=== PATIENT | female | born 1955 | race Caucasian/White ===

== ENCOUNTER 2018-06-11 10:14 | Inpatient (IN) | payer BC, MEDICARE ==
[~2018-06-11] VITALS: Ht 162.6 cm; Wt 63.1 kg
[~2018-06-11 10:14] MED LIST: ASPI-817 PO; ATOR10TA65 PO; DOXY100T21 PO; FER325 PO; HYDR-3601 PO; INSU100V3 IJ; LANT3I SC; NEPA3DRO RIGHT EYE; OFLO5DRO46 RIGHT EYE; PRED5DRO20 RIGHT EYE
[2018-06-11] MEDS ORDERED: ATOR40TA68 PO (11:27)
[2018-06-11] MEDS ORDERED: LISI40TA3 PO ×2 (11:28→21:07)
[2018-06-11] MEDS ORDERED: AMLO-147 PO ×2 (11:28→21:07)
[2018-06-11] MEDS ORDERED: INSU100I33 SC (11:29)
[2018-06-11] MEDS ORDERED: SOD CHLORIDE 0.9% 1,000 ML IV ONE (11:30)
[2018-06-11] MEDS ORDERED: CEFEPIME 1GM/50 ML (PMX) 50 ML IVPB ONE (11:30)
[2018-06-11] MEDS ORDERED: VANCOMYCIN 1 GM (PMX) 250 ML IVPB ONE (11:30)
--- NOTE | 2018-06-11 12:36 | ERD ---
ER Documentation Chief Complaint Chief Complaint right toe pain injury x yesterday HX DM HPI This is a 62-year-old female with a past medical history of hypertension, hyperlipidemia, insulin-dependent diabetes, lost to follow-up over the last 6 months but continuing to take her medications who is presenting with 1-2 days of right great toe swelling, redness and pain after an injury. The patient points to an injury sustained to the bottom part of the foot recently, after which her symptoms started to develop. The patient denies feeling sick recently. The patient denies fever or chills. The patient has had no headache or vision changes. The patient does not endorse neck or back pain. The patient denies lightheadedness or dizziness. The patient has had no chest pain or trouble breathing. The patient denies nausea or vomiting. The patient denies abdominal pain. The patient denies changes to bowel movements or urination. The patient has had no focal deficits. The patient has had no weakness or numbness or tingling to the face or extremities. ROS All systems reviewed and are negative except as per history of present illness. Medications Home Meds Reported Medications Insulin Glargine,Hum.rec.anlog (Basaglar Kwikpen U-100) 100 Unit/1 Ml Insuln.pen, 30 UNIT SC QHS, EA 06/11/18 Lisinopril* (Lisinopril*) 40 Mg Tablet, 40 MG PO DAILY, #30 TAB 06/11/18 Amlodipine Besylate* (Amlodipine Besylate*) 10 Mg Tablet, 10 MG PO DAILY, #30 TAB 06/11/18 Atorvastatin* (Atorvastatin*) 40 Mg Tablet, 40 MG PO QHS, #30 TAB 06/11/18 Discontinued Reported Medications Nepafenac* (Nevanac* 0.1%) 3 Ml Drops.susp, 1 DROP RIGHT EYE DAILY, EA 03/20/16 Ofloxacin* (Ocuflox*) 0.3%-5 Ml Ophth Drops, 1 DROP RIGHT EYE QID, BOTTLE 03/20/16 Prednisolone Acetate* (Pred Forte*) 5 Ml Susp, 1 DROP RIGHT EYE QID, EA 03/20/16 Insulin Regular, Human (Humulin R) 100 Unit/1 Ml Vial, 5 UNIT IJ DAILY, VIAL 03/20/16 Ferrous Sulfate* (Ferrous Sulfate*) 325 Mg Tabec, 325 MG PO BID, TAB 03/20/16 Discontinued Scripts Insulin Glargine* (Lantus*) 100 Unit/Ml Soln, 15 UNIT SC QHS for 30 Days Prov:FRAN GUTHRIE 03/25/16 Hydrocodone Bit-Acetaminophen (Hydrocodone Bit-APAP) 5-325MG Tablet, 1 TAB PO Q4H PRN for PAIN LEVEL 6-10, #20 TAB Prov:FRAN GUTHRIE 03/25/16 Atorvastatin (Atorvastatin) 10 Mg Tablet, 10 MG PO DAILY@21 for 30 Days, TAB Prov:FARN GUTHRIE 03/25/16 Aspirin* (Aspirin* EC) 81 Mg Tablet.dr, 81 MG PO DAILY for 30 Days Prov:FRAN GUTHRIE 03/25/16 Doxycycline Monohydrate* (Doxycycline Monohydrate*) 100 Mg Tablet, 100 MG PO BID for 7 Days, TAB Prov:FRAN GUTHRIE 03/25/16 Allergies Allergies: Coded Allergies: No Known Allergy (Unverified , 06/11/18) PMhx/Soc History of Surgery: Yes (RIGHT EYE CATARACT) Anesthesia Reaction: No Hx Neurological Disorder: No Hx Respiratory Disorders: Yes Hx Cardiac Disorders: Yes (HTN, HLD, DM) Hx Psychiatric Problems: No Hx Miscellaneous Medical Probl: No (HIGH CHOLESTEROL, ANEMIA) Hx Alcohol Use: No Hx Substance Use: No Hx Tobacco Use: No Smoking Status: Never smoker FmHx Family History: diabetes Physical Exam Vitals Vital Signs Date Temp Pulse Resp B/P (MAP) Pulse Ox O2 O2 Flow FiO2 Time Delivery Rate 06/11/18 98.4 108 20 184/75 99 Room Air 12:29 (111) 06/11/18 98.9 102 18 219/90 99 10:20 (133) Physical Exam Const: No apparent distress, well-developed, well-nourished Head: Normocephalic, Atraumatic Eyes: Normal Conjunctiva. Extraocular movements intact. Pupils equal, round and reactive to light ENT: Normal External Ears, Nose and Mouth. Neck: Full range of motion. No meningismus. Resp: Clear to auscultation bilaterally, No wheezes, rales or rhonchi Cardio: Regular rate and rhythm. No murmurs, rubs or gallops Abd: Soft, non tender, non distended. Normal bowel sounds Skin: No petechiae or rashes Back: No midline tenderness. No CVA tenderness Ext: No cyanosis. Right foot: Right great toe edema, erythema and fluctuance to the pulp with an excoriated lesion to the plantar aspect of the toe. Neur: Awake and alert, oriented 4. Cranial nerves intact. No facial droop. Normal strength, sensation and coordination. Psych: Normal Mood and Affect Result Diagram: 06/11/18 1234 06/11/18 1234 Results 24 hrs Laboratory Tests Test 06/11/18 12:34 White Blood Count 10.2 10^3/ul Red Blood Count 2.59 10^6/ul Hemoglobin 8.3 g/dl Hematocrit 25.7 % Mean Corpuscular Volume 99.2 fl Mean Corpuscular Hemoglobin 32.0 pg Mean Corpuscular Hemoglobin Concent 32.3 g/dl Red Cell Distribution Width 13.0 % Platelet Count 175 10^3/UL Mean Platelet Volume 11.0 fl Immature Granulocytes % 0.300 % Neutrophils % 82.3 % Lymphocytes % 7.7 % Monocytes % 7.1 % Eosinophils % 2.4 % Basophils % 0.2 % Nucleated Red Blood Cells % 0.0 /100WBC Immature Granulocytes # 0.030 10^3/ul Neutrophils # 8.4 10^3/ul Lymphocytes # 0.8 10^3/ul Monocytes # 0.7 10^3/ul Eosinophils # 0.2 10^3/ul Basophils # 0.0 10^3/ul Nucleated Red Blood Cells # 0.0 10^3/ul Prothrombin Time 13.2 Sec Prothrombin Time Ratio 1.0 INR International Normalized Ratio 0.99 Activated Partial Thromboplast Time 30.0 Sec Sodium Level 141 mmol/L Potassium Level 4.8 mmol/L Chloride Level 116 mmol/L Carbon Dioxide Level 15 mmol/L Anion Gap 10 Blood Urea Nitrogen 46 mg/dl Creatinine 2.63 mg/dl Est Glomerular Filtrat Rate mL/min 18 mL/min Glucose Level 133 mg/dl Calcium Level 8.7 mg/dl C-Reactive Protein 4.5 mg/dl Current Medications Medications Dose Sig/Mary Start Time Status Last (Trade) Ordered Route PRN Stop Time Admin Dose Reason Admin Sodium 1,000 ml @ Q1H ONCE 06/11/18 DC 06/11/18 Chloride 1,000 mls/hr IV 11:30 06/11/18 11:54 12:29 Vancomycin 250 ml @ ONCE ONCE 06/11/18 DC 06/11/18 HCl 125 mls/hr IVPB 11:30 06/11/18 12:29 13:29 Cefepime HCl 50 ml @ ONCE ONCE 06/11/18 DC 06/11/18 100 mls/hr IVPB 11:30 06/11/18 11:54 11:59 Ketorolac 15 mg ONCE STAT 06/11/18 DC 06/11/18 Tromethamine IV 12:52 06/11/18 13:05 (Toradol) 12:54 Ondansetron 4 mg ER BRIDGE 06/11/18 HCl (Zofran PRN IV 13:00 Inj) NAUSEA/VOMITI 06/12/18 12:59 NG 650 mg ER BRIDGE 06/11/18 Acetaminophen PRN PO 13:00 (Tylenol .MILD PAIN 06/12/18 12:59 Tab) 1-3 OR TEMP Procedures/MDM MDM The patient's presentation warrants further investigation. Previous medical records, if available, were reviewed. LABS The patient's laboratory testing was obtained and reviewed. No emergent treatment was required unless described below. CBC: No E/o of systemic infection or thrombocytopenia. Chronic normocytic anemia, not emergent. CMP: No E/o severe acidosis or alkalosis or diabetic ketoacidosis. CRISTINE on CKD with a metabolic alkalosis of unclear etiology. PT/INR: No E/o significant coagulopathy ESR/CRP: Elevated EKG EKG read by me: Rate/Rhythm: Sinus tachycardia at 105 bpm. Intervals: Normal [place]: Normal Impression: No evidence of acute ischemia or arrhythmia IMAGING Imaging and Radiology interpretation reviewed. X-ray right foot FINDINGS: Mild osteopenia. No displaced fracture. Soft tissue swelling and irregularity in the distal first digit. Faint contour irregularity of the distal first phalanx. No focal osteopenia or cortical disruption identified. Sclerosis and narrowing of the lateral aspect of the navicular bone with marginal osteophyte formation and talonavicular moderate cartilage space narrowing. Small calcaneal spur at the origin of the plantar fascia and small calcaneal enthesophyte at the insertion of Achilles tendon. IMPRESSION: 1. Soft tissue swelling and soft tissue irregularity of the distal first digit. 2. No focal cortical disruption or osteopenia in the first distal phalanx. Minimal contour irregularity of the distal first phalanx may be chronic. Recommend MRI for further evaluation if there is concern for osteomyelitis. 3. 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 Electronically viewed and signed by Loy Cespedes Physician on 06/11/2018 11:59 TREATMENT/DISPOSITION The patient presents with a left great toe infection, likely related to a diabetic wound. There is no obvious evidence of osteomyelitis on the x-ray, but I do still have suspicion for this. The patient was given IV fluids, vancomycin and cefepime in the emergency department. The patient was mildly tachycardic when she first arrived. Otherwise, she is afebrile with no leukocytosis. She does not meet criteria for a systemic inflammatory response and I have low suspicion for sepsis. I do not feel the patient requires a full sepsis bolus. The patient was already given antibiotics and blood cultures were sent off. There is no evidence of external purulent discharge. There is no site with which to obtain a wound culture. While there does appear to be a soft tissue infection, I do not intend to complete an incision and drainage in the emergency department. The patient will likely require specialty care with podiatry. The patient does also appear to have acute on chronic kidney disease with a mild metabolic acidosis. The patient has not been evaluated at this hospital since 2016, but her creatinine has increased since then. This could be chronic progression of disease. As stated above, the patient was given IV fluids in the emergency department. This will need to be addressed in the hospital as well. At this time, I feel that the patient requires admission for further evaluation and management. The patient will be admitted to panel in accordance with the patient's insurance. The patient was accepted by Dr. Sheridan at 12:30PM. Disclaimer: Inadvertent spelling and grammatical errors are likely due to EHR/di ctation software use and do not reflect on the overall quality of patient care. Note that the electronic time recorded on this note does not necessarily reflect the actual time of the patient encounter. Departure Diagnosis: Primary Impression: Diabetic foot ulcer Diabetic foot ulcer location: toe Diabetes mellitus type: other specified (including ALONSO) Laterality: right Non-pressure ulcer stage: limited to breakdown of skin Qualified Codes: E13.621 - Other specified diabetes mellitus with foot ulcer; L97.511 - Non-pressure chronic ulcer of other part of right foot limited to breakdown of skin Additional Impressions: Right foot infection Elevated erythrocyte sedimentation rate Elevated C-reactive protein (CRP) Acute kidney injury superimposed on chronic kidney disease Metabolic acidosis Normocytic anemia Condition: ALESHIA Riley MD Jun 11, 2018 12:36
[2018-06-11] MEDS ORDERED: KETOROLAC 15 MG INJ IV STA (12:52)
[2018-06-11] MEDS ORDERED: ONDANSETRON 4 MG INJ IV PRN (13:00)
[2018-06-11] MEDS ORDERED: ACETAMINOPHEN 325 MG TAB PO PRN (13:00)
--- NOTE | 2018-06-11 14:30 | NUR ---
Received from ER, awake, alert and oriented. Respirations even and non labored. Admitted with chief complaint of right great toe pain, no complaints at this time. Right great toe swollen and red, photos taken. Admit care rendered. Oriented to unit. Fall prevention initiated.
[2018-06-11 14:33] VITALS: Ht 162.6 cm; Wt 63.1 kg
[2018-06-11 14:41] VITALS: BP 149/84; PULSE 90; RESP 18
[2018-06-11] MEDS ORDERED: NACL 0.9% 3 ML SYG IV SCH (15:30)
[2018-06-11] MEDS ORDERED: GLUCOSE GEL 15 GRAM TUBE BUCCAL PRN (15:30)
[2018-06-11] MEDS ORDERED: GLUCAGON 1 MG INJ IM PRN (15:30)
[2018-06-11] MEDS ORDERED: GLUCOSE GEL 15 GRAM TUBE PO PRN ×2 (15:30)
[2018-06-11] MEDS ORDERED: VANCOMYCIN IV PER PHARMACY XX SCH (15:30)
[2018-06-11] MEDS ORDERED: DEXTROSE 50% 50 ML SYRINGE IV PRN ×2 (15:30)
--- NOTE | 2018-06-11 15:30 | HP ---
Date/Time of Note Date/Time of Note DATE: 06/11/18 TIME: 15:20 Assessment/Plan VTE Prophylaxis SCD applied (from Nsg): Yes Pharmacological prophylaxis: NA/contraindicated Pharm contraindication: low risk/ambulating Lines/Catheters IV Catheter Type (from Nrsg): Saline Lock Assessment/Plan Assessment/Plan 62 yo woman with history of IDDM, HTN presents with R toe pain and HTN #HTN - Blood pressure 219/90 on admission. Patient asymptomatic. - Will resume home meds, titrate up. #CRISTINE - May be due to uncontrolled HTN - Will check UA, urine prot/Cr ratio plus FeNa and FeUrea - If not improving, will consult renal #Toe - Empiric ceftriaxone and vanco - Will call podiatry DVT: SCDs GI: None Result Diagram: 06/11/18 1234 06/11/18 1234 HPI/ROS Admit Date/Time Admit Date/Time Jun 11, 2018 at 12:54 Hx of Present Illness Ms. Hi rudd is a pleasant 62 yo woman who presents with R great toe pain and redness. She has a chronic callus at the tip of her great toe with split about 1-2 days ago. Since then she's had redness and pain when bearing weight on the toe. She also mentions mild lateral thigh muscle soreness when she walks too long. Otherwise no fevers, chills, or other systemic signs. She reports compliance with all listed meds. In the ED she was afebrile, HTNsive to 219/90, tachy to 100. Labs notable for CRISTINE with Cr 2.62 (was 1.55 in 2016); and Hgb 8.3. ROS She denies fever, chills, night sweats, weight loss, headache, vision changes, sore throat, dysphagia, nausea, vomiting, abdominal pain, chest pain/pressure/palpitations, dyspnea, cough, diarrhea, constipation, dysuria, hematuria, melena, hematochezia. PMH/Family/Social Past Medical History HTN Dyslipidemia IDDM Medications Current Medications Ondansetron HCl (Zofran Inj) 4 mg ER BRIDGE PRN IV NAUSEA/VOMITING; Start 06/11/18 at 13:00; Stop 06/12/18 at 12:59 Acetaminophen (Tylenol Tab) 650 mg ER BRIDGE PRN PO .MILD PAIN 1-3 OR TEMP; Start 06/11/18 at 13:00; Stop 06/12/18 at 12:59 Coded Allergies: No Known Allergy (Unverified , 06/11/18) Past Surgical History Denies Family History Significant Family History: diabetes Social History Alcohol Use: none Smoking Status: Never smoker Drug Use: none Exam/Review of Systems Vital Signs Vitals Vital Signs Date Temp Pulse Resp B/P (MAP) Pulse Ox O2 O2 Flow FiO2 Time Delivery Rate 06/11/18 98.2 90 18 149/84 97 Room Air 14:41 (105) Exam Exam Gen: Well appearing woman in no acute distress. Eyes: PERRL, no icterus HEENT: Very poor dentition, moist mucous membranes Neck: No lymphadenopathy Card: Regular rate and rhythm, 2/6 systolic ejection murmur Pulm: Clear to auscultation bilaterally Abd: Soft, nontender, nondistended. Ext: No cyanosis/clubbing/edema. R great toe with inferior callus, recently split; erythema and mild swelling extending up toe. Mildly tender to manipulation. Skin: warm, dry, well perfused DIEGO MORGAN MD Jun 11, 2018 15:30
--- NOTE | 2018-06-11 16:30 | NUR ---
Seen by PMD, admit orders written.
[2018-06-11] MEDS: CEFTRIAXONE 1 GM/50 ML (PMX) 50 ML IVPB SCH (17:10)
--- NOTE | 2018-06-11 18:57 | NUR ---
VANCO PER RX: 62F 5FT 4 IN. 63 KG SCR 2.63 CRCL 21 Problem List: Diabetic foot ulcer, CRISTINE ON CKD Current ABXs: PAM DE SANTIAGO Comments/Plan: VANCO 1 GM GIVEN AT ER TODAY. CONTINUE VANCO 1 GM IVPB Q48H.
--- NOTE | 2018-06-11 19:04 | CONS ---
Assessment/Plan Assessment/Plan Assessment/Plan (Daily) R foot cellulitis R foot abscess R foot diabetic ulcer Suspicion for osteomyelitis of R foot IDDM with peripheral neuropathy HTN HLD Plan Consent was obtained and performed excisional debridement of skin/subQ/fascia/adipose of the right hallux ulceration site using a scalpel blade and machine operator picker/scissor. Hyperkeratotic tissue, purulence, and necrotic adipose tissue was removed. Less than 10cm2 of area was debrided. Copious irrigation to the ulcer site and dressed with 4x4 betadine gauze and kerlix wrap. Wound cultures were obtained. X-rays reviewed and noted signs of osteonecrosis to the talonavicular area. There is no open lesion associated with this area and patient is asymptomatic. Will monitor that site. Concern is to the right hallux ulceration site. Recommend daily dressing changes with dakins irrigation, betadine 4x4 gauze and kerlix wrap. Continue with IV abx as recommended. MRI and non-invasive studies ordered. Will plan for OR debridement on Wednesday. Consultation Date/Type/Reason Admit Date/Time Jun 11, 2018 at 12:54 Date/Time of Note DATE: 06/11/18 TIME: 19:04 Hx of Present Illness 62 y/o diabetic female patient presents with right great toe pain and redness that worsened for the past 2 days. Patient does not recall any trauma to the area. Patient reports numbness to the toes and is unaware of any direct cause to the symptoms of her toe. Patient denies f/c/n/v no chest pain or shortness of breath. Patient rates the pain worse with direct pressure and relieved when non weight bearing to the area. Pain is sharp and aching rated 6/10 at its worst. negative except for HPI Past Medical History IDDM, HLD, HTN Home Meds Reported Medications Insulin Glargine,Hum.rec.anlog (Basaglar Kwikpen U-100) 100 Unit/1 Ml Insuln.pen, 13 UNIT SC QHS, EA 06/11/18 Lisinopril* (Lisinopril*) 40 Mg Tablet, 40 MG PO DAILY, #30 TAB 06/11/18 Amlodipine Besylate* (Amlodipine Besylate*) 10 Mg Tablet, 10 MG PO DAILY, #30 TAB 06/11/18 Atorvastatin* (Atorvastatin*) 40 Mg Tablet, 40 MG PO QHS, #30 TAB 06/11/18 Discontinued Reported Medications Nepafenac* (Nevanac* 0.1%) 3 Ml Drops.susp, 1 DROP RIGHT EYE DAILY, EA 03/20/16 Ofloxacin* (Ocuflox*) 0.3%-5 Ml Ophth Drops, 1 DROP RIGHT EYE QID, BOTTLE 03/20/16 Prednisolone Acetate* (Pred Forte*) 5 Ml Susp, 1 DROP RIGHT EYE QID, EA 03/20/16 Insulin Regular, Human (Humulin R) 100 Unit/1 Ml Vial, 5 UNIT IJ DAILY, VIAL 03/20/16 Ferrous Sulfate* (Ferrous Sulfate*) 325 Mg Tabec, 325 MG PO BID, TAB 03/20/16 Discontinued Scripts Insulin Glargine* (Lantus*) 100 Unit/Ml Soln, 15 UNIT SC QHS for 30 Days Prov:FRAN GUTHRIE 03/25/16 Hydrocodone Bit-Acetaminophen (Hydrocodone Bit-APAP) 5-325MG Tablet, 1 TAB PO Q4H PRN for PAIN LEVEL 6-10, #20 TAB Prov:FRAN GUTHRIE 03/25/16 Atorvastatin (Atorvastatin) 10 Mg Tablet, 10 MG PO DAILY@21 for 30 Days, TAB Prov:FRAN GUTHRIE 03/25/16 Aspirin* (Aspirin* EC) 81 Mg Tablet.dr, 81 MG PO DAILY for 30 Days Prov:FRAN GUTHRIE 03/25/16 Doxycycline Monohydrate* (Doxycycline Monohydrate*) 100 Mg Tablet, 100 MG PO BID for 7 Days, TAB Prov:FRAN GUTHRIE 03/25/16 Medications Current Medications Ondansetron HCl (Zofran Inj) 4 mg ER BRIDGE PRN IV NAUSEA/VOMITING; Start 06/11/18 at 13:00; Stop 06/12/18 at 12:59 IV Flush (NS 3 ml) 3 ml PER PROTOCOL IV ; Start 06/11/18 at 15:30 Acetaminophen (Tylenol Tab) 650 mg Q6H PRN PO .PAIN 1-3 OR TEMP; Start 06/11/18 at 15:30 Vancomycin HCl (Vanco Iv Per Pharmacy) VANCOMYCIN PER PHARMACY PER PROTOCOL XX ; Start 06/11/18 at 15:30 Ceftriaxone Sodium 50 ml @ 100 mls/hr Q24H IVPB Last administered on 06/11/18at 17:10; Admin Dose 100 MLS/HR; Start 06/11/18 at 15:30 Amlodipine Besylate (Norvasc) 10 mg DAILY PO ; Start 06/12/18 at 09:00 Atorvastatin Calcium (Lipitor) 40 mg QHS PO ; Start 06/11/18 at 21:00 Insulin Glargine (Lantus) 13 unit QHS SC ; Start 06/11/18 at 21:00 Miscellaneous Information 1 ea NOTE XX ; Start 06/11/18 at 15:30 Glucose (Glutose) 15 gm Q15M PRN PO DECREASED GLUCOSE; Start 06/11/18 at 15:30 Glucose (Glutose) 22.5 gm Q15M PRN PO DECREASED GLUCOSE; Start 06/11/18 at 15:30 Dextrose (D50w Syringe) 25 ml Q15M PRN IV DECREASED GLUCOSE; Start 06/11/18 at 15:30 Dextrose (D50w Syringe) 50 ml Q15M PRN IV DECREASED GLUCOSE; Start 06/11/18 at 15:30 Glucagon (Glucagen) 1 mg Q15M PRN IM DECREASED GLUCOSE; Start 06/11/18 at 15:30 Glucose (Glutose) 15 gm Q15M PRN BUCCAL DECREASED GLUCOSE; Start 06/11/18 at 15:30 Vancomycin HCl 250 ml @ 125 mls/hr Q48H IVPB ; Start 06/13/18 at 12:00 Allergies: Coded Allergies: No Known Allergy (Unverified , 06/11/18) Past Surgical History cataract surgery Family History Significant Family History: cancer Social History Alcohol Use: none Smoking Status: Never smoker Drug Use: none Exam/Review of Systems Exam Vitals Vital Signs Date Temp Pulse Resp B/P (MAP) Pulse Ox O2 O2 Flow FiO2 Time Delivery Rate 06/11/18 98.2 90 18 149/84 97 Room Air 14:41 (105) Exam DP/PT pulses palpable absent protective sensations to the feet Right hallux with hyperkeratotic lesion and surrounding erythema. Post debridement revealed 1.5 x 1.5 x 0.8cm ulceration where the distal phalanx is exposed. There is purulent drainage noted approximately 4-5mL noted. Pain on palpation of the right hallux ulceration site weak extensor strength noted to the great toe Muscle strength 4/5 with hallux extension 5/5 in all compartments of the foot. Non pitting edema surrounding the R great toe Foot X-ray IMPRESSION: 1. Soft tissue swelling and soft tissue irregularity of the distal first digit. 2. No focal cortical disruption or osteopenia in the first distal phalanx. Minimal contour irregularity of the distal first phalanx may be chronic. Pritesh mmend MRI for further evaluation if there is concern for osteomyelitis. 3. 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 Results Result Diagram: 06/11/18 1234 06/11/18 1234 Results 24hrs Laboratory Tests Test 06/11/18 12:33 06/11/18 12:34 06/11/18 17:27 Iron Level 27 L Total Iron Binding Capacity 281 Percent Iron Saturation 10 L Ferritin 25.8 White Blood Count 10.2 # Red Blood Count 2.59 L Hemoglobin 8.3 L Hematocrit 25.7 L Mean Corpuscular Volume 99.2 Mean Corpuscular Hemoglobin 32.0 Mean Corpuscular Hemoglobin Concent 32.3 Red Cell Distribution Width 13.0 Platelet Count 175 Mean Platelet Volume 11.0 #H Immature Granulocytes % 0.300 Neutrophils % 82.3 H Lymphocytes % 7.7 L Monocytes % 7.1 Eosinophils % 2.4 Basophils % 0.2 Nucleated Red Blood Cells % 0.0 Immature Granulocytes # 0.030 Neutrophils # 8.4 H Lymphocytes # 0.8 Monocytes # 0.7 Eosinophils # 0.2 Basophils # 0.0 Nucleated Red Blood Cells # 0.0 Erythrocyte Sedimentation Rate 74 H Prothrombin Time 13.2 Prothrombin Time Ratio 1.0 INR International Normalized Ratio 0.99 Activated Partial Thromboplast Time 30.0 Urine Color YELLOW Urine Clarity CLEAR Urine pH 7.0 Urine Specific [place] 1.013 Urine Ketones NEGATIVE Urine Nitrite NEGATIVE Urine Bilirubin NEGATIVE Urine Urobilinogen NEGATIVE Urine Leukocyte Esterase NEGATIVE Urine Microscopic RBC 1 Urine Microscopic WBC 4 Urine Bacteria FEW A Urine Hemoglobin NEGATIVE Urine Random Creatinine 54.46 Urine Random Sodium 93 H Urine Random Urea Nitrogen 446 Urine Glucose 1+ H Urine Total Protein 2+ H Sodium Level 141 Potassium Level 4.8 Chloride Level 116 H Carbon Dioxide Level 15 L Anion Gap 10 Blood Urea Nitrogen 46 H Creatinine 2.63 H Est Glomerular Filtrat Rate mL/min 18 L Glucose Level 133 Calcium Level 8.7 C-Reactive Protein 4.5 H Bedside Glucose 103 Medications Medication Current Medications Ondansetron HCl (Zofran Inj) 4 mg ER BRIDGE PRN IV NAUSEA/VOMITING; Start 06/11/18 at 13:00; Stop 06/12/18 at 12:59 IV Flush (NS 3 ml) 3 ml PER PROTOCOL IV ; Start 06/11/18 at 15:30 Acetaminophen (Tylenol Tab) 650 mg Q6H PRN PO .PAIN 1-3 OR TEMP; Start 06/11/18 at 15:30 Vancomycin HCl (Vanco Iv Per Pharmacy) VANCOMYCIN PER PHARMACY PER PROTOCOL XX ; Start 06/11/18 at 15:30 Ceftriaxone Sodium 50 ml @ 100 mls/hr Q24H IVPB Last administered on 06/11/18at 17:10; Admin Dose 100 MLS/HR; Start 06/11/18 at 15:30 Amlodipine Besylate (Norvasc) 10 mg DAILY PO ; Start 06/12/18 at 09:00 Atorvastatin Calcium (Lipitor) 40 mg QHS PO ; Start 06/11/18 at 21:00 Insulin Glargine (Lantus) 13 unit QHS SC ; Start 06/11/18 at 21:00 Miscellaneous Information 1 ea NOTE XX ; Start 06/11/18 at 15:30 Glucose (Glutose) 15 gm Q15M PRN PO DECREASED GLUCOSE; Start 06/11/18 at 15:30 Glucose (Glutose) 22.5 gm Q15M PRN PO DECREASED GLUCOSE; Start 06/11/18 at 15:30 Dextrose (D50w Syringe) 25 ml Q15M PRN IV DECREASED GLUCOSE; Start 06/11/18 at 15:30 Dextrose (D50w Syringe) 50 ml Q15M PRN IV DECREASED GLUCOSE; Start 06/11/18 at 15:30 Glucagon (Glucagen) 1 mg Q15M PRN IM DECREASED GLUCOSE; Start 06/11/18 at 15:30 Glucose (Glutose) 15 gm Q15M PRN BUCCAL DECREASED GLUCOSE; Start 06/11/18 at 15:30 Vancomycin HCl 250 ml @ 125 mls/hr Q48H IVPB ; Start 06/13/18 at 12:00 JERSON GRAHAM DPM Jun 11, 2018 19:04
--- NOTE | 2018-06-11 19:12 | NUR ---
S/P I&D of right great toe wound by Dr. Mcpherson, patient tolerated procedure well.
[2018-06-11 20:45] VITALS: BP 190/79; PULSE 87; RESP 18
[2018-06-11] MEDS ORDERED: INSULIN GLARGINE [LANtus] 3 ML PEN SC SCH (21:00)
[2018-06-11] MEDS: INSULIN GLARGINE [LANTus] (100 UNITS/ML) SYG SC SCH (21:15)
[2018-06-11] MEDS: ATORVASTATIN 40 MG TAB PO SCH (21:15)
[2018-06-11] MEDS ORDERED: hydrALAzine 20 MG INJ IV PRN (21:30)
[2018-06-11 21:45] VITALS: BP 192/81; PULSE 88
[2018-06-11] MEDS: AMLODIPINE 10 MG TAB PO SCH (21:47)
[2018-06-11 22:42] VITALS: BP 129/60; PULSE 95
[2018-06-11] MEDS: ACETAMINOPHEN 325 MG TAB PO PRN (22:44)
[2018-06-12 02:00] VITALS: BP 105/47; PULSE 85
--- NOTE | 2018-06-12 06:40 | NUR ---
RN Notes Patient received awake in bed. Alert and oriented to person, place, time and situation. Verbally responsive. [place] Citizen speaking. Family at bedside. Patient is s/p I&D of right hallux. Dressing intact, no drainage observed. Patient initially denying pain; however did complaint of 4/10 pain and tylenol administered. Medication effective upon reassessment. Received new orders to continue patient's Norvasc and additional antihypertensive medication (hydralazine) received due to patient's elevated blood pressure. Medication was effective upon reassessment of BP. Patient had no further complaints of pain or discomfort. Patient is pending MRI to right foot; Will endorse to oncoming RN for continuity of care.
[2018-06-12 07:42] VITALS: BP 115/56; PULSE 81; RESP 18
[2018-06-12] MEDS: AMLODIPINE 10 MG TAB PO SCH ×2 (08:28)
[2018-06-12] MEDS: SODIUM HYPOCHLORITE (1/40) 1 APPLIC BTL IRR SCH (08:34)
--- NOTE | 2018-06-12 08:55 | CONS ---
Assessment/Plan Assessment/Plan Assessment/Plan (Daily) 1. acute kidney injury vs acute kindey injury on CKD 2/2 Prerenal azotemia + ATN From infection 2. H/o possible CKD due to hypertensive nephrosclerosis + DM nephropathy 3. metabolic acidosis due to Arsen on CKD 4. R toe infection 5. Accelerated HTN 6. h/o HTN Plan: on IV abx ceftriaxone and vancomycin< renally dose all abx and monitor electrolytes Urine Na, urine prot/cr ratio, urine esoinophils, CK total, Uric acid Renal US has been ordered to assess for CKD and to rule out hydronephrosis. Amlodipine 10 mg po dialy fo rHTN, stop lisinopril, IV hydralzine prn Lantus for DM, goal HBA1c less than 7.0 Thanks for consultation, I will continue to follow up Consultation Date/Type/Reason Admit Date/Time Jun 11, 2018 at 12:54 Date of Consultation: Jun 12, 2018 Type of Consult NEPHROLOGY Reason for Consultation Acute on chronic renal failure Requesting Provider: DIEGO MORGAN MD Date/Time of Note DATE: 06/12/18 TIME: 08:54 Hx of Present Illness 62 yo woman with history of IDDM, HTN presents with R toe pain and HTN.pt had a Uncontrolled HTN on admission which required multiple medications. On admission BUN/Cr 46/2.63, HCo3 15 on admission, which worsened to BUN/Cr 46/3.02, HCo3 16- Renal has been consulted for acute on chronic renal failure and metabolic acidosis Constitutional: no complaints Eyes: no complaints ENT: no complaints Respiratory: no complaints Cardiovascular: no complaints Gastrointestinal: no complaints Genitourinary: no complaints Musculoskeletal: back pain, bone/joint pain, other (R toe pain ) Neurologic: no complaints Endocrine: no complaints Lymphatic: no complaints Psychological: no complaints Immunologic: no complaints Past Medical History Medical History: high cholesterol, hypertension, renal disease Home Meds Reported Medications Lisinopril* (Lisinopril*) 40 Mg Tablet, 40 MG PO DAILY, #30 TAB 06/11/18 Amlodipine Besylate* (Amlodipine Besylate*) 10 Mg Tablet, 10 MG PO DAILY, #30 TAB 06/11/18 Insulin Glargine,Hum.rec.anlog (Basaglar Kwikpen U-100) 100 Unit/1 Ml Insuln.pen, 13 UNIT SC QHS, EA 06/11/18 Lisinopril* (Lisinopril*) 40 Mg Tablet, 40 MG PO DAILY, #30 TAB 06/11/18 Amlodipine Besylate* (Amlodipine Besylate*) 10 Mg Tablet, 10 MG PO DAILY, #30 TAB 06/11/18 Atorvastatin* (Atorvastatin*) 40 Mg Tablet, 40 MG PO QHS, #30 TAB 06/11/18 Discontinued Reported Medications Nepafenac* (Nevanac* 0.1%) 3 Ml Drops.susp, 1 DROP RIGHT EYE DAILY, EA 03/20/16 Ofloxacin* (Ocuflox*) 0.3%-5 Ml Ophth Drops, 1 DROP RIGHT EYE QID, BOTTLE 03/20/16 Prednisolone Acetate* (Pred Forte*) 5 Ml Susp, 1 DROP RIGHT EYE QID, EA 03/20/16 Insulin Regular, Human (Humulin R) 100 Unit/1 Ml Vial, 5 UNIT IJ DAILY, VIAL 03/20/16 Ferrous Sulfate* (Ferrous Sulfate*) 325 Mg Tabec, 325 MG PO BID, TAB 03/20/16 Discontinued Scripts Insulin Glargine* (Lantus*) 100 Unit/Ml Soln, 15 UNIT SC QHS for 30 Days Prov:FRAN GUTHRIE 03/25/16 Hydrocodone Bit-Acetaminophen (Hydrocodone Bit-APAP) 5-325MG Tablet, 1 TAB PO Q4H PRN for PAIN LEVEL 6-10, #20 TAB Prov:FRAN GUTHRIE 03/25/16 Atorvastatin (Atorvastatin) 10 Mg Tablet, 10 MG PO DAILY@21 for 30 Days, TAB Prov:FRAN GUTHRIE 03/25/16 Aspirin* (Aspirin* EC) 81 Mg Tablet.dr, 81 MG PO DAILY for 30 Days Prov:FRAN GUTHRIE 03/25/16 Doxycycline Monohydrate* (Doxycycline Monohydrate*) 100 Mg Tablet, 100 MG PO BID for 7 Days, TAB Prov:FRAN GUTHRIE 03/25/16 Medications Current Medications Ondansetron HCl (Zofran Inj) 4 mg ER BRIDGE PRN IV NAUSEA/VOMITING; Start 06/11/18 at 13:00; Stop 06/12/18 at 12:59 IV Flush (NS 3 ml) 3 ml PER PROTOCOL IV ; Start 06/11/18 at 15:30 Acetaminophen (Tylenol Tab) 650 mg Q6H PRN PO .PAIN 1-3 OR TEMP Last administered on 06/11/18at 22:44; Admin Dose 650 MG; Start 06/11/18 at 15:30 Vancomycin HCl (Vanco Iv Per Pharmacy) VANCOMYCIN PER PHARMACY PER PROTOCOL XX ; Start 06/11/18 at 15:30 Ceftriaxone Sodium 50 ml @ 100 mls/hr Q24H IVPB Last administered on 06/11/18at 17:10; Admin Dose 100 MLS/HR; Start 06/11/18 at 15:30 Amlodipine Besylate (Norvasc) 10 mg DAILY PO ; Start 06/12/18 at 09:00 Atorvastatin Calcium (Lipitor) 40 mg QHS PO Last administered on 06/11/18at 21:15; Admin Dose 40 MG; Start 06/11/18 at 21:00 Miscellaneous Information 1 ea NOTE XX ; Start 06/11/18 at 15:30 Glucose (Glutose) 15 gm Q15M PRN PO DECREASED GLUCOSE; Start 06/11/18 at 15:30 Glucose (Glutose) 22.5 gm Q15M PRN PO DECREASED GLUCOSE; Start 06/11/18 at 15:30 Dextrose (D50w Syringe) 25 ml Q15M PRN IV DECREASED GLUCOSE; Start 06/11/18 at 15:30 Dextrose (D50w Syringe) 50 ml Q15M PRN IV DECREASED GLUCOSE; Start 06/11/18 at 15:30 Glucagon (Glucagen) 1 mg Q15M PRN IM DECREASED GLUCOSE; Start 06/11/18 at 15:30 Glucose (Glutose) 15 gm Q15M PRN BUCCAL DECREASED GLUCOSE; Start 06/11/18 at 15:30 Vancomycin HCl 250 ml @ 125 mls/hr Q48H IVPB ; Start 06/13/18 at 12:00 Sodium Hypochlorite (Dakin'S (Dilute )) 1 applic DAILY IRR Last administered on 06/12/18at 08:34; Admin Dose 1 APPLIC; Start 06/12/18 at 09:00 Insulin Glargine (Lantus) 13 units QHS SC Last administered on 06/11/18at 21:15; Admin Dose 13 UNITS; Start 06/11/18 at 21:30 Amlodipine Besylate (Norvasc) 10 mg DAILY PO Last administered on 06/12/18at 08:28; Admin Dose 10 MG; Start 06/11/18 at 22:00 Hydralazine HCl (Apresoline) 10 mg Q6H PRN IV ELEVATED SYSTOLIC BP Last administered on 06/11/18at 21:48; Admin Dose 10 MG; Start 06/11/18 at 21:30 Miscellaneous Information (*Rx Drug Level Order Reminder*) RANDOM VANCOMYCIN LEVEL 2... ONCE ONCE XX ; Start 06/13/18 at 05:00; Stop 06/13/18 at 05:01 Allergies: Coded Allergies: No Known Allergy (Unverified , 06/11/18) Past Surgical History Past Surgical Hx: other (Not available ) Family History Significant Family History: no pertinent family hx Social History Alcohol Use: none Smoking Status: Never smoker Drug Use: none Exam/Review of Systems Exam Vitals Vital Signs Date Temp Pulse Resp B/P (MAP) Pulse Ox O2 O2 Flow FiO2 Time Delivery Rate 06/12/18 98.2 81 18 115/56 96 07:42 (75) 06/11/18 Room Air 14:41 Intake and Output 06/11/18 06/11/18 06/12/18 1515:00 23:00 07:00 IntakeIntake Total 600 ml BalanceBalance 600 ml Exam Gen: alert, awake, no acute distress . Eyes: PERRL, no icterus HEENT: Very poor dentition, moist mucous membranes Neck: No lymphadenopathy Card: Regular rate and rhythm, 2/6 systolic ejection murmur Pulm: Clear to auscultation bilaterally Abd: Soft, nontender, nondistended. Ext: No cyanosis/clubbing/edema. R great toe with inferior callus, recently split; erythema and mild swelling extending up toe. Mildly tender to manipulation. Skin: warm, dry, well perfused Results Result Diagram: 06/12/1854506/12/18545 Results 24hrs Laboratory Tests Test 06/11/18 12:33 06/11/18 12:34 06/11/18 17:27 06/11/18 20:59 Iron Level 27 L Total Iron Binding 281 Capacity Percent Iron Saturation 10 L Ferritin 25.8 White Blood Count 10.2 # Red Blood Count 2.59 L Hemoglobin 8.3 L Hematocrit 25.7 L Mean Corpuscular Volume 99.2 Mean Corpuscular 32.0 Hemoglobin Mean Corpuscular 32.3 Hemoglobin Concent Red Cell Distribution 13.0 Width Platelet Count 175 Mean Platelet Volume 11.0 #H Immature Granulocytes % 0.300 Neutrophils % 82.3 H Lymphocytes % 7.7 L Monocytes % 7.1 Eosinophils % 2.4 Basophils % 0.2 Nucleated Red Blood 0.0 Cells % Immature Granulocytes # 0.030 Neutrophils # 8.4 H Lymphocytes # 0.8 Monocytes # 0.7 Eosinophils # 0.2 Basophils # 0.0 Nucleated Red Blood 0.0 Cells # Erythrocyte 74 H Sedimentation Rate Prothrombin Time 13.2 Prothrombin Time Ratio 1.0 INR International 0.99 Normalized Ratio Activated 30.0 Partial Thromboplast Time Urine Color YELLOW Urine Clarity CLEAR Urine pH 7.0 Urine Specific [place] 1.013 Urine Ketones NEGATIVE Urine Nitrite NEGATIVE Urine Bilirubin NEGATIVE Urine Urobilinogen NEGATIVE Urine Leukocyte NEGATIVE Esterase Urine Microscopic RBC 1 Urine Microscopic WBC 4 Urine Bacteria FEW A Urine Hemoglobin NEGATIVE Urine Random Creatinine 54.46 Urine Random Sodium 93 H Urine Random Urea 446 Nitrogen Urine Glucose 1+ H Urine Total Protein 2+ H Sodium Level 141 Potassium Level 4.8 Chloride Level 116 H Carbon Dioxide Level 15 L Anion Gap 10 Blood Urea Nitrogen 46 H Creatinine 2.63 H Est Glomerular Filtrat 18 L Rate mL/min Glucose Level 133 Calcium Level 8.7 C-Reactive Protein 4.5 H Bedside Glucose 103 151 Test 06/12/18 05:46 White Blood Count 8.7 Red Blood Count 2.24 L Hemoglobin 7.3 L Hematocrit 22.8 L Mean Corpuscular Volume 101.8 H Mean Corpuscular 32.6 Hemoglobin Mean Corpuscular 32.0 Hemoglobin Concent Red Cell Distribution 13.1 Width Platelet Count 155 Mean Platelet Volume 11.3 H Immature Granulocytes % 0.500 H Neutrophils % 61.9 Lymphocytes % 19.8 Monocytes % 9.4 Eosinophils % 8.2 H Basophils % 0.2 Nucleated Red Blood 0.0 Cells % Immature Granulocytes # 0.040 H Neutrophils # 5.4 Lymphocytes # 1.7 Monocytes # 0.8 Eosinophils # 0.7 H Basophils # 0.0 Nucleated Red Blood 0.0 Cells # Sodium Level 138 Potassium Level 5.0 Chloride Level 115 H Carbon Dioxide Level 16 L Anion Gap 7 Blood Urea Nitrogen 46 H Creatinine 3.02 H Est Glomerular Filtrat 16 L Rate mL/min Glucose Level 96 Hemoglobin A1c 6.5 H Calcium Level 8.3 L Phosphorus Level 5.0 H Magnesium Level 2.4 Total Bilirubin 0.0 L Direct Bilirubin 0.00 Indirect Bilirubin 0.0 Aspartate Amino 13 L Transf (AST/SGOT) Alanine 8 L Aminotransferase (ALT/S GPT) Alkaline Phosphatase 114 Total Protein 5.4 L Albumin 2.8 L Globulin 2.60 Albumin/Globulin Ratio 1.07 Triglycerides Level 238 H Cholesterol Level 257 H LDL Cholesterol, 155 Calculated HDL Cholesterol 54 Cholesterol/HDL Ratio 4.7 Medications Medication Current Medications Ondansetron HCl (Zofran Inj) 4 mg ER BRIDGE PRN IV NAUSEA/VOMITING; Start 06/11/18 at 13:00; Stop 06/12/18 at 12:59 IV Flush (NS 3 ml) 3 ml PER PROTOCOL IV ; Start 06/11/18 at 15:30 Acetaminophen (Tylenol Tab) 650 mg Q6H PRN PO .PAIN 1-3 OR TEMP Last administered on 06/11/18at 22:44; Admin Dose 650 MG; Start 06/11/18 at 15:30 Vancomycin HCl (Vanco Iv Per Pharmacy) VANCOMYCIN PER PHARMACY PER PROTOCOL XX ; Start 06/11/18 at 15:30 Ceftriaxone Sodium 50 ml @ 100 mls/hr Q24H IVPB Last administered on 06/11/18at 17:10; Admin Dose 100 MLS/HR; Start 06/11/18 at 15:30 Amlodipine Besylate (Norvasc) 10 mg DAILY PO ; Start 06/12/18 at 09:00 Atorvastatin Calcium (Lipitor) 40 mg QHS PO Last administered on 06/11/18at 21:15; Admin Dose 40 MG; Start 06/11/18 at 21:00 Miscellaneous Information 1 ea NOTE XX ; Start 06/11/18 at 15:30 Glucose (Glutose) 15 gm Q15M PRN PO DECREASED GLUCOSE; Start 06/11/18 at 15:30 Glucose (Glutose) 22.5 gm Q15M PRN PO DECREASED GLUCOSE; Start 06/11/18 at 15:30 Dextrose (D50w Syringe) 25 ml Q15M PRN IV DECREASED GLUCOSE; Start 06/11/18 at 15:30 Dextrose (D50w Syringe) 50 ml Q15M PRN IV DECREASED GLUCOSE; Start 06/11/18 at 15:30 Glucagon (Glucagen) 1 mg Q15M PRN IM DECREASED GLUCOSE; Start 06/11/18 at 15:30 Glucose (Glutose) 15 gm Q15M PRN BUCCAL DECREASED GLUCOSE; Start 06/11/18 at 15:30 Vancomycin HCl 250 ml @ 125 mls/hr Q48H IVPB ; Start 06/13/18 at 12:00 Sodium Hypochlorite (Dakin'S (Dilute )) 1 applic DAILY IRR Last administered on 06/12/18at 08:34; Admin Dose 1 APPLIC; Start 06/12/18 at 09:00 Insulin Glargine (Lantus) 13 units QHS SC Last administered on 06/11/18at 21:15; Admin Dose 13 UNITS; Start 06/11/18 at 21:30 Amlodipine Besylate (Norvasc) 10 mg DAILY PO Last administered on 06/12/18at 08:28; Admin Dose 10 MG; Start 06/11/18 at 22:00 Hydralazine HCl (Apresoline) 10 mg Q6H PRN IV ELEVATED SYSTOLIC BP Last administered on 06/11/18at 21:48; Admin Dose 10 MG; Start 06/11/18 at 21:30 Miscellaneous Information (*Rx Drug Level Order Reminder*) RANDOM VANCOMYCIN LEVEL 2... ONCE ONCE XX ; Start 06/13/18 at 05:00; Stop 06/13/18 at 05:01 LEONARD DOBBINS MD Jun 12, 2018 08:55
[2018-06-12] MEDS ORDERED: LISINOPRIL 20 MG TAB PO SCH (09:00)
--- NOTE | 2018-06-12 14:02 | PN ---
Date/Time of Note Date/Time of Note DATE: 06/12/18 TIME: 13:56 Assessment/Plan VTE Prophylaxis Risk score (from Nsg)>0 risk: 2 SCD applied (from Ns): No SCD contraindicated: low risk/ambulating Pharmacological prophylaxis: NA/contraindicated Pharm contraindication: low risk/ambulating Lines/Catheters IV Catheter Type (from Nrsg): Saline Lock Assessment/Plan Assessment/Plan 62 yo woman with history of IDDM, HTN presents with R toe pain and HTN #HTN - Blood pressure 219/90 on admission. Patient asymptomatic. - Currently normotensive just on amlodipine. #CRISTINE - May be due to uncontrolled HTN - nephrotic-range proteinuria. FeUrea is 46.4%, not prerenal - Consulted Dr. Peters. #Toe wound - Empiric ceftriaxone and vanco - Dr. Mcpherson following. Got debridement 06/11, plan to go back to OR on 06/13. DVT: SCDs GI: None Result Diagram: 06/12/1846 06/12/1846 Subjective 24 Hr Interval Summary Free Text/Dictation Got debridement by podiatry yesterday. at bedside, went over the plan with him. Patient again confirms she was taking her BP meds at home prior to hospital. No chest pain, headache, vision changes, or other symptoms. Exam/Review of Systems Exam Vitals Vital Signs Date Temp Pulse Resp B/P (MAP) Pulse Ox O2 O2 Flow FiO2 Time Delivery Rate 06/12/18 98.2 81 18 115/56 96 07:42 (75) 06/11/18 Room Air 14:41 Intake and Output 06/11/18 06/11/18 06/12/18 1515:00 23:00 07:00 IntakeIntake Total 600 ml BalanceBalance 600 ml Exam Gen: Well appearing woman in no acute distress. Eyes: PERRL, no icterus HEENT: Very poor dentition, moist mucous membranes Neck: No lymphadenopathy Card: Regular rate and rhythm, 2/6 systolic ejection murmur Pulm: Clear to auscultation bilaterally Abd: Soft, nontender, nondistended. Ext: No cyanosis/clubbing/edema. R foot bandaged. Skin: warm, dry, well perfused Results Results 24hrs Laboratory Tests Test 06/11/18 17:27 06/11/18 20:59 06/12/18 05:46 Bedside Glucose 103 151 White Blood Count 8.7 Red Blood Count 2.24 L Hemoglobin 7.3 L Hematocrit 22.8 L Mean Corpuscular Volume 101.8 H Mean Corpuscular Hemoglobin 32.6 Mean Corpuscular Hemoglobin Concent 32.0 Red Cell Distribution Width 13.1 Platelet Count 155 Mean Platelet Volume 11.3 H Immature Granulocytes % 0.500 H Neutrophils % 61.9 Lymphocytes % 19.8 Monocytes % 9.4 Eosinophils % 8.2 H Basophils % 0.2 Nucleated Red Blood Cells % 0.0 Immature Granulocytes # 0.040 H Neutrophils # 5.4 Lymphocytes # 1.7 Monocytes # 0.8 Eosinophils # 0.7 H Basophils # 0.0 Nucleated Red Blood Cells # 0.0 Sodium Level 138 Potassium Level 5.0 Chloride Level 115 H Carbon Dioxide Level 16 L Anion Gap 7 Blood Urea Nitrogen 46 H Creatinine 3.02 H Est Glomerular Filtrat Rate mL/min 16 L Glucose Level 96 Hemoglobin A1c 6.5 H Calcium Level 8.3 L Phosphorus Level 5.0 H Magnesium Level 2.4 Total Bilirubin 0.0 L Direct Bilirubin 0.00 Indirect Bilirubin 0.0 Aspartate Amino Transf (AST/SGOT) 13 L Alanine Aminotransferase (ALT/SGPT) 8 L Alkaline Phosphatase 114 Total Protein 5.4 L Albumin 2.8 L Globulin 2.60 Albumin/Globulin Ratio 1.07 Triglycerides Level 238 H Cholesterol Level 257 H LDL Cholesterol, Calculated 155 HDL Cholesterol 54 Cholesterol/HDL Ratio 4.7 Medications Medication Current Medications IV Flush (NS 3 ml) 3 ml PER PROTOCOL IV ; Start 06/11/18 at 15:30 Acetaminophen (Tylenol Tab) 650 mg Q6H PRN PO .PAIN 1-3 OR TEMP Last administered on 06/11/18at 22:44; Admin Dose 650 MG; Start 06/11/18 at 15:30 Vancomycin HCl (Vanco Iv Per Pharmacy) VANCOMYCIN PER PHARMACY PER PROTOCOL XX ; Start 06/11/18 at 15:30 Ceftriaxone Sodium 50 ml @ 100 mls/hr Q24H IVPB Last administered on 06/11/18at 17:10; Admin Dose 100 MLS/HR; Start 06/11/18 at 15:30 Amlodipine Besylate (Norvasc) 10 mg DAILY PO ; Start 06/12/18 at 09:00 Atorvastatin Calcium (Lipitor) 40 mg QHS PO Last administered on 06/11/18at 21:15; Admin Dose 40 MG; Start 06/11/18 at 21:00 Miscellaneous Information 1 ea NOTE XX ; Start 06/11/18 at 15:30 Glucose (Glutose) 15 gm Q15M PRN PO DECREASED GLUCOSE; Start 06/11/18 at 15:30 Glucose (Glutose) 22.5 gm Q15M PRN PO DECREASED GLUCOSE; Start 06/11/18 at 15:30 Dextrose (D50w Syringe) 25 ml Q15M PRN IV DECREASED GLUCOSE; Start 06/11/18 at 15:30 Dextrose (D50w Syringe) 50 ml Q15M PRN IV DECREASED GLUCOSE; Start 06/11/18 at 15:30 Glucagon (Glucagen) 1 mg Q15M PRN IM DECREASED GLUCOSE; Start 06/11/18 at 15:30 Glucose (Glutose) 15 gm Q15M PRN BUCCAL DECREASED GLUCOSE; Start 06/11/18 at 15:30 Vancomycin HCl 250 ml @ 125 mls/hr Q48H IVPB ; Start 06/13/18 at 12:00 Sodium Hypochlorite (Dakin'S (Dilute 40)) 1 applic DAILY IRR Last administered on 06/12/18at 08:34; Admin Dose 1 APPLIC; Start 06/12/18 at 09:00 Insulin Glargine (Lantus) 13 units QHS SC Last administered on 06/11/18at 21:15; Admin Dose 13 UNITS; Start 06/11/18 at 21:30 Amlodipine Besylate (Norvasc) 10 mg DAILY PO Last administered on 06/12/18at 08:28; Admin Dose 10 MG; Start 06/11/18 at 22:00 Hydralazine HCl (Apresoline) 10 mg Q6H PRN IV ELEVATED SYSTOLIC BP Last administered on 06/11/18at 21:48; Admin Dose 10 MG; Start 06/11/18 at 21:30 Miscellaneous Information (*Rx Drug Level Order Reminder*) RANDOM VANCOMYCIN LEVEL 2... ONCE ONCE XX ; Start 06/13/18 at 05:00; Stop 06/13/18 at 05:01 DIEGO MORGAN MD Jun 12, 2018 14:02
[2018-06-12 14:37] VITALS: BP 140/60; PULSE 81; RESP 18
[2018-06-12] MEDS: CEFTRIAXONE 1 GM/50 ML (PMX) 50 ML IVPB SCH (15:11)
[2018-06-12] MEDS: INSULIN ASPART [NOVOLOG] 3 ML PEN SC SCH ×2 (17:39→20:35)
--- NOTE | 2018-06-12 17:54 | NUR ---
END OF SHIFT: PATIENT RESTING IN BED, PATIENT DENIED PAIN DURING SHIFT, NO PAIN MEDICATIONS GIVEN. DRESSING DONE X1, ORDERS TO CHANGE DRESSING BID. ORDERS GIVEN FOR ACCUCHECK AND NOVOLOG SLIDING SCALE. PT HEMOGLOBIN 7.3, MD AWARE, NO FURTHER ORDERS. PATIENT AMBULATORY IN ROOM, STEADY ON FEET. VSS DURING SHIFT, B/P CONTROLLED WITH ORAL MEDS, NO PRN HYDRALAZINE GIVEN . HOURLY ROUNDING DONE DURING SHIFT, CALL LIGHT WITHIN REACH, PT ABLE TO VERBALIZE NEEDS, FALL PRECAUTIONS OBSERVED, WILL ENDORSE TO NIGHT RN.
[2018-06-12] MEDS: ATORVASTATIN 40 MG TAB PO SCH (20:33)
[2018-06-12] MEDS: INSULIN GLARGINE [LANTus] (100 UNITS/ML) SYG SC SCH (20:35)
[2018-06-12 20:44] VITALS: BP 153/65; PULSE 84; RESP 16
[2018-06-13] VITALS (12 sets, daily range): BP systolic 113–158; BP diastolic 29–75; PULSE 78–96; RESP 17–29
[2018-06-13] MEDS: ACCU-CHEK XX SCH (01:32)
--- NOTE | 2018-06-13 05:13 | NUR ---
Patient is alert and oriented x4, mozambican speaking. Denies any pain. Wound dressing dry and intact. Insulin coverage administered for BG 194. Patient had a string cheese as a HS snack. Patient is able to ambulate with standby assistance. Fall precautions in place. Call light within reach. Hourly rounding provided. Will continue to monitor for the remaining of the shift.
[2018-06-13] MEDS: INSULIN ASPART [NOVOLOG] 3 ML PEN SC SCH ×4 (08:00→21:00)
[2018-06-13] MEDS: AMLODIPINE 10 MG TAB PO SCH (08:28)
[2018-06-13] MEDS: SODIUM HYPOCHLORITE (1/40) 1 APPLIC BTL IRR SCH (09:00)
--- NOTE | 2018-06-13 10:11 | NUR ---
VANCO PER RX: 06/13 RANDOM VANCO = 8.7 SCR 2.63 -> 3.02 -> 3.38 Comments/Plan: CONTINUE VANCOMYCIN 1 GM IVPB Q48H FOR NOW.
--- NOTE | 2018-06-13 11:22 | CONS ---
Assessment/Plan Assessment/Plan Assessment/Plan (Daily) 1. acute kidney injury vs acute kindey injury on CKD 2/2 Prerenal azotemia + ATN From infection 2. H/o possible CKD due to hypertensive nephrosclerosis + DM nephropathy 3. metabolic acidosis due to Arsen on CKD 4. R toe infection/gangrene 5. Accelerated HTN 6. h/o HTN Plan: on IV abx ceftriaxone and vancomycin< renally dose all abx and monitor electrolytes BUN/Cr 46/3.3, K 5.4- will give kayexalate 15 gram PO x 1 dose for hyperkalemia Renal US showed Moderate bilateral cortical thinning and echogenicity suggestive of medical renal disease. No hydronephrosis. Amlodipine 10 mg po dialy fo rHTN, stop lisinopril, IV hydralzine prn Lantus for DM, goal HBA1c less than 7.0 plan for OR by podiatry today will follow up Consultation Date/Type/Reason Admit Date/Time Jun 11, 2018 at 12:54 Initial Consult Date 06/12/18 Type of Consult NEPHROLOGY Requesting Provider: DIEGO MORGAN MD Date/Time of Note DATE: 06/13/18 TIME: 11:22 24 HR Interval Summary Free Text/Dictation K 5.4, BUn/Cr 46/3.3, Plan for I & D today by podiatry Exam/Review of Systems Exam Vitals Vital Signs Date Temp Pulse Resp B/P (MAP) Pulse Ox O2 O2 Flow FiO2 Time Delivery Rate 06/13/18 98.6 78 17 129/61 96 Room Air 08:21 (83) Intake and Output 06/12/18 06/12/18 06/13/18 1515:00 23:00 07:00 IntakeIntake Total 1050 ml BalanceBalance 1050 ml Exam Gen: alert, awake, no acute distress . Eyes: PERRL, no icterus HEENT: Very poor dentition, moist mucous membranes Neck: No lymphadenopathy Card: Regular rate and rhythm, 2/6 systolic ejection murmur Pulm: Clear to auscultation bilaterally Abd: Soft, nontender, nondistended. Ext: No cyanosis/clubbing/edema. R great toe with inferior callus, recently split; erythema and mild swelling extending up toe. Mildly tender to manipulation. Skin: warm, dry, well perfused Results Result Diagram: 06/13/18 0506 06/13/18 0506 Results 24hrs Laboratory Tests Test 06/12/18 17:36 06/12/18 19:00 06/12/18 20:32 06/13/18 01:38 Bedside Glucose 126 194 98 Urine Eosinophils % 0.0 Urine Random 62.94 Creatinine Urine Random Sodium 77 Urine 5.64 Protein/Creatinine Ratio Urine Total Protein 355.0 H Test 06/13/18 05:06 06/13/18 08:05 White Blood Count 6.5 # Red Blood Count 2.32 L Hemoglobin 7.6 L Hematocrit 23.2 L Mean Corpuscular 100.0 Volume Mean Corpuscular 32.8 Hemoglobin Mean Corpuscular 32.8 Hemoglobin Concent Red Cell 12.6 Distribution Width Platelet Count 170 Mean Platelet Volume 11.1 H Immature 0.200 Granulocytes % Neutrophils % 54.5 Lymphocytes % 22.6 Monocytes % 9.5 Eosinophils % 12.9 H Basophils % 0.3 Nucleated Red Blood 0.0 Cells % Immature 0.010 Granulocytes # Neutrophils # 3.5 Lymphocytes # 1.5 Monocytes # 0.6 Eosinophils # 0.8 H Basophils # 0.0 Nucleated Red Blood 0.0 Cells # Prothrombin Time 13.6 Prothrombin Time 1.1 Ratio INR International 1.03 Normalized Ratio Activated 32.9 Partial Thromboplast Time Sodium Level 141 Potassium Level 5.4 H Chloride Level 119 H Carbon Dioxide Level 17 L Anion Gap 5 Blood Urea Nitrogen 46 H Creatinine 3.38 H Est Glomerular 14 L Filtrat Rate mL/min Glucose Level 82 Uric Acid 5.6 Calcium Level 8.5 Phosphorus Level 5.4 H Magnesium Level 2.5 Total Bilirubin 0.0 L Direct Bilirubin 0.00 Indirect Bilirubin 0.0 Aspartate Amino 13 L Transf (AST/SGOT) Alanine 12 L Aminotransferase (AL T/SGPT) Alkaline Phosphatase 107 Creatine Kinase 42 Total Protein 5.8 L Albumin 2.8 L Globulin 3.00 Albumin/Globulin 0.93 Ratio Random Vancomycin 8.7 Level Bedside Glucose 78 Medications Medication Current Medications IV Flush (NS 3 ml) 3 ml PER PROTOCOL IV ; Start 06/11/18 at 15:30 Acetaminophen (Tylenol Tab) 650 mg Q6H PRN PO .PAIN 1-3 OR TEMP Last administered on 06/11/18at 22:44; Admin Dose 650 MG; Start 06/11/18 at 15:30 Vancomycin HCl (Vanco Iv Per Pharmacy) VANCOMYCIN PER PHARMACY PER PROTOCOL XX ; Start 06/11/18 at 15:30 Ceftriaxone Sodium 50 ml @ 100 mls/hr Q24H IVPB Last administered on 06/12/18at 15:11; Admin Dose 100 MLS/HR; Start 06/11/18 at 15:30 Amlodipine Besylate (Norvasc) 10 mg DAILY PO Last administered on 06/13/18at 08:28; Admin Dose 10 MG; Start 06/12/18 at 09:00 Atorvastatin Calcium (Lipitor) 40 mg QHS PO Last administered on 06/12/18at 20:33; Admin Dose 40 MG; Start 06/11/18 at 21:00 Miscellaneous Information 1 ea NOTE XX ; Start 06/11/18 at 15:30 Glucose (Glutose) 15 gm Q15M PRN PO DECREASED GLUCOSE; Start 06/11/18 at 15:30 Glucose (Glutose) 22.5 gm Q15M PRN PO DECREASED GLUCOSE; Start 06/11/18 at 15:30 Dextrose (D50w Syringe) 25 ml Q15M PRN IV DECREASED GLUCOSE; Start 06/11/18 at 15:30 Dextrose (D50w Syringe) 50 ml Q15M PRN IV DECREASED GLUCOSE; Start 06/11/18 at 15:30 Glucagon (Glucagen) 1 mg Q15M PRN IM DECREASED GLUCOSE; Start 06/11/18 at 15:30 Glucose (Glutose) 15 gm Q15M PRN BUCCAL DECREASED GLUCOSE; Start 06/11/18 at 15:30 Vancomycin HCl 250 ml @ 125 mls/hr Q48H IVPB ; Start 06/13/18 at 12:00 Sodium Hypochlorite (Dakin'S (Dilute )) 1 applic DAILY IRR Last administered on 06/12/18at 08:34; Admin Dose 1 APPLIC; Start 06/12/18 at 09:00 Insulin Glargine (Lantus) 13 units QHS SC Last administered on 06/12/18at 20:35; Admin Dose 13 UNITS; Start 06/11/18 at 21:30 Hydralazine HCl (Apresoline) 10 mg Q6H PRN IV ELEVATED SYSTOLIC BP Last administered on 06/11/18at 21:48; Admin Dose 10 MG; Start 06/11/18 at 21:30 Diagnostic Test (Pha) (Accu-Chek) 1 ea 02 XX ; Start 06/13/18 at 02:00 Insulin Aspart (Novolog Insulin Pen) NOVOLOG *MODERATE* ALGORITHM WITH MEALS BEDTIME SC Last administered on 06/12/18at 20:35; Admin Dose 1 UNIT; Start 06/12/18 at 18:05 LEONARD DOBBINS MD Jun 13, 2018 11:22
[2018-06-13] MEDS ORDERED: SODIUM POLYSTYRENE 15 GM KIT (POWDER + SORBITOL) PO ONE (11:30)
[2018-06-13] MEDS ORDERED: CITRIC ACID/NA CITRATE 30 ML CUP PO ONE (11:30)
[2018-06-13] MEDS: VANCOMYCIN 1 GM 250 ML IVPB SCH (12:36)
[2018-06-13] MEDS: CEFTRIAXONE 1 GM/50 ML (PMX) 50 ML IVPB SCH (15:31)
--- NOTE | 2018-06-13 15:33 | PN ---
Date/Time of Note Date/Time of Note DATE: 06/13/18 TIME: 15:24 Assessment/Plan VTE Prophylaxis Risk score (from Nsg)>0 risk: 3 SCD applied (from Nsg): Yes Pharmacological prophylaxis: other Lines/Catheters IV Catheter Type (from Nrsg): Saline Lock Assessment/Plan Hospital Course S: Patient awaiting surgical debridement for later today. No acute events overnight. O: Vs - see below PE: Gen: Well appearing woman in no acute distress. Eyes: PERRL, no icterus HEENT: Very poor dentition, moist mucous membranes Neck: No lymphadenopathy Card: Regular rate and rhythm, 2/6 systolic ejection murmur Pulm: Clear to auscultation bilaterally Abd: Soft, nontender, nondistended. Ext: No cyanosis/clubbing/edema. R foot bandaged. Skin: warm, dry, well perfused Assessment/Plan: 62 yo woman with history of IDDM, HTN presents with R toe pain/infx and HTN #HTN-stable now, initially blood pressure 219/90 on admission. Patient asymptomatic. - Currently normotensive just on amlodipine, continue for now #CRISTINE- May be due to uncontrolled HTN- nephrotic-range proteinuria. FeUrea is 46.4%, not prerenal - Consulted Dr. Peters renal team, continue to renally dose medications, follow the recommendations. #Toe wound-again culture positive for staph species. -For now continue empiric ceftriaxone and vanco, follow-up final culture results and sensitivities. -Podiatry Dr. Mcpherson following. Got debridement 06/11, again plan to go back to OR later today, follow-up post operative recommendations DVT: SCDs GI: None Dispo: Likely home in 24 hours once we know the final culture results from her wound infection, and if cleared by podiatry team after her surgery. Result Diagram: 06/13/18 0506 06/13/18 0506 Results 24hrs Laboratory Tests Test 06/12/18 17:36 06/12/18 19:00 06/12/18 20:32 06/13/18 01:38 Bedside Glucose 126 194 98 Urine Eosinophils % 0.0 Urine Random 62.94 Creatinine Urine Random Sodium 77 Urine 5.64 Protein/Creatinine Ratio Urine Total Protein 355.0 H Test 06/13/18 05:06 06/13/18 08:05 06/13/18 12:12 White Blood Count 6.5 # Red Blood Count 2.32 L Hemoglobin 7.6 L Hematocrit 23.2 L Mean Corpuscular 100.0 Volume Mean Corpuscular 32.8 Hemoglobin Mean Corpuscular 32.8 Hemoglobin Concent Red Cell 12.6 Distribution Width Platelet Count 170 Mean Platelet Volume 11.1 H Immature 0.200 Granulocytes % Neutrophils % 54.5 Lymphocytes % 22.6 Monocytes % 9.5 Eosinophils % 12.9 H Basophils % 0.3 Nucleated Red Blood 0.0 Cells % Immature 0.010 Granulocytes # Neutrophils # 3.5 Lymphocytes # 1.5 Monocytes # 0.6 Eosinophils # 0.8 H Basophils # 0.0 Nucleated Red Blood 0.0 Cells # Prothrombin Time 13.6 Prothrombin Time 1.1 Ratio INR International 1.03 Normalized Ratio Activated 32.9 Partial Thromboplast Time Sodium Level 141 Potassium Level 5.4 H Chloride Level 119 H Carbon Dioxide Level 17 L Anion Gap 5 Blood Urea Nitrogen 46 H Creatinine 3.38 H Est Glomerular 14 L Filtrat Rate mL/min Glucose Level 82 Uric Acid 5.6 Calcium Level 8.5 Phosphorus Level 5.4 H Magnesium Level 2.5 Total Bilirubin 0.0 L Direct Bilirubin 0.00 Indirect Bilirubin 0.0 Aspartate Amino 13 L Transf (AST/SGOT) Alanine 12 L Aminotransferase (AL T/SGPT) Alkaline Phosphatase 107 Creatine Kinase 42 Total Protein 5.8 L Albumin 2.8 L Globulin 3.00 Albumin/Globulin 0.93 Ratio Random Vancomycin 8.7 Level Bedside Glucose 78 141 Exam/Review of Systems Exam Vitals Vital Signs Date Temp Pulse Resp B/P (MAP) Pulse Ox O2 O2 Flow FiO2 Time Delivery Rate 06/13/18 97.9 89 17 141/65 96 Room Air 14:59 (90) Intake and Output 06/12/18 06/12/18 06/13/18 1515:00 23:00 07:00 IntakeIntake Total 1050 ml BalanceBalance 1050 ml Results Results 24hrs Laboratory Tests Test 06/12/18 17:36 06/12/18 19:00 06/12/18 20:32 06/13/18 01:38 Bedside Glucose 126 194 98 Urine Eosinophils % 0.0 Urine Random 62.94 Creatinine Urine Random Sodium 77 Urine 5.64 Protein/Creatinine Ratio Urine Total Protein 355.0 H Test 06/13/18 05:06 06/13/18 08:05 06/13/18 12:12 White Blood Count 6.5 # Red Blood Count 2.32 L Hemoglobin 7.6 L Hematocrit 23.2 L Mean Corpuscular 100.0 Volume Mean Corpuscular 32.8 Hemoglobin Mean Corpuscular 32.8 Hemoglobin Concent Red Cell 12.6 Distribution Width Platelet Count 170 Mean Platelet Volume 11.1 H Immature 0.200 Granulocytes % Neutrophils % 54.5 Lymphocytes % 22.6 Monocytes % 9.5 Eosinophils % 12.9 H Basophils % 0.3 Nucleated Red Blood 0.0 Cells % Immature 0.010 Granulocytes # Neutrophils # 3.5 Lymphocytes # 1.5 Monocytes # 0.6 Eosinophils # 0.8 H Basophils # 0.0 Nucleated Red Blood 0.0 Cells # Prothrombin Time 13.6 Prothrombin Time 1.1 Ratio INR International 1.03 Normalized Ratio Activated 32.9 Partial Thromboplast Time Sodium Level 141 Potassium Level 5.4 H Chloride Level 119 H Carbon Dioxide Level 17 L Anion Gap 5 Blood Urea Nitrogen 46 H Creatinine 3.38 H Est Glomerular 14 L Filtrat Rate mL/min Glucose Level 82 Uric Acid 5.6 Calcium Level 8.5 Phosphorus Level 5.4 H Magnesium Level 2.5 Total Bilirubin 0.0 L Direct Bilirubin 0.00 Indirect Bilirubin 0.0 Aspartate Amino 13 L Transf (AST/SGOT) Alanine 12 L Aminotransferase (AL T/SGPT) Alkaline Phosphatase 107 Creatine Kinase 42 Total Protein 5.8 L Albumin 2.8 L Globulin 3.00 Albumin/Globulin 0.93 Ratio Random Vancomycin 8.7 Level Bedside Glucose 78 141 Medications Medication Current Medications IV Flush (NS 3 ml) 3 ml PER PROTOCOL IV ; Start 06/11/18 at 15:30 Acetaminophen (Tylenol Tab) 650 mg Q6H PRN PO .PAIN 1-3 OR TEMP Last administered on 06/11/18at 22:44; Admin Dose 650 MG; Start 06/11/18 at 15:30 Vancomycin HCl (Vanco Iv Per Pharmacy) VANCOMYCIN PER PHARMACY PER PROTOCOL XX ; Start 06/11/18 at 15:30 Ceftriaxone Sodium 50 ml @ 100 mls/hr Q24H IVPB Last administered on 06/12/18at 15:11; Admin Dose 100 MLS/HR; Start 06/11/18 at 15:30 Amlodipine Besylate (Norvasc) 10 mg DAILY PO Last administered on 06/13/18at 08:28; Admin Dose 10 MG; Start 06/12/18 at 09:00 Atorvastatin Calcium (Lipitor) 40 mg QHS PO Last administered on 06/12/18at 20:33; Admin Dose 40 MG; Start 06/11/18 at 21:00 Miscellaneous Information 1 ea NOTE XX ; Start 06/11/18 at 15:30 Glucose (Glutose) 15 gm Q15M PRN PO DECREASED GLUCOSE; Start 06/11/18 at 15:30 Glucose (Glutose) 22.5 gm Q15M PRN PO DECREASED GLUCOSE; Start 06/11/18 at 15:30 Dextrose (D50w Syringe) 25 ml Q15M PRN IV DECREASED GLUCOSE; Start 06/11/18 at 15:30 Dextrose (D50w Syringe) 50 ml Q15M PRN IV DECREASED GLUCOSE; Start 06/11/18 at 15:30 Glucagon (Glucagen) 1 mg Q15M PRN IM DECREASED GLUCOSE; Start 06/11/18 at 15:30 Glucose (Glutose) 15 gm Q15M PRN BUCCAL DECREASED GLUCOSE; Start 06/11/18 at 15:30 Vancomycin HCl 250 ml @ 125 mls/hr Q48H IVPB Last administered on 06/13/18at 12:36; Admin Dose 125 MLS/HR; Start 06/13/18 at 12:00 Sodium Hypochlorite (Dakin'S (Dilute )) 1 applic DAILY IRR Last administered on 06/12/18 08:34; Admin Dose 1 APPLIC; Start 06/12/18 at 09:00 Insulin Glargine (Lantus) 13 units QHS SC Last administered on 06/12/18 20:35; Admin Dose 13 UNITS; Start 06/11/18 at 21:30 Hydralazine HCl (Apresoline) 10 mg Q6H PRN IV ELEVATED SYSTOLIC BP Last administered on 06/11/18 21:48; Admin Dose 10 MG; Start 06/11/18 at 21:30 Diagnostic Test (Pha) (Accu-Chek) 1 ea 02 XX ; Start 06/13/18 at 02:00 Insulin Aspart (Novolog Insulin Pen) NOVOLOG *MODERATE* ALGORITHM WITH MEALS BEDTIME SC Last administered on 06/12/18at 20:35; Admin Dose 1 UNIT; Start at 18:05 Citric Acid/ Sodium Citrate (Bicitra) 30 ml BID PO ; Start 06/13/18 at 21:00 JUSTINO CHAVARRIA Jun 13, 2018 15:33
--- NOTE | 2018-06-13 18:56 | NUR ---
EOSS: PT' S HEMODYNAMICS AND RESPIR. STATUS ARE STABLE. NO COMPLICATIONS. NO CHANGES IN CONDITION. PT IS AWAITING TO HAVE SURGERY TONIGHT. WILL CONT. MONITORING. WILL CONT. W/ THE PLAN OF CARE.
[2018-06-13] MEDS ORDERED: POLYMYXIN/BACITRACIN 1L IRRIG IRR ONE (19:26)
[2018-06-13] MEDS ORDERED: PROCHLORPERAZINE 10 MG INJ IV PRN (19:30)
[2018-06-13] MEDS ORDERED: DIPHENHYDRAMINE 50 MG INJ IV PRN (19:30)
[2018-06-13] MEDS ORDERED: ONDANSETRON 4 MG INJ IV PRN (19:30)
[2018-06-13] MEDS ORDERED: FENTAnyl 50 MCG/ML VIAL IV PRN (19:30)
[2018-06-13] MEDS ORDERED: MEPERIDINE 25 MG INJ IV PRN (19:30)
[2018-06-13] MEDS ORDERED: HYDROmorphONE 1 MG/5 ML IV SYRINGE IV PRN ×3 (19:30)
--- NOTE | 2018-06-13 19:30 | NUR ---
PT WAS TAKEN TO OR FOR SURGERY IN STABLE CONDITION. REPORT WAS GIVEN TO THE SHOCK ABSORPTION FLOOR LAYER RN.
--- NOTE | 2018-06-13 19:37 | PREAC ---
Date/Time of Note Date/Time of Note DATE: 06/13/18 TIME: 19:34 Anesthesia Eval and Record Evaluation Time Pre-Procedure Interview DATE: 06/13/18 TIME: 19:34 Age 62 Sex female NPO: 8 hrs Preoperative diagnosis right foot diabetic ulcer Planned procedure right foot wound debridement Past Medical History Past Medical History: Includes Cardio: HTN Endo: Diabetes Heme: Anemia Surgery & Anesthesia Issues No known issue Meds Anticoagulation: No Beta Symone within 24 hr: No Reason Beta Symone not given: Pt. not on B-Symone Reported Medications Lisinopril* (Lisinopril*) 40 Mg Tablet, 40 MG PO DAILY, #30 TAB 06/11/18 Amlodipine Besylate* (Amlodipine Besylate*) 10 Mg Tablet, 10 MG PO DAILY, #30 TAB 06/11/18 Insulin Glargine,Hum.rec.anlog (Basaglar Kwikpen U-100) 100 Unit/1 Ml Insuln.pen, 13 UNIT SC QHS, EA 06/11/18 Lisinopril* (Lisinopril*) 40 Mg Tablet, 40 MG PO DAILY, #30 TAB 06/11/18 Amlodipine Besylate* (Amlodipine Besylate*) 10 Mg Tablet, 10 MG PO DAILY, #30 TAB 06/11/18 Atorvastatin* (Atorvastatin*) 40 Mg Tablet, 40 MG PO QHS, #30 TAB 06/11/18 Discontinued Reported Medications Nepafenac* (Nevanac* 0.1%) 3 Ml Drops.susp, 1 DROP RIGHT EYE DAILY, EA 03/20/16 Ofloxacin* (Ocuflox*) 0.3%-5 Ml Ophth Drops, 1 DROP RIGHT EYE QID, BOTTLE 03/20/16 Prednisolone Acetate* (Pred Forte*) 5 Ml Susp, 1 DROP RIGHT EYE QID, EA 03/20/16 Insulin Regular, Human (Humulin R) 100 Unit/1 Ml Vial, 5 UNIT IJ DAILY, VIAL 03/20/16 Ferrous Sulfate* (Ferrous Sulfate*) 325 Mg Tabec, 325 MG PO BID, TAB 03/20/16 Discontinued Scripts Insulin Glargine* (Lantus*) 100 Unit/Ml Soln, 15 UNIT SC QHS for 30 Days Prov:FRAN GUTHRIE 03/25/16 Hydrocodone Bit-Acetaminophen (Hydrocodone Bit-APAP) 5-325MG Tablet, 1 TAB PO Q4H PRN for PAIN LEVEL 6-10, #20 TAB Prov:FRAN GUTHRIE 03/25/16 Atorvastatin (Atorvastatin) 10 Mg Tablet, 10 MG PO DAILY@21 for 30 Days, TAB Prov:FRAN GUTHRIE 03/25/16 Aspirin* (Aspirin* EC) 81 Mg Tablet.dr, 81 MG PO DAILY for 30 Days Prov:FRAN GUTHRIE 03/25/16 Doxycycline Monohydrate* (Doxycycline Monohydrate*) 100 Mg Tablet, 100 MG PO BID for 7 Days, TAB Prov:FRAN GUTHRIE 03/25/16 Current Medications IV Flush (NS 3 ml) 3 ml PER PROTOCOL IV ; Start 06/11/18 at 15:30 Acetaminophen (Tylenol Tab) 650 mg Q6H PRN PO .PAIN 1-3 OR TEMP Last administered on 06/11/18at 22:44; Admin Dose 650 MG; Start 06/11/18 at 15:30 Vancomycin HCl (Vanco Iv Per Pharmacy) VANCOMYCIN PER PHARMACY PER PROTOCOL XX ; Start 06/11/18 at 15:30 Ceftriaxone Sodium 50 ml @ 100 mls/hr Q24H IVPB Last administered on 06/13/18at 15:31; Admin Dose 100 MLS/HR; Start 06/11/18 at 15:30 Amlodipine Besylate (Norvasc) 10 mg DAILY PO Last administered on 06/13/18at 08:28; Admin Dose 10 MG; Start 06/12/18 at 09:00 Atorvastatin Calcium (Lipitor) 40 mg QHS PO Last administered on 06/12/18at 20:33; Admin Dose 40 MG; Start 06/11/18 at 21:00 Miscellaneous Information 1 ea NOTE XX ; Start 06/11/18 at 15:30 Glucose (Glutose) 15 gm Q15M PRN PO DECREASED GLUCOSE; Start 06/11/18 at 15:30 Glucose (Glutose) 22.5 gm Q15M PRN PO DECREASED GLUCOSE; Start 06/11/18 at 15:30 Dextrose (D50w Syringe) 25 ml Q15M PRN IV DECREASED GLUCOSE; Start 06/11/18 at 15:30 Dextrose (D50w Syringe) 50 ml Q15M PRN IV DECREASED GLUCOSE; Start 06/11/18 at 15:30 Glucagon (Glucagen) 1 mg Q15M PRN IM DECREASED GLUCOSE; Start 06/11/18 at 15:30 Glucose (Glutose) 15 gm Q15M PRN BUCCAL DECREASED GLUCOSE; Start 06/11/18 at 15:30 Vancomycin HCl 250 ml @ 125 mls/hr Q48H IVPB Last administered on 06/13/18at 12:36; Admin Dose 125 MLS/HR; Start 06/13/18 at 12:00 Sodium Hypochlorite (Dakin'S (Dilute )) 1 applic DAILY IRR Last administered on 06/12/18 08:34; Admin Dose 1 APPLIC; Start 06/12/18 at 09:00 Insulin Glargine (Lantus) 13 units QHS SC Last administered on 06/12/18 20:35; Admin Dose 13 UNITS; Start 06/11/18 at 21:30 Hydralazine HCl (Apresoline) 10 mg Q6H PRN IV ELEVATED SYSTOLIC BP Last administered on 06/11/18 21:48; Admin Dose 10 MG; Start 06/11/18 at 21:30 Diagnostic Test (Pha) (Accu-Chek) 1 ea 02 XX ; Start 06/13/18 at 02:00 Insulin Aspart (Novolog Insulin Pen) NOVOLOG *MODERATE* ALGORITHM WITH MEALS BEDTIME SC Last administered on 06/12/18 20:35; Admin Dose 1 UNIT; Start 06/12/18 at 18:05 Citric Acid/ Sodium Citrate (Bicitra) 30 ml BID PO ; Start 06/13/18 at 21:00 Meds reviewed: Yes Allergies Coded Allergies: No Known Allergy (Unverified , 06/11/18) Allergies Reviewed: Yes Labs/Studies Labs Reviewed: Reviewed by anesthesiologist (type and screen drawn) Result Diagram: 06/13/18 0506 06/13/18 0506 Laboratory Tests 06/13/18 05:06 test: N/A Pre-procedure Exam Last vitals Vital Signs Date Temp Pulse Resp B/P (MAP) Pulse Ox O2 O2 Flow FiO2 Time Delivery Rate 06/13/18 97.9 89 17 141/65 96 Room Air 14:59 (90) Airway: Adequate mouth opening, Adequate thyromental dist Mallampati: Mallampati II Teeth: Normal Lung: Normal Heart: Normal ASA Physical Status ASA physical status: 3 Emergency: None Planned Anesthetic General/MAC: Mask (vs. ), LMA Planned Pain Management Parenteral pain med, Local by surgeon Pre-operative Attestations Prior to commencing anesthesia and surgery, the patient was re-evaluated, there was verification of: *The patient's identity *The results of appropriate recent lab work and preoperative vital signs *The above evaluation not changing prior to induction *Anesthetic plan, risk benefits, alternative and complications discussed with patient/family; questions answered; patient/family understands, accepts and wishes to proceed. Washing Machine Loader used GERALDINE RENEE MD Jun 13, 2018 19:37
[2018-06-13] MEDS: CITRIC ACID/NA CITRATE 30 ML CUP PO SCH ×2 (21:00→23:47)
[2018-06-13] MEDS: INSULIN GLARGINE [LANTus] (100 UNITS/ML) SYG SC SCH ×2 (21:00→23:48)
[2018-06-13] MEDS: ATORVASTATIN 40 MG TAB PO SCH ×2 (21:00→23:47)
--- NOTE | 2018-06-13 21:31 | HPN ---
Date/Time of Note Date/Time of Note DATE: 06/13/18 TIME: 21:31 Interval H&P Admission Note Pt. seen H&P reviewed: No system changes JERSON GRAHAM DPM Jun 13, 2018 21:31
--- NOTE | 2018-06-13 21:34 | NUR ---
Patient in PACU, unable to administer 2100 medications
[2018-06-13] MEDS ORDERED: LIDOCAINE 2% (SDV) 5 ML INJ ONE (21:40)
[2018-06-13] MEDS ORDERED: PROPOFOL 20 ML ONE (21:40)
[2018-06-13] MEDS ORDERED: FENTAnyl 50 MCG/ML VIAL ONE (21:41)
[2018-06-13] MEDS ORDERED: MIDAZOLAM 1 MG/ML 2 ML INJ ONE (21:41)
[2018-06-13] MEDS ORDERED: BUPIVACAINE 0.5% (SDV) 30 ML INJ ONE (21:44)
[2018-06-13] MEDS ORDERED: LIDOCAINE 1% (MPF) 30 ML INJ ONE (21:44)
[2018-06-13] MEDS ORDERED: ONDANSETRON 4 MG INJ ONE (21:57)
[2018-06-13] MEDS ORDERED: FAMOTIDINE 20 MG INJ ONE (21:57)
[2018-06-13] MEDS ORDERED: METOCLOPRAMIDE 10 MG INJ ONE (21:57)
--- NOTE | 2018-06-13 22:36 | PAC ---
Date/Time of Note Date/Time of Note DATE: 06/13/18 TIME: 22:35 Post-Anesthesia Notes Post-Anesthesia Note Last documented vital signs Vital Signs Date Temp Pulse Resp B/P (MAP) Pulse Ox O2 O2 Flow FiO2 Time Delivery Rate 06/13/18 97.9 89 17 141/65 96 Room Air 14:59 (90) Activity: WNL Respiratory function: WNL Cardiovascular function: WNL Mental status: Baseline Pain reasonably controlled: Yes Hydration appropriate: Yes Nausea/Vomiting absent: Yes Comments BP: 114/55 HR: 88 RR: 15 SaO2: 99 T: 98 GERALDINE RENEE MD Jun 13, 2018 22:36
--- NOTE | 2018-06-13 22:38 | OPR ---
Date/Time of Note Date/Time of Note DATE: 06/13/18 TIME: 22:38 Operative Report Preoperative Diagnosis R foot cellulitis R foot abscess R foot diabetic ulcer osteomyelitis of R foot IDDM with peripheral neuropathy Postoperative Diagnosis R foot cellulitis R foot abscess R foot diabetic ulcer osteomyelitis of R foot IDDM with peripheral neuropathy Operation/Procedure Performed Right foot excisional debridement Right foot delayed primary closure Surgeon Claudy Graham DPM Computerized Mill Mill Recorder none Anesthesia Type: MAC Estimated Blood Loss: 0 - 10 ml's Transfusion none Specimen Right hallux ulcer wound culture Right hallux bone pathology Grafts/Implants none Complications none Indications 62 y/o diabetic F patient with right great toe abscess, diabetic ulcer, and osteomyelitis to the right great toe. Patient had noticed worsening pain and redness to the right great toe for past couple days and did not improve with conservative measures. Patient is amenable to surgical intervention. Addressed all of the patient's questions and concerns. No promises or guarantees were given. Procedure Description Patient was brought into the OR and placed in the OR table in the supine position. The right lower extremity was scrubbed, prepped, and draped in the usual aseptic manner. A formal time out was conducted. The right hallux was anesthetized with a local block. Attention was directed to the right hallux ulceration site which measured 2.0 x 1.0 x 0.5cm. There was scant purulent drainage noted which was evacuated. Using a pickup/scissor, bone cutter, and ronguers excisional debridement of skin/subQ/fascia/bone was performed of the right hallux diabetic ulcer site. Necrotic tissue, biofilm, and non-viable tissue was removed from the ulcer site. Less than 20cm2 of area was debrided. Wound cultures were obtained as well as right hallux bone was sent for pathology specimen. Copious antibiotic infused saline irrigation was used at the ulceration site. The ulcer was inspected for any further purulence or infected/necrotic tissue. None was appreciated nor expressed. Using a 3-0 prolene the skin edges were re-approximated and a delayed primary wound closure was performed. Xeroform was applied to the surgical site, with betadine 4x4 gauze, kerlix and dry sterile dressings applied to the right foot. The patient was transferred to PACU with vital signs stable and neurovascular status intact. CLAUDY GRAHAM DPM Jun 13, 2018 22:38
--- NOTE | 2018-06-13 22:38 | SIPON ---
Date/Time of Note Date/Time of Note DATE: 06/13/18 TIME: 22:38 Operative Report Preoperative Diagnosis R foot cellulitis R foot abscess R foot diabetic ulcer osteomyelitis of R foot IDDM with peripheral neuropathy Postoperative Diagnosis R foot cellulitis R foot abscess R foot diabetic ulcer osteomyelitis of R foot IDDM with peripheral neuropathy Operation/Procedure Performed Right foot excisional debridement Right foot delayed primary closure Surgeon Claudy Graham DPM assistant operator None Anesthesia: MAC Estimated blood loss: 0 - 10 ml's Transfusion Required none Specimen Right hallux ulcer wound culture Right hallux bone pathology Grafts/Implants none Complications none CLAUDY GRAHAM DPM Jun 13, 2018 22:38
--- NOTE | 2018-06-13 23:01 | NUR ---
Received report from MONTSE Tomlinson RN. Patient will be coming back to room 2259 Addendum: 06/13/18 at 2304 by ALESHIA SAMUEL RN Per RADHA Tomlinson patient will go back to previous diet before she was placed on NPO
--- NOTE | 2018-06-13 23:10 | NUR ---
PACU NOTES AWAKE AND ALERT, SITE CLEAN AND DRY, DENIES NAUSEA AND DISCOMFORT; PHONE REPORT GIVEN TO RADHA MONK.
--- NOTE | 2018-06-14 00:33 | NUR ---
Received patient from PACU approximately at 2325 via [place]. Patient is alert and oriented x4, denies any pain. Was able to administer 2100 medications. BG 104, 13 units of lantus administered. Patient stated she was hungry so 2 string cheese, 1 diet cranberry juice and 6 saltine crackers were given. Surgical dressing on right foot. Fall precautions in place, call light within reach. Will continue to monitor.
[2018-06-14 00:35] VITALS: BP 153/69; PULSE 94; RESP 18
[2018-06-14] MEDS: ACCU-CHEK XX SCH (01:22)
[2018-06-14 02:00] VITALS: BP 110/56; PULSE 83; RESP 18
--- NOTE | 2018-06-14 05:19 | NUR ---
Patient is sleeping, denies any pain. Surgical dressing on right foot dry and intact. Fall precautions in place. Hourly rounding provided. Will continue with plan of care.
[2018-06-14] MEDS: ACETAMINOPHEN 325 MG TAB PO PRN (05:43)
--- NOTE | 2018-06-14 07:07 | NUR ---
Received a critical potassium of 6.8. Per lab they will redraw potassium Addendum: 06/14/18 at 0708 by ALESHIA SAMUEL RN INCORRECT PATIENT
[2018-06-14 07:51] VITALS: BP 121/68; PULSE 78; RESP 18
[2018-06-14] MEDS: INSULIN ASPART [NOVOLOG] 3 ML PEN SC SCH ×4 (08:00→21:00)
[2018-06-14] MEDS: CITRIC ACID/NA CITRATE 30 ML CUP PO SCH ×3 (08:54→21:22)
[2018-06-14] MEDS: AMLODIPINE 10 MG TAB PO SCH (08:54)
[2018-06-14] MEDS: SODIUM HYPOCHLORITE (1/40) 1 APPLIC BTL IRR SCH (08:55)
--- NOTE | 2018-06-14 10:00 | CONS ---
Assessment/Plan Assessment/Plan Assessment/Plan (Daily) 1. acute kidney injury vs acute kindey injury on CKD 2/2 Prerenal azotemia + ATN From infection 2. H/o possible CKD due to hypertensive nephrosclerosis + DM nephropathy 3. metabolic acidosis due to Arsen on CKD 4. R toe infection/gangrene s/p Right foot excisional debridement, Right foot delayed primary closure on 06/13/18 5. Accelerated HTN 6. h/o HTN Plan: on IV abx ceftriaxone and vancomycin< renally dose all abx and monitor electrolytes BUN/Cr 51/2.97, K 4.5- s/p Right foot excisional debridement, Right foot delayed primary closure on 06/13/18 Renal US showed Moderate bilateral cortical thinning and echogenicity suggestive of medical renal disease. No hydronephrosis. Amlodipine 10 mg po dialy for HTN, stopped lisinopril, IV hydralzine prn Lantus for DM, goal HBA1c less than 7.0 will follow up Consultation Date/Type/Reason Admit Date/Time Jun 11, 2018 at 12:54 Initial Consult Date 06/12/18 Type of Consult NEPHROLOGY Requesting Provider: DIEGO MORGAN MD Date/Time of Note DATE: 06/14/18 TIME: 10:00 24 HR Interval Summary Free Text/Dictation BUN/Cr 51/2.97, Bp stable, afebrile Exam/Review of Systems Exam Vitals Vital Signs Date Temp Pulse Resp B/P (MAP) Pulse Ox O2 O2 Flow FiO2 Time Delivery Rate 06/14/18 97.9 78 18 121/68 97 Room Air 07:51 (85) Intake and Output 06/13/18 06/13/18 06/14/18 1515:00 23:00 07:00 IntakeIntake Total 250 ml 450 ml OutputOutput Total 10 ml BalanceBalance 250 ml 440 ml Exam Gen: alert, awake, no acute distress . Eyes: PERRL, no icterus HEENT: Very poor dentition, moist mucous membranes Neck: No lymphadenopathy Card: Regular rate and rhythm, 2/6 systolic ejection murmur Pulm: Clear to auscultation bilaterally Abd: Soft, nontender, nondistended. Ext: No cyanosis/clubbing/edema. R great toe dressing in place Skin: warm, dry, well perfused Results Result Diagram: 06/14/18 0609 06/14/18 0609 Results 24hrs Laboratory Tests Test 06/13/18 12:12 06/13/18 17:31 06/13/18 22:52 06/13/18 23:46 Bedside Glucose 141 103 109 104 Test 06/14/18 06:09 06/14/18 08:34 White Blood Count 5.7 Red Blood Count 2.52 L Hemoglobin 8.1 L Hematocrit 25.1 L Mean Corpuscular 99.6 Volume Mean Corpuscular 32.1 Hemoglobin Mean Corpuscular 32.3 Hemoglobin Concent Red Cell 12.6 Distribution Width Platelet Count 178 Mean Platelet Volume 10.7 H Immature 0.500 H Granulocytes % Neutrophils % 54.6 Lymphocytes % 21.1 Monocytes % 8.6 Eosinophils % 14.8 H Basophils % 0.4 Nucleated Red Blood 0.0 Cells % Immature 0.030 Granulocytes # Neutrophils # 3.1 Lymphocytes # 1.2 Monocytes # 0.5 Eosinophils # 0.8 H Basophils # 0.0 Nucleated Red Blood 0.0 Cells # Sodium Level 142 Potassium Level 4.5 Chloride Level 114 H Carbon Dioxide Level 19 L Anion Gap 9 Blood Urea Nitrogen 51 H Creatinine 2.97 H Est Glomerular 16 L Filtrat Rate mL/min Glucose Level 99 Calcium Level 8.4 Phosphorus Level 6.3 H Magnesium Level 2.4 Bedside Glucose 82 Medications Medication Current Medications IV Flush (NS 3 ml) 3 ml PER PROTOCOL IV ; Start 06/11/18 at 15:30 Acetaminophen (Tylenol Tab) 650 mg Q6H PRN PO .PAIN 1-3 OR TEMP Last administered on 06/14/18at 05:43; Admin Dose 650 MG; Start 06/11/18 at 15:30 Vancomycin HCl (Vanco Iv Per Pharmacy) VANCOMYCIN PER PHARMACY PER PROTOCOL XX ; Start 06/11/18 at 15:30 Ceftriaxone Sodium 50 ml @ 100 mls/hr Q24H IVPB Last administered on 06/13/18at 15:31; Admin Dose 100 MLS/HR; Start 06/11/18 at 15:30 Amlodipine Besylate (Norvasc) 10 mg DAILY PO Last administered on 06/14/18at 08:54; Admin Dose 10 MG; Start 06/12/18 at 09:00 Atorvastatin Calcium (Lipitor) 40 mg QHS PO Last administered on 06/13/18at 23:47; Admin Dose 40 MG; Start 06/11/18 at 21:00 Miscellaneous Information 1 ea NOTE XX ; Start 06/11/18 at 15:30 Glucose (Glutose) 15 gm Q15M PRN PO DECREASED GLUCOSE; Start 06/11/18 at 15:30 Glucose (Glutose) 22.5 gm Q15M PRN PO DECREASED GLUCOSE; Start 06/11/18 at 15:30 Dextrose (D50w Syringe) 25 ml Q15M PRN IV DECREASED GLUCOSE; Start 06/11/18 at 15:30 Dextrose (D50w Syringe) 50 ml Q15M PRN IV DECREASED GLUCOSE; Start 06/11/18 at 15:30 Glucagon (Glucagen) 1 mg Q15M PRN IM DECREASED GLUCOSE; Start 06/11/18 at 15:30 Glucose (Glutose) 15 gm Q15M PRN BUCCAL DECREASED GLUCOSE; Start 06/11/18 at 15:30 Vancomycin HCl 250 ml @ 125 mls/hr Q48H IVPB Last administered on 06/13/18at 12:36; Admin Dose 125 MLS/HR; Start 06/13/18 at 12:00 Sodium Hypochlorite (Dakin'S (Dilute )) 1 applic DAILY IRR Last administered on 06/12/18at 08:34; Admin Dose 1 APPLIC; Start 06/12/18 at 09:00 Insulin Glargine (Lantus) 13 units QHS SC Last administered on 06/13/18at 23:48; Admin Dose 13 UNITS; Start 06/11/18 at 21:30 Hydralazine HCl (Apresoline) 10 mg Q6H PRN IV ELEVATED SYSTOLIC BP Last administered on 06/11/18at 21:48; Admin Dose 10 MG; Start 06/11/18 at 21:30 Diagnostic Test (Pha) (Accu-Chek) 1 ea 02 XX ; Start 06/13/18 at 02:00 Insulin Aspart (Novolog Insulin Pen) NOVOLOG *MODERATE* ALGORITHM WITH MEALS BEDTIME SC Last administered on 06/12/18at 20:35; Admin Dose 1 UNIT; Start 06/12/18 at 18:05 Citric Acid/ Sodium Citrate (Bicitra) 30 ml BID PO Last administered on 06/14/18at 08:54; Admin Dose 30 ML; Start 2/11/19 at 21:00 LEONARD DOBBINS MD Jun 14, 2018 10:00
[2018-06-14 14:00] VITALS: BP 128/60; PULSE 96; RESP 18
--- NOTE | 2018-06-14 15:01 | PN ---
Date/Time of Note Date/Time of Note DATE: 06/14/18 TIME: 14:51 Assessment/Plan VTE Prophylaxis Risk score (from Ns)>0 risk: 4 SCD applied (from Ns): Yes Pharmacological prophylaxis: other Lines/Catheters IV Catheter Type (from [facility]): Saline Lock Assessment/Plan Hospital Course S: Patient had surgical debridement performed yesterday. O: Vs - see below PE: Gen: Well appearing woman in no acute distress. Eyes: PERRL, no icterus HEENT: Very poor dentition, moist mucous membranes Neck: No lymphadenopathy Card: Regular rate and rhythm, 2/6 systolic ejection murmur Pulm: Clear to auscultation bilaterally Abd: Soft, nontender, nondistended. Ext: No cyanosis/clubbing/edema. R foot bandaged. Skin: warm, dry, well perfused Assessment/Plan: 62 yo woman with history of IDDM, HTN presents with R toe kandace n/infx and HTN #HTN-stable now - initially blood pressure 219/90 on admission. Patient has been asymptomatic. - Currently normotensive just on amlodipine, continue for now #CRISTINE- likely 2/2 Prerenal azotemia + ATN From infection. Slowly improving, creatinine down to 2.97 today. - Consulted Dr. Peters renal team, continue to renally dose medications, follow the recommendations. #Toe wound-MRI foot shows positive osteomyelitis, also culture positive for now polymicrobial growth-final culture results are pending -For now continue empiric ceftriaxone and vanco, follow-up final culture results and sensitivities. -Podiatry Dr. Mcpherson following. Got debridement 06/11, and again yesterday, follow-up post operative recommendations -will discuss with [employer] consultant teams about the length of time needed for IV antibiotic treatment needed. -We will also go ahead and order for PICC placement DVT: SCDs GI: None Dispo: Likely home in 24 hours once we know the final culture results from her wound infection, and once cleared by podiatry team. Result Diagram: 06/14/18 0609 06/14/18 0609 Results 24hrs Laboratory Tests Test 06/13/18 17:31 06/13/18 22:52 06/13/18 23:46 06/14/18 06:09 Bedside Glucose 103 109 104 White Blood Count 5.7 Red Blood Count 2.52 L Hemoglobin 8.1 L Hematocrit 25.1 L Mean Corpuscular 99.6 Volume Mean Corpuscular 32.1 Hemoglobin Mean Corpuscular 32.3 Hemoglobin Concent Red Cell 12.6 Distribution Width Platelet Count 178 Mean Platelet Volume 10.7 H Immature 0.500 H Granulocytes % Neutrophils % 54.6 Lymphocytes % 21.1 Monocytes % 8.6 Eosinophils % 14.8 H Basophils % 0.4 Nucleated Red Blood 0.0 Cells % Immature 0.030 Granulocytes # Neutrophils # 3.1 Lymphocytes # 1.2 Monocytes # 0.5 Eosinophils # 0.8 H Basophils # 0.0 Nucleated Red Blood 0.0 Cells # Sodium Level 142 Potassium Level 4.5 Chloride Level 114 H Carbon Dioxide Level 19 L Anion Gap 9 Blood Urea Nitrogen 51 H Creatinine 2.97 H Est Glomerular 16 L Filtrat Rate mL/min Glucose Level 99 Calcium Level 8.4 Phosphorus Level 6.3 H Magnesium Level 2.4 Test 06/14/18 08:34 06/14/18 12:17 Bedside Glucose 82 150 Exam/Review of Systems Exam Vitals Vital Signs Date Temp Pulse Resp B/P (MAP) Pulse Ox O2 O2 Flow FiO2 Time Delivery Rate 06/14/18 97.9 78 18 121/68 97 Room Air 07:51 (85) Intake and Output 06/13/18 06/13/18 06/14/18 1515:00 23:00 07:00 IntakeIntake Total 250 ml 450 ml OutputOutput Total 10 ml BalanceBalance 250 ml 440 ml Results Results 24hrs Laboratory Tests Test 06/13/18 17:31 06/13/18 22:52 06/13/18 23:46 06/14/18 06:09 Bedside Glucose 103 109 104 White Blood Count 5.7 Red Blood Count 2.52 L Hemoglobin 8.1 L Hematocrit 25.1 L Mean Corpuscular 99.6 Volume Mean Corpuscular 32.1 Hemoglobin Mean Corpuscular 32.3 Hemoglobin Concent Red Cell 12.6 Distribution Width Platelet Count 178 Mean Platelet Volume 10.7 H Immature 0.500 H Granulocytes % Neutrophils % 54.6 Lymphocytes % 21.1 Monocytes % 8.6 Eosinophils % 14.8 H Basophils % 0.4 Nucleated Red Blood 0.0 Cells % Immature 0.030 Granulocytes # Neutrophils # 3.1 Lymphocytes # 1.2 Monocytes # 0.5 Eosinophils # 0.8 H Basophils # 0.0 Nucleated Red Blood 0.0 Cells # Sodium Level 142 Potassium Level 4.5 Chloride Level 114 H Carbon Dioxide Level 19 L Anion Gap 9 Blood Urea Nitrogen 51 H Creatinine 2.97 H Est Glomerular 16 L Filtrat Rate mL/min Glucose Level 99 Calcium Level 8.4 Phosphorus Level 6.3 H Magnesium Level 2.4 Test 06/14/18 08:34 06/14/18 12:17 Bedside Glucose 82 150 Medications Medication Current Medications IV Flush (NS 3 ml) 3 ml PER PROTOCOL IV ; Start 06/11/18 at 15:30 Acetaminophen (Tylenol Tab) 650 mg Q6H PRN PO .PAIN 1-3 OR TEMP Last administered on 06/14/18at 05:43; Admin Dose 650 MG; Start 06/11/18 at 15:30 Vancomycin HCl (Vanco Iv Per Pharmacy) VANCOMYCIN PER PHARMACY PER PROTOCOL XX ; Start 06/11/18 at 15:30 Ceftriaxone Sodium 50 ml @ 100 mls/hr Q24H IVPB Last administered on 06/13/18at 15:31; Admin Dose 100 MLS/HR; Start 06/11/18 at 15:30 Amlodipine Besylate (Norvasc) 10 mg DAILY PO Last administered on 06/14/18at 08:54; Admin Dose 10 MG; Start 06/12/18 at 09:00 Atorvastatin Calcium (Lipitor) 40 mg QHS PO Last administered on 06/13/18at 23:47; Admin Dose 40 MG; Start 06/11/18 at 21:00 Miscellaneous Information 1 ea NOTE XX ; Start 06/11/18 at 15:30 Glucose (Glutose) 15 gm Q15M PRN PO DECREASED GLUCOSE; Start 06/11/18 at 15:30 Glucose (Glutose) 22.5 gm Q15M PRN PO DECREASED GLUCOSE; Start 06/11/18 at 15:30 Dextrose (D50w Syringe) 25 ml Q15M PRN IV DECREASED GLUCOSE; Start 06/11/18 at 15:30 Dextrose (D50w Syringe) 50 ml Q15M PRN IV DECREASED GLUCOSE; Start 06/11/18 at 15:30 Glucagon (Glucagen) 1 mg Q15M PRN IM DECREASED GLUCOSE; Start 06/11/18 at 15:30 Glucose (Glutose) 15 gm Q15M PRN BUCCAL DECREASED GLUCOSE; Start 06/11/18 at 15:30 Vancomycin HCl 250 ml @ 125 mls/hr Q48H IVPB Last administered on 06/13/18 12:36; Admin Dose 125 MLS/HR; Start 06/13/18 at 12:00 Sodium Hypochlorite (Dakin'S (Dilute )) 1 applic DAILY IRR Last administered on 06/12/18 08:34; Admin Dose 1 APPLIC; Start 06/12/18 at 09:00 Insulin Glargine (Lantus) 13 units QHS SC Last administered on 06/13/18 23:48; Admin Dose 13 UNITS; Start 06/11/18 at 21:30 Hydralazine HCl (Apresoline) 10 mg Q6H PRN IV ELEVATED SYSTOLIC BP Last administered on 06/11/18 21:48; Admin Dose 10 MG; Start 06/11/18 at 21:30 Diagnostic Test (Pha) (Accu-Chek) 1 ea 02 XX ; Start 06/13/18 at 02:00 Insulin Aspart (Novolog Insulin Pen) NOVOLOG *MODERATE* ALGORITHM WITH MEALS BEDTIME SC Last administered on 06/14/18 12:24; Admin Dose 2 UNIT; Start 06/12/18 at 18:05 Citric Acid/ Sodium Citrate (Bicitra) 30 ml TID PO Last administered on 06/14/18 12:23; Admin Dose 30 ML; Start 06/14/18 at 13:00 JUSTINO CHAVARRIA Jun 14, 2018 15:00
[2018-06-14] MEDS ORDERED: LIDOCAINE 1% (MPF) 5 ML VIAL SC ONE (15:30)
--- NOTE | 2018-06-14 16:33 | NUR ---
MD RAJENDRA VENTURA FOR WOUND CARE AND IV ABX: REFERRED TO MARCELLO VENTURA [phone] FAX [phone] [facility] FAX TO [phone] TEL [phone]. Addendum: 06/14/18 at 1638 by RONY LAY Amended: Links added.
[2018-06-14] MEDS: CEFTRIAXONE 1 GM/50 ML (PMX) 50 ML IVPB SCH (17:23)
--- NOTE | 2018-06-14 17:40 | PN ---
Date/Time of Note Date/Time of Note DATE: 06/14/18 TIME: 17:40 Assessment/Plan VTE Prophylaxis Risk score (from Ns)>0 risk: 3 SCD applied (from Ns): Yes Pharmacological prophylaxis: other Lines/Catheters IV Catheter Type (from Nrs): Saline Lock Assessment/Plan Assessment/Plan R foot cellulitis R foot abscess R foot diabetic ulcer - s/p excisional debridement and delayed primary closure (DOS: 06/13/18) Suspicion for osteomyelitis of R foot IDDM with peripheral neuropathy HTN HLD Plan: Dressings were changed to the right hallux incision site and recommend to keep clean dry and intact. Patient received PICC line and recommend assisted IV abx therapy. IntraOp cultures and pathology pending. Previous cultures showing gram neg portillo, staph coag neg, enterococcus species. Offload heels with pillows while resting in bed. Please dispense post op shoe. Non invasive arterial studies showing: Bilateral occluded posterior tibial arteries. Moderate to severe right popliteal artery stenosis with change from biphasic to monophasic waveforms. Recommend vascular evaluation. Result Diagram: 06/14/18 0609 06/14/18 0609 Results 24hrs Laboratory Tests Test 06/13/18 22:52 06/13/18 23:46 06/14/18 06:09 06/14/18 08:34 Bedside Glucose 109 104 82 White Blood Count 5.7 Red Blood Count 2.52 L Hemoglobin 8.1 L Hematocrit 25.1 L Mean Corpuscular 99.6 Volume Mean Corpuscular 32.1 Hemoglobin Mean Corpuscular 32.3 Hemoglobin Concent Red Cell 12.6 Distribution Width Platelet Count 178 Mean Platelet Volume 10.7 H Immature 0.500 H Granulocytes % Neutrophils % 54.6 Lymphocytes % 21.1 Monocytes % 8.6 Eosinophils % 14.8 H Basophils % 0.4 Nucleated Red Blood 0.0 Cells % Immature 0.030 Granulocytes # Neutrophils # 3.1 Lymphocytes # 1.2 Monocytes # 0.5 Eosinophils # 0.8 H Basophils # 0.0 Nucleated Red Blood 0.0 Cells # Sodium Level 142 Potassium Level 4.5 Chloride Level 114 H Carbon Dioxide Level 19 L Anion Gap 9 Blood Urea Nitrogen 51 H Creatinine 2.97 H Est Glomerular 16 L Filtrat Rate mL/min Glucose Level 99 Calcium Level 8.4 Phosphorus Level 6.3 H Magnesium Level 2.4 Test 06/14/18 12:17 Bedside Glucose 150 Subjective 24 Hr Interval Summary Free Text/Dictation No acute events overnight. Exam/Review of Systems Exam Vitals Vital Signs Date Temp Pulse Resp B/P (MAP) Pulse Ox O2 O2 Flow FiO2 Time Delivery Rate 06/14/18 97.9 96 18 128/60 97 Room Air 14:00 (82) Intake and Output 06/13/18 06/13/18 06/14/18 1515:00 23:00 07:00 IntakeIntake Total 250 ml 450 ml OutputOutput Total 10 ml BalanceBalance 250 ml 440 ml Exam Right hallux incision site well approximated mild maceration noted. Skin sutures well maintained. No proximal streaking, no foul odor. Absent protective sensations Non pitting edema surrounding the R great toe Results Results 24hrs Laboratory Tests Test 06/13/18 22:52 06/13/18 23:46 06/14/18 06:09 06/14/18 08:34 Bedside Glucose 109 104 82 White Blood Count 5.7 Red Blood Count 2.52 L Hemoglobin 8.1 L Hematocrit 25.1 L Mean Corpuscular 99.6 Volume Mean Corpuscular 32.1 Hemoglobin Mean Corpuscular 32.3 Hemoglobin Concent Red Cell 12.6 Distribution Width Platelet Count 178 Mean Platelet Volume 10.7 H Immature 0.500 H Granulocytes % Neutrophils % 54.6 Lymphocytes % 21.1 Monocytes % 8.6 Eosinophils % 14.8 H Basophils % 0.4 Nucleated Red Blood 0.0 Cells % Immature 0.030 Granulocytes # Neutrophils # 3.1 Lymphocytes # 1.2 Monocytes # 0.5 Eosinophils # 0.8 H Basophils # 0.0 Nucleated Red Blood 0.0 Cells # Sodium Level 142 Potassium Level 4.5 Chloride Level 114 H Carbon Dioxide Level 19 L Anion Gap 9 Blood Urea Nitrogen 51 H Creatinine 2.97 H Est Glomerular 16 L Filtrat Rate mL/min Glucose Level 99 Calcium Level 8.4 Phosphorus Level 6.3 H Magnesium Level 2.4 Test 06/14/18 12:17 Bedside Glucose 150 Medications Medication Current Medications IV Flush (NS 3 ml) 3 ml PER PROTOCOL IV ; Start 06/11/18 at 15:30 Acetaminophen (Tylenol Tab) 650 mg Q6H PRN PO .PAIN 1-3 OR TEMP Last administered on 06/14/18at 05:43; Admin Dose 650 MG; Start 06/11/18 at 15:30 Vancomycin HCl (Vanco Iv Per Pharmacy) VANCOMYCIN PER PHARMACY PER PROTOCOL XX ; Start 06/11/18 at 15:30 Ceftriaxone Sodium 50 ml @ 100 mls/hr Q24H IVPB Last administered on 06/14/18at 17:23; Admin Dose 100 MLS/HR; Start 06/11/18 at 15:30 Amlodipine Besylate (Norvasc) 10 mg DAILY PO Last administered on 06/14/18at 08:54; Admin Dose 10 MG; Start 06/12/18 at 09:00 Atorvastatin Calcium (Lipitor) 40 mg QHS PO Last administered on 06/13/18at 23:47; Admin Dose 40 MG; Start 06/11/18 at 21:00 Miscellaneous Information 1 ea NOTE XX ; Start 06/11/18 at 15:30 Glucose (Glutose) 15 gm Q15M PRN PO DECREASED GLUCOSE; Start 06/11/18 at 15:30 Glucose (Glutose) 22.5 gm Q15M PRN PO DECREASED GLUCOSE; Start 06/11/18 at 15:30 Dextrose (D50w Syringe) 25 ml Q15M PRN IV DECREASED GLUCOSE; Start 06/11/18 at 15:30 Dextrose (D50w Syringe) 50 ml Q15M PRN IV DECREASED GLUCOSE; Start 06/11/18 at 15:30 Glucagon (Glucagen) 1 mg Q15M PRN IM DECREASED GLUCOSE; Start 06/11/18 at 15:30 Glucose (Glutose) 15 gm Q15M PRN BUCCAL DECREASED GLUCOSE; Start 06/11/18 at 15:30 Vancomycin HCl 250 ml @ 125 mls/hr Q48H IVPB Last administered on 06/13/18at 12 :36; Admin Dose 125 MLS/HR; Start 06/13/18 at 12:00 Sodium Hypochlorite (Dakin'S (Dilute )) 1 applic DAILY IRR Last administered on 06/12/18at 08:34; Admin Dose 1 APPLIC; Start 06/12/18 at 09:00 Insulin Glargine (Lantus) 13 units QHS SC Last administered on 06/13/18at 23:48; Admin Dose 13 UNITS; Start 06/11/18 at 21:30 Hydralazine HCl (Apresoline) 10 mg Q6H PRN IV ELEVATED SYSTOLIC BP Last adm inistered on 06/11/18at 21:48; Admin Dose 10 MG; Start 06/11/18 at 21:30 Diagnostic Test (Pha) (Accu-Chek) 1 02 XX ; Start 06/13/18 at 02:00 Insulin Aspart (Novolog Insulin Pen) NOVOLOG *MODERATE* ALGORITHM WITH MEALS BEDTIME SC Last administered on 06/14/18at 17:31; Admin Dose 2 UNIT; Start 06/12/18 at 18:05 Citric Acid/ Sodium Citrate (Bicitra) 30 ml TID PO Last administered on 06/14/18at 12:23; Admin Dose 30 ML; Start 06/14/18 at 13:00 JERSON GRAHAM DPM Jun 14, 2018 17:40
--- NOTE | 2018-06-14 19:00 | NUR ---
Patient on bed rest, alert and oriented X 4, Vital signs stable. Denies pain at this time. Patient ambulatory with assist. Right foot dressing changed by Dr. Mcpherson. Patient continue to take Bicitra PO and MD aware of elevated BUN and Creatinine as well as phosphorus. PICC line placed today on right arm. Discharge planning for Home IV antiobiotics to treat osteomylitis, and home health for dressing changes. Stable condition.
[2018-06-14 20:00] VITALS: BP 141/63; PULSE 93; RESP 18
[2018-06-14 21:03] LABS: PTH CALCIUM 7.9 mg/dL (8.6-10.4)
[2018-06-14] MEDS: INSULIN GLARGINE [LANTus] (100 UNITS/ML) SYG SC SCH (21:22)
[2018-06-14] MEDS: ATORVASTATIN 40 MG TAB PO SCH (21:22)
[2018-06-15] MEDS: ACCU-CHEK XX SCH (02:00)
[2018-06-15 02:08] VITALS: BP 150/74; PULSE 87; RESP 18
--- NOTE | 2018-06-15 06:16 | NUR ---
End of Shift: Patient calm and comfortable on bed, pleasant. No pain, no nausea, no vomiting, no bleeding, no chills, no sob noted overnight. Kept dressing clean, dry and intact. ANIKA PICC line intact. Will continue to monitor.
[2018-06-15 07:51] LABS: PTH INTACT 150 pg/mL (14-64)
[2018-06-15 08:00] VITALS: BP 164/60; PULSE 84; RESP 20
[2018-06-15] MEDS: INSULIN ASPART [NOVOLOG] 3 ML PEN SC SCH ×3 (08:00→17:34)
[2018-06-15] MEDS: CITRIC ACID/NA CITRATE 30 ML CUP PO SCH ×2 (08:15→12:15)
[2018-06-15] MEDS: SODIUM HYPOCHLORITE (1/40) 1 APPLIC BTL IRR SCH (08:16)
[2018-06-15] MEDS: AMLODIPINE 10 MG TAB PO SCH (08:16)
--- NOTE | 2018-06-15 09:04 | CONS ---
Assessment/Plan Assessment/Plan Assessment/Plan (Daily) 1. acute kidney injury vs acute kindey injury on CKD 2/2 Prerenal azotemia + ATN From infection 2. H/o possible CKD due to hypertensive nephrosclerosis + DM nephropathy 3. metabolic acidosis due to Arsen on CKD 4. R toe infection/gangrene s/p Right foot excisional debridement, Right foot delayed primary closure on 06/13/18 5. Accelerated HTN 6. h/o HTN Plan: on IV abx ceftriaxone and vancomycin< renally dose all abx and monitor electrolytes BUN/Cr 51/3.01- s/p Right foot excisional debridement, Right foot delayed primary closure on 06/13/18 Renal US showed Moderate bilateral cortical thinning and echogenicity suggestive of medical renal disease. No hydronephrosis. Amlodipine 10 mg po dialy for HTN, stopped lisinopril, IV hydralzine prn Lantus for DM, goal HBA1c less than 7.0 Follow up with me in clinic in 1-2 week upon discharge will follow up Consultation Date/Type/Reason Admit Date/Time Jun 11, 2018 at 12:54 Initial Consult Date 06/12/18 Type of Consult NEPHROLOGY Requesting Provider: DIEGO MORGAN MD Date/Time of Note DATE: 06/15/18 TIME: 09:04 Exam/Review of Systems Exam Vitals Vital Signs Date Temp Pulse Resp B/P (MAP) Pulse Ox O2 O2 Flow FiO2 Time Delivery Rate 06/15/18 98.8 84 20 164/60 94 08:00 (94) 06/14/18 Room Air 14:00 Intake and Output 06/14/18 06/14/18 06/15/18 1515:00 23:00 07:00 IntakeIntake Total 650 ml OutputOutput Total 3 ml 2 ml BalanceBalance 647 ml -2 ml Exam Gen: alert, awake, no acute distress . Eyes: PERRL, no icterus HEENT: Very poor dentition, moist mucous membranes Neck: No lymphadenopathy Card: Regular rate and rhythm, 2/6 systolic ejection murmur Pulm: Clear to auscultation bilaterally Abd: Soft, nontender, nondistended. Ext: No cyanosis/clubbing/edema. R great toe dressing in place Skin: warm, dry, well perfused Results Result Diagram: 2/13/19 0620 2/13/19 0620 Results 24hrs Laboratory Tests Test 06/14/18 12:17 06/14/18 17:28 06/14/18 21:18 06/15/18 06:20 Bedside Glucose 150 164 158 White Blood Count 5.7 Red Blood Count 2.30 L Hemoglobin 7.4 L Hematocrit 22.7 L Mean Corpuscular 98.7 Volume Mean Corpuscular 32.2 Hemoglobin Mean Corpuscular 32.6 Hemoglobin Concent Red Cell 12.5 Distribution Width Platelet Count 184 Mean Platelet Volume 11.1 H Immature 0.700 H Granulocytes % Neutrophils % 46.8 Lymphocytes % 26.7 Monocytes % 9.4 Eosinophils % 15.9 H Basophils % 0.5 Nucleated Red Blood 0.0 Cells % Immature 0.040 H Granulocytes # Neutrophils # 2.7 Lymphocytes # 1.5 Monocytes # 0.5 Eosinophils # 0.9 H Basophils # 0.0 Nucleated Red Blood 0.0 Cells # Sodium Level 140 Potassium Level 4.4 Chloride Level 112 H Carbon Dioxide Level 22 Anion Gap 6 Blood Urea Nitrogen 51 H Creatinine 3.01 H Est Glomerular 16 L Filtrat Rate mL/min Glucose Level 94 Calcium Level 8.3 L Test 06/15/18 08:14 Bedside Glucose 94 Medications Medication Current Medications IV Flush (NS 3 ml) 3 ml PER PROTOCOL IV ; Start 06/11/18 at 15:30 Acetaminophen (Tylenol Tab) 650 mg Q6H PRN PO .PAIN 1-3 OR TEMP Last administered on 06/14/18at 05:43; Admin Dose 650 MG; Start 06/11/18 at 15:30 Vancomycin HCl (Vanco Iv Per Pharmacy) VANCOMYCIN PER PHARMACY PER PROTOCOL XX ; Start 06/11/18 at 15:30 Ceftriaxone Sodium 50 ml @ 100 mls/hr Q24H IVPB Last administered on 06/14/18at 17:23; Admin Dose 100 MLS/HR; Start 06/11/18 at 15:30 Amlodipine Besylate (Norvasc) 10 mg DAILY PO Last administered on 06/15/18at 08:16; Admin Dose 10 MG; Start 06/12/18 at 09:00 Atorvastatin Calcium (Lipitor) 40 mg QHS PO Last administered on 06/14/18at 21:22; Admin Dose 40 MG; Start 06/11/18 at 21:00 Miscellaneous Information 1 ea NOTE XX ; Start 06/11/18 at 15:30 Glucose (Glutose) 15 gm Q15M PRN PO DECREASED GLUCOSE; Start 06/11/18 at 15:30 Glucose (Glutose) 22.5 gm Q15M PRN PO DECREASED GLUCOSE; Start 06/11/18 at 15:30 Dextrose (D50w Syringe) 25 ml Q15M PRN IV DECREASED GLUCOSE; Start 06/11/18 at 15:30 Dextrose (D50w Syringe) 50 ml Q15M PRN IV DECREASED GLUCOSE; Start 06/11/18 at 15:30 Glucagon (Glucagen) 1 mg Q15M PRN IM DECREASED GLUCOSE; Start 06/11/18 at 15:30 Glucose (Glutose) 15 gm Q15M PRN BUCCAL DECREASED GLUCOSE; Start 06/11/18 at 15:30 Vancomycin HCl 250 ml @ 125 mls/hr Q48H IVPB Last administered on 06/13/18 12:36; Admin Dose 125 MLS/HR; Start 06/13/18 at 12:00 Sodium Hypochlorite (Dakin'S (Dilute )) 1 applic DAILY IRR Last administered on 06/12/18at 08:34; Admin Dose 1 APPLIC; Start 06/12/18 at 09:00 Insulin Glargine (Lantus) 13 units QHS SC Last administered on 06/14/18 21:22; Admin Dose 13 UNITS; Start 06/11/18 at 21:30 Hydralazine HCl (Apresoline) 10 mg Q6H PRN IV ELEVATED SYSTOLIC BP Last administered on 06/11/18 21:48; Admin Dose 10 MG; Start 06/11/18 at 21:30 Diagnostic Test (Pha) (Accu-Chek) 1 ea 02 XX ; Start 06/13/18 at 02:00 Insulin Aspart (Novolog Insulin Pen) NOVOLOG *MODERATE* ALGORITHM WITH MEALS BEDTIME SC Last administered on 06/14/18 17:31; Admin Dose 2 UNIT; Start 02/18 at 18:05 Citric Acid/ Sodium Citrate (Bicitra) 30 ml TID PO Last administered on 06/15/18 08:15; Admin Dose 30 ML; Start 06/14/18 at 13:00 LEONARD DOBBINS MD Jun 15, 2018 09:04
[2018-06-15] MEDS ORDERED: LEVOFLOXACIN 500 MG TAB PO SCH (11:00)
--- NOTE | 2018-06-15 11:36 | NUR ---
NUTRITION NOTE: Will offer Kole BID. Rec to add daily MVI/Min and Vit C therapy.
[2018-06-15] MEDS: VANCOMYCIN 1 GM 250 ML IVPB SCH (12:02)
--- NOTE | 2018-06-15 13:35 | NUR ---
DOROTHY NOTES ORDER RECEIVED FOR DURATION OF OUTPATIENT IV ABX [facility]IRA FROM [facility] NOTIFIED. SPOKE TO KANE ROMAN NURSE , PATIENT WILL NOT BE DC TODAY AND POSSIBLE PT WILL NEED ANOTHER I&D . FABRIZIO DE LA CRUZ RN X [phone] Addendum: 06/15/18 at 1420 by FABRIZIO DUPREE CM disregard above notes. wrong entry ORDER RECEIVED FOR DURATION OF OUTPATIENT IV ABX KIRA FROM [facility] NOTIFIED. PER KIRA PATIENT SON WILL BE AVAILBALE TO DISCUSS CO-PAY @15:30 PM .
[2018-06-15 14:00] VITALS: BP 130/62; PULSE 87; RESP 18
--- NOTE | 2018-06-15 14:55 | PDOCDIS ---
Discharge Instructions CONDITION [id number] Patient Condition: Mpysi7y Stable HOME CARE INSTRUCTIONS: [id number] Diet Instructions: [id number] Low Fat /Cholesterol ACTIVITY: [id number] Activity Restrictions: [id number] Slowly Increase Activity Rest between Activity Avoid heavy lifting FOLLOW UP/APPOINTMENTS Follow-up Plan Please take your medications as prescribed, see your doctor in the clinic in the next 1 week. JUSTINO CHAVARRIA Jun 15, 2018 14:55
[2018-06-15] MEDS ORDERED: INSU100I33 SC (15:01)
[2018-06-15] MEDS ORDERED: AMLO-147 PO (15:01)
[2018-06-15] MEDS ORDERED: ATOR40TA68 PO (15:01)
[2018-06-15] MEDS ORDERED: LEVO500T48 PO (15:01)
[2018-06-15] MEDS ORDERED: BICS PO (15:01)
--- NOTE | 2018-06-15 15:08 | DS ---
Date/Time of Note Date/Time of Note DATE: 06/15/18 TIME: 15:03 Discharge Summary Admission/Discharge Info Admit Date/Time Jun 11, 2018 at 12:54 Discharge Date/Time Discharge Diagnosis #HTN-stable now - initially blood pressure 219/90 on admission. Patient has been asymptomatic. #CRISTINE- likely 2/2 Prerenal azotemia + ATN From infection. Slowly improving. #Toe wound-MRI foot shows positive osteomyelitis, also culture positive for now polymicrobial growth-status post surgical debridement. Patient Condition: Stable Procedures A. MRI right foot: IMPRESSION: 1. Soft tissue swelling/plantar sided ulcer in the distal aspect of the first digit. 2. Marrow infiltrative signal and sclerosis and faint edema in the distal aspect of the first distal digit compatible with osteomyelitis. 3. Additional findings as above. B. 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 She has a chronic callus at the tip of her great toe with split about 1-2 days ago. Since then she's had redness and pain when bearing weight on the toe. She also mentions mild lateral thigh muscle soreness when she walks too long. Otherwise no fevers, chills, or other systemic signs. She reports compliance with all listed meds. In the ED she was afebrile, HTNsive to 219/90, tachy to 100. Labs notable for CRISTINE with Cr 2.62 (was 1.55 in 2016); and Hgb 8.3. Hospital Course Patient was admitted to medical surgical unit. Seen by Podiatry and renal teams during this hospital stay. Patient was treated for renal insufficiency medically. Regarding the right great toe pain and redness, she was diagnosed with a right foot cellulitis, abscess, and diabetic ulcer. She underwent debridement procedure. Her wound culture came back positive for polymicrobial growth. Her MRI of her foot also showed signs of osteomyelitis. Both before and after the procedure she tolerated the antibiotics well. She received wound care dressing changes at the bedside. She had no fevers on a white blood cell count remained normal. She received PICC placement as well given the ostium myelitis. She will be discharged home today when she gets clearance from renal team, in improved condition. She will need a total of 8 weeks of antibiotics renally dosed to p.o. Levaquin and renally dosed IV vancomycin. See below for other full list of discharge medications; we have for now discontinued her HENRIQUE inhibitor given her renal insufficiency. Home Meds Active Scripts Citric Acid/Sodium Citrate* (Bicitra* (PEDIATRIC)) 1 Meq/Ml Soln, 30 ML PO TID, #90 1 Refill Prov:DEONJUSTINO S. 06/15/18 Levofloxacin* (Levaquin*) 500 Mg Tablet, 500 MG PO Q48H for 60 Days, TAB Prov:DEONJUSTINO S. 06/15/18 Insulin Glargine,Hum.rec.anlog (Basaglar Kwikpen U-100) 100 Unit/1 Ml Insuln.pen, 13 UNIT SC QHS, #1 BOTTLE 3 Refills Prov:DEONJUSTINO S. 06/15/18 Amlodipine Besylate* (Amlodipine Besylate*) 10 Mg Tablet, 10 MG PO DAILY, #30 TAB 3 Refills Prov:DEONJUSTINO S. 06/15/18 Atorvastatin* (Atorvastatin*) 40 Mg Tablet, 40 MG PO QHS, #30 TAB 3 Refills Prov:DEONJUSTINO S. 06/15/18 Discontinued Reported Medications Lisinopril* (Lisinopril*) 40 Mg Tablet, 40 MG PO DAILY, #30 TAB 06/11/18 Amlodipine Besylate* (Amlodipine Besylate*) 10 Mg Tablet, 10 MG PO DAILY, #30 TAB 06/11/18 Lisinopril* (Lisinopril*) 40 Mg Tablet, 40 MG PO DAILY, #30 TAB 06/11/18 Nepafenac* (Nevanac* 0.1%) 3 Ml Drops.susp, 1 DROP RIGHT EYE DAILY, EA 03/20/16 Ofloxacin* (Ocuflox*) 0.3%-5 Ml Ophth Drops, 1 DROP RIGHT EYE QID, BOTTLE 03/20/16 Prednisolone Acetate* (Pred Forte*) 5 Ml Susp, 1 DROP RIGHT EYE QID, EA 03/20/16 Insulin Regular, Human (Humulin R) 100 Unit/1 Ml Vial, 5 UNIT IJ DAILY, VIAL 03/20/16 Ferrous Sulfate* (Ferrous Sulfate*) 325 Mg Tabec, 325 MG PO BID, TAB 03/20/16 Discontinued Scripts Insulin Glargine* (Lantus*) 100 Unit/Ml Soln, 15 UNIT SC QHS for 30 Days Prov:FRAN GUTHRIE 03/25/16 Hydrocodone Bit-Acetaminophen (Hydrocodone Bit-APAP) 5-325MG Tablet, 1 TAB PO Q4H PRN for PAIN LEVEL 6-10, #20 TAB Prov:FRAN GUTHRIE 03/25/16 Atorvastatin (Atorvastatin) 10 Mg Tablet, 10 MG PO DAILY@21 for 30 Days, TAB Prov:FRAN GUTHRIE 03/25/16 Aspirin* (Aspirin* EC) 81 Mg Tablet.dr, 81 MG PO DAILY for 30 Days Prov:FRAN GUTHRIE 03/25/16 Doxycycline Monohydrate* (Doxycycline Monohydrate*) 100 Mg Tablet, 100 MG PO BID for 7 Days, TAB Prov:FRAN GUTHRIE 03/25/16 Follow-up Plan Please take your medications as prescribed, see your doctor in the clinic in the next 1 week. Primary Care Provider Not On Staff Doctor Time spent on discharge: > 30 minutes Pending Labs Laboratory Tests Test 06/14/18 17:28 06/14/18 21:18 06/15/18 06:20 06/15/18 08:14 Bedside 164 158 94 Glucose mg/dL (70-220) mg/dL (70-220) mg/dL (70-220) White Blood 5.7 Count 10^3/ul (4.8-1 0.8) Red Blood 2.30 Count 10^6/ul (4.20- 5.40) Hemoglobin 7.4 g/dl (12.0-16. 0) Hematocrit 22.7 % (37.0-47.0) Mean 98.7 Corpuscular fl (82.0-101.0 Volume ) Mean 32.2 Corpuscular pg (29.0-33.0) Hemoglobin Mean 32.6 Corpuscular g/dl (32.0-37. Hemoglobin Conc 0) ent Red Cell 12.5 Distribution % (11.5-14.5) Width Platelet Count 184 10^3/UL (140-4 15) Mean Platelet 11.1 Volume fl (7.4-10.4) Immature 0.700 Granulocytes % % (0.001-0.429 ) Neutrophils % 46.8 % (39.0-77.0) Lymphocytes % 26.7 % (15.0-51.0) Monocytes % 9.4 % (0.0-11.0) Eosinophils % 15.9 % (0.0-7.0) Basophils % 0.5 % (0.0-2.0) Nucleated Red 0.0 Blood Cells % /100WBC (0.0-0 .0) Immature 0.040 Granulocytes # 10^3/ul (0.0-0 .031) Neutrophils # 2.7 10^3/ul (1.6-7 .5) Lymphocytes # 1.5 10^3/ul (0.8-2 .9) Monocytes # 0.5 10^3/ul (0.3-0 .9) Eosinophils # 0.9 10^3/ul (0.0-0 .5) Basophils # 0.0 10^3/ul (0.0-0 .1) Nucleated Red 0.0 Blood Cells # 10^3/ul (0.0-0 .0) Sodium Level 140 mmol/L (135-14 4) Potassium 4.4 Level mmol/L (3.5-5. 1) Chloride Level 112 mmol/L (97-110 ) Carbon Dioxide 22 Level mmol/L (21-31) Anion Gap 6 (5-13) Blood Urea 51 Nitrogen mg/dl (7-20) Creatinine 3.01 mg/dl (0.44-1. 00) Est Glomerular 16 Filtrat mL/min (>60) Rate mL/min Glucose Level 94 mg/dl (70-220) Calcium Level 8.3 mg/dl (8.4-10. 2) Test 06/15/18 10:52 06/15/18 12:09 06/15/18 13:02 Hemoglobin 7.9 g/dl (12.0-16.0 ) Hematocrit 24.5 % (37.0-47.0) Bedside 215 Glucose mg/dL (70-220) Lab Scanned REFERENCE Report LAB [id number] JUSTINO CHAVARRIA Jun 15, 2018 15:08
--- NOTE | 2018-06-15 16:17 | NUR ---
RN NOTES Patient was sen by Dr Islas with an order for discharge to Home with Home Health and IV antibiotics. CM was able to arrange the Home health. Called Dr Peters to update about patient's discharge, awaiting for a call back. Patient is alert and oriented, denies any pain or discomfort. Addendum: 06/15/18 at 1622 by LUCAS DIXON RN Spoke with Dr Fran Doan and okayed the patient for discharge. Patient needs to follow up in 1-2 weeks.
--- NOTE | 2018-06-15 16:50 | NUR ---
DOROTHY NOTES KIRA FROM [facility] HAS BEEN TRYING TO CONTACT PATIENT TO SPEAK TO [facility] FINANCIAL COUNSELOR REGARDING CO-PAY FOR THE IV ABX . NOT RESPONDING TO PHONE CALLS. WILL CONTINUE TO CONTACT PT SPOKE TO ISAAC TABOR CM , PATIENT CAN NOT BE DISCHARGE UNTIL PATIENT SPEAK TO [facility] FINANCIAL COUNSELOR. FABRIZIO DE LA CRUZ X [phone]
--- NOTE | 2018-06-15 17:05 | NUR ---
DOROTHY NOTES VÍCTOR FROM [facility] CALLED , PATIENT/ FAMILY AGREED TO PAY CO-PAY FOR IV ABX. [facility] WILL PROVIDE HH , ACCEPTED BY JAZ DINH CM X [phone]
--- NOTE | 2018-06-15 18:24 | NUR ---
RN NOTES Patient has been stable all throughout and is ready for discharge. Patient came but left again and stated that his daughter will be coming to pick up driver the patient. also stated that daughter will be the one to receive the instructions. Latest blood sugar result was 148 mg/dl, 2 units insulin was given SQ. Vital signs remained stable. Patient denies pain or discomfort. Will endorse to shift lab technician for final discharge. Addendum: 06/15/18 at 1908 by LUCAS DIXON RN Patient was discharged ins table condition and was picked up by daughter. Vital signs taken and recorded prior to DC and recorded as follows, BP 144/67, pulse 78, respirations 20, temperature 98.1 O2 saturation 99% on room air. Discharge instructions given and patient/daughter verbalized understanding. All belongings taken with none missing. Patient was assisted by volunteer on a wheelchair with family upon DC.
== END 2018-06-15 19:00 | disposition home health service (06) | DRG 579 ==
LOC: E/R 10:14 → PP2 12:54
PROVIDERS: ADMIT Internal Medicine; ATTEND Hospitalist
PROC: 0QBQ0ZZ Excision of Right Toe Phalanx, Open Approach (ICD-10-PCS; 2018-06-13)
PROC: 0JQQ0ZZ Repair Right Foot Subcutaneous Tissue and Fascia, Open Approach (ICD-10-PCS; principal; 2018-06-13 19:30)
DX: L03.115 Cellulitis of right lower limb (principal); N17.0 Acute kidney failure with tubular necrosis; M86.8X7 Other osteomyelitis, ankle and foot; E87.2 Acidosis; L02.611 Cutaneous abscess of right foot; E11.621 Type 2 diabetes mellitus with foot ulcer; E11.69 Type 2 diabetes mellitus with other specified complication; L97.511 Non-pressure chronic ulcer of other part of right foot limited to breakdown of skin; E78.5 Hyperlipidemia, unspecified; D64.9 Anemia, unspecified; E11.40 Type 2 diabetes mellitus with diabetic neuropathy, unspecified; I12.9 Hypertensive chronic kidney disease with stage 1 through stage 4 chronic kidney disease, or unspecified chronic kidney disease; N18.9 Chronic kidney disease, unspecified; L03.031 Cellulitis of right toe; B95.8 Unspecified staphylococcus as the cause of diseases classified elsewhere; B96.20 Unspecified Escherichia coli [E. coli] as the cause of diseases classified elsewhere; B95.2 Enterococcus as the cause of diseases classified elsewhere; B95.7 Other staphylococcus as the cause of diseases classified elsewhere
CPT/HCPCS: 36415; 36569; 71045; 73630; 73718; 76775; 76937; 80048; 80053; 80061; 80202; 81001; 81003; 82306; 82540; 82550; 82570; 82728; 82962; 83036; 83540; 83735; 83970; 84100; 84155; 84300; 84560; 85014; 85018; 85025; 85610; 85651; 85730; 86140; 86850; 86900; 86901; 87040; 87070; 87102; 88304; 88311; 89190; 93005; 93923; 96365; J0360; J0692; J0696; J1815; J1885; J2250; J2405; J2765; J3010; J3370; J7030

== ENCOUNTER 2018-06-28 10:04 | Inpatient (IN) | payer MEDICARE, MEDICAID ==
[~2018-06-28] VITALS: Ht 165.1 cm; Wt 71.5 kg
[~2018-06-28 10:04] MED LIST changes: +AMLO-147 PO; -ASPI-817 PO; -ATOR10TA65 PO; +ATOR40TA68 PO; +BICS PO; -DOXY100T21 PO; -FER325 PO; -HYDR-3601 PO; +INSU100I33 SC; -INSU100V3 IJ; -LANT3I SC; +LEVO500T48 PO; -NEPA3DRO RIGHT EYE; -OFLO5DRO46 RIGHT EYE; -PRED5DRO20 RIGHT EYE
[2018-06-28] MEDS ORDERED: CEFEPIME 1GM/50 ML (PMX) 50 ML IVPB ONE (11:00)
[2018-06-28] MEDS ORDERED: VANCOMYCIN 1 GM (PMX) 250 ML IVPB ONE (11:00)
[2018-06-28] MEDS ORDERED: SOD CHLORIDE 0.9% 0 ML IV ONE (11:21)
[2018-06-28] MEDS ORDERED: HYDROCODONE/APAP (10/325) TAB PO ONE (11:30)
--- NOTE | 2018-06-28 12:12 | ERD ---
ER Documentation Chief Complaint Chief Complaint cp x 1day and cough/congestion x 1 week HPI Patient is a 63-year-old female with hypertension, diabetes, and high cholesterol who presents with chest pain. She also had low oxygen saturation. She said that she has had "a cold with phlegm". She has upper back pain. The symptoms started last night. She has no bleeding that she reports. She has had no treatment as of yet. She did not get a flu shot this year. She is currently getting antibiotics for a foot infection. Upon review of old medical records this is the patient's eighth visit to the ER since 2012. She does not currently have a primary doctor. ROS All systems reviewed and are negative except as per history of present illness. Medications Home Meds Active Scripts Citric Acid/Sodium Citrate* (Bicitra* (PEDIATRIC)) 1 Meq/Ml Soln, 30 ML PO TID, #90 1 Refill Prov:JUSTINO CHAVARRIA S. 06/15/18 Levofloxacin* (Levaquin*) 500 Mg Tablet, 500 MG PO Q48H for 60 Days, TAB Prov:JUSTINO CHAVARRIA S. 06/15/18 Insulin Glargine,Hum.rec.anlog (Basaglar Kwikpen U-100) 100 Unit/1 Ml Insuln.pen, 13 UNIT SC QHS, #1 BOTTLE 3 Refills Prov:JUSTINO CHAVARRIA S. 06/15/18 Amlodipine Besylate* (Amlodipine Besylate*) 10 Mg Tablet, 10 MG PO DAILY, #30 TAB 3 Refills Prov:JUSTINO CHAVARRIA S. 06/15/18 Atorvastatin* (Atorvastatin*) 40 Mg Tablet, 40 MG PO QHS, #30 TAB 3 Refills Prov:JUSTINO CHAVARRIA S. 06/15/18 Allergies Allergies: Coded Allergies: No Known Allergy (Unverified , 06/11/18) PMhx/Soc History of Surgery: Yes (R foot surgery.) Anesthesia Reaction: No (N/A) Hx Neurological Disorder: No Hx Respiratory Disorders: No Hx Cardiac Disorders: Yes (HTN) Hx Psychiatric Problems: No Hx Miscellaneous Medical Probl: Yes (DM, cholesterol) Hx Alcohol Use: No Hx Substance Use: No Hx Tobacco Use: No Smoking Status: Never smoker FmHx Family History: diabetes Physical Exam Vitals Vital Signs Date Temp Pulse Resp B/P (MAP) Pulse Ox O2 O2 Flow FiO2 Time Delivery Rate 06/28/18 98 20 152/76 95 Nasal 6.0 11:43 (101) Cannula 06/28/18 Nasal 6 11:05 Cannula 06/28/18 98.0 97 18 135/65 84 10:15 (88) Physical Exam Const: Moderate distress, pale Head: Atraumatic Eyes: Normal Conjunctiva ENT: Normal External Ears, Nose and Mouth. Neck: Full range of motion. No meningismus. Resp: Clear to auscultation bilaterally Cardio: Regular rate and rhythm, no murmurs Abd: Soft, non tender, non distended. Normal bowel sounds Skin: Pale skin Back: No midline or flank tenderness Ext: No cyanosis, or edema Neur: Awake and alert Psych: Normal Mood and Affect Result Diagram: 06/28/18 1055 06/28/18 1055 Results 24 hrs Laboratory Tests Test 06/28/18 10:55 06/28/18 10:58 White Blood Count 6.4 10^3/ul Red Blood Count 2.00 10^6/ul Hemoglobin 6.3 g/dl Hematocrit 20.0 % Mean Corpuscular Volume 100.0 fl Mean Corpuscular Hemoglobin 31.5 pg Mean Corpuscular Hemoglobin Concent 31.5 g/dl Red Cell Distribution Width 12.7 % Platelet Count 158 10^3/UL Mean Platelet Volume 11.2 fl Immature Granulocytes % 0.600 % Neutrophils % 81.9 % Segmented Neutrophils % (Manual) 86 % Band Neutrophils % (Manual) 2 % Lymphocytes % 8.3 % Lymphocytes % (Manual) 9 % Monocytes % 7.4 % Monocytes % (Manual) 2 % Eosinophils % 1.6 % Eosinophils % (Manual) 1 % Basophils % 0.2 % Nucleated Red Blood Cells % 0.0 /100WBC Immature Granulocytes # 0.040 10^3/ul Neutrophils # 5.2 10^3/ul Neutrophils # (Manual) 5.5 10^3/ul Band Neutrophils # 0.1 10^3/ul Lymphocytes (Manual) 0.5 10^3/ul Lymphocytes # 0.5 10^3/ul Monocytes # 0.5 10^3/ul Monocytes # (Manual) 0.1 10^3/ul Eosinophils # 0.1 10^3/ul Basophils # 0.0 10^3/ul Nucleated Red Blood Cells # 0.0 10^3/ul Pathologist Review (Hematology) YES Platelet Estimate NORMAL Giant Platelets 1 % Polychromasia 1+ Hypochromasia 1+ Poikilocytosis 1+ Prothrombin Time 13.9 Sec Prothrombin Time Ratio 1.1 INR International Normalized Ratio 1.06 Activated Partial Thromboplast Time 38.4 Sec D-Dimer 2024.68 ng/ml D-Dimer Comment Sodium Level 140 mmol/L Potassium Level 4.7 mmol/L Chloride Level 111 mmol/L Carbon Dioxide Level 17 mmol/L Anion Gap 12 Blood Urea Nitrogen 46 mg/dl Creatinine 3.41 mg/dl Est Glomerular Filtrat Rate mL/min 14 mL/min Glucose Level 192 mg/dl Calcium Level 8.3 mg/dl Total Bilirubin 0.1 mg/dl Direct Bilirubin 0.00 mg/dl Indirect Bilirubin 0.1 mg/dl Aspartate Amino Transf (AST/SGOT) 25 IU/L Alanine Aminotransferase (ALT/SGPT) 29 IU/L Alkaline Phosphatase 159 IU/L Troponin I 0.088 ng/ml Total Protein 6.3 g/dl Albumin 3.3 g/dl Globulin 3.00 g/dl Albumin/Globulin Ratio 1.10 POC Venous Lactate 1.3 mmol/L Current Medications Medications Dose Sig/Mary Start Time Status Last (Trade) Ordered Route PRN Stop Time Admin Dose Reason Admin Cefepime HCl 50 ml @ ONCE ONCE 06/28/18 DC 06/28/18 100 mls/hr IVPB 11:00 11:03 06/28/18 11:29 Vancomycin 250 ml @ ONCE ONCE 06/28/18 06/28/18 HCl 125 mls/hr IVPB 11:00 11:39 06/28/18 12:59 1 tab ONCE ONCE 06/28/18 DC 06/28/18 Acetaminophen PO 11:30 11:38 / 06/28/18 11:31 Hydrocodone Bitart (Doon (10325)) Sodium 0 ml @ 0 Q0M ONCE 06/28/18 DC Chloride mls/hr IV 11:21 06/28/18 11:22 Piperacillin 100 ml @ Q6 IVPB 06/28/18 UNV Sod/ 200 mls/hr 18:00 Tazobactam Sod Vancomycin VANCOMYCIN PER 06/28/18 UNV HCl (Vanco PER PHARMACY PROTOCOL XX 12:30 Iv Per Pharmacy) IV Flush 3 ml PER 06/28/18 UNV (NS 3 ml) PROTOCOL IV 12:30 Ondansetron 4 mg Q6H PRN 06/28/18 UNV HCl (Zofran IV 12:30 Inj) NAUSEA/VOMITI NG 650 mg Q6H PRN 06/28/18 UNV Acetaminophen PO .PAIN 1-3 12:30 (Tylenol OR TEMP Tab) 1 tab Q6H PRN 06/28/18 UNV Acetaminophen PO .PAIN 4-6 12:30 / Hydrocodone Bitart (Doon (5/325)) Morphine 2 mg Q4H PRN 06/28/18 UNV Sulfate IV .PAIN 12:30 (morphine) 7-10 Amlodipine 10 mg DAILY PO 06/29/18 UNV Besylate 09:00 (Norvasc) 40 mg QHS PO 06/28/18 UNV Atorvastatin 21:00 Calcium (Lipitor) Procedures/MDM EKG read by me: Rate/Rhythm: Regular rate and rhythm at a rate of 97 Intervals: Normal Impression: No evidence of ischemia or arrhythmia Chest x-ray read by radiology. Patient is a 63-year-old female presents with chest pain and hypoxia. She was found to have anemia with a hemoglobin of 6.3. She will be transfused 2 units o f packed red blood cells. Chest x-ray shows pneumonia as well and she will be given broad-spectrum antibiotics with vancomycin and cefepime. Initial lactic acid is normal and she does not have sirs criteria and at this point I doubt sepsis. The patient will be admitted to the care of the panel team to a telemetry bed. Her d-dimer was elevated but she has an elevated creatinine as well and cannot get a CT scan of the chest with contrast. Therefore she may benefit from VQ scan as an inpatient. Prognosis is poor given her age and comorbidities. Critical Care: Time: 35 minutes excluding all billable procedures. Treatments/Evaluations: Close monitoring and treatment of unstable vital signs, cardiorespiratory, and neurologic status, while maintaining tight balance of fluid, respiratory, and cardiac interventions. Departure Diagnosis: Primary Impression: Pneumonia Pneumonia type: due to unspecified organism Laterality: unspecified laterality Lung location: unspecified part of lung Qualified Codes: J18.9 - Pneumonia, unspecified organism Additional Impressions: Anemia Anemia type: unspecified type Qualified Codes: D64.9 - Anemia, unspecified Hypoxia Chest pain Chest pain type: unspecified Qualified Codes: R07.9 - Chest pain, unspecified Condition: Serious YON LARSON MD Jun 28, 2018 12:12
--- NOTE | 2018-06-28 12:19 | CONS ---
Assessment/Plan Assessment/Plan Assessment/Plan (Daily) 1. acute kidney injury on CKD IV due to ATN from pneumonia and prerenal azotemia 2. Multifocal pneumonia 3. possibel CHF, diastolic vs systolic 4. H/O HTN 5. H/o HL 6. Anemia of CKD IV 7. Right diabetic foot ulcer - s/p excisional debridement with primary closure (DOS: 06/13/18) 8. Right foot osteomyelitis - s/p excisional debridement and resection of bone (DOS: 06/13/18) 9. H/o IDDM with peripheral neuropathy Plan: admission to Tele floor S/p 2 dose of IV lasix, will start lasix 20mg IV BID urine studies has been ordered IV abx for Pneumonia, Renally dose all abx and monitor electrolytes lasix 20mg IV BID Epogen 8000 units SQ MWF Thanks for consultation, I will continue to follow up Consultation Date/Type/Reason Admit Date/Time 06/28/18 Date of Consultation: Jun 28, 2018 Type of Consult NEPHROLOGY Reason for Consultation acute renal failure Requesting Provider: TIANA POWELL Date/Time of Note DATE: 06/28/18 TIME: 12:19 Hx of Present Illness 63 y/o female the past medical history significant for hypertension, chronic kidney disease, and recent osteomyelitis on the right foot being currently treated with IV antibiotics at home who presents to [facility] for 1 week of progressively worsening shortness of breath. Per patient and daughter at bedside, patient has been having worsening shortness of breath that began as a cough approximately 1 week ago but approximately produce more phlegm and eventually she began to have shortness of breath and chest pain associated with the cough. on admission BUN/Cr 46/3.41, Iron saturation 10%, Hb 6.3 on admission renal has been consulted for acute vs acute on chronic renal failure and severe anemia pt had a Mulitfocal pneumoni and has been stared on IV abx vancomycin and iV abx zosyn Constitutional: no complaints Eyes: no complaints ENT: congestion Respiratory: pleuritic pain, shortness of breath Cardiovascular: no complaints Gastrointestinal: no complaints Genitourinary: no complaints Musculoskeletal: no complaints Skin: no complaints Neurologic: no complaints Endocrine: no complaints Lymphatic: no complaints Psychological: no complaints Immunologic: no complaints Past Medical History Medical History: diabetes, high cholesterol, hypertension, other (Peripheral vascular disease ) Home Meds Active Scripts Citric Acid/Sodium Citrate* (Bicitra* (PEDIATRIC)) 1 Meq/Ml Soln, 30 ML PO TID, #90 1 Refill Prov:JUSTINO CHAVARRIA S. 06/15/18 Levofloxacin* (Levaquin*) 500 Mg Tablet, 500 MG PO Q48H for 60 Days, TAB Prov:JUSTINO CHAVARRIA S. 06/15/18 Insulin Glargine,Hum.rec.anlog (Basaglar Kwikpen U-100) 100 Unit/1 Ml Insuln.pen, 13 UNIT SC QHS, #1 BOTTLE 3 Refills Prov:JUSTINO CHAVARRIA S. 06/15/18 Amlodipine Besylate* (Amlodipine Besylate*) 10 Mg Tablet, 10 MG PO DAILY, #30 TAB 3 Refills Prov:JESUS CHAVARRIAP S. 06/15/18 Atorvastatin* (Atorvastatin*) 40 Mg Tablet, 40 MG PO QHS, #30 TAB 3 Refills Prov:JUSTINO CHAVARRIA S. 06/15/18 Medications Current Medications Vancomycin HCl 250 ml @ 125 mls/hr ONCE ONCE IVPB Last administered on 06/28/18at 11:39; Admin Dose 125 MLS/HR; Start 06/28/18 at 11:00; Stop 06/28/18 at 12:59 Piperacillin Sod/ Tazobactam Sod 100 ml @ 200 mls/hr Q6 IVPB ; Start 06/28/18 at 18:00; Status UNV Vancomycin HCl (Vanco Iv Per Pharmacy) VANCOMYCIN PER PHARMACY PER PROTOCOL XX ; Start 06/28/18 at 12:30; Status UNV IV Flush (NS 3 ml) 3 ml PER PROTOCOL IV ; Start 06/28/18 at 12:30; Status UNV Ondansetron HCl (Zofran Inj) 4 mg Q6H PRN IV NAUSEA/VOMITING; Start 06/28/18 at 12:30; Status UNV Acetaminophen (Tylenol Tab) 650 mg Q6H PRN PO .PAIN 1-3 OR TEMP; Start 06/28/18 at 12:30; Status UNV Acetaminophen/ Hydrocodone Bitart ([place] (5/325)) 1 tab Q6H PRN PO .PAIN 4-6; Start 06/28/18 at 12:30; Status UNV Morphine Sulfate (morphine) 2 mg Q4H PRN IV .PAIN 7-10; Start 06/28/18 at 12:30; Status UNV Allergies: Coded Allergies: No Known Allergy (Unverified , 06/11/18) Past Surgical History Past Surgical Hx: no surgical history, other Family History Significant Family History: no pertinent family hx Social History Alcohol Use: none Smoking Status: Never smoker Drug Use: none Exam/Review of Systems Exam Vitals Vital Signs Date Temp Pulse Resp B/P (MAP) Pulse Ox O2 O2 Flow FiO2 Time Delivery Rate 06/28/18 98 20 152/76 95 Nasal 6.0 11:43 (101) Cannula 06/28/18 98.0 10:15 Exam PHYSICAL EXAM: General: Patient is laying in bed and answers questions appropriately Mentation: Patient is alert and oriented 4, Head: Normocephalic atraumatic Eyes: EOMI, pupils reactive to light Neck: Supple, nontender, midline Respiratory: Coarse to auscultation bilaterally Cardiovascular: regular rate, no obvious murmurs Gastrointestinal: non-tender to palpation, bowel sounds heard. Neurological: Moves all extremities spontaneously Skin: No new skin lesions Results Result Diagram: 06/28/18 1055 06/28/18 1055 Results 24hrs Laboratory Tests Test 06/28/18 10:55 06/28/18 10:58 White Blood Count 6.4 Red Blood Count 2.00 L Hemoglobin 6.3 #*L Hematocrit 20.0 L Mean Corpuscular Volume 100.0 Mean Corpuscular Hemoglobin 31.5 Mean Corpuscular Hemoglobin Concent 31.5 L Red Cell Distribution Width 12.7 Platelet Count 158 Mean Platelet Volume 11.2 H Immature Granulocytes % 0.600 H Neutrophils % 81.9 H Segmented Neutrophils % (Manual) 86 H Band Neutrophils % (Manual) 2 Lymphocytes % 8.3 L Lymphocytes % (Manual) 9 L Monocytes % 7.4 Monocytes % (Manual) 2 Eosinophils % 1.6 Eosinophils % (Manual) 1 Basophils % 0.2 Nucleated Red Blood Cells % 0.0 Immature Granulocytes # 0.040 H Neutrophils # 5.2 Neutrophils # (Manual) 5.5 Band Neutrophils # 0.1 Lymphocytes (Manual) 0.5 L Lymphocytes # 0.5 L Monocytes # 0.5 Monocytes # (Manual) 0.1 L Eosinophils # 0.1 Basophils # 0.0 Nucleated Red Blood Cells # 0.0 Pathologist Review (Hematology) YES Platelet Estimate NORMAL Giant Platelets 1 H Polychromasia 1+ Hypochromasia 1+ Poikilocytosis 1+ Prothrombin Time 13.9 Prothrombin Time Ratio 1.1 INR International Normalized Ratio 1.06 Activated Partial Thromboplast Time 38.4 H D-Dimer 2024.68 H D-Dimer Comment Sodium Level 140 Potassium Level 4.7 Chloride Level 111 H Carbon Dioxide Level 17 L Anion Gap 12 Blood Urea Nitrogen 46 H Creatinine 3.41 H Est Glomerular Filtrat Rate mL/min 14 L Glucose Level 192 Calcium Level 8.3 L Total Bilirubin 0.1 L Direct Bilirubin 0.00 Indirect Bilirubin 0.1 Aspartate Amino Transf (AST/SGOT) 25 Alanine Aminotransferase (ALT/SGPT) 29 Alkaline Phosphatase 159 H Troponin I 0.088 Total Protein 6.3 Albumin 3.3 Globulin 3.00 Albumin/Globulin Ratio 1.10 POC Venous Lactate 1.3 Medications Medication Current Medications Vancomycin HCl 250 ml @ 125 mls/hr ONCE ONCE IVPB Last administered on 06/28/18at 11:39; Admin Dose 125 MLS/HR; Start 06/28/18 at 11:00; Stop 06/28/18 at 12:59 Piperacillin Sod/ Tazobactam Sod 100 ml @ 200 mls/hr Q6 IVPB ; Start 06/28/18 at 18:00; Status UNV Vancomycin HCl (Vanco Iv Per Pharmacy) VANCOMYCIN PER PHARMACY PER PROTOCOL XX ; Start 06/28/18 at 12:30; Status UNV IV Flush (NS 3 ml) 3 ml PER PROTOCOL IV ; Start 06/28/18 at 12:30; Status UNV Ondansetron HCl (Zofran Inj) 4 mg Q6H PRN IV NAUSEA/VOMITING; Start 06/28/18 at 12:30; Status UNV Acetaminophen (Tylenol Tab) 650 mg Q6H PRN PO .PAIN 1-3 OR TEMP; Start 06/28/18 at 12:30; Status UNV Acetaminophen/ Hydrocodone Bitart ([place] (5/325)) 1 tab Q6H PRN PO .PAIN 4-6; Start 06/28/18 at 12:30; Status UNV Morphine Sulfate (morphine) 2 mg Q4H PRN IV .PAIN 7-10; Start 06/28/18 at 12:30; Status LEONARD CHATMAN MD Jun 28, 2018 12:19
[2018-06-28] MEDS ORDERED: NACL 0.9% 3 ML SYG IV SCH (12:30)
[2018-06-28] MEDS ORDERED: ACETAMINOPHEN 325 MG TAB PO PRN ×2 (12:30→13:30)
[2018-06-28] MEDS ORDERED: GUAIFENESIN/CODEINE 5ML CUP PO PRN (12:30)
[2018-06-28] MEDS ORDERED: morphine 2 MG INJ IV PRN (12:30)
[2018-06-28] MEDS ORDERED: LABETALOL HCL 20MG INJ IV PRN (12:30)
[2018-06-28] MEDS ORDERED: ALBUTEROL/IPRATROPIUM (NEB) 3 ML AMP HHN PRN (12:30)
[2018-06-28] MEDS ORDERED: VANCOMYCIN IV PER PHARMACY XX SCH (12:30)
[2018-06-28] MEDS ORDERED: FUROSEMIDE 20 MG INJ IV ONE ×2 (13:00→17:00)
[2018-06-28] MEDS ORDERED: METHYLPREDNISOLONE 125 MG INJ IV ONE (13:00)
[2018-06-28] MEDS ORDERED: ONDANSETRON 4 MG INJ IV PRN (13:30)
[2018-06-28] MEDS ORDERED: DEXTROSE 50% 50 ML SYRINGE IV PRN ×2 (13:30)
[2018-06-28] MEDS ORDERED: GLUCAGON 1 MG INJ IM PRN (13:30)
[2018-06-28] MEDS ORDERED: GLUCOSE GEL 15 GRAM TUBE BUCCAL PRN (13:30)
[2018-06-28] MEDS ORDERED: GLUCOSE GEL 15 GRAM TUBE PO PRN ×2 (13:30)
[2018-06-28] MEDS ORDERED: PIPER-TAZO 3.375 GM IV (PMX) 100 ML IVPB SCH (14:00)
--- NOTE | 2018-06-28 14:13 | CONS ---
DATE OF ADMISSION: 06/28/2018 DATE OF CONSULTATION: 06/28/2018 TYPE OF CONSULTATION: Infectious disease. REASON FOR CONSULTATION: Antibiotic management. HISTORY OF PRESENT ILLNESS: Nuvia Bell is a 63-year-old female who comes in wit h cough and congestion for 1 week. Past problems include: 1. Hypertension. 2. Diabetes. 3. Hypercholesterolemia. The patient presents with chest pain and low oxygen saturation. She has had a cough with phlegm prod uction and upper back pain. Symptoms started last night. She did not get a flu shot today. She als o is getting antibiotics for a foot infection. Her past problems as noted. PAST SURGICAL HISTORY: Right foot surgery. LABS: On admission, white count 6.4, H and H of 6.3 and 20, platelet count 158,000. BUN and creatin ine 46/3.41, platelet count 192. PHYSICAL EXAMINATION: GENERAL: She is pale in moderate distress. VITAL SIGNS: Stable. She is afebrile. SKIN: Without generalized rash. HEENT: Within normal limits. NECK: Supple. LYMPH NODES: None palpable. CHEST: Decreased breath sounds at the bases. HEART: Without murmur or gallop. ABDOMEN: Soft, nontender, without organosplenomegaly or masses. EXTREMITIES: Without cyanosis, clubbing, or edema. RECTAL AND GENITAL: Deferred. NEUROLOGIC: No focal neurological abnormality. IMPRESSION AND PLAN: The patient was started on vancomycin and cefepime. Her chest x-ray shows pneu monia. She has hemoglobin of 6.3. She will be transfused 2 units packed red blood cells, will be gi dahlia broad-spectrum antibiotics with vancomycin and cefepime. She will be admitted to the care of the panel team. PRIMARY DIAGNOSIS: Pneumonia and anemia. Her influenza A titers are negative. She has mild cardiom egaly, new bilateral perihilar and lower lobe infiltrates suspicious for pulmonary vascular congestio n, new left upper lobe nodular opacity measuring 1.7 cm follow up after treatment is recommended. A CT scan of the chest shows cholelithiasis multiple ground-glass consolidative opacities in bilateral lungs, may be a component of pulmonary edema. Consider followup chest CT scan in 3 to 6 months. Mod erate bilateral pleural effusions and enlarged mediastinal lymph nodes may be reactive. We will cont inue her on current antibiotic therapies and observe her cultures. I will dictate my findings to the hospitalists. Patient is also being seen by Dr. Franki Peters for renal insufficiency and failure w ith a BUN and creatinine 46/3.41. Dictated By: KARLENE TAFOYA MD, JD/ALVINO Conf#: [id number] DID#: [id number]
--- NOTE | 2018-06-28 14:49 | RADRPT ---
Echocardiogram Report Patient Name: CJ CHUNPatient ID: [id number] : 1955 (63y )Study Date: 06/28/2018 1:45:14 PM Gender: FAccession #: [id number] Tech: Bashir Ruano [facility] Ref.Physician: TIANA POWELL Height(Cm): BSA: Weight(Kg): Quality: AdequateAccount #: Procedures: Echocardiographic Report: Transthoracic echocardiogram with complete 2D, M-Mode, and doppler examination. Indications: Congestive Heart Failure. Measurements: 2D/M Mode Doppler Measurement Value Normal Range Measurement Value Normal Range LVIDd 2D 4.0 [ 3.8 - 5.2 ] cm RADHA Vmax 1.5 [ 2.0 - 4.0 ] cm2 LVIDs 2D 2.8 [ 2.2 - 3.5 ] cm RADHA VTI 1.9 [ 2.0 - 4.0 ] cm2 LVPWd 2D 1.1 [ 0.6 - 0.9 ] cm AV Mean Jeffry 1.5 [ 70.0 - 90.0 ] cm/sec IVSd 2D 1.2 [ 0.6 - 0.9 ] cm AV Mean PG 9.0 [ 2.0 - 4.0 ] mmHg IVS/LVPW 2D 1.1 ratio AV Peak Jeffry 2.0 [ 100.0 - 170.0 ] cm/sec AoR Diam 2D 2.5 [ 2.3 - 3.1 ] cm AV Peak PG 15.0 [ 2.0 - 9.0 ] mmHg LA/Ao 2D 1 ratio AV VTI 45.2 cm LA Dimen 2D 3.2 [ 2.7 - 3.8 ] cm LVOT Mean Jeffry 0.8 [ 60.0 - 80.0 ] cm/sec LVOT Diam 1.9 [ 2.1 - 2.5 ] cm LVOT Mean PG 3.0 [ 1.0 - 3.0 ] mmHg LVOT Area 2.8 cm2 LVOT Peak Jeffry 1.1 [ 70.0 - 110.0 ] cm/sec LVOT Peak PG 5.0 [ 2.0 - 6.0 ] mmHg LVOT VTI 30.2 [ 20.0 - 30.0 ] cm MV E Peak Jeffry 1.3 [ 60.0 - 130.0 ] cm/sec MV A Peak Jeffry 1.0 [ 100.0 - 120.0 ] cm/sec MV E/A 1.2 [ 0.8 - 1.5 ] ratio MV Decel Time 169 [ 104 - 258 ] msec Lat E` Jeffry 0.1 [ 10.0 - 15.0 ] cm/sec MV E/A 1.2 [ 0.8 - 1.5 ] ratio TR Peak Jeffry 3.0 [ 100.0 - 280.0 ] cm/sec TR Peak PG 35.0 mmHg RVSP 38.0 [ 10.0 - 36.0 ] mmHg RA Pressure 3.0 mmHg Findings: Left Ventricle: Normal left ventricular systolic function. Normal left ventricular cavity size. Mild concentric left ventricular hypertrophy. Ejection fraction is visually estimated at 55 %. Tissue Doppler/Mitral Doppler indices are consistent with pseudonormalization with mildly elevated left atrial pressure (Stage II diastolic dysfunction). Right Ventricle: Normal right ventricular size. Normal right ventricular systolic function. Left Atrium: The left atrium is normal in size. Right Atrium: The right atrium is normal in size. Mitral Valve: Mitral valve leaflets appear mildly thickened. Mild mitral annular calcification. Moderate mitral valve regurgitation. Aortic Valve: Aortic valve Max velocity 1.96 m/sec. Max PG 15.00 mmHg. Mean PG 9.00 mmHg. Aortic valve area 1.90 cm2. Aortic sclerosis without significant stenosis. Trace aortic valve regurgitation. Tricuspid Valve: Normal appearance of the tricuspid valve. Estimated peak PA systolic pressure 38 mmHg. There is mild tricuspid regurgitation. Pulmonic Valve: Pulmonic valve not well visualized. Pericardium: Normal pericardium with no significant pericardial effusion. Aorta: Normal aortic root. IVC: Normal size and normal respiratory collapse consistent with normal right atrial pressure. Conclusions: Mild concentric left ventricular hypertrophy with normal systolic function. Pseudonormal diastolic function Moderate mitral regurgitation. Aortic sclerosis without stenosis. Mild tricuspid regurgitation and mild pulmonary hypertension. Electronically Signed By: Tricia Pritchett 2018-06-28 14:48:12 PST
--- NOTE | 2018-06-28 15:51 | HP ---
Date/Time of Note Date/Time of Note DATE: 06/28/18 TIME: 15:51 Assessment/Plan VTE Prophylaxis Pharmacological prophylaxis: other Lines/Catheters IV Catheter Type (from Nrsg): PICC Line Central line still needed: Yes Assessment/Plan Hospital Course Patient is a female the past medical history significant for hypertension, chronic kidney disease, and recent osteomyelitis on the right foot being currently treated with IV antibiotics at home who presents to [facility] for 1 week of progressively worsening shortness of breath. Per patient and daughter at bedside, patient has been having worsening sh ortness of breath that began as a cough approximately 1 week ago but approximately produce more phlegm and eventually she began to have shortness of breath and chest pain associated with the cough. Patient denies any chest pain at this time and actually feels well after multiple intervention in the ED. Patient denies currently chest pain, headache, nausea, abdominal pain, Objective Physical exam General: Patient is laying in bed and answers questions appropriately Mentation: Patient is alert and oriented 4, Head: Normocephalic atraumatic Eyes: EOMI, pupils reactive to light Neck: Supple, nontender, midline Respiratory: Coarse to auscultation bilaterally Cardiovascular: regular rate, no obvious murmurs Gastrointestinal: non-tender to palpation, bowel sounds heard. Neurological: Moves all extremities spontaneously Skin: No new skin lesions Assessment and plan Acute hypoxic respiratory failure -Secondary to multifocal pneumonia and pulmonary edema -Unlikely PE at this time, unable to do CT angiogram due to elevated creatinine, however VQ scan was ordered and pending, however unlikely as the most likely etiology is the multifocal pneumonia and pulmonary edema. Multifocal pneumonia -IV antibiotic, broad-spectrum -DuoNeb, budesonide nebulizers -Steroids for now, taper -ID on board Pulmonary edema and bilateral effusions -One-time dose of Lasix, will need to be vigilant on the creatinine function, will reassess tomorrow and spot dose Lasix as needed -Monitor Stage II diastolic dysfunction -Seen on echocardiogram -Continue diuresis -Cardiology consulted -Elevated BNP Severe anemia -Patient always had a history of anemia, however lower than normal, no evident no signs of GI bleed at all, no black or tarry stools reported per patient -Retic index points towards hyperproliferation -Pending haptoglobin and lactate dehydrogenase -We will monitor for the next few days if continues to decrease we will consult hematology Acute kidney injury and chronic kidney disease -Nephrology consulted -Recommendations appreciated Right foot osteomyelitis with recent debridement approximately 2 weeks ago -podiatry consulted -ID back on board, patient has been getting IV antibiotics through a PICC line -Was previously sent home on oral Levaquin and vancomycin Diabetes mellitus -Lantus and insulin sliding scale as needed Hypertension -Continue home meds, treat as needed Disposition -Continue treatment for multifocal pneumonia, multiple regulatory services consultant recommendations appreciated. Result Diagram: 06/28/18 1055 06/28/18 1055 Results 24hrs Laboratory Tests Test 06/28/18 10:45 06/28/18 10:55 06/28/18 10:58 06/28/18 12:30 B-Type 9030 H Natriuretic Peptide White Blood Count 6.4 Red Blood Count 2.00 L Hemoglobin 6.3 #*L Hematocrit 20.0 L Mean Corpuscular 100.0 Volume Mean Corpuscular 31.5 Hemoglobin Mean Corpuscular 31.5 L Hemoglobin Concen t Red Cell 12.7 Distribution Width Platelet Count 158 Mean Platelet 11.2 H Volume Immature 0.600 H Granulocytes % Neutrophils % 81.9 H Segmented 86 H Neutrophils % (Manual) Band Neutrophils 2 % (Manual) Lymphocytes % 8.3 L Lymphocytes % 9 L (Manual) Monocytes % 7.4 Monocytes % 2 (Manual) Eosinophils % 1.6 Eosinophils % 1 (Manual) Basophils % 0.2 Nucleated Red 0.0 Blood Cells % Immature 0.040 H Granulocytes # Neutrophils # 5.2 Neutrophils # 5.5 (Manual) Band Neutrophils 0.1 # Lymphocytes 0.5 L (Manual) Lymphocytes # 0.5 L Monocytes # 0.5 Monocytes # 0.1 L (Manual) Eosinophils # 0.1 Basophils # 0.0 Nucleated Red 0.0 Blood Cells # Pathologist YES Review (Hematolog y) Platelet Estimate NORMAL Giant Platelets 1 H Polychromasia 1+ Hypochromasia 1+ Poikilocytosis 1+ Absolute 0.031 Reticulocyte Count Percent 1.6 H Reticulocyte Count Prothrombin Time 13.9 Prothrombin Time 1.1 Ratio INR International 1.06 Normalized Ratio Activated 38.4 H Partial Thrombopl ast Time D-Dimer 2024.68 H D-Dimer Comment Sodium Level 140 Potassium Level 4.7 Chloride Level 111 H Carbon Dioxide 17 L Level Anion Gap 12 Blood Urea 46 H Nitrogen Creatinine 3.41 H Est Glomerular 14 L Filtrat Rate mL/min Glucose Level 192 Calcium Level 8.3 L Total Bilirubin 0.1 L Direct Bilirubin 0.00 Indirect 0.1 Bilirubin Aspartate Amino 25 Transf (AST/SGOT) Alanine 29 Aminotransferase (ALT/SGPT) Alkaline 159 H Phosphatase Troponin I 0.088 Total Protein 6.3 Albumin 3.3 Globulin 3.00 Albumin/Globulin 1.10 Ratio POC Venous 1.3 Lactate Blood Gas Blood arterial Specimen Source Arterial Blood 06/28/2018 12:20: Date Drawn 40 PM Arterial Blood pH 7.287 *L (Temp corrected) Arterial Blood 36.2 pCO2 (Temp correct) Arterial Blood 37.1 *L pO2 (Temp corrected) Arterial Blood 16.9 L HCO3 Arterial Blood -8.9 L Base Excess Arterial Blood 62.6 L Oxygen Saturation Andrew Test N/A Arterial Blood LB Gas Puncture Site Arterial 0.5 Blood Carboxyhemo globin Arterial Blood 0.5 Methemoglobin Blood Gas A-a O2 199.3 H Differential Oxyhemoglobin 62.0 L Percent Blood Gas 37.0 Temperature Blood Gas NASAL CANNULA Modality FiO2 39.0 Blood Gas OFERAFINO RN Critical Value Read Back Blood Gas MDA Notified Whom Blood Gas 06/28/2018 12:25: Notified Time 21 PM HPI/ROS Admit Date/Time Admit Date/Time 06/28/18 PMH/Family/Social Past Medical History Medications Current Medications Vancomycin HCl (Vanco Iv Per Pharmacy) VANCOMYCIN PER PHARMACY PER PROTOCOL XX ; Start 06/28/18 at 12:30 IV Flush (NS 3 ml) 3 ml PER PROTOCOL IV ; Start 06/28/18 at 12:30 Ondansetron HCl (Zofran Inj) 4 mg Q6H PRN IV NAUSEA/VOMITING; Start 06/28/18 at 12:30 Acetaminophen (Tylenol Tab) 650 mg Q6H PRN PO .PAIN 1-3 OR TEMP; Start 06/28/18 at 12:30 Acetaminophen/ Hydrocodone Bitart ([place] (5/325)) 1 tab Q6H PRN PO .PAIN 4-6; Start 06/28/18 at 12:30 Morphine Sulfate (morphine) 2 mg Q4H PRN IV .PAIN 7-10; Start 06/28/18 at 12:30 Amlodipine Besylate (Norvasc) 10 mg DAILY PO ; Start 06/29/18 at 09:00 Atorvastatin Calcium (Lipitor) 40 mg QHS PO ; Start 06/28/18 at 21:00 Labetalol HCl (Labetalol) 10 mg Q4 PRN IV sbp>160; Start 06/28/18 at 12:30 Hydralazine HCl (Apresoline) 10 mg Q4H PRN IV sbp >160; Start 06/28/18 at 12:30 Albuterol/ Ipratropium (Duoneb) 3 ml Q6HWA RESP THERAPY HHN ; Start 06/28/18 at 14:00 Albuterol/ Ipratropium (Duoneb) 3 ml Q2H RESP THERAPY PRN HHN shortness of b reath; Start 06/28/18 at 12:30 Budesonide (Pulmicort (Neb)) 0.5 mg BID RESP THERAPY HHN ; Start 06/28/18 at 20:00 Diagnostic Test (Pha) (Accu-Chek) 1 ea 02 XX ; Start 06/29/18 at 02:00 Insulin Glargine (Lantus) 14 units DAILY@2000 SC ; Start 06/28/18 at 20:00 Insulin Aspart (Novolog Insulin Pen) NOVOLOG *MILD* ALGORITHM WITH MEALS BEDTIME SC ; Start 06/28/18 at 18:00 Guaifenesin/ Codeine Phosphate (Robitussin Ac Liquid Cup) 5 ml Q4H PRN PO cough; Start 06/28/18 at 12:30 Methylprednisolone Sodium Succinate (Solu-Medrol) 40 mg Q12 IV ; Start 06/28/18 at 21:00 Miscellaneous Information 1 ea NOTE XX ; Start 06/28/18 at 13:30 Glucose (Glutose) 15 gm Q15M PRN PO DECREASED GLUCOSE; Start 06/28/18 at 13:30 Glucose (Glutose) 22.5 gm Q15M PRN PO DECREASED GLUCOSE; Start 06/28/18 at 13:30 Dextrose (D50w Syringe) 25 ml Q15M PRN IV DECREASED GLUCOSE; Start 06/28/18 at 13:30 Dextrose (D50w Syringe) 50 ml Q15M PRN IV DECREASED GLUCOSE; Start 06/28/18 at 13:30 Glucagon (Glucagen) 1 mg Q15M PRN IM DECREASED GLUCOSE; Start 06/28/18 at 13:30 Glucose (Glutose) 15 gm Q15M PRN BUCCAL DECREASED GLUCOSE; Start 06/28/18 at 13:30 Ondansetron HCl (Zofran Inj) 4 mg ER BRIDGE PRN IV NAUSEA/VOMITING; Start 06/28/18 at 13:30; Stop 06/29/18 at 13:29 Acetaminophen (Tylenol Tab) 650 mg ER BRIDGE PRN PO .MILD PAIN 1-3 OR TEMP; Start 06/28/18 at 13:30; Stop 06/29/18 at 13:29 Vancomycin HCl 250 ml @ 125 mls/hr Q48H IVPB ; Start 06/29/18 at 23:00 Furosemide (Lasix) 20 mg ONCE ONCE IV ; Start 06/28/18 at 17:00; Stop 06/28/18 at 17:01 Piperacillin Sod/ Tazobactam Sod 50 ml @ 200 mls/hr Q8 IVPB ; Start 06/28/18 at 22:00 Miscellaneous Information (*Rx Drug Level Order Reminder*) RANDOM VANCOMYCIN LEVEL 2... ONCE ONCE XX ; Start 06/29/18 at 11:00; Stop 06/29/18 at 11:01 Coded Allergies: No Known Allergy (Unverified , 06/11/18) Past Surgical History Past Surgical Hx: other Family History Significant Family History: no pertinent family hx Social History Smoking Status: Never smoker Exam/Review of Systems Vital Signs Vitals Vital Signs Date Temp Pulse Resp B/P (MAP) Pulse Ox O2 O2 Flow FiO2 Time Delivery Rate 06/28/18 15.0 13:22 06/28/18 98.3 86 14 134/71 99 Non 12:39 (92) TIANA Scott Jun 28, 2018 15:51
--- NOTE | 2018-06-28 16:51 | CONS ---
DATE OF ADMISSION: 06/28/2018 DATE OF CONSULTATION: TYPE OF CONSULTATION: Pulmonary. REASON FOR CONSULTATION: Shortness of breath. Thank you, Dr. Powell, for this consultation. HISTORY OF PRESENT ILLNESS: This is a 63-year-old lady with a history of recurrent anemia, family is unable to tell me what the etiology is, who presents with increasing shortness of breath, orthopnea, PND for several days. Denies any fever or chills. No chest pain or palpitations. On admission, abebe palm was found to have extensive bilateral infiltrates or pleural effusions in addition to hemoglobin of 6.3. Of note, the patient has a BUN of 46 and creatinine of 3.41, BNP of 9030. Arterial blood gas demonstrated mild metabolic acidosis. In addition, the patient has elevated D-dimer. CT chest was p erformed demonstrated which moderate bilateral pleural effusions with compressive atelectasis, bilate ral infiltrates consistent with pneumonia. PAST MEDICAL HISTORY: As above. MEDICATIONS: Per chart. ALLERGIES: NONE. SOCIAL HISTORY: Nonsmoker, no alcohol, no history of drug use. FAMILY HISTORY: Noncontributory. SYSTEMS REVIEW: A 12-point review of systems was negative other than mentioned above. PHYSICAL EXAMINATION: GENERAL: A chronically ill-appearing lady, appears comfortable at rest, in no acute distress, no acc essory muscle use. VITAL SIGNS: Currently afebrile, pulse is 100, blood pressure 134/71, O2 saturation 96% on nonrebrea ther. NECK: Supple. No JVD or lymphadenopathy. CARDIAC: S1, S2. No added sounds or murmurs. CHEST: Diminished air entry bilaterally. ABDOMEN: Soft, nontender. No guarding or rebound. Obese. EXTREMITIES: No cyanosis, clubbing. A 2+ edema. NEUROLOGIC: Generalized weakness. LABORATORY DATA: White count 6.4, hemoglobin 6.3, platelets of 158. BUN 46, creatinine 3.41. D-dim er is elevated. Arterial blood gas: As above. IMPRESSION AND PLAN: Acute renal failure with bilateral pulmonary infiltrates and pleural effusions. Differential does include acute tubular necrosis, injury with community-acquired pneumonia, but als o includes pulmonary renal syndrome such as Goodpasture's or Ramiro's granulomatosis. The patient will require: 1. Supplemental O2. 2. Steroids. 3. Antibiotics. 4. Renal consultation with renal ultrasound and possible renal biopsy. 5. Check CANDICE, C-ANCA and anti-GBM antibodies. Dictated By: STEPHY SAUCEDA MD SV/NTS Conf#: [id number] DID#: [id number] CC: TIANA POWELL MD;*EndCC*
[2018-06-28 16:58] VITALS: PULSE 92
[2018-06-28 17:00] VITALS: BP 171/78; PULSE 90; RESP 20; Ht 165.1 cm; Wt 71.5 kg
[2018-06-28] MEDS: INSULIN ASPART [NOVOLOG] 3 ML PEN SC SCH ×2 (17:25→23:18)
--- NOTE | 2018-06-28 18:10 | CONS ---
Assessment/Plan Cardiology Heart Failure Type: Acute Heart Failure Type: Diastolic Assessment/Plan Hospital Course (Demo Recall) 63 yo with evidence of acute diastolic heart failure secondary to multiple underlying issues, including probable pneumonia and severe anemia, along with acute renal insufficiency. Impression: Acute diastolic heart failure, improved Multilobular pneumonia Severe anemia Possible pulmonary-renal syndrome Hypertension, controlled Recommendations: She has been diuresed, would repeat CXR in the am ABX, transfusion, supportive care, workup for anemia and acute renal insuf ficiency Continue antihypertensive therapy Consultation Date/Type/Reason Admit Date/Time 06/28/18 Date of Consultation: Jun 28, 2018 Type of Consult Cardiology Reason for Consultation congestive heart failure Requesting Provider: TIANA POWELL Date/Time of Note DATE: 06/28/18 TIME: 17:57 Hx of Present Illness 63 yo with diabetes, hypertension, ckd, recently hospitalized for osteomyelitis, presents with several days of cough, with shortness of breath which started last night. Workup has included CT consistent with multilobular pneumonia and bilateral pleural effusions, and anemia with hematocrit of 20. At present she is breathing more comfortably. She also had chest pain last night and this morning. 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 Echo from today reviewed by me, demonstrates concentric left ventricular hypertrophy, normal systolic function, pseudonormal diastolic function consistent with eleva rachael left atrial pressures, and moderate mitral regurgitation. At present, she is sitting up in bed, has removed her oxygen nonrebreather to eat dinner and is breathing comfortably at present. She has received at least two doses of IV furosemide and antibiotics IV. Her main complaint at present is back pain. Constitutional: no complaints, improved Eyes: no complaints ENT: no complaints Respiratory: cough, shortness of breath Cardiovascular: chest pain Gastrointestinal: no complaints Genitourinary: no complaints Musculoskeletal: no complaints Skin: no complaints Neurologic: no complaints Endocrine: no complaints Lymphatic: no complaints Psychological: no complaints Immunologic: no complaints Past Medical History Medical History: diabetes, hypertension, renal disease, other (osteomyelitis) Home Meds Active Scripts Citric Acid/Sodium Citrate* (Bicitra* (PEDIATRIC)) 1 Meq/Ml Soln, 30 ML PO TID, #90 1 Refill Prov:JUSTINO CHAVARRIA. 06/15/18 Levofloxacin* (Levaquin*) 500 Mg Tablet, 500 MG PO Q48H for 60 Days, TAB Prov:JESUS CHAVARRIAP S. 06/15/18 Insulin Glargine,Hum.rec.anlog (Maria Doloresaglnehal [place] U-100) 100 Unit/1 Ml Insuln.pen, 13 UNIT SC QHS, #1 BOTTLE 3 Refills Prov:ARMEN CHAVARRIAEEP S. 06/15/18 Amlodipine Besylate* (Amlodipine Besylate*) 10 Mg Tablet, 10 MG PO DAILY, #30 TAB 3 Refills Prov:ARMEN CHAVARRIAEEP S. 06/15/18 Atorvastatin* (Atorvastatin*) 40 Mg Tablet, 40 MG PO QHS, #30 TAB 3 Refills Prov:JESUS CHAVARRIAP S. 06/15/18 Medications Current Medications Vancomycin HCl (Vanco Iv Per Pharmacy) VANCOMYCIN PER PHARMACY PER PROTOCOL XX ; Start 06/28/18 at 12:30 IV Flush (NS 3 ml) 3 ml PER PROTOCOL IV ; Start 06/28/18 at 12:30 Ondansetron HCl (Zofran Inj) 4 mg Q6H PRN IV NAUSEA/VOMITING; Start 06/28/18 at 12:30 Acetaminophen (Tylenol Tab) 650 mg Q6H PRN PO .PAIN 1-3 OR TEMP; Start 06/28/18 at 12:30 Acetaminophen/ Hydrocodone Bitart ([place] (5/325)) 1 tab Q6H PRN PO .PAIN 4-6; Start 06/28/18 at 12:30 Morphine Sulfate (morphine) 2 mg Q4H PRN IV .PAIN 7-10; Start 06/28/18 at 12:30 Amlodipine Besylate (Norvasc) 10 mg DAILY PO ; Start 06/29/18 at 09:00 Atorvastatin Calcium (Lipitor) 40 mg QHS PO ; Start 06/28/18 at 21:00 Labetalol HCl (Labetalol) 10 mg Q4 PRN IV sbp>160; Start 06/28/18 at 12:30 Hydralazine HCl (Apresoline) 10 mg Q4H PRN IV sbp >160; Start 06/28/18 at 12:30 Albuterol/ Ipratropium (Duoneb) 3 ml Q6HWA RESP THERAPY HHN ; Start 06/28/18 at 14:00 Albuterol/ Ipratropium (Duoneb) 3 ml Q2H RESP THERAPY PRN HHN shortness of breath; Start 06/28/18 at 12:30 Budesonide (Pulmicort (Neb)) 0.5 mg BID RESP THERAPY HHN ; Start 06/28/18 at 20:00 Diagnostic Test (Pha) (Accu-Chek) 1 ea 02 XX ; Start 06/29/18 at 02:00 Insulin Glargine (Lantus) 14 units DAILY@2000 SC ; Start 06/28/18 at 20:00 Insulin Aspart (Novolog Insulin Pen) NOVOLOG *MILD* ALGORITHM WITH MEALS B EDTIME SC ; Start 06/28/18 at 18:00 Guaifenesin/ Codeine Phosphate (Robitussin Ac Liquid Cup) 5 ml Q4H PRN PO cough; Start 06/28/18 at 12:30 Methylprednisolone Sodium Succinate (Solu-Medrol) 40 mg Q12 IV ; Start 06/28/18 at 21:00 Miscellaneous Information 1 ea NOTE XX ; Start 06/28/18 at 13:30 Glucose (Glutose) 15 gm Q15M PRN PO DECREASED GLUCOSE; Start 06/28/18 at 13:30 Glucose (Glutose) 22.5 gm Q15M PRN PO DECREASED GLUCOSE; Start 06/28/18 at 13:30 Dextrose (D50w Syringe) 25 ml Q15M PRN IV DECREASED GLUCOSE; Start 06/28/18 at 13:30 Dextrose (D50w Syringe) 50 ml Q15M PRN IV DECREASED GLUCOSE; Start 06/28/18 at 13:30 Glucagon (Glucagen) 1 mg Q15M PRN IM DECREASED GLUCOSE; Start 06/28/18 at 13:30 Glucose (Glutose) 15 gm Q15M PRN BUCCAL DECREASED GLUCOSE; Start 06/28/18 at 13:30 Ondansetron HCl (Zofran Inj) 4 mg ER BRIDGE PRN IV NAUSEA/VOMITING; Start 06/28/18 at 13:30; Stop 06/29/18 at 13:29 Acetaminophen (Tylenol Tab) 650 mg ER BRIDGE PRN PO .MILD PAIN 1-3 OR TEMP; Start 06/28/18 at 13:30; Stop 06/29/18 at 13:29 Vancomycin HCl 250 ml @ 125 mls/hr Q48H IVPB ; Start 06/29/18 at 23:00 Piperacillin Sod/ Tazobactam Sod 50 ml @ 200 mls/hr Q8 IVPB ; Start 06/28/18 at 22:00 Miscellaneous Information (*Rx Drug Level Order Reminder*) RANDOM VANCOMYCIN LEVEL 2... ONCE ONCE XX ; Start 06/29/18 at 11:00; Stop 06/29/18 at 11:01 Allergies: Coded Allergies: No Known Allergy (Unverified , 06/11/18) Past Surgical History Past Surgical Hx: other Family History Significant Family History: no pertinent family hx Social History Smoking Status: Never smoker Exam/Review of Systems Vital Signs Vitals Vital Signs Date Temp Pulse Resp B/P (MAP) Pulse Ox O2 O2 Flow FiO2 Time Delivery Rate 06/28/18 92 16:58 06/28/18 95 15.0 100 16:51 06/28/18 98.3 14 134/71 Non 12:39 (92) Rebreather Exam Constitutional: alert, oriented, well developed Psych: no complaints, other (flat affect) Head: normocephalic, atraumatic Eyes: nl conjunctiva, nl sclera ENMT: nl external ears & nose Neck: supple; No jvd, No bruits Respiratory: clear to auscultation, normal air movement, diminished breath sounds (at bases) Cardiovascular: regular rate and rhythm, murmurs/extra sounds (soft systolic m urmur) Gastrointestinal: soft, non-tender Musculoskeletal: nl extremities to inspection Extremities: normal pulses; No edema Neurological: nl mental status, nl speech Skin: nl turgor Labs Result Diagram: 06/28/18 1055 06/28/18 1055 Results 24hrs Laboratory Tests Test 06/28/18 10:45 06/28/18 10:55 06/28/18 10:58 06/28/18 12:30 B-Type 9030 H Natriuretic Peptide White Blood Count 6.4 Red Blood Count 2.00 L Hemoglobin 6.3 #*L Hematocrit 20.0 L Mean Corpuscular 100.0 Volume Mean Corpuscular 31.5 Hemoglobin Mean Corpuscular 31.5 L Hemoglobin Concen t Red Cell 12.7 Distribution Width Platelet Count 158 Mean Platelet 11.2 H Volume Immature 0.600 H Granulocytes % Neutrophils % 81.9 H Segmented 86 H Neutrophils % (Manual) Band Neutrophils 2 % (Manual) Lymphocytes % 8.3 L Lymphocytes % 9 L (Manual) Monocytes % 7.4 Monocytes % 2 (Manual) Eosinophils % 1.6 Eosinophils % 1 (Manual) Basophils % 0.2 Nucleated Red 0.0 Blood Cells % Immature 0.040 H Granulocytes # Neutrophils # 5.2 Neutrophils # 5.5 (Manual) Band Neutrophils 0.1 # Lymphocytes 0.5 L (Manual) Lymphocytes # 0.5 L Monocytes # 0.5 Monocytes # 0.1 L (Manual) Eosinophils # 0.1 Basophils # 0.0 Nucleated Red 0.0 Blood Cells # Pathologist YES Review (Hematolog y) Platelet Estimate NORMAL Giant Platelets 1 H Polychromasia 1+ Hypochromasia 1+ Poikilocytosis 1+ Absolute 0.031 Reticulocyte Count Percent 1.6 H Reticulocyte Count Prothrombin Time 13.9 Prothrombin Time 1.1 Ratio INR International 1.06 Normalized Ratio Activated 38.4 H Partial Thrombopl ast Time D-Dimer 2024.68 H D-Dimer Comment Sodium Level 140 Potassium Level 4.7 Chloride Level 111 H Carbon Dioxide 17 L Level Anion Gap 12 Blood Urea 46 H Nitrogen Creatinine 3.41 H Est Glomerular 14 L Filtrat Rate mL/min Glucose Level 192 Calcium Level 8.3 L Total Bilirubin 0.1 L Direct Bilirubin 0.00 Indirect 0.1 Bilirubin Aspartate Amino 25 Transf (AST/SGOT) Alanine 29 Aminotransferase (ALT/SGPT) Alkaline 159 H Phosphatase Troponin I 0.088 Total Protein 6.3 Albumin 3.3 Globulin 3.00 Albumin/Globulin 1.10 Ratio POC Venous 1.3 Lactate Blood Gas Blood arterial Specimen Source Arterial Blood 06/28/2018 12:20: Date Drawn 40 PM Arterial Blood pH 7.287 *L (Temp corrected) Arterial Blood 36.2 pCO2 (Temp correct) Arterial Blood 37.1 *L pO2 (Temp corrected) Arterial Blood 16.9 L HCO3 Arterial Blood -8.9 L Base Excess Arterial Blood 62.6 L Oxygen Saturation Andrew Test N/A Arterial Blood LB Gas Puncture Site Arterial 0.5 Blood Carboxyhemo globin Arterial Blood 0.5 Methemoglobin Blood Gas A-a O2 199.3 H Differential Oxyhemoglobin 62.0 L Percent Blood Gas 37.0 Temperature Blood Gas NASAL CANNULA Modality FiO2 39.0 Blood Gas EMILY GARCIA Critical Value Read Back Blood Gas MDA Notified Whom Blood Gas 06/28/2018 12:25: Notified Time 21 PM Test 06/28/18 17:21 Bedside Glucose 197 Imaging Imaging EKG shows NSR at 97 bpm, nonspecific ST and T wave changes Medications Medications Current Medications Vancomycin HCl (Vanco Iv Per Pharmacy) VANCOMYCIN PER PHARMACY PER PROTOCOL XX ; Start 06/28/18 at 12:30 IV Flush (NS 3 ml) 3 ml PER PROTOCOL IV ; Start 06/28/18 at 12:30 Ondansetron HCl (Zofran Inj) 4 mg Q6H PRN IV NAUSEA/VOMITING; Start 06/28/18 at 12:30 Acetaminophen (Tylenol Tab) 650 mg Q6H PRN PO .PAIN 1-3 OR TEMP; Start 06/28/18 at 12:30 Acetaminophen/ Hydrocodone Bitart ([place] (5/325)) 1 tab Q6H PRN PO .PAIN 4-6; Start 06/28/18 at 12:30 Morphine Sulfate (morphine) 2 mg Q4H PRN IV .PAIN 7-10; Start 06/28/18 at 12:30 Amlodipine Besylate (Norvasc) 10 mg DAILY PO ; Start 06/29/18 at 09:00 Atorvastatin Calcium (Lipitor) 40 mg QHS PO ; Start 06/28/18 at 21:00 Labetalol HCl (Labetalol) 10 mg Q4 PRN IV sbp>160; Start 06/28/18 at 12:30 Hydralazine HCl (Apresoline) 10 mg Q4H PRN IV sbp >160; Start 06/28/18 at 12:30 Albuterol/ Ipratropium (Duoneb) 3 ml Q6HWA RESP THERAPY HHN ; Start 06/28/18 at 14:00 Albuterol/ Ipratropium (Duoneb) 3 ml Q2H RESP THERAPY PRN HHN shortness of breath; Start 06/28/18 at 12:30 Budesonide (Pulmicort (Neb)) 0.5 mg BID RESP THERAPY HHN ; Start 06/28/18 at 20:00 Diagnostic Test (Pha) (Accu-Chek) XX ; Start 06/29/18 at 02:00 Insulin Glargine (Lantus) 14 units DAILY@2000 SC ; Start 06/28/18 at 20:00 Insulin Aspart (Novolog Insulin Pen) NOVOLOG *MILD* ALGORITHM WITH MEALS BEDTIME SC ; Start 06/28/18 at 18:00 Guaifenesin/ Codeine Phosphate (Robitussin Ac Liquid Cup) 5 ml Q4H PRN PO cough; Start 06/28/18 at 12:30 Methylprednisolone Sodium Succinate (Solu-Medrol) 40 mg Q12 IV ; Start 06/28/18 at 21:00 Miscellaneous Information 1 ea NOTE XX ; Start 06/28/18 at 13:30 Glucose (Glutose) 15 gm Q15M PRN PO DECREASED GLUCOSE; Start 06/28/18 at 13:30 Glucose (Glutose) 22.5 gm Q15M PRN PO DECREASED GLUCOSE; Start 06/28/18 at 13:30 Dextrose (D50w Syringe) 25 ml Q15M PRN IV DECREASED GLUCOSE; Start 06/28/18 at 13:30 Dextrose (D50w Syringe) 50 ml Q15M PRN IV DECREASED GLUCOSE; Start 06/28/18 at 13:30 Glucagon (Glucagen) 1 mg Q15M PRN IM DECREASED GLUCOSE; Start 06/28/18 at 13:30 Glucose (Glutose) 15 gm Q15M PRN BUCCAL DECREASED GLUCOSE; Start 06/28/18 at 13:30 Ondansetron HCl (Zofran Inj) 4 mg ER BRIDGE PRN IV NAUSEA/VOMITING; Start 06/28/18 at 13:30; Stop 06/29/18 at 13:29 Acetaminophen (Tylenol Tab) 650 mg ER BRIDGE PRN PO .MILD PAIN 1-3 OR TEMP; Start 06/28/18 at 13:30; Stop 06/29/18 at 13:29 Vancomycin HCl 250 ml @ 125 mls/hr Q48H IVPB ; Start 06/29/18 at 23:00 Piperacillin Sod/ Tazobactam Sod 50 ml @ 200 mls/hr Q8 IVPB ; Start 06/28/18 at 22:00 Miscellaneous Information (*Rx Drug Level Order Reminder*) RANDOM VANCOMYCIN LEVEL 2... ONCE ONCE XX ; Start 06/29/18 at 11:00; Stop 06/29/18 at 11:01 EMILY DUNBAR Jun 28, 2018 18:08
[2018-06-28] MEDS: ALBUTEROL/IPRATROPIUM (NEB) 3 ML AMP HHN SCH ×2 (19:42→19:43)
[2018-06-28] MEDS: BUDESONIDE (NEB) 0.5MG/2ML AMP HHN SCH (19:43)
[2018-06-28 20:00] VITALS: BP 141/67; PULSE 93; PULSE 99; RESP 20
[2018-06-28] MEDS: ATORVASTATIN 40 MG TAB PO SCH (20:59)
[2018-06-28] MEDS: METHYLPREDNISOLONE 40 MG INJ IV SCH (20:59)
[2018-06-28] MEDS ORDERED: METHYLPREDNISOLONE 40 MG INJ IV SCH (21:00)
[2018-06-28] MEDS: INSULIN GLARGINE [LANTus] (100 UNITS/ML) SYG SC SCH (21:06)
--- NOTE | 2018-06-28 21:51 | CONS ---
Assessment/Plan Assessment/Plan Assessment/Plan (Daily) Right diabetic foot ulcer - s/p excisional debridement with primary closure (DOS: 06/13/18) Right foot osteomyelitis - s/p excisional debridement and resection of bone (DOS: 06/13/18) IDDM with peripheral neuropathy Pneumonia Anemia Plan Patient admitted and on IV abx for pneumonia. Keep sutures intact and recommend dressings to be applied to right great toe and do not need to be changed. Patient may weight bear with surgical shoe. Patient stable from podiatry standp oint and may follow up in outpatient clinic once discharged. Educated patient on signs/symptoms of infection. Consultation Date/Type/Reason Admit Date/Time 06/28/18 Date/Time of Note DATE: 06/28/18 TIME: 21:27 Hx of Present Illness 63 y/o F diabetic patient admitted for having chest pain, shortness of breath with concerns for pneumonia and pulmonary embolism. Patient presents to the floor following up for right hallux surgery which was done one 06/13/18. Patient had an infected diabetic ulcer with osteomyelitis to the distal phalanx. Patient states that she had kept dressings clean dry and intact and denied any pain to the area. Denied fever, chills, nausea, and vomiting. ROS negative except for HPI Past Medical History Medical History: diabetes, hypertension Home Meds Active Scripts Citric Acid/Sodium Citrate* (Bicitra* (PEDIATRIC)) 1 Meq/Ml Soln, 30 ML PO TID, #90 1 Refill Prov:JUSTINO CHAVARRIA S. 06/15/18 Levofloxacin* (Levaquin*) 500 Mg Tablet, 500 MG PO Q48H for 60 Days, TAB Prov:JUSTINO CHAVARRIA S. 06/15/18 Insulin Glargine,Hum.rec.anlog (Basaglar Kwikpen U-100) 100 Unit/1 Ml Insuln.pen, 13 UNIT SC QHS, #1 BOTTLE 3 Refills Prov:JUSTINO CHAVARRIA S. 06/15/18 Amlodipine Besylate* (Amlodipine Besylate*) 10 Mg Tablet, 10 MG PO DAILY, #30 TAB 3 Refills Prov:JUSTINO CHAVARRIA S. 06/15/18 Atorvastatin* (Atorvastatin*) 40 Mg Tablet, 40 MG PO QHS, #30 TAB 3 Refills Prov:JUSTINO CHAVARRIA 06/15/18 Medications Current Medications Vancomycin HCl (Vanco Iv Per Pharmacy) VANCOMYCIN PER PHARMACY PER PROTOCOL XX ; Start 06/28/18 at 12:30 IV Flush (NS 3 ml) 3 ml PER PROTOCOL IV ; Start 06/28/18 at 12:30 Ondansetron HCl (Zofran Inj) 4 mg Q6H PRN IV NAUSEA/VOMITING; Start 06/28/18 at 12:30 Acetaminophen (Tylenol Tab) 650 mg Q6H PRN PO .PAIN 1-3 OR TEMP; Start 06/28/18 at 12:30 Acetaminophen/ Hydrocodone Bitart ([place] (5/325)) 1 tab Q6H PRN PO .PAIN 4-6; Start 06/28/18 at 12:30 Morphine Sulfate (morphine) 2 mg Q4H PRN IV .PAIN 7-10; Start 06/28/18 at 12:30 Amlodipine Besylate (Norvasc) 10 mg DAILY PO ; Start 06/29/18 at 09:00 Atorvastatin Calcium (Lipitor) 40 mg QHS PO Last administered on 06/28/18at 20:59; Admin Dose 40 MG; Start 06/28/18 at 21:00 Labetalol HCl (Labetalol) 10 mg Q4 PRN IV sbp>160; Start 06/28/18 at 12:30 Hydralazine HCl (Apresoline) 10 mg Q4H PRN IV sbp >160; Start 06/28/18 at 12:30 Albuterol/ Ipratropium (Duoneb) 3 ml Q6HWA RESP THERAPY HHN Last administered on 06/28/18at 19:43; Admin Dose 3 ML; Start 06/28/18 at 14:00 Albuterol/ Ipratropium (Duoneb) 3 ml Q2H RESP THERAPY PRN HHN shortness of breath; Start 06/28/18 at 12:30 Budesonide (Pulmicort (Neb)) 0.5 mg BID RESP THERAPY HHN Last administered on 06/28/18at 19:43; Admin Dose 0.5 MG; Start 06/28/18 at 20:00 Diagnostic Test (Pha) (Accu-Chek) 1 XX ; Start 06/29/18 at 02:00 Insulin Glargine (Lantus) 14 units DAILY@2000 SC Last administered on 06/28/18at 21:06; Admin Dose 14 UNITS; Start 06/28/18 at 20:00 Insulin Aspart (Novolog Insulin Pen) NOVOLOG *MILD* ALGORITHM WITH MEALS BEDTIME SC ; Start 06/28/18 at 18:00 Guaifenesin/ Codeine Phosphate (Robitussin Ac Liquid Cup) 5 ml Q4H PRN PO cough; Start 06/28/18 at 12:30 Methylprednisolone Sodium Succinate (Solu-Medrol) 40 mg Q12 IV Last administered on 06/28/18at 20:59; Admin Dose 40 MG; Start 06/28/18 at 21:00 Miscellaneous Information 1 ea NOTE XX ; Start 06/28/18 at 13:30 Glucose (Glutose) 15 gm Q15M PRN PO DECREASED GLUCOSE; Start 06/28/18 at 13:30 Glucose (Glutose) 22.5 gm Q15M PRN PO DECREASED GLUCOSE; Start 06/28/18 at 1 3:30 Dextrose (D50w Syringe) 25 ml Q15M PRN IV DECREASED GLUCOSE; Start 06/28/18 at 13:30 Dextrose (D50w Syringe) 50 ml Q15M PRN IV DECREASED GLUCOSE; Start 06/28/18 at 13:30 Glucagon (Glucagen) 1 mg Q15M PRN IM DECREASED GLUCOSE; Start 06/28/18 at 13:30 Glucose (Glutose) 15 gm Q15M PRN BUCCAL DECREASED GLUCOSE; Start 06/28/18 at 13:30 Ondansetron HCl (Zofran Inj) 4 mg ER BRIDGE PRN IV NAUSEA/VOMITING; Start 06/28/18 at 13:30; Stop 06/29/18 at 13:29 Acetaminophen (Tylenol Tab) 650 mg ER BRIDGE PRN PO .MILD PAIN 1-3 OR TEMP; Start 06/28/18 at 13:30; Stop 06/29/18 at 13:29 Vancomycin HCl 250 ml @ 125 mls/hr Q48H IVPB ; Start 06/29/18 at 23:00 Piperacillin Sod/ Tazobactam Sod 50 ml @ 200 mls/hr Q8 IVPB ; Start 06/28/18 at 22:00 Miscellaneous Information (*Rx Drug Level Order Reminder*) RANDOM VANCOMYCIN LEVEL 2... ONCE ONCE XX ; Start 06/29/18 at 11:00; Stop 06/29/18 at 11:01 Allergies: Coded Allergies: No Known Allergy (Unverified , 06/11/18) Past Surgical History right hallux excisional debridement and removal of infected bone. Past Surgical Hx: other Family History Significant Family History: no pertinent family hx Social History Smoking Status: Never smoker Exam/Review of Systems Exam Vitals Vital Signs Date Temp Pulse Resp B/P (MAP) Pulse Ox O2 O2 Flow FiO2 Time Delivery Rate 06/28/18 97.8 93 20 141/67 94 Mask 5.0 20:00 (91) 06/28/18 100 19:44 Exam DP/PT pulses palpable absent protective sensations to the feet Right hallux with sutures in place and intact. Skin edges well approximated. No sign of erythema or purulence to the toe. No wound dehiscence. Muscle strength 4/5 with hallux extension 5/5 in all compartments of the foot. Mild edema surrounding the R great toe Results Result Diagram: 06/28/18 1055 06/28/18 1055 Results 24hrs Laboratory Tests Test 06/28/18 10:45 06/28/18 10:55 06/28/18 10:58 06/28/18 12:30 B-Type 9030 H Natriuretic Peptide White Blood Count 6.4 Red Blood Count 2.00 L Hemoglobin 6.3 #*L Hematocrit 20.0 L Mean Corpuscular 100.0 Volume Mean Corpuscular 31.5 Hemoglobin Mean Corpuscular 31.5 L Hemoglobin Concen t Red Cell 12.7 Distribution Width Platelet Count 158 Mean Platelet 11.2 H Volume Immature 0.600 H Granulocytes % Neutrophils % 81.9 H Segmented 86 H Neutrophils % (Manual) Band Neutrophils 2 % (Manual) Lymphocytes % 8.3 L Lymphocytes % 9 L (Manual) Monocytes % 7.4 Monocytes % 2 (Manual) Eosinophils % 1.6 Eosinophils % 1 (Manual) Basophils % 0.2 Nucleated Red 0.0 Blood Cells % Immature 0.040 H Granulocytes # Neutrophils # 5.2 Neutrophils # 5.5 (Manual) Band Neutrophils 0.1 # Lymphocytes 0.5 L (Manual) Lymphocytes # 0.5 L Monocytes # 0.5 Monocytes # 0.1 L (Manual) Eosinophils # 0.1 Basophils # 0.0 Nucleated Red 0.0 Blood Cells # Pathologist YES Review (Hematolog y) Platelet Estimate NORMAL Giant Platelets 1 H Polychromasia 1+ Hypochromasia 1+ Poikilocytosis 1+ Absolute 0.031 Reticulocyte Count Percent 1.6 H Reticulocyte Count Prothrombin Time 13.9 Prothrombin Time 1.1 Ratio INR International 1.06 Normalized Ratio Activated 38.4 H Partial Thrombopl ast Time D-Dimer 2024.68 H D-Dimer Comment Sodium Level 140 Potassium Level 4.7 Chloride Level 111 H Carbon Dioxide 17 L Level Anion Gap 12 Blood Urea 46 H Nitrogen Creatinine 3.41 H Est Glomerular 14 L Filtrat Rate mL/min Glucose Level 192 Calcium Level 8.3 L Total Bilirubin 0.1 L Direct Bilirubin 0.00 Indirect 0.1 Bilirubin Aspartate Amino 25 Transf (AST/SGOT) Alanine 29 Aminotransferase (ALT/SGPT) Alkaline 159 H Phosphatase Troponin I 0.088 Total Protein 6.3 Albumin 3.3 Globulin 3.00 Albumin/Globulin 1.10 Ratio POC Venous 1.3 Lactate Blood Gas Blood arterial Specimen Source Arterial Blood 06/28/2018 12:20: Date Drawn 40 PM Arterial Blood pH 7.287 *L (Temp corrected) Arterial Blood 36.2 pCO2 (Temp correct) Arterial Blood 37.1 *L pO2 (Temp corrected) Arterial Blood 16.9 L HCO3 Arterial Blood -8.9 L Base Excess Arterial Blood 62.6 L Oxygen Saturation Andrew Test N/A Arterial Blood LB Gas Puncture Site Arterial 0.5 Blood Carboxyhemo globin Arterial Blood 0.5 Methemoglobin Blood Gas A-a O2 199.3 H Differential Oxyhemoglobin 62.0 L Percent Blood Gas 37.0 Temperature Blood Gas NASAL CANNULA Modality FiO2 39.0 Blood Gas [facility] RADHA Critical Value Read Back Blood Gas [facility] Notified Whom Blood Gas 06/28/2018 12:25: Notified Time 21 PM Test 06/28/18 17:21 06/28/18 17:23 06/28/18 20:57 Bedside Glucose 197 304 H Lactic Acid Level 0.8 Iron Level 27 L Total Iron 271 Binding Capacity Percent Iron 10 L Saturation Lactate 643 H Dehydrogenase Medications Medication Current Medications Vancomycin HCl (Vanco Iv Per Pharmacy) VANCOMYCIN PER PHARMACY PER PROTOCOL XX ; Start 06/28/18 at 12:30 IV Flush (NS 3 ml) 3 ml PER PROTOCOL IV ; Start 06/28/18 at 12:30 Ondansetron HCl (Zofran Inj) 4 mg Q6H PRN IV NAUSEA/VOMITING; Start 06/28/18 at 12:30 Acetaminophen (Tylenol Tab) 650 mg Q6H PRN PO .PAIN 1-3 OR TEMP; Start 06/28/18 at 12:30 Acetaminophen/ Hydrocodone Bitart ([place] (5/325)) 1 tab Q6H PRN PO .PAIN 4-6; Start 06/28/18 at 12:30 Morphine Sulfate (morphine) 2 mg Q4H PRN IV .PAIN 7-10; Start 06/28/18 at 12:30 Amlodipine Besylate (Norvasc) 10 mg DAILY PO ; Start 06/29/18 at 09:00 Atorvastatin Calcium (Lipitor) 40 mg QHS PO Last administered on 06/28/18at 20:59; Admin Dose 40 MG; Start 06/28/18 at 21:00 Labetalol HCl (Labetalol) 10 mg Q4 PRN IV sbp>160; Start 06/28/18 at 12:30 Hydralazine HCl (Apresoline) 10 mg Q4H PRN IV sbp >160; Start 06/28/18 at 12:30 Albuterol/ Ipratropium (Duoneb) 3 ml Q6HWA RESP THERAPY HHN Last administered on 06/28/18at 19:43; Admin Dose 3 ML; Start 06/28/18 at 14:00 Albuterol/ Ipratropium (Duoneb) 3 ml Q2H RESP THERAPY PRN HHN shortness of breath; Start 06/28/18 at 12:30 Budesonide (Pulmicort (Neb)) 0.5 mg BID RESP THERAPY HHN Last administered on 06/28/18at 19:43; Admin Dose 0.5 MG; Start 06/28/18 at 20:00 Diagnostic Test (Pha) (Accu-Chek) 1 ea 02 XX ; Start 06/29/18 at 02:00 Insulin Glargine (Lantus) 14 units DAILY@2000 SC Last administered on 06/28/18at 21:06; Admin Dose 14 UNITS; Start 06/28/18 at 20:00 Insulin Aspart (Novolog Insulin Pen) NOVOLOG *MILD* ALGORITHM WITH MEALS BEDTIME SC ; Start 06/28/18 at 18:00 Guaifenesin/ Codeine Phosphate (Robitussin Ac Liquid Cup) 5 ml Q4H PRN PO cough; Start 06/28/18 at 12:30 Methylprednisolone Sodium Succinate (Solu-Medrol) 40 mg Q12 IV Last administered on 06/28/18at 20:59; Admin Dose 40 MG; Start 06/28/18 at 21:00 Miscellaneous Information 1 ea NOTE XX ; Start 06/28/18 at 13:30 Glucose (Glutose) 15 gm Q15M PRN PO DECREASED GLUCOSE; Start 06/28/18 at 13:30 Glucose (Glutose) 22.5 gm Q15M PRN PO DECREASED GLUCOSE; Start 06/28/18 at 13:30 Dextrose (D50w Syringe) 25 ml Q15M PRN IV DECREASED GLUCOSE; Start 06/28/18 at 13:30 Dextrose (D50w Syringe) 50 ml Q15M PRN IV DECREASED GLUCOSE; Start 06/28/18 at 13:30 Glucagon (Glucagen) 1 mg Q15M PRN IM DECREASED GLUCOSE; Start 06/28/18 at 13:30 Glucose (Glutose) 15 gm Q15M PRN BUCCAL DECREASED GLUCOSE; Start 06/28/18 at 13:30 Ondansetron HCl (Zofran Inj) 4 mg ER BRIDGE PRN IV NAUSEA/VOMITING; Start 06/28/18 at 13:30; Stop 06/29/18 at 13:29 Acetaminophen (Tylenol Tab) 650 mg ER BRIDGE PRN PO .MILD PAIN 1-3 OR TEMP; Start 06/28/18 at 13:30; Stop 06/29/18 at 13:29 Vancomycin HCl 250 ml @ 125 mls/hr Q48H IVPB ; Start 06/29/18 at 23:00 Piperacillin Sod/ Tazobactam Sod 50 ml @ 200 mls/hr Q8 IVPB ; Start 06/28/18 at 22:00 Miscellaneous Information (*Rx Drug Level Order Reminder*) RANDOM VANCOMYCIN LEVEL 2... ONCE ONCE XX ; Start 06/29/18 at 11:00; Stop 06/29/18 at 11:01 JERSON GRAHAM DPM Jun 28, 2018 21:37
[2018-06-28] MEDS: PIPER-TAZO 2.25 GM (PMX) 50 ML IVPB SCH (23:10)
[2018-06-29] VITALS (10 sets, daily range): BP systolic 116–169; BP diastolic 65–78; PULSE 78–97; RESP 18–20
[2018-06-29] MEDS: HYDROCODONE/APAP (5/325) TAB PO PRN ×2 (02:37→23:02)
[2018-06-29] MEDS: ACCU-CHEK XX SCH (02:38)
[2018-06-29] MEDS ORDERED: INSULIN ASPART [NOVOLOG] 3 ML PEN SC ONE (04:00)
[2018-06-29] MEDS: PIPER-TAZO 2.25 GM (PMX) 50 ML IVPB SCH ×3 (05:03→22:40)
[2018-06-29] MEDS: FUROSEMIDE 20 MG INJ IV SCH ×2 (05:04→17:25)
[2018-06-29] MEDS: ALBUTEROL/IPRATROPIUM (NEB) 3 ML AMP HHN SCH ×3 (07:45→19:29)
[2018-06-29] MEDS: BUDESONIDE (NEB) 0.5MG/2ML AMP HHN SCH ×2 (07:46→19:30)
[2018-06-29] MEDS: INSULIN ASPART [NOVOLOG] 3 ML PEN SC SCH ×4 (07:53→21:55)
[2018-06-29] MEDS: METHYLPREDNISOLONE 40 MG INJ IV SCH ×2 (08:46→21:21)
[2018-06-29] MEDS: AMLODIPINE 10 MG TAB PO SCH (08:47)
--- NOTE | 2018-06-29 09:18 | CONS ---
Assessment/Plan Assessment/Plan Assessment/Plan (Daily) 1. 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 Multifocal pneumonia 3. possibel CHF, diastolic vs systolic - ECHO showed EF 55% with stage II diastolic dysfunction 4. H/O HTN 5. H/o HL 6. Anemia of CKD IV 7. Right diabetic foot ulcer - s/p excisional debridement with primary closure (DOS: 06/13/18) 8. Right foot osteomyelitis - s/p excisional debridement and resection of bone (DOS: 06/13/18) 9. H/o IDDM with peripheral neuropathy 10. metabolic acidosis due to progressive CKD worsening Plan: BUN/Cr 52/1.72, eGFR 12, BP stable, afebrile, on IV abx for PNA Conitnue asix 20mg IV BID- ECHO on 06/28/18 showed EF 55% with stage II diastolic dysfunction Bicitra 30ml PO BID for metabolic acidosis IV abx for Pneumonia, Renally dose all abx and monitor electrolytes lasix 20mg IV BID Epogen 8000 units SQ MWF will follow up Consultation Date/Type/Reason Admit Date/Time Jun 28, 2018 at 13:23 Initial Consult Date 06/28/18 Type of Consult NEPHROLOGY Requesting Provider: TIANA POWELL Date/Time of Note DATE: 06/29/18 TIME: 09:18 24 HR Interval Summary Free Text/Dictation BUN/Cr 52/1.72, eGFR 12, BP stable, afebrile, on IV abx for PNA Exam/Review of Systems Exam Vitals Vital Signs Date Temp Pulse Resp B/P (MAP) Pulse Ox O2 O2 Flow FiO2 Time Delivery Rate 06/29/18 90 09:13 06/29/18 Nasal 15.0 07:57 Cannula 06/29/18 96 65 07:48 06/29/18 20 07:46 06/29/18 98.3 154/73 07:05 (100) Intake and Output 06/28/18 06/28/18 06/29/18 1515:00 23:00 07:00 IntakeIntake Total 300 ml 250 ml OutputOutput Total 650 ml BalanceBalance 300 ml -400 ml Exam General: awake, alert Mentation: Patient is alert and oriented 4, Head: Normocephalic atraumatic Eyes: EOMI, pupils reactive to light Neck: Supple, nontender, midline Respiratory: Coarse to auscultation bilaterally Cardiovascular: regular rate, no obvious murmurs Gastrointestinal: non-tender to palpation, bowel sounds heard. Neurological: Moves all extremities spontaneously Skin: No new skin lesions Results Result Diagram: 06/29/18 0506 06/29/18 0506 Results 24hrs Laboratory Tests Test 06/28/18 10:45 06/28/18 10:55 06/28/18 10:58 06/28/18 12:30 B-Type 9030 H Natriuretic Peptide White Blood 6.4 Count Red Blood Count 2.00 L Hemoglobin 6.3 #*L Hematocrit 20.0 L Mean Corpuscular 100.0 Volume Mean Corpuscular 31.5 Hemoglobin Mean Corpuscular 31.5 L Hemoglobin Vera nt Red Cell 12.7 Distribution Width Platelet Count 158 Mean Platelet 11.2 H Volume Immature 0.600 H Granulocytes % Neutrophils % 81.9 H Segmented 86 H Neutrophils % (Manual) Band Neutrophils 2 % (Manual) Lymphocytes % 8.3 L Lymphocytes % 9 L (Manual) Monocytes % 7.4 Monocytes % 2 (Manual) Eosinophils % 1.6 Eosinophils % 1 (Manual) Basophils % 0.2 Nucleated Red 0.0 Blood Cells % Immature 0.040 H Granulocytes # Neutrophils # 5.2 Neutrophils # 5.5 (Manual) Band Neutrophils 0.1 # Lymphocytes 0.5 L (Manual) Lymphocytes # 0.5 L Monocytes # 0.5 Monocytes # 0.1 L (Manual) Eosinophils # 0.1 Basophils # 0.0 Nucleated Red 0.0 Blood Cells # Pathologist YES Review (Hematolo gy) Platelet NORMAL Estimate Giant Platelets 1 H Polychromasia 1+ Hypochromasia 1+ Poikilocytosis 1+ Absolute 0.031 Reticulocyte Count Percent 1.6 H Reticulocyte Count Prothrombin Time 13.9 Prothrombin Time 1.1 Ratio INR 1.06 International Normalized Ratio Activated 38.4 H Partial Thrombop last Time D-Dimer 2024.68 H D-Dimer Comment Sodium Level 140 Potassium Level 4.7 Chloride Level 111 H Carbon Dioxide 17 L Level Anion Gap 12 Blood Urea 46 H Nitrogen Creatinine 3.41 H Est Glomerular 14 L Filtrat Rate mL/min Glucose Level 192 Calcium Level 8.3 L Total Bilirubin 0.1 L Direct Bilirubin 0.00 Indirect 0.1 Bilirubin Aspartate Amino 25 Transf (AST/SGOT ) Alanine 29 Aminotransferase (ALT/SGPT) Alkaline 159 H Phosphatase Troponin I 0.088 Total Protein 6.3 Albumin 3.3 Globulin 3.00 Albumin/Globulin 1.10 Ratio POC Venous 1.3 Lactate Blood Gas Blood arterial Specimen Source Arterial Blood 06/28/2018 12:20 Date Drawn :40 PM Arterial Blood 7.287 *L pH (Temp corrected) Arterial Blood 36.2 pCO2 (Temp correct) Arterial Blood 37.1 *L pO2 (Temp corrected) Arterial Blood 16.9 L HCO3 Arterial Blood -8.9 L Base Excess Arterial Blood 62.6 L Oxygen Saturatio n Andrew Test N/A Arterial Blood LB Gas Puncture Site Arterial 0.5 Blood Carboxyhem oglobin Arterial Blood 0.5 Methemoglobin Blood Gas A-a O2 199.3 H Differential Oxyhemoglobin 62.0 L Percent Blood Gas 37.0 Temperature Blood Gas NASAL CANNULA Modality FiO2 39.0 Blood Gas OFERAFINO RN Critical Value Read Back Blood Gas MDA Notified Whom Blood Gas 06/28/2018 12:25 Notified Time :21 PM Test 06/28/18 17:21 06/28/18 17:23 06/28/18 20:57 06/28/18 23:11 Bedside Glucose 197 304 H 286 H Lactic Acid 0.8 Level Iron Level 27 L Total Iron 271 Binding Capacity Percent Iron 10 L Saturation Lactate 643 H Dehydrogenase Test 06/29/18 02:00 06/29/18 02:36 06/29/18 04:09 06/29/18 05:06 Urine Color YELLOW Urine Clarity CLOUDY A Urine pH 5.0 Urine Specific 1.012 [place] Urine Ketones NEGATIVE Urine Nitrite NEGATIVE Urine Bilirubin NEGATIVE Urine NEGATIVE Urobilinogen Urine Leukocyte NEGATIVE Esterase Urine 0 Microscopic RBC Urine 1 Microscopic WBC Urine Squamous FEW Epithelial Cells Urine Bacteria FEW A Urine 0.0 Eosinophils % Urine Hemoglobin NEGATIVE Urine Random 63.47 Creatinine Urine Random 71 Sodium Urine 4.15 Protein/Creatini ne Ratio Urine Glucose 1+ H Urine Total 264.0 H Protein Bedside Glucose 300 H 274 H White Blood 11.4 #H Count Red Blood Count 2.74 #L Hemoglobin 8.5 #L Hematocrit 26.3 #L Mean Corpuscular 96.0 Volume Mean Corpuscular 31.0 Hemoglobin Mean Corpuscular 32.3 Hemoglobin Vera nt Red Cell 13.4 Distribution Width Platelet Count 149 Mean Platelet 11.4 H Volume Immature 0.600 H Granulocytes % Neutrophils % 93.5 H Lymphocytes % 2.4 L Monocytes % 3.3 Eosinophils % 0.0 Basophils % 0.2 Nucleated Red 0.0 Blood Cells % Immature 0.070 H Granulocytes # Neutrophils # 10.6 H Lymphocytes # 0.3 L Monocytes # 0.4 Eosinophils # 0.0 Basophils # 0.0 Nucleated Red 0.0 Blood Cells # Sodium Level 138 Potassium Level 4.7 Chloride Level 109 Carbon Dioxide 16 L Level Anion Gap 13 Blood Urea 52 H Nitrogen Creatinine 3.72 H Est Glomerular 12 L Filtrat Rate mL/min Glucose Level 242 H Hemoglobin A1c 6.1 H Calcium Level 8.7 Magnesium Level 2.2 Total Bilirubin Pending Direct Bilirubin Pending Indirect Pending Bilirubin Aspartate Amino 24 Transf (AST/SGOT ) Alanine 23 Aminotransferase (ALT/SGPT) Alkaline 133 H Phosphatase Total Protein 6.3 Albumin 3.3 Globulin 3.00 Albumin/Globulin 1.10 Ratio Thyroid Pending Stimulating Hormone (TSH) Test 06/29/18 07:00 06/29/18 07:37 06/29/18 08:20 Blood Gas Blood arterial Specimen Source Arterial Blood 06/29/2018 8:28: Date Drawn 03 AM Arterial Blood 7.340 L pH (Temp corrected) Arterial Blood 29.5 L pCO2 (Temp correct) Arterial Blood 72.1 L pO2 (Temp corrected) Arterial Blood 15.6 L HCO3 Arterial Blood -9.1 L Base Excess Arterial Blood 93.1 L Oxygen Saturatio n Andrew Test N/A Arterial Blood LB Gas Puncture Site Arterial 0.3 Blood Carboxyhem oglobin Arterial Blood 0.1 Methemoglobin Blood Gas A-a O2 359.3 H Differential Oxyhemoglobin 92.7 L Percent Blood Gas 37.0 Temperature Blood Gas HFNC Modality FiO2 65.0 Blood Gas TM Notified Whom Blood Gas 06/29/2018 8:37: Notified Time 43 AM Bedside Glucose 172 Lactic Acid 1.3 Level Medications Medication Current Medications Vancomycin HCl (Vanco Iv Per Pharmacy) VANCOMYCIN PER PHARMACY PER PROTOCOL XX ; Start 06/28/18 at 12:30 IV Flush (NS 3 ml) 3 ml PER PROTOCOL IV ; Start 06/28/18 at 12:30 Ondansetron HCl (Zofran Inj) 4 mg Q6H PRN IV NAUSEA/VOMITING; Start 06/28/18 at 12:30 Acetaminophen (Tylenol Tab) 650 mg Q6H PRN PO .PAIN 1-3 OR TEMP; Start 06/28/18 at 12:30 Acetaminophen/ Hydrocodone Bitart ([place] (5/325)) 1 tab Q6H PRN PO .PAIN 4-6 Last administered on 06/29/18at 02:37; Admin Dose 1 TAB; Start 06/28/18 at 12:30 Morphine Sulfate (morphine) 2 mg Q4H PRN IV .PAIN 7-10; Start 06/28/18 at 12:30 Amlodipine Besylate (Norvasc) 10 mg DAILY PO Last administered on 06/29/18 08:47; Admin Dose 10 MG; Start 06/29/18 at 09:00 Atorvastatin Calcium (Lipitor) 40 mg QHS PO Last administered on 06/28/18at 20:5 9; Admin Dose 40 MG; Start 06/28/18 at 21:00 Labetalol HCl (Labetalol) 10 mg Q4 PRN IV sbp>160; Start 06/28/18 at 12:30 Hydralazine HCl (Apresoline) 10 mg Q4H PRN IV sbp >160; Start 06/28/18 at 12:30 Albuterol/ Ipratropium (Duoneb) 3 ml Q6HWA RESP THERAPY HHN Last administered on 06/29/18at 07:45; Admin Dose 3 ML; Start 06/28/18 at 14:00 Albuterol/ Ipratropium (Duoneb) 3 ml Q2H RESP THERAPY PRN HHN shortness of breath; Start 06/28/18 at 12:30 Budesonide (Pulmicort (Neb)) 0.5 mg BID RESP THERAPY HHN Last administered on 06/29/18at 07:46; Admin Dose 0.5 MG; Start 06/28/18 at 20:00 Diagnostic Test (Pha) (Accu-Chek) 1 ea 02 XX Last administered on 06/29/18at 02:38; Admin Dose 1 EA; Start 06/29/18 at 02:00 Insulin Glargine (Lantus) 14 units DAILY@2000 SC Last administered on 06/28/18at 21:06; Admin Dose 14 UNITS; Start 06/28/18 at 20:00 Insulin Aspart (Novolog Insulin Pen) NOVOLOG *MILD* ALGORITHM WITH MEALS BEDTIME SC Last administered on 06/29/18at 07:53; Admin Dose 1 UNIT; Start at 18:00 Guaifenesin/ Codeine Phosphate (Robitussin Ac Liquid Cup) 5 ml Q4H PRN PO cough; Start 06/28/18 at 12:30 Methylprednisolone Sodium Succinate (Solu-Medrol) 40 mg Q12 IV Last administe red on 06/29/18at 08:46; Admin Dose 40 MG; Start 06/28/18 at 21:00 Miscellaneous Information 1 ea NOTE XX ; Start 06/28/18 at 13:30 Glucose (Glutose) 15 gm Q15M PRN PO DECREASED GLUCOSE; Start 06/28/18 at 13:30 Glucose (Glutose) 22.5 gm Q15M PRN PO DECREASED GLUCOSE; Start 06/28/18 at 13:30 Dextrose (D50w Syringe) 25 ml Q15M PRN IV DECREASED GLUCOSE; Start 06/28/18 at 13:30 Dextrose (D50w Syringe) 50 ml Q15M PRN IV DECREASED GLUCOSE; Start 06/28/18 at 13:30 Glucagon (Glucagen) 1 mg Q15M PRN IM DECREASED GLUCOSE; Start 06/28/18 at 13:30 Glucose (Glutose) 15 gm Q15M PRN BUCCAL DECREASED GLUCOSE; Start 06/28/18 at 13:30 Ondansetron HCl (Zofran Inj) 4 mg ER BRIDGE PRN IV NAUSEA/VOMITING; Start 06/28/18 at 13:30; Stop 06/29/18 at 13:29 Acetaminophen (Tylenol Tab) 650 mg ER BRIDGE PRN PO .MILD PAIN 1-3 OR TEMP; Start 06/28/18 at 13:30; Stop 06/29/18 at 13:29 Vancomycin HCl 250 ml @ 125 mls/hr Q48H IVPB ; Start 06/29/18 at 23:00 Piperacillin Sod/ Tazobactam Sod 50 ml @ 200 mls/hr Q8 IVPB Last administered on 06/29/18at 05:03; Admin Dose 200 MLS/HR; Start 06/28/18 at 22:00 Miscellaneous Information (*Rx Drug Level Order Reminder*) RANDOM VANCOMYCIN LEVEL 2... ONCE ONCE XX ; Start 06/29/18 at 11:00; Stop 06/29/18 at 11:01 Furosemide (Lasix) 20 mg BID DIURETICS IV Last administered on 06/29/18at 05:04; Admin Dose 20 MG; Start 06/29/18 at 06:00 LEONARD DOBBINS MD Jun 29, 2018 09:18
[2018-06-29] MEDS ORDERED: CITRIC ACID/NA CITRATE 30 ML CUP PO ONE (09:30)
--- NOTE | 2018-06-29 09:41 | CONS ---
Assessment/Plan Cardiology Heart Failure Type: Acute Heart Failure Type: Diastolic Assessment/Plan Hospital Course (Demo Recall) 63 yo with evidence of acute diastolic heart failure secondary to multiple underlying issues, including probable pneumonia and severe anemia, along with acute renal insufficiency. Impression: Acute diastolic heart failure, improved Multilobular pneumonia Severe anemia Possible pulmonary-renal syndrome Hypertension, controlled Recommendations: She has been diuresed, CXR pending ABX, transfusion, supportive care, workup for anemia and acute renal insufficiency Continue antihypertensive therapy Will sign off, call if cardiac issues arise Consultation Date/Type/Reason Admit Date/Time Jun 28, 2018 at 13:23 Initial Consult Date 06/28/18 Type of Consult Cardiology Requesting Provider: TIANA POWELL Date/Time of Note DATE: 06/29/18 TIME: 09:39 24 HR Interval Summary Free Text/Dictation Feeling better, sitting up in bed, not short of breath, with a bit of cough. She is on high flow O2. Exam/Review of Systems Vital Signs Vitals Vital Signs Date Temp Pulse Resp B/P (MAP) Pulse Ox O2 O2 Flow FiO2 Time Delivery Rate 06/29/18 90 09:13 06/29/18 Nasal 15.0 07:57 Cannula 06/29/18 96 65 07:48 06/29/18 20 07:46 06/29/18 98.3 154/73 07:05 (100) Intake and Output 06/28/18 06/28/18 06/29/18 1515:00 23:00 07:00 IntakeIntake Total 300 ml 250 ml OutputOutput Total 650 ml BalanceBalance 300 ml -400 ml Exam Constitutional: alert Psych: nl mood/affect Head: normocephalic, atraumatic Eyes: nl conjunctiva, EOMI, nl lids, nl sclera ENMT: nl external ears & nose, nl lips & teeth Neck: supple; No jvd, No bruits Respiratory: clear to auscultation (anteriorly), normal air movement Cardiovascular: regular rate and rhythm; No murmurs/extra sounds Gastrointestinal: soft, nl liver, spleen, non-tender Musculoskeletal: nl extremities to inspection Extremities: No edema Neurological: nl mental status, nl speech Skin: No rash or lesions Labs Result Diagram: 06/29/18 0506 06/29/18 0506 Results 24hrs Laboratory Tests Test 06/28/18 10:45 06/28/18 10:55 06/28/18 10:58 06/28/18 12:30 B-Type 9030 H Natriuretic Peptide White Blood 6.4 Count Red Blood Count 2.00 L Hemoglobin 6.3 #*L Hematocrit 20.0 L Mean Corpuscular 100.0 Volume Mean Corpuscular 31.5 Hemoglobin Mean Corpuscular 31.5 L Hemoglobin Vera nt Red Cell 12.7 Distribution Width Platelet Count 158 Mean Platelet 11.2 H Volume Immature 0.600 H Granulocytes % Neutrophils % 81.9 H Segmented 86 H Neutrophils % (Manual) Band Neutrophils 2 % (Manual) Lymphocytes % 8.3 L Lymphocytes % 9 L (Manual) Monocytes % 7.4 Monocytes % 2 (Manual) Eosinophils % 1.6 Eosinophils % 1 (Manual) Basophils % 0.2 Nucleated Red 0.0 Blood Cells % Immature 0.040 H Granulocytes # Neutrophils # 5.2 Neutrophils # 5.5 (Manual) Band Neutrophils 0.1 # Lymphocytes 0.5 L (Manual) Lymphocytes # 0.5 L Monocytes # 0.5 Monocytes # 0.1 L (Manual) Eosinophils # 0.1 Basophils # 0.0 Nucleated Red 0.0 Blood Cells # Pathologist YES Review (Hematolo gy) Platelet NORMAL Estimate Giant Platelets 1 H Polychromasia 1+ Hypochromasia 1+ Poikilocytosis 1+ Absolute 0.031 Reticulocyte Count Percent 1.6 H Reticulocyte Count Prothrombin Time 13.9 Prothrombin Time 1.1 Ratio INR 1.06 International Normalized Ratio Activated 38.4 H Partial Thrombop last Time D-Dimer 2024.68 H D-Dimer Comment Sodium Level 140 Potassium Level 4.7 Chloride Level 111 H Carbon Dioxide 17 L Level Anion Gap 12 Blood Urea 46 H Nitrogen Creatinine 3.41 H Est Glomerular 14 L Filtrat Rate mL/min Glucose Level 192 Calcium Level 8.3 L Total Bilirubin 0.1 L Direct Bilirubin 0.00 Indirect 0.1 Bilirubin Aspartate Amino 25 Transf (AST/SGOT ) Alanine 29 Aminotransferase (ALT/SGPT) Alkaline 159 H Phosphatase Troponin I 0.088 Total Protein 6.3 Albumin 3.3 Globulin 3.00 Albumin/Globulin 1.10 Ratio POC Venous 1.3 Lactate Blood Gas Blood arterial Specimen Source Arterial Blood 06/28/2018 12:20 Date Drawn :40 PM Arterial Blood 7.287 *L pH (Temp corrected) Arterial Blood 36.2 pCO2 (Temp correct) Arterial Blood 37.1 *L pO2 (Temp corrected) Arterial Blood 16.9 L HCO3 Arterial Blood -8.9 L Base Excess Arterial Blood 62.6 L Oxygen Saturatio n Andrew Test N/A Arterial Blood LB Gas Puncture Site Arterial 0.5 Blood Carboxyhem oglobin Arterial Blood 0.5 Methemoglobin Blood Gas A-a O2 199.3 H Differential Oxyhemoglobin 62.0 L Percent Blood Gas 37.0 Temperature Blood Gas NASAL CANNULA Modality FiO2 39.0 Blood Gas OFERAFINO RN Critical Value Read Back Blood Gas MDA Notified Whom Blood Gas 06/28/2018 12:25 Notified Time :21 PM Test 06/28/18 17:21 06/28/18 17:23 06/28/18 20:57 06/28/18 23:11 Bedside Glucose 197 304 H 286 H Lactic Acid 0.8 Level Iron Level 27 L Total Iron 271 Binding Capacity Percent Iron 10 L Saturation Lactate 643 H Dehydrogenase Test 06/29/18 02:00 06/29/18 02:36 06/29/18 04:09 06/29/18 05:06 Urine Color YELLOW Urine Clarity CLOUDY A Urine pH 5.0 Urine Specific 1.012 [place] Urine Ketones NEGATIVE Urine Nitrite NEGATIVE Urine Bilirubin NEGATIVE Urine NEGATIVE Urobilinogen Urine Leukocyte NEGATIVE Esterase Urine 0 Microscopic RBC Urine 1 Microscopic WBC Urine Squamous FEW Epithelial Cells Urine Bacteria FEW A Urine 0.0 Eosinophils % Urine Hemoglobin NEGATIVE Urine Random 63.47 Creatinine Urine Random 71 Sodium Urine 4.15 Protein/Creatini ne Ratio Urine Glucose 1+ H Urine Total 264.0 H Protein Bedside Glucose 300 H 274 H White Blood 11.4 #H Count Red Blood Count 2.74 #L Hemoglobin 8.5 #L Hematocrit 26.3 #L Mean Corpuscular 96.0 Volume Mean Corpuscular 31.0 Hemoglobin Mean Corpuscular 32.3 Hemoglobin Vera nt Red Cell 13.4 Distribution Width Platelet Count 149 Mean Platelet 11.4 H Volume Immature 0.600 H Granulocytes % Neutrophils % 93.5 H Lymphocytes % 2.4 L Monocytes % 3.3 Eosinophils % 0.0 Basophils % 0.2 Nucleated Red 0.0 Blood Cells % Immature 0.070 H Granulocytes # Neutrophils # 10.6 H Lymphocytes # 0.3 L Monocytes # 0.4 Eosinophils # 0.0 Basophils # 0.0 Nucleated Red 0.0 Blood Cells # Sodium Level 138 Potassium Level 4.7 Chloride Level 109 Carbon Dioxide 16 L Level Anion Gap 13 Blood Urea 52 H Nitrogen Creatinine 3.72 H Est Glomerular 12 L Filtrat Rate mL/min Glucose Level 242 H Hemoglobin A1c 6.1 H Calcium Level 8.7 Magnesium Level 2.2 Total Bilirubin 0.1 L Direct Bilirubin 0.00 Indirect 0.1 Bilirubin Aspartate Amino 24 Transf (AST/SGOT ) Alanine 23 Aminotransferase (ALT/SGPT) Alkaline 133 H Phosphatase Total Protein 6.3 Albumin 3.3 Globulin 3.00 Albumin/Globulin 1.10 Ratio Thyroid Pending Stimulating Hormone (TSH) Test 06/29/18 07:00 06/29/18 07:37 06/29/18 08:20 Blood Gas Blood arterial Specimen Source Arterial Blood 06/29/2018 8:28: Date Drawn 03 AM Arterial Blood 7.340 L pH (Temp corrected) Arterial Blood 29.5 L pCO2 (Temp correct) Arterial Blood 72.1 L pO2 (Temp corrected) Arterial Blood 15.6 L HCO3 Arterial Blood -9.1 L Base Excess Arterial Blood 93.1 L Oxygen Saturatio n Andrew Test N/A Arterial Blood LB Gas Puncture Site Arterial 0.3 Blood Carboxyhem oglobin Arterial Blood 0.1 Methemoglobin Blood Gas A-a O2 359.3 H Differential Oxyhemoglobin 92.7 L Percent Blood Gas 37.0 Temperature Blood Gas HFNC Modality FiO2 65.0 Blood Gas TM Notified Whom Blood Gas 06/29/2018 8:37: Notified Time 43 AM Bedside Glucose 172 Lactic Acid 1.3 Level Medications Medications Current Medications Vancomycin HCl (Vanco Iv Per Pharmacy) VANCOMYCIN PER PHARMACY PER PROTOCOL XX ; Start 06/28/18 at 12:30 IV Flush (NS 3 ml) 3 ml PER PROTOCOL IV ; Start 06/28/18 at 12:30 Ondansetron HCl (Zofran Inj) 4 mg Q6H PRN IV NAUSEA/VOMITING; Start 06/28/18 at 12:30 Acetaminophen (Tylenol Tab) 650 mg Q6H PRN PO .PAIN 1-3 OR TEMP; Start 06/28/18 at 12:30 Acetaminophen/ Hydrocodone Bitart ([place] (5/325)) 1 tab Q6H PRN PO .PAIN 4-6 Last administered on 06/29/18at 02:37; Admin Dose 1 TAB; Start 06/28/18 at 12:30 Morphine Sulfate (morphine) 2 mg Q4H PRN IV .PAIN 7-10; Start 06/28/18 at 12:30 Amlodipine Besylate (Norvasc) 10 mg DAILY PO Last administered on 06/29/18at 08:47; Admin Dose 10 MG; Start 06/29/18 at 09:00 Atorvastatin Calcium (Lipitor) 40 mg QHS PO Last administered on 06/28/18at 20:59; Admin Dose 40 MG; Start 06/28/18 at 21:00 Labetalol HCl (Labetalol) 10 mg Q4 PRN IV sbp>160; Start 06/28/18 at 12:30 Hydralazine HCl (Apresoline) 10 mg Q4H PRN IV sbp >160; Start 06/28/18 at 12:30 Albuterol/ Ipratropium (Duoneb) 3 ml Q6HWA RESP THERAPY HHN Last administered on 06/29/18at 07:45; Admin Dose 3 ML; Start 06/28/18 at 14:00 Albuterol/ Ipratropium (Duoneb) 3 ml Q2H RESP THERAPY PRN HHN shortness of breath; Start 06/28/18 at 12:30 Budesonide (Pulmicort (Neb)) 0.5 mg BID RESP THERAPY HHN Last administered on 06/29/18at 07:46; Admin Dose 0.5 MG; Start 06/28/18 at 20:00 Diagnostic Test (Pha) (Accu-Chek) 1 ea 02 XX Last administered on 06/29/18at 02:38; Admin Dose 1 EA; Start 06/29/18 at 02:00 Insulin Glargine (Lantus) 14 units DAILY@2000 SC Last administered on 06/28/18at 21:06; Admin Dose 14 UNITS; Start 06/28/18 at 20:00 Insulin Aspart (Novolog Insulin Pen) NOVOLOG *MILD* ALGORITHM WITH MEALS BEDTIME SC Last administered on 06/29/18at 07:53; Admin Dose 1 UNIT; Start 06/28/18 at 18:00 Guaifenesin/ Codeine Phosphate (Robitussin Ac Liquid Cup) 5 ml Q4H PRN PO cough; Start 06/28/18 at 12:30 Methylprednisolone Sodium Succinate (Solu-Medrol) 40 mg Q12 IV Last administered on 06/29/18at 08:46; Admin Dose 40 MG; Start 06/28/18 at 21:00 Miscellaneous Information 1 ea NOTE XX ; Start 06/28/18 at 13:30 Glucose (Glutose) 15 gm Q15M PRN PO DECREASED GLUCOSE; Start 06/28/18 at 13:30 Glucose (Glutose) 22.5 gm Q15M PRN PO DECREASED GLUCOSE; Start 06/28/18 at 13:30 Dextrose (D50w Syringe) 25 ml Q15M PRN IV DECREASED GLUCOSE; Start 06/28/18 at 13:30 Dextrose (D50w Syringe) 50 ml Q15M PRN IV DECREASED GLUCOSE; Start 06/28/18 at 13:30 Glucagon (Glucagen) 1 mg Q15M PRN IM DECREASED GLUCOSE; Start 06/28/18 at 13:30 Glucose (Glutose) 15 gm Q15M PRN BUCCAL DECREASED GLUCOSE; Start 06/28/18 at 13:30 Ondansetron HCl (Zofran Inj) 4 mg ER BRIDGE PRN IV NAUSEA/VOMITING; Start 06/28/18 at 13:30; Stop 06/29/18 at 13:29 Acetaminophen (Tylenol Tab) 650 mg ER BRIDGE PRN PO .MILD PAIN 1-3 OR TEMP; Start 06/28/18 at 13:30; Stop 06/29/18 at 13:29 Vancomycin HCl 250 ml @ 125 mls/hr Q48H IVPB ; Start 06/29/18 at 23:00 Piperacillin Sod/ Tazobactam Sod 50 ml @ 200 mls/hr Q8 IVPB Last administered on 06/29/18at 05:03; Admin Dose 200 MLS/HR; Start 06/28/18 at 22:00 Miscellaneous Information (*Rx Drug Level Order Reminder*) RANDOM VANCOMYCIN LEVEL 2... ONCE ONCE XX ; Start 06/29/18 at 11:00; Stop 06/29/18 at 11:01 Furosemide (Lasix) 20 mg BID DIURETICS IV Last administered on 06/29/18at 05:04; Admin Dose 20 MG; Start 06/29/18 at 06:00 Citric Acid/ Sodium Citrate (Bicitra) 30 ml BID PO ; Start 06/29/18 at 21:00 EMILY DUNBAR Jun 29, 2018 09:40
[2018-06-29] MEDS: ONDANSETRON 4 MG INJ IV PRN (11:22)
--- NOTE | 2018-06-29 11:29 | PN ---
Date/Time of Note Date/Time of Note DATE: 06/29/18 TIME: 11:27 Objective Vitals Vital Signs Date Temp Pulse Resp B/P (MAP) Pulse Ox O2 O2 Flow FiO2 Time Delivery Rate 06/29/18 92 65 11:06 06/29/18 90 09:13 06/29/18 Nasal 15.0 07:57 Cannula 06/29/18 20 07:46 06/29/18 98.3 154/73 07:05 (100) Intake and Output 06/28/18 06/28/18 06/29/18 1515:00 23:00 07:00 IntakeIntake Total 300 ml 250 ml OutputOutput Total 650 ml BalanceBalance 300 ml -400 ml Results Result Diagram: 06/29/18 0506 06/29/18 0506 Medications Medications Current Medications Vancomycin HCl (Vanco Iv Per Pharmacy) VANCOMYCIN PER PHARMACY PER PROTOCOL XX ; Start 06/28/18 at 12:30 IV Flush (NS 3 ml) 3 ml PER PROTOCOL IV ; Start 06/28/18 at 12:30 Ondansetron HCl (Zofran Inj) 4 mg Q6H PRN IV NAUSEA/VOMITING Last administered on 06/29/18at 11:22; Admin Dose 4 MG; Start 06/28/18 at 12:30 Acetaminophen (Tylenol Tab) 650 mg Q6H PRN PO .PAIN 1-3 OR TEMP; Start 06/28/18 at 12:30 Acetaminophen/ Hydrocodone Bitart ([place] (5/325)) 1 tab Q6H PRN PO .PAIN 4-6 Last administered on 06/29/18at 02:37; Admin Dose 1 TAB; Start 06/28/18 at 12:30 Morphine Sulfate (morphine) 2 mg Q4H PRN IV .PAIN 7-10; Start 06/28/18 at 12:30 Amlodipine Besylate (Norvasc) 10 mg DAILY PO Last administered on 06/29/18at 08:47; Admin Dose 10 MG; Start 06/29/18 at 09:00 Atorvastatin Calcium (Lipitor) 40 mg QHS PO Last administered on 06/28/18at 20:59; Admin Dose 40 MG; Start 06/28/18 at 21:00 Labetalol HCl (Labetalol) 10 mg Q4 PRN IV sbp>160; Start 06/28/18 at 12:30 Hydralazine HCl (Apresoline) 10 mg Q4H PRN IV sbp >160; Start 06/28/18 at 12:30 Albuterol/ Ipratropium (Duoneb) 3 ml Q6HWA RESP THERAPY HHN Last administered on 06/29/18at 07:45; Admin Dose 3 ML; Start 06/28/18 at 14:00 Albuterol/ Ipratropium (Duoneb) 3 ml Q2H RESP THERAPY PRN HHN shortness of breath; Start 06/28/18 at 12:30 Budesonide (Pulmicort (Neb)) 0.5 mg BID RESP THERAPY HHN Last administered on 06/29/18at 07:46; Admin Dose 0.5 MG; Start 06/28/18 at 20:00 Diagnostic Test (Pha) (Accu-Chek) 1 ea 02 XX Last administered on 06/29/18at 02:38; Admin Dose 1 EA; Start 06/29/18 at 02:00 Insulin Glargine (Lantus) 14 units DAILY@2000 SC Last administered on 06/28/18at 21:06; Admin Dose 14 UNITS; Start 06/28/18 at 20:00 Insulin Aspart (Novolog Insulin Pen) NOVOLOG *MILD* ALGORITHM WITH MEALS BEDTIME SC Last administered on 06/29/18at 07:53; Admin Dose 1 UNIT; Start 06/28/18 at 18:00 Guaifenesin/ Codeine Phosphate (Robitussin Ac Liquid Cup) 5 ml Q4H PRN PO cough; Start 06/28/18 at 12:30 Methylprednisolone Sodium Succinate (Solu-Medrol) 40 mg Q12 IV Last administered on 06/29/18at 08:46; Admin Dose 40 MG; Start 06/28/18 at 21:00 Miscellaneous Information 1 ea NOTE XX ; Start 06/28/18 at 13:30 Glucose (Glutose) 15 gm Q15M PRN PO DECREASED GLUCOSE; Start 06/28/18 at 13:30 Glucose (Glutose) 22.5 gm Q15M PRN PO DECREASED GLUCOSE; Start 06/28/18 at 13:30 Dextrose (D50w Syringe) 25 ml Q15M PRN IV DECREASED GLUCOSE; Start 06/28/18 at 13:30 Dextrose (D50w Syringe) 50 ml Q15M PRN IV DECREASED GLUCOSE; Start 06/28/18 at 13:30 Glucagon (Glucagen) 1 mg Q15M PRN IM DECREASED GLUCOSE; Start 06/28/18 at 13:30 Glucose (Glutose) 15 gm Q15M PRN BUCCAL DECREASED GLUCOSE; Start 06/28/18 at 13:30 Ondansetron HCl (Zofran Inj) 4 mg ER BRIDGE PRN IV NAUSEA/VOMITING; Start 06/28/18 at 13:30; Stop 06/29/18 at 13:29 Acetaminophen (Tylenol Tab) 650 mg ER BRIDGE PRN PO .MILD PAIN 1-3 OR TEMP; Start 06/28/18 at 13:30; Stop 06/29/18 at 13:29 Vancomycin HCl 250 ml @ 125 mls/hr Q48H IVPB ; Start 06/29/18 at 23:00 Piperacillin Sod/ Tazobactam Sod 50 ml @ 200 mls/hr Q8 IVPB Last administered on 06/29/18at 05:03; Admin Dose 200 MLS/HR; Start 06/28/18 at 22:00 Furosemide (Lasix) 20 mg BID DIURETICS IV Last administered on 06/29/18at 05:04; Admin Dose 20 MG; Start 06/29/18 at 06:00 Citric Acid/ Sodium Citrate (Bicitra) 30 ml BID PO ; Start 06/29/18 at 21:00 VTE Prophylaxis Risk score (from Ns)>0 risk: 5 SCD applied (from Ns): Yes Lines/Catheters IV Catheter Type: [place] in Place: No Assessment/Plan Hospital Course Subjective Patient feeling a little better compared to yesterday, still having some shortness of breath Objective Physical exam General: Patient is laying in bed and answers questions appropriately Mentation: Patient is alert and oriented 4, Head: Normocephalic atraumatic Eyes: EOMI, pupils reactive to light Neck: Supple, nontender, midline Respiratory: Coarse to auscultation bilaterally Cardiovascular: regular rate, no obvious murmurs Gastrointestinal: non-tender to palpation, bowel sounds heard. Neurological: Moves all extremities spontaneously Skin: No new skin lesions Assessment and plan Acute hypoxic respiratory failure -Secondary to multifocal pneumonia and pulmonary edema -Unlikely PE at this time, unable to do CT angiogram due to elevated creatinine, however VQ scan was done and low prob. Multifocal pneumonia -IV antibiotic, broad-spectrum -DuoNeb, budesonide nebulizers -Steroids for now, taper -ID on board -pulm on bord Pulmonary edema and bilateral effusions -lasix per nephrology, need to be mindful with Cr levels -Monitor Stage II diastolic dysfunction -Seen on echocardiogram -Continue diuresis -Cardiology consulted -Elevated BNP Severe anemia -transfuse as needed -Patient always had a history of anemia, however lower than normal, no evident no signs of GI bleed at all, no black or tarry stools reported per patient -Retic index points towards hypoproliferation -Pending haptoglobin and lactate dehydrogenase -We will monitor for the next few days if continues to decrease we will consult hematology Acute kidney injury on chronic kidney disease -Nephrology consulted -Recommendations appreciated Right foot osteomyelitis with recent debridement approximately 2 weeks ago -podiatry consulted -ID back on board, patient has been getting IV antibiotics through a PICC line -Was previously sent home on oral Levaquin and vancomycin Diabetes mellitus -Lantus and insulin sliding scale as needed Hypertension -Continue home meds, treat as needed Disposition -Continue treatment for multifocal pneumonia, multiple natural remedy consultant recommendations appreciated. TIANA POWELL Jun 29, 2018 11:29
[2018-06-29] MEDS: DOCUSATE SODIUM 100 MG CAP PO SCH ×2 (12:44→21:21)
[2018-06-29] MEDS: FERROUS SULFATE (EC) 325 MG TAB PO SCH ×2 (12:44→21:20)
--- NOTE | 2018-06-29 14:25 | CONS ---
Consult Date/Type/Reason Admit Date/Time Jun 28, 2018 at 13:23 Initial Consult Date 06/28/18 Type of Consult Pulmonary Requesting Provider: TIANA POWELL Date/Time of Note DATE: 06/29/18 TIME: 14:21 Subjective Feeling little better, less short of breath still on high flow o2. Objective Vital Signs Date Temp Pulse Resp B/P (MAP) Pulse Ox O2 O2 Flow FiO2 Time Delivery Rate 06/29/18 82 18 92 Nasal 65 13:32 Cannula 06/29/18 99.5 169/78 11:41 (108) 06/29/18 15.0 07:57 Intake and Output 06/28/18 06/28/18 06/29/18 1414:59 22:59 06:59 IntakeIntake Total 300 ml 250 ml OutputOutput Total 650 ml BalanceBalance 300 ml -400 ml Vent Setting Fraction of Inspired Oxygen pe: 65 Results/Medications Result Diagram: 06/29/18 0506 06/29/18 0506 Results 24 hrs Laboratory Tests Test 06/28/18 17:21 06/28/18 17:23 06/28/18 20:57 06/28/18 23:11 Bedside Glucose 197 304 H 286 H Lactic Acid Level 0.8 Iron Level 27 L Total Iron 271 Binding Capacity Percent Iron 10 L Saturation Lactate 643 H Dehydrogenase Test 06/29/18 02:00 06/29/18 02:36 06/29/18 04:09 06/29/18 05:06 Urine Color YELLOW Urine Clarity CLOUDY A Urine pH 5.0 Urine Specific 1.012 [place] Urine Ketones NEGATIVE Urine Nitrite NEGATIVE Urine Bilirubin NEGATIVE Urine NEGATIVE Urobilinogen Urine Leukocyte NEGATIVE Esterase Urine Microscopic 0 RBC Urine Microscopic 1 WBC Urine Squamous FEW Epithelial Cells Urine Bacteria FEW A Urine Eosinophils 0.0 % Urine Hemoglobin NEGATIVE Urine Random 63.47 Creatinine Urine Random 71 Sodium Urine 4.15 Protein/Creatinin e Ratio Urine Glucose 1+ H Urine Total 264.0 H Protein Bedside Glucose 300 H 274 H White Blood Count 11.4 #H Red Blood Count 2.74 #L Hemoglobin 8.5 #L Hematocrit 26.3 #L Mean Corpuscular 96.0 Volume Mean Corpuscular 31.0 Hemoglobin Mean Corpuscular 32.3 Hemoglobin Concen t Red Cell 13.4 Distribution Width Platelet Count 149 Mean Platelet 11.4 H Volume Immature 0.600 H Granulocytes % Neutrophils % 93.5 H Lymphocytes % 2.4 L Monocytes % 3.3 Eosinophils % 0.0 Basophils % 0.2 Nucleated Red 0.0 Blood Cells % Immature 0.070 H Granulocytes # Neutrophils # 10.6 H Lymphocytes # 0.3 L Monocytes # 0.4 Eosinophils # 0.0 Basophils # 0.0 Nucleated Red 0.0 Blood Cells # Sodium Level 138 Potassium Level 4.7 Chloride Level 109 Carbon Dioxide 16 L Level Anion Gap 13 Blood Urea 52 H Nitrogen Creatinine 3.72 H Est Glomerular 12 L Filtrat Rate mL/min Glucose Level 242 H Hemoglobin A1c 6.1 H Calcium Level 8.7 Magnesium Level 2.2 Total Bilirubin 0.1 L Direct Bilirubin 0.00 Indirect 0.1 Bilirubin Aspartate Amino 24 Transf (AST/SGOT) Alanine 23 Aminotransferase (ALT/SGPT) Alkaline 133 H Phosphatase Total Protein 6.3 Albumin 3.3 Globulin 3.00 Albumin/Globulin 1.10 Ratio Thyroid 1.750 Stimulating Hormone (TSH) Test 06/29/18 07:00 06/29/18 07:37 06/29/18 08:20 06/29/18 11:12 Blood Gas Blood arterial Specimen Source Arterial Blood 06/29/2018 8:28:0 Date Drawn 3 AM Arterial Blood pH 7.340 L (Temp corrected) Arterial Blood 29.5 L pCO2 (Temp correct) Arterial Blood 72.1 L pO2 (Temp corrected) Arterial Blood 15.6 L HCO3 Arterial Blood -9.1 L Base Excess Arterial Blood 93.1 L Oxygen Saturation Andrew Test N/A Arterial Blood LB Gas Puncture Site Arterial 0.3 Blood Carboxyhemo globin Arterial Blood 0.1 Methemoglobin Blood Gas A-a O2 359.3 H Differential Oxyhemoglobin 92.7 L Percent Blood Gas 37.0 Temperature Blood Gas HFNC Modality FiO2 65.0 Blood Gas TM Notified Whom Blood Gas 06/29/2018 8:37:4 Notified Time 3 AM Bedside Glucose 172 Lactic Acid Level 1.3 Random Vancomycin 31.1 Level Test 06/29/18 12:18 Bedside Glucose 280 H Medications Current Medications Vancomycin HCl (Vanco Iv Per Pharmacy) VANCOMYCIN PER PHARMACY PER PROTOCOL XX ; Start 06/28/18 at 12:30 IV Flush (NS 3 ml) 3 ml PER PROTOCOL IV ; Start 06/28/18 at 12:30 Ondansetron HCl (Zofran Inj) 4 mg Q6H PRN IV NAUSEA/VOMITING Last administered on 06/29/18 11:22; Admin Dose 4 MG; Start 06/28/18 at 12:30 Acetaminophen (Tylenol Tab) 650 mg Q6H PRN PO .PAIN 1-3 OR TEMP; Start 06/28/18 at 12:30 Acetaminophen/ Hydrocodone Bitart ([place] (5/325)) 1 tab Q6H PRN PO .PAIN 4-6 Last administered on 06/29/18 02:37; Admin Dose 1 TAB; Start 06/28/18 at 12:30 Morphine Sulfate (morphine) 2 mg Q4H PRN IV .PAIN 7-10; Start 06/28/18 at 12:30 Amlodipine Besylate (Norvasc) 10 mg DAILY PO Last administered on 06/29/18 08:47; Admin Dose 10 MG; Start 06/29/18 at 09:00 Atorvastatin Calcium (Lipitor) 40 mg QHS PO Last administered on 06/28/18 20:59; Admin Dose 40 MG; Start 06/28/18 at 21:00 Labetalol HCl (Labetalol) 10 mg Q4 PRN IV sbp>160; Start 06/28/18 at 12:30 Hydralazine HCl (Apresoline) 10 mg Q4H PRN IV sbp >160; Start 06/28/18 at 12:30 Albuterol/ Ipratropium (Duoneb) 3 ml Q6HWA RESP THERAPY HHN Last administered on 06/29/18 13:32; Admin Dose 3 ML; Start 06/28/18 at 14:00 Albuterol/ Ipratropium (Duoneb) 3 ml Q2H RESP THERAPY PRN HHN shortness of stephan ath; Start 06/28/18 at 12:30 Budesonide (Pulmicort (Neb)) 0.5 mg BID RESP THERAPY HHN Last administered on 06/29/18 07:46; Admin Dose 0.5 MG; Start 06/28/18 at 20:00 Diagnostic Test (Pha) (Accu-Chek) 1 ea 02 XX Last administered on 06/29/18 02:38; Admin Dose 1 EA; Start 06/29/18 at 02:00 Insulin Glargine (Lantus) 14 units DAILY@2000 SC Last administered on 2/26/19at 21:06; Admin Dose 14 UNITS; Start 06/28/18 at 20:00 Insulin Aspart (Novolog Insulin Pen) NOVOLOG *MILD* ALGORITHM WITH MEALS BEDTIME SC Last administered on 06/29/18at 12:25; Admin Dose 4 UNIT; Start 06/28/18 at 18:00 Guaifenesin/ Codeine Phosphate (Robitussin Ac Liquid Cup) 5 ml Q4H PRN PO cough; Start 06/28/18 at 12:30 Methylprednisolone Sodium Succinate (Solu-Medrol) 40 mg Q12 IV Last administered on 06/29/18at 08:46; Admin Dose 40 MG; Start 06/28/18 at 21:00 Miscellaneous Information 1 ea NOTE XX ; Start 06/28/18 at 13:30 Glucose (Glutose) 15 gm Q15M PRN PO DECREASED GLUCOSE; Start 06/28/18 at 13:30 Glucose (Glutose) 22.5 gm Q15M PRN PO DECREASED GLUCOSE; Start 06/28/18 at 13:30 Dextrose (D50w Syringe) 25 ml Q15M PRN IV DECREASED GLUCOSE; Start 06/28/18 at 13:30 Dextrose (D50w Syringe) 50 ml Q15M PRN IV DECREASED GLUCOSE; Start 06/28/18 at 13:30 Glucagon (Glucagen) 1 mg Q15M PRN IM DECREASED GLUCOSE; Start 06/28/18 at 13:30 Glucose (Glutose) 15 gm Q15M PRN BUCCAL DECREASED GLUCOSE; Start 06/28/18 at 13:30 Vancomycin HCl 250 ml @ 125 mls/hr Q48H IVPB ; Start 06/29/18 at 23:00 Piperacillin Sod/ Tazobactam Sod 50 ml @ 200 mls/hr Q8 IVPB Last administered on 06/29/18at 05:03; Admin Dose 200 MLS/HR; Start 06/28/18 at 22:00 Furosemide (Lasix) 20 mg BID DIURETICS IV Last administered on 06/29/18at 05:04; Admin Dose 20 MG; Start 06/29/18 at 06:00 Citric Acid/ Sodium Citrate (Bicitra) 30 ml BID PO ; Start 06/29/18 at 21:00 Ferrous Sulfate (Ferrous Sulfate (Ec)) 325 mg BID PO Last administered on 06/29/18at 12:44; Admin Dose 325 MG; Start 06/29/18 at 12:00 Docusate Sodium (Colace) 100 mg BID PO Last administered on 06/29/18at 12:44; Admin Dose 100 MG; Start 06/29/18 at 12:00 Assessment/Plan Hospital Course (Demo Recall) IMPRESSION 1. Acute renal failure with bilateral pulmonary infiltrates and pleural effusions. Differential does include acute tubular necrosis, injury with community-acquired pneumonia, but also includes pulmonary renal syndrome such as Goodpasture's or Ramiro's granulomatosis. Anemia no overt gi bleeding. Plan 1. Supplemental O2. 2. Steroids. 3. Antibiotics. 4. Renal consultation with renal ultrasound and possible renal biopsy. 5. Check CANDICE, C-ANCA and anti-GBM antibodies. 6. s/p PRBC STEPHY SAUCEDA MD, [facility] Jun 29, 2018 14:25
--- NOTE | 2018-06-29 16:17 | CONS ---
Assessment/Plan Assessment/Plan Hospital Course (Demo Recall) Patient is alert, comfortable on high flow oxygen, no fevers overnight. T-max 99.5. WBC 11.4, platelets 149 neutrophils 93.5. BUN 52 creatinine 3.72 Microbiology: Cultures remain negative. Right big toe cultures on previous admission June 11 and grew E. coli, enterococcus species, bacteroids fragilis and coag negative staph species Chest x-ray this morning revealed improved appearance of the lungs Antimicrobials: Zosyn vancomycin Indwelling: Right arm PICC line Physical examination: Well-developed fragile elderly woman who is awake in no distress. Head atraumatic normocephalic sclera nonicteric vehicle mucosa dry neck is supple chest rise symmetrical breath sounds diminished bases heart: S1-S2 abdomen soft bowel sounds present extremities with right great toe wound dry and clean Assessment: 1. Sepsis, present on admission 2. Acute hypoxemic respiratory failure/pneumonia 3. Right great toe osteomyelitis status post debridement and resection of the bone on previous admission 4. Diabetes 5. Acute on chronic kidney disease 6. Diastolic dysfunction Plan: We will change antibiotics to Merrem and Zyvox to treat pneumonia. Per discussion with podiatry infected bone was removed therefore she does not need any more antibiotics for OM DW Dr Mcpherson Consultation Date/Type/Reason Admit Date/Time Jun 28, 2018 at 13:23 Initial Consult Date 06/28/18 Type of Consult id Requesting Provider: TIANA POWELL Date/Time of Note DATE: 06/29/18 TIME: 16:16 Exam/Review of Systems Exam Vitals Vital Signs Date Temp Pulse Resp B/P (MAP) Pulse Ox O2 O2 Flow FiO2 Time Delivery Rate 06/29/18 93 65 16:08 06/29/18 88 18 Nasal 16:08 Cannula 06/29/18 98.8 153/70 15:31 (97) 06/29/18 15.0 07:57 Intake and Output 06/28/18 06/28/18 06/29/18 1515:00 23:00 07:00 IntakeIntake Total 300 ml 250 ml OutputOutput Total 650 ml BalanceBalance 300 ml -400 ml Results Result Diagram: 06/29/18 0506 06/29/18 0506 Results 24hrs Laboratory Tests Test 06/28/18 17:21 06/28/18 17:23 06/28/18 20:57 06/28/18 23:11 Bedside Glucose 197 304 H 286 H Lactic Acid Level 0.8 Iron Level 27 L Total Iron 271 Binding Capacity Percent Iron 10 L Saturation Lactate 643 H Dehydrogenase Test 06/29/18 02:00 06/29/18 02:36 06/29/18 04:09 06/29/18 05:06 Urine Color YELLOW Urine Clarity CLOUDY A Urine pH 5.0 Urine Specific 1.012 [place] Urine Ketones NEGATIVE Urine Nitrite NEGATIVE Urine Bilirubin NEGATIVE Urine NEGATIVE Urobilinogen Urine Leukocyte NEGATIVE Esterase Urine Microscopic 0 RBC Urine Microscopic 1 WBC Urine Squamous FEW Epithelial Cells Urine Bacteria FEW A Urine Eosinophils 0.0 % Urine Hemoglobin NEGATIVE Urine Random 63.47 Creatinine Urine Random 71 Sodium Urine 4.15 Protein/Creatinin e Ratio Urine Glucose 1+ H Urine Total 264.0 H Protein Bedside Glucose 300 H 274 H White Blood Count 11.4 #H Red Blood Count 2.74 #L Hemoglobin 8.5 #L Hematocrit 26.3 #L Mean Corpuscular 96.0 Volume Mean Corpuscular 31.0 Hemoglobin Mean Corpuscular 32.3 Hemoglobin Concen t Red Cell 13.4 Distribution Width Platelet Count 149 Mean Platelet 11.4 H Volume Immature 0.600 H Granulocytes % Neutrophils % 93.5 H Lymphocytes % 2.4 L Monocytes % 3.3 Eosinophils % 0.0 Basophils % 0.2 Nucleated Red 0.0 Blood Cells % Immature 0.070 H Granulocytes # Neutrophils # 10.6 H Lymphocytes # 0.3 L Monocytes # 0.4 Eosinophils # 0.0 Basophils # 0.0 Nucleated Red 0.0 Blood Cells # Sodium Level 138 Potassium Level 4.7 Chloride Level 109 Carbon Dioxide 16 L Level Anion Gap 13 Blood Urea 52 H Nitrogen Creatinine 3.72 H Est Glomerular 12 L Filtrat Rate mL/min Glucose Level 242 H Hemoglobin A1c 6.1 H Calcium Level 8.7 Magnesium Level 2.2 Total Bilirubin 0.1 L Direct Bilirubin 0.00 Indirect 0.1 Bilirubin Aspartate Amino 24 Transf (AST/SGOT) Alanine 23 Aminotransferase (ALT/SGPT) Alkaline 133 H Phosphatase Total Protein 6.3 Albumin 3.3 Globulin 3.00 Albumin/Globulin 1.10 Ratio Thyroid 1.750 Stimulating Hormone (TSH) Test 06/29/18 07:00 06/29/18 07:37 06/29/18 08:20 06/29/18 11:12 Blood Gas Blood arterial Specimen Source Arterial Blood 06/29/2018 8:28:0 Date Drawn 3 AM Arterial Blood pH 7.340 L (Temp corrected) Arterial Blood 29.5 L pCO2 (Temp correct) Arterial Blood 72.1 L pO2 (Temp corrected) Arterial Blood 15.6 L HCO3 Arterial Blood -9.1 L Base Excess Arterial Blood 93.1 L Oxygen Saturation Andrew Test N/A Arterial Blood LB Gas Puncture Site Arterial 0.3 Blood Carboxyhemo globin Arterial Blood 0.1 Methemoglobin Blood Gas A-a O2 359.3 H Differential Oxyhemoglobin 92.7 L Percent Blood Gas 37.0 Temperature Blood Gas HFNC Modality FiO2 65.0 Blood Gas TM Notified Whom Blood Gas 06/29/2018 8:37:4 Notified Time 3 AM Bedside Glucose 172 Lactic Acid Level 1.3 Random Vancomycin 31.1 Level Test 06/29/18 12:18 Bedside Glucose 280 H Medications Medication Current Medications Vancomycin HCl (Vanco Iv Per Pharmacy) VANCOMYCIN PER PHARMACY PER PROTOCOL XX ; Start 06/28/18 at 12:30 IV Flush (NS 3 ml) 3 ml PER PROTOCOL IV ; Start 06/28/18 at 12:30 Ondansetron HCl (Zofran Inj) 4 mg Q6H PRN IV NAUSEA/VOMITING Last administered on 06/29/18at 11:22; Admin Dose 4 MG; Start 06/28/18 at 12:30 Acetaminophen (Tylenol Tab) 650 mg Q6H PRN PO .PAIN 1-3 OR TEMP; Start 06/28/18 at 12:30 Acetaminophen/ Hydrocodone Bitart ([place] (5/325)) 1 tab Q6H PRN PO .PAIN 4-6 Last administered on 06/29/18at 02:37; Admin Dose 1 TAB; Start 06/28/18 at 12:30 Morphine Sulfate (morphine) 2 mg Q4H PRN IV .PAIN 7-10; Start 06/28/18 at 12:30 Amlodipine Besylate (Norvasc) 10 mg DAILY PO Last administered on 06/29/18at 08:47; Admin Dose 10 MG; Start 06/29/18 at 09:00 Atorvastatin Calcium (Lipitor) 40 mg QHS PO Last administered on 06/28/18at 20:59; Admin Dose 40 MG; Start 06/28/18 at 21:00 Labetalol HCl (Labetalol) 10 mg Q4 PRN IV sbp>160; Start 06/28/18 at 12:30 Hydralazine HCl (Apresoline) 10 mg Q4H PRN IV sbp >160; Start 06/28/18 at 12:30 Albuterol/ Ipratropium (Duoneb) 3 ml Q6HWA RESP THERAPY HHN Last administered on 06/29/18at 13:32; Admin Dose 3 ML; Start 06/28/18 at 14:00 Albuterol/ Ipratropium (Duoneb) 3 ml Q2H RESP THERAPY PRN HHN shortness of breath; Start 06/28/18 at 12:30 Budesonide (Pulmicort (Neb)) 0.5 mg BID RESP THERAPY HHN Last administered on 06/29/18at 07:46; Admin Dose 0.5 MG; Start 06/28/18 at 20:00 Diagnostic Test (Pha) (Accu-Chek) 1 ea 02 XX Last administered on 06/29/18at 02:38; Admin Dose 1 EA; Start 06/29/18 at 02:00 Insulin Glargine (Lantus) 14 units DAILY@2000 SC Last administered on 06/28/18at 21:06; Admin Dose 14 UNITS; Start 06/28/18 at 20:00 Insulin Aspart (Novolog Insulin Pen) NOVOLOG *MILD* ALGORITHM WITH MEALS BEDTIME SC Last administered on 06/29/18at 12:25; Admin Dose 4 UNIT; Start 06/28/18 at 18:00 Guaifenesin/ Codeine Phosphate (Robitussin Ac Liquid Cup) 5 ml Q4H PRN PO cough; Start 06/28/18 at 12:30 Methylprednisolone Sodium Succinate (Solu-Medrol) 40 mg Q12 IV Last administered on 06/29/18at 08:46; Admin Dose 40 MG; Start 06/28/18 at 21:00 Miscellaneous Information 1 ea NOTE XX ; Start 06/28/18 at 13:30 Glucose (Glutose) 15 gm Q15M PRN PO DECREASED GLUCOSE; Start 06/28/18 at 13:30 Glucose (Glutose) 22.5 gm Q15M PRN PO DECREASED GLUCOSE; Start 06/28/18 at 13:30 Dextrose (D50w Syringe) 25 ml Q15M PRN IV DECREASED GLUCOSE; Start 06/28/18 at 13:30 Dextrose (D50w Syringe) 50 ml Q15M PRN IV DECREASED GLUCOSE; Start 06/28/18 at 13:30 Glucagon (Glucagen) 1 mg Q15M PRN IM DECREASED GLUCOSE; Start 06/28/18 at 13:30 Glucose (Glutose) 15 gm Q15M PRN BUCCAL DECREASED GLUCOSE; Start 06/28/18 at 13:30 Piperacillin Sod/ Tazobactam Sod 50 ml @ 200 mls/hr Q8 IVPB Last administered on 06/29/18at 05:03; Admin Dose 200 MLS/HR; Start 06/28/18 at 22:00 Furosemide (Lasix) 20 mg BID DIURETICS IV Last administered on 06/29/18at 05:04; Admin Dose 20 MG; Start 06/29/18 at 06:00 Citric Acid/ Sodium Citrate (Bicitra) 30 ml BID PO ; Start 06/29/18 at 21:00 Ferrous Sulfate (Ferrous Sulfate (Ec)) 325 mg BID PO Last administered on 06/29/18at 12:44; Admin Dose 325 MG; Start 06/29/18 at 12:00 Docusate Sodium (Colace) 100 mg BID PO Last administered on 06/29/18at 12:44; Admin Dose 100 MG; Start 06/29/18 at 12:00 Miscellaneous Information (*Rx Drug Level Order Reminder*) RANDOM VANCO 06/30 AT 0500 ONCE ONCE XX ; Start 06/30/18 at 05:00; Stop 06/30/18 at 05:01 CAMERON TAPIA NP Jun 29, 2018 16:17
[2018-06-29] MEDS: ATORVASTATIN 40 MG TAB PO SCH (21:20)
[2018-06-29] MEDS: CITRIC ACID/NA CITRATE 30 ML CUP PO SCH (21:20)
[2018-06-29] MEDS: ZYVOX 600 MG TAB PO SCH (21:20)
[2018-06-29] MEDS: MEROPENEM 500MG/50 ML (PMX) 50 ML IVPB SCH (21:21)
[2018-06-29] MEDS: INSULIN GLARGINE [LANTus] (100 UNITS/ML) SYG SC SCH (21:55)
[2018-06-29] MEDS ORDERED: VANCOMYCIN 1 GM in 250 ML IVPB SCH (23:00)
[2018-06-30] VITALS (12 sets, daily range): BP systolic 140–157; BP diastolic 65–71; PULSE 70–90; RESP 16–20
[2018-06-30] MEDS: ACCU-CHEK XX SCH (02:40)
[2018-06-30] MEDS: FUROSEMIDE 20 MG INJ IV SCH (05:31)
[2018-06-30] MEDS: PIPER-TAZO 2.25 GM (PMX) 50 ML IVPB SCH ×2 (05:31→14:38)
[2018-06-30] MEDS: INSULIN ASPART [NOVOLOG] 3 ML PEN SC SCH ×5 (07:25→21:01)
[2018-06-30] MEDS: ALBUTEROL/IPRATROPIUM (NEB) 3 ML AMP HHN SCH ×3 (08:10→20:31)
[2018-06-30] MEDS: FERROUS SULFATE (EC) 325 MG TAB PO SCH ×2 (08:54→20:50)
[2018-06-30] MEDS: ZYVOX 600 MG TAB PO SCH ×2 (08:55→20:50)
[2018-06-30] MEDS: DOCUSATE SODIUM 100 MG CAP PO SCH ×2 (08:55→20:50)
[2018-06-30] MEDS: AMLODIPINE 10 MG TAB PO SCH (08:55)
[2018-06-30] MEDS: CITRIC ACID/NA CITRATE 30 ML CUP PO SCH ×2 (08:57→20:50)
[2018-06-30] MEDS: METHYLPREDNISOLONE 40 MG INJ IV SCH (08:58)
[2018-06-30] MEDS: MEROPENEM 500MG/50 ML (PMX) 50 ML IVPB SCH ×2 (09:01→22:39)
[2018-06-30] MEDS: BUDESONIDE (NEB) 0.5MG/2ML AMP HHN SCH ×2 (10:28→20:31)
[2018-06-30] MEDS ORDERED: INSULIN GLARGINE [LANTus] (100 UNITS/ML) SYG SC ONE (10:30)
[2018-06-30] MEDS ORDERED: ALBUMIN HUMAN 25% 100 ML IV STA (10:31)
--- NOTE | 2018-06-30 10:31 | CONS ---
Assessment/Plan Assessment/Plan Assessment/Plan (Daily) 1. 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 Multifocal pneumonia 3. possibel CHF, diastolic vs systolic - ECHO showed EF 55% with stage II diastolic dysfunction 4. H/O HTN 5. H/o HL 6. Anemia of CKD IV 7. Right diabetic foot ulcer - s/p excisional debridement with primary closure (DOS: 06/13/18) 8. Right foot osteomyelitis - s/p excisional debridement and resection of bone (DOS: 06/13/18) 9. H/o IDDM with peripheral neuropathy 10. metabolic acidosis due to progressive CKD worsening Plan: BUN/Cr went up 65/4.22, eGFR 11 BP stable, afebrile, on IV abx for PNA - d/c IV lasix today, will give Albumin 25% 100ml IV x 1 ECHO on 06/28/18 showed EF 55% with stage II diastolic dysfunction - pt has hemodynamics causing CRISTINE on CKD, will need lasix for diuresis Bicitra 30ml PO BID for metabolic acidosis IV abx for Pneumonia, Renally dose all abx and monitor electrolytes Epogen 8000 units SQ MWF if continue to have deterioratin of renal function then we will consider HD initiation discussed with patient and family at bedside will follow up Consultation Date/Type/Reason Admit Date/Time Jun 28, 2018 at 13:23 Initial Consult Date 06/28/18 Type of Consult NEPHROLOGY Requesting Provider: TIANA POWELL Date/Time of Note DATE: 06/30/18 TIME: 10:31 24 HR Interval Summary Free Text/Dictation BUN/Cr went up 65/4.22, Bp stable,afebrile, Exam/Review of Systems Exam Vitals Vital Signs Date Temp Pulse Resp B/P (MAP) Pulse Ox O2 O2 Flow FiO2 Time Delivery Rate 06/30/18 87 20 96 70 08:15 06/30/18 98.2 150/67 Nasal 07:41 (94) Cannula 06/30/18 15.0 07:38 Intake and Output 06/29/18 06/29/18 06/30/18 1515:00 23:00 07:00 IntakeIntake Total 920 ml 500 ml OutputOutput Total 100 ml BalanceBalance -100 ml 920 ml 500 ml Results Result Diagram: 06/30/1831 06/30/18530 Results 24hrs Laboratory Tests Test 06/29/18 11:12 06/29/18 12:18 06/29/18 17:16 06/29/18 21:19 Random Vancomycin 31.1 Level Bedside Glucose 280 H 266 H 238 H Test 06/30/18 02:37 06/30/18 05:31 06/30/18 07:30 Bedside Glucose 190 196 White Blood Count 11.2 H Red Blood Count 2.78 L Hemoglobin 8.6 L Hematocrit 26.4 L Mean Corpuscular 95.0 Volume Mean Corpuscular 30.9 Hemoglobin Mean Corpuscular 32.6 Hemoglobin Concent Red Cell 13.4 Distribution Width Platelet Count 167 Mean Platelet Volume 11.1 H Immature 0.900 H Granulocytes % Neutrophils % 92.4 H Lymphocytes % 4.5 L Monocytes % 2.0 Eosinophils % 0.0 Basophils % 0.2 Nucleated Red Blood 0.0 Cells % Immature 0.100 H Granulocytes # Neutrophils # 10.4 H Lymphocytes # 0.5 L Monocytes # 0.2 L Eosinophils # 0.0 Basophils # 0.0 Nucleated Red Blood 0.0 Cells # Sodium Level 139 Potassium Level 5.0 Chloride Level 107 Carbon Dioxide Level 19 L Anion Gap 13 Blood Urea Nitrogen 65 H Creatinine 4.22 H Est Glomerular 11 L Filtrat Rate mL/min Glucose Level 186 Calcium Level 8.4 Phosphorus Level 6.7 H Magnesium Level 2.3 Medications Medication Current Medications IV Flush (NS 3 ml) 3 ml PER PROTOCOL IV ; Start 06/28/18 at 12:30 Ondansetron HCl (Zofran Inj) 4 mg Q6H PRN IV NAUSEA/VOMITING Last administered on 06/29/18at 11:22; Admin Dose 4 MG; Start 06/28/18 at 12:30 Acetaminophen (Tylenol Tab) 650 mg Q6H PRN PO .PAIN 1-3 OR TEMP; Start 06/28/18 at 12:30 Acetaminophen/ Hydrocodone Bitart ([place] (5/325)) 1 tab Q6H PRN PO .PAIN 4-6 Last administered on 06/29/18at 23:02; Admin Dose 1 TAB; Start 06/28/18 at 12:30 Morphine Sulfate (morphine) 2 mg Q4H PRN IV .PAIN 7-10; Start 06/28/18 at 12:30 Amlodipine Besylate (Norvasc) 10 mg DAILY PO Last administered on 06/30/18 08:55; Admin Dose 10 MG; Start 06/29/18 at 09:00 Atorvastatin Calcium (Lipitor) 40 mg QHS PO Last administered on 06/29/18at 21:20; Admin Dose 40 MG; Start 06/28/18 at 21:00 Labetalol HCl (Labetalol) 10 mg Q4 PRN IV sbp>160; Start 06/28/18 at 12:30 Hydralazine HCl (Apresoline) 10 mg Q4H PRN IV sbp >160; Start 06/28/18 at 12:30 Albuterol/ Ipratropium (Duoneb) 3 ml Q6HWA RESP THERAPY HHN Last administered on 06/30/18 08:10; Admin Dose 3 ML; Start 06/28/18 at 14:00 Albuterol/ Ipratropium (Duoneb) 3 ml Q2H RESP THERAPY PRN HHN shortness of breath; Start 06/28/18 at 12:30 Budesonide (Pulmicort (Neb)) 0.5 mg BID RESP THERAPY HHN Last administered on 06/30/18at 10:28; Admin Dose 0.5 MG; Start 06/28/18 at 20:00 Diagnostic Test (Pha) (Accu-Chek) 1 ea 02 XX Last administered on 06/30/18at 02:40; Admin Dose 1 EA; Start 06/29/18 at 02:00 Insulin Glargine (Lantus) 14 units DAILY@2000 SC Last administered on 06/29/18at 21:55; Admin Dose 14 UNITS; Start 06/28/18 at 20:00 Insulin Aspart (Novolog Insulin Pen) NOVOLOG *MILD* ALGORITHM WITH MEALS BEDTIME SC Last administered on 06/30/18 07:34; Admin Dose 2 UNIT; Start 06/28/18 at 18:00 Guaifenesin/ Codeine Phosphate (Robitussin Ac Liquid Cup) 5 ml Q4H PRN PO cough; Start 06/28/18 at 12:30 Miscellaneous Information 1 ea NOTE XX ; Start 06/28/18 at 13:30 Glucose (Glutose) 15 gm Q15M PRN PO DECREASED GLUCOSE; Start 06/28/18 at 13:30 Glucose (Glutose) 22.5 gm Q15M PRN PO DECREASED GLUCOSE; Start 06/28/18 at 13:30 Dextrose (D50w Syringe) 25 ml Q15M PRN IV DECREASED GLUCOSE; Start 06/28/18 at 13:30 Dextrose (D50w Syringe) 50 ml Q15M PRN IV DECREASED GLUCOSE; Start 06/28/18 at 13:30 Glucagon (Glucagen) 1 mg Q15M PRN IM DECREASED GLUCOSE; Start 06/28/18 at 13:30 Glucose (Glutose) 15 gm Q15M PRN BUCCAL DECREASED GLUCOSE; Start 06/28/18 at 13:30 Piperacillin Sod/ Tazobactam Sod 50 ml @ 200 mls/hr Q8 IVPB Last administered on 06/30/18at 05:31; Admin Dose 200 MLS/HR; Start 06/28/18 at 22:00 Citric Acid/ Sodium Citrate (Bicitra) 30 ml BID PO Last administered on 06/30/18at 08:57; Admin Dose 30 ML; Start 06/29/18 at 21:00 Ferrous Sulfate (Ferrous Sulfate (Ec)) 325 mg BID PO Last administered on 06/30/18at 08:54; Admin Dose 325 MG; Start 06/29/18 at 12:00 Docusate Sodium (Colace) 100 mg BID PO Last administered on 06/30/18at 08:55; Admin Dose 100 MG; Start 06/29/18 at 12:00 Meropenem/Sodium Chloride 50 ml @ 100 mls/hr Q12 IVPB Last administered on 06/30/18at 09:01; Admin Dose 100 MLS/HR; Start 06/29/18 at 21:00 Linezolid (Zyvox) 600 mg BID PO Last administered on 06/30/18at 08:55; Admin D ose 600 MG; Start 06/29/18 at 21:00 Methylprednisolone Sodium Succinate (Solu-Medrol) 40 mg DAILY IV ; Start 07/01/18 at 09:00 Insulin Glargine (Lantus) 10 units DAILY@0800 SC ; Start 07/01/18 at 08:00; Status UNV Insulin Glargine (Lantus) 10 units ONCE ONCE SC ; Start 06/30/18 at 10:30; Stop 06/30/18 at 10:31; Status NEMESIOV LEONARD DOBBINS MD Jun 30, 2018 10:31
--- NOTE | 2018-06-30 12:15 | CONS ---
Consult Date/Type/Reason Admit Date/Time Jun 28, 2018 at 13:23 Initial Consult Date 06/28/18 Type of Consult Pulmonary Requesting Provider: TIANA POWELL Date/Time of Note DATE: 06/30/18 TIME: 12:13 Subjective Still requiring high flow O2. 70% 30 L/min awake alert oriented. Objective Vital Signs Date Temp Pulse Resp B/P (MAP) Pulse Ox O2 O2 Flow FiO2 Time Delivery Rate 06/30/18 98.1 87 16 150/68 95 Nasal 11:39 (95) Cannula 06/30/18 70 11:07 06/30/18 15.0 07:38 Intake and Output 06/29/18 06/29/18 06/30/18 1515:00 23:00 07:00 IntakeIntake Total 920 ml 500 ml OutputOutput Total 100 ml BalanceBalance -100 ml 920 ml 500 ml Exam GENERAL: Elderly appearing lady comfortable at rest no acute distress VITAL SIGNS: per chart NECK: Supple. No JVD or lymphadenopathy. CARDIAC EXAM: S1, S2. No added sounds or murmurs. CHEST: Diminished air entry bilaterally ABDOMEN: Soft, nontender. No guarding or rebound. EXTREMITIES: No cyanosis, clubbing or edema. NEUROLOGIC: Generalized weakness. No focal deficits. Vent Setting Fraction of Inspired Oxygen pe: 70 Results/Medications Result Diagram: 06/30/1853006/30/18 0531 Results 24 hrs Laboratory Tests Test 06/29/18 12:18 06/29/18 17:16 06/29/18 21:19 06/30/18 02:37 Bedside Glucose 280 H 266 H 238 H 190 Test 06/30/18 05:31 06/30/18 07:30 06/30/18 11:42 White Blood Count 11.2 H Red Blood Count 2.78 L Hemoglobin 8.6 L Hematocrit 26.4 L Mean Corpuscular 95.0 Volume Mean Corpuscular 30.9 Hemoglobin Mean Corpuscular 32.6 Hemoglobin Concent Red Cell 13.4 Distribution Width Platelet Count 167 Mean Platelet Volume 11.1 H Immature 0.900 H Granulocytes % Neutrophils % 92.4 H Lymphocytes % 4.5 L Monocytes % 2.0 Eosinophils % 0.0 Basophils % 0.2 Nucleated Red Blood 0.0 Cells % Immature 0.100 H Granulocytes # Neutrophils # 10.4 H Lymphocytes # 0.5 L Monocytes # 0.2 L Eosinophils # 0.0 Basophils # 0.0 Nucleated Red Blood 0.0 Cells # Sodium Level 139 Potassium Level 5.0 Chloride Level 107 Carbon Dioxide Level 19 L Anion Gap 13 Blood Urea Nitrogen 65 H Creatinine 4.22 H Est Glomerular 11 L Filtrat Rate mL/min Glucose Level 186 Calcium Level 8.4 Phosphorus Level 6.7 H Magnesium Level 2.3 Bedside Glucose 196 279 H Medications Current Medications IV Flush (NS 3 ml) 3 ml PER PROTOCOL IV ; Start 06/28/18 at 12:30 Ondansetron HCl (Zofran Inj) 4 mg Q6H PRN IV NAUSEA/VOMITING Last administered on 06/29/18at 11:22; Admin Dose 4 MG; Start 06/28/18 at 12:30 Acetaminophen (Tylenol Tab) 650 mg Q6H PRN PO .PAIN 1-3 OR TEMP; Start 06/28/18 at 12:30 Acetaminophen/ Hydrocodone Bitart ([place] (5/325)) 1 tab Q6H PRN PO .PAIN 4-6 Last administered on 06/29/18at 23:02; Admin Dose 1 TAB; Start 06/28/18 at 12:30 Morphine Sulfate (morphine) 2 mg Q4H PRN IV .PAIN 7-10; Start 06/28/18 at 12:30 Amlodipine Besylate (Norvasc) 10 mg DAILY PO Last administered on 06/30/18at 08:55; Admin Dose 10 MG; Start 06/29/18 at 09:00 Atorvastatin Calcium (Lipitor) 40 mg QHS PO Last administered on 06/29/18at 21:20; Admin Dose 40 MG; Start 06/28/18 at 21:00 Labetalol HCl (Labetalol) 10 mg Q4 PRN IV sbp>160; Start 06/28/18 at 12:30 Hydralazine HCl (Apresoline) 10 mg Q4H PRN IV sbp >160; Start 06/28/18 at 12:30 Albuterol/ Ipratropium (Duoneb) 3 ml Q6HWA RESP THERAPY HHN Last administered on 06/30/18 08:10; Admin Dose 3 ML; Start 06/28/18 at 14:00 Albuterol/ Ipratropium (Duoneb) 3 ml Q2H RESP THERAPY PRN HHN shortness of breath; Start 06/28/18 at 12:30 Budesonide (Pulmicort (Neb)) 0.5 mg BID RESP THERAPY HHN Last administered on 06/30/18at 10:28; Admin Dose 0.5 MG; Start 06/28/18 at 20:00 Diagnostic Test (Pha) (Accu-Chek) 1 ea 02 XX Last administered on 06/30/18at 02:40; Admin Dose 1 EA; Start 06/29/18 at 02:00 Insulin Glargine (Lantus) 14 units DAILY@2000 SC Last administered on 06/29/18at 21:55; Admin Dose 14 UNITS; Start 06/28/18 at 20:00 Insulin Aspart (Novolog Insulin Pen) NOVOLOG *MILD* ALGORITHM WITH MEALS BEDTIME SC Last administered on 06/30/18at 07:34; Admin Dose 2 UNIT; Start 06/28/18 at 18:00 Guaifenesin/ Codeine Phosphate (Robitussin Ac Liquid Cup) 5 ml Q4H PRN PO cough; Start 06/28/18 at 12:30 Miscellaneous Information 1 ea NOTE XX ; Start 06/28/18 at 13:30 Glucose (Glutose) 15 gm Q15M PRN PO DECREASED GLUCOSE; Start 06/28/18 at 13:30 Glucose (Glutose) 22.5 gm Q15M PRN PO DECREASED GLUCOSE; Start 06/28/18 at 13:30 Dextrose (D50w Syringe) 25 ml Q15M PRN IV DECREASED GLUCOSE; Start 06/28/18 at 13:30 Dextrose (D50w Syringe) 50 ml Q15M PRN IV DECREASED GLUCOSE; Start 06/28/18 at 13:30 Glucagon (Glucagen) 1 mg Q15M PRN IM DECREASED GLUCOSE; Start 06/28/18 at 13:30 Glucose (Glutose) 15 gm Q15M PRN BUCCAL DECREASED GLUCOSE; Start 06/28/18 at 13:30 Piperacillin Sod/ Tazobactam Sod 50 ml @ 200 mls/hr Q8 IVPB Last administered on 06/30/18at 05:31; Admin Dose 200 MLS/HR; Start 06/28/18 at 22:00 Citric Acid/ Sodium Citrate (Bicitra) 30 ml BID PO Last administered on at 08:57; Admin Dose 30 ML; Start 06/29/18 at 21:00 Ferrous Sulfate (Ferrous Sulfate (Ec)) 325 mg BID PO Last administered on 06/30/18 08:54; Admin Dose 325 MG; Start 06/29/18 at 12:00 Docusate Sodium (Colace) 100 mg BID PO Last administered on 06/30/18 08:55; Admin Dose 100 MG; Start 06/29/18 at 12:00 Meropenem/Sodium Chloride 50 ml @ 100 mls/hr Q12 IVPB Last administered on 06/30/18at 09:01; Admin Dose 100 MLS/HR; Start 06/29/18 at 21:00 Linezolid (Zyvox) 600 mg BID PO Last administered on 06/30/18 08:55; Admin Dose 600 MG; Start 06/29/18 at 21:00 Methylprednisolone Sodium Succinate (Solu-Medrol) 40 mg DAILY IV ; Start 07/01/18 at 09:00 Insulin Glargine (Lantus) 10 units DAILY@0800 SC ; Start 07/01/18 at 08:00 Assessment/Plan Hospital Course (Demo Recall) IMPRESSION 1. Acute renal failure with bilateral pulmonary infiltrates and pleural eff usions. Plan 1. Supplemental O2. 2. Steroids. 3. Antibiotics. 4. Renal consultation with renal ultrasound and possible renal biopsy. 5. Check CANDICE, C-ANCA and anti-GBM antibodies. 6. s/p PRBC Garcia eval. STEPHY SAUCEDA MD, [facility] Jun 30, 2018 12:15
--- NOTE | 2018-06-30 12:35 | PN ---
Date/Time of Note Date/Time of Note DATE: 06/30/18 TIME: 12:32 Objective Vitals Vital Signs Date Temp Pulse Resp B/P (MAP) Pulse Ox O2 O2 Flow FiO2 Time Delivery Rate 06/30/18 98.1 87 16 150/68 95 Nasal 11:39 (95) Cannula 06/30/18 70 11:07 06/30/18 15.0 07:38 Intake and Output 06/29/18 06/29/18 06/30/18 1515:00 23:00 07:00 IntakeIntake Total 920 ml 500 ml OutputOutput Total 100 ml BalanceBalance -100 ml 920 ml 500 ml Results Result Diagram: 06/30/1831 06/30/18530 Medications Medications Current Medications IV Flush (NS 3 ml) 3 ml PER PROTOCOL IV ; Start 06/28/18 at 12:30 Ondansetron HCl (Zofran Inj) 4 mg Q6H PRN IV NAUSEA/VOMITING Last administered on 06/29/18at 11:22; Admin Dose 4 MG; Start 06/28/18 at 12:30 Acetaminophen (Tylenol Tab) 650 mg Q6H PRN PO .PAIN 1-3 OR TEMP; Start 06/28/18 at 12:30 Acetaminophen/ Hydrocodone Bitart ([place] (5/325)) 1 tab Q6H PRN PO .PAIN 4-6 Last administered on 06/29/18at 23:02; Admin Dose 1 TAB; Start 06/28/18 at 12:30 Morphine Sulfate (morphine) 2 mg Q4H PRN IV .PAIN 7-10; Start 06/28/18 at 12:30 Amlodipine Besylate (Norvasc) 10 mg DAILY PO Last administered on 06/30/18at 08:55; Admin Dose 10 MG; Start 06/29/18 at 09:00 Atorvastatin Calcium (Lipitor) 40 mg QHS PO Last administered on 06/29/18at 21:20; Admin Dose 40 MG; Start 06/28/18 at 21:00 Labetalol HCl (Labetalol) 10 mg Q4 PRN IV sbp>160; Start 06/28/18 at 12:30 Hydralazine HCl (Apresoline) 10 mg Q4H PRN IV sbp >160; Start 06/28/18 at 12:30 Albuterol/ Ipratropium (Duoneb) 3 ml Q6HWA RESP THERAPY HHN Last administered on 06/30/18at 08:10; Admin Dose 3 ML; Start 06/28/18 at 14:00 Albuterol/ Ipratropium (Duoneb) 3 ml Q2H RESP THERAPY PRN HHN shortness of breath; Start 06/28/18 at 12:30 Budesonide (Pulmicort (Neb)) 0.5 mg BID RESP THERAPY HHN Last administered on 06/30/18at 10:28; Admin Dose 0.5 MG; Start 06/28/18 at 20:00 Diagnostic Test (Pha) (Accu-Chek) 1 ea 02 XX Last administered on 06/30/18at 02:40; Admin Dose 1 EA; Start 06/29/18 at 02:00 Insulin Glargine (Lantus) 14 units DAILY@2000 SC Last administered on 06/29/18at 21:55; Admin Dose 14 UNITS; Start 06/28/18 at 20:00 Insulin Aspart (Novolog Insulin Pen) NOVOLOG *MILD* ALGORITHM WITH MEALS BEDTIME SC Last administered on 06/30/18at 12:20; Admin Dose 4 UNIT; Start 06/28/18 at 18:00 Guaifenesin/ Codeine Phosphate (Robitussin Ac Liquid Cup) 5 ml Q4H PRN PO cough; Start 06/28/18 at 12:30 Miscellaneous Information 1 ea NOTE XX ; Start 06/28/18 at 13:30 Glucose (Glutose) 15 gm Q15M PRN PO DECREASED GLUCOSE; Start 06/28/18 at 13:30 Glucose (Glutose) 22.5 gm Q15M PRN PO DECREASED GLUCOSE; Start 06/28/18 at 13:30 Dextrose (D50w Syringe) 25 ml Q15M PRN IV DECREASED GLUCOSE; Start 06/28/18 at 13:30 Dextrose (D50w Syringe) 50 ml Q15M PRN IV DECREASED GLUCOSE; Start 06/28/18 at 13:30 Glucagon (Glucagen) 1 mg Q15M PRN IM DECREASED GLUCOSE; Start 06/28/18 at 13:30 Glucose (Glutose) 15 gm Q15M PRN BUCCAL DECREASED GLUCOSE; Start 06/28/18 at 13:30 Piperacillin Sod/ Tazobactam Sod 50 ml @ 200 mls/hr Q8 IVPB Last administered on 06/30/18 05:31; Admin Dose 200 MLS/HR; Start 06/28/18 at 22:00 Citric Acid/ Sodium Citrate (Bicitra) 30 ml BID PO Last administered on 06/30/18 08:57; Admin Dose 30 ML; Start 06/29/18 at 21:00 Ferrous Sulfate (Ferrous Sulfate (Ec)) 325 mg BID PO Last administered on 06/30/18 08:54; Admin Dose 325 MG; Start 06/29/18 at 12:00 Docusate Sodium (Colace) 100 mg BID PO Last administered on 06/30/18 08:55; Admin Dose 100 MG; Start 06/29/18 at 12:00 Meropenem/Sodium Chloride 50 ml @ 100 mls/hr Q12 IVPB Last administered on 06/30/18 09:01; Admin Dose 100 MLS/HR; Start 06/29/18 at 21:00 Linezolid (Zyvox) 600 mg BID PO Last administered on 06/30/18 08:55; Admin Dose 600 MG; Start 06/29/18 at 21:00 Methylprednisolone Sodium Succinate (Solu-Medrol) 40 mg DAILY IV ; Start 07/01/18 at 09:00 Insulin Glargine (Lantus) 10 units DAILY@0800 SC ; Start 07/01/18 at 08:00 VTE Prophylaxis Risk score (from Ns)>0 risk: 2 SCD applied (from [facility]): Yes Lines/Catheters IV Catheter Type: [place]ar in Place: No Assessment/Plan Hospital Course Subjective No acute overnight events Objective Physical exam General: Patient is laying in bed and answers questions appropriately Mentation: Patient is alert and oriented 4, Head: Normocephalic atraumatic Eyes: EOMI, pupils reactive to light Neck: Supple, nontender, midline Respiratory: Coarse to auscultation bilaterally Cardiovascular: regular rate, no obvious murmurs Gastrointestinal: non-tender to palpation, bowel sounds heard. Neurological: Moves all extremities spontaneously Skin: No new skin lesions Assessment and plan Acute hypoxic respiratory failure -Secondary to multifocal pneumonia and pulmonary edema -Unlikely PE at this time, unable to do CT angiogram due to elevated creatinine, however VQ scan was done and low prob. Multifocal pneumonia -IV antibiotic, broad-spectrum -DuoNeb, budesonide nebulizers -Steroids for now, taper -ID on board -pulm on bord Pulmonary edema and bilateral effusions -lasix per nephrology, but now held, need to be mindful with Cr levels -Monitor Stage II diastolic dysfunction -Seen on echocardiogram -Hold off on diuresis due to worsening renal function -Cardiology consulted -Elevated BNP Severe anemia -transfuse as needed -Patient always had a history of anemia, however lower than normal, no evident no signs of GI bleed at all, no black or tarry stools reported per patient -Retic index points towards hypoproliferation - haptoglobin and lactate dehydrogenase noted -oral iron supplementation -We will monitor for the next few days if continues to decrease we will consult hematology Acute kidney injury on chronic kidney disease -Nephrology consulted, worsening Cr, holding lasix -Recommendations appreciated Right foot osteomyelitis with recent debridement approximately 2 weeks ago -podiatry consulted -Infectious disease consulted, per recommendations patient does not need continued IV antibiotics for osteomyelitis. Diabetes mellitus -Lantus and insulin sliding scale as needed Hypertension -Continue home meds, treat as needed Disposition -Continue treatment for multifocal pneumonia, multiple image consultant recommendations appreciated. -Monitor creatinine levels TIANA POWELL Jun 30, 2018 12:35
--- NOTE | 2018-06-30 17:03 | CONS ---
Assessment/Plan Assessment/Plan Hospital Course (Demo Recall) Patient is alert, feels better, looks comfortable on high flow oxygen, no fevers overnight. Microbiology: Cultures remain negative Antimicrobials: Merrem Zyvox Indwelling: Right arm PICC line Physical examination: Well-developed fragile elderly woman who is awake in no distress. Head atraumatic normocephalic sclera nonicteric vehicle mucosa dry neck is supple chest rise symmetrical breath sounds diminished bases heart: S1-S2 abdomen soft bowel sounds present extremities with right great toe wound dry and clean Assessment: 1. Sepsis, present on admission 2. Acute hypoxemic respiratory failure/pneumonia 3. Right great toe osteomyelitis status post debridement and resection of the bone on previous admission 4. Diabetes 5. Acute on chronic kidney disease 6. Diastolic dysfunction Plan: Stable, continue abx to treat PNA. Per discussion with podiatry infected bone was removed therefore she does not need any more antibiotics for OM Consultation Date/Type/Reason Admit Date/Time Jun 28, 2018 at 13:23 Initial Consult Date 06/28/18 Type of Consult id Requesting Provider: TIANA POWELL Date/Time of Note DATE: 06/30/18 TIME: 17:02 Exam/Review of Systems Exam Vitals Vital Signs Date Temp Pulse Resp B/P (MAP) Pulse Ox O2 O2 Flow FiO2 Time Delivery Rate 06/30/18 90 16:01 06/30/18 98.1 18 143/66 95 Nasal 15:56 (91) Cannula 06/30/18 60 15:27 06/30/18 15.0 07:38 Intake and Output 06/29/18 06/29/18 06/30/18 1515:00 23:00 07:00 IntakeIntake Total 920 ml 500 ml OutputOutput Total 100 ml BalanceBalance -100 ml 920 ml 500 ml Results Result Diagram: 06/30/18 0531 06/30/18 0531 Results 24hrs Laboratory Tests Test 06/29/18 17:16 06/29/18 21:19 06/30/18 02:37 06/30/18 05:31 Bedside Glucose 266 H 238 H 190 White Blood Count 11.2 H Red Blood Count 2.78 L Hemoglobin 8.6 L Hematocrit 26.4 L Mean Corpuscular 95.0 Volume Mean Corpuscular 30.9 Hemoglobin Mean Corpuscular 32.6 Hemoglobin Concent Red Cell 13.4 Distribution Width Platelet Count 167 Mean Platelet Volume 11.1 H Immature 0.900 H Granulocytes % Neutrophils % 92.4 H Lymphocytes % 4.5 L Monocytes % 2.0 Eosinophils % 0.0 Basophils % 0.2 Nucleated Red Blood 0.0 Cells % Immature 0.100 H Granulocytes # Neutrophils # 10.4 H Lymphocytes # 0.5 L Monocytes # 0.2 L Eosinophils # 0.0 Basophils # 0.0 Nucleated Red Blood 0.0 Cells # Sodium Level 139 Potassium Level 5.0 Chloride Level 107 Carbon Dioxide Level 19 L Anion Gap 13 Blood Urea Nitrogen 65 H Creatinine 4.22 H Est Glomerular 11 L Filtrat Rate mL/min Glucose Level 186 Calcium Level 8.4 Phosphorus Level 6.7 H Magnesium Level 2.3 Test 06/30/18 07:30 06/30/18 11:42 06/30/18 12:13 Bedside Glucose 196 279 H 289 H Medications Medication Current Medications IV Flush (NS 3 ml) 3 ml PER PROTOCOL IV ; Start 06/28/18 at 12:30 Ondansetron HCl (Zofran Inj) 4 mg Q6H PRN IV NAUSEA/VOMITING Last administered on 06/29/18at 11:22; Admin Dose 4 MG; Start 06/28/18 at 12:30 Acetaminophen (Tylenol Tab) 650 mg Q6H PRN PO .PAIN 1-3 OR TEMP; Start 06/28/18 at 12:30 Acetaminophen/ Hydrocodone Bitart ([place] (5/325)) 1 tab Q6H PRN PO .PAIN 4-6 Last administered on 06/29/18at 23:02; Admin Dose 1 TAB; Start 06/28/18 at 12:30 Morphine Sulfate (morphine) 2 mg Q4H PRN IV .PAIN 7-10; Start 06/28/18 at 12:30 Amlodipine Besylate (Norvasc) 10 mg DAILY PO Last administered on 06/30/18at 08:55; Admin Dose 10 MG; Start 06/29/18 at 09:00 Atorvastatin Calcium (Lipitor) 40 mg QHS PO Last administered on 06/29/18at 21:20; Admin Dose 40 MG; Start 06/28/18 at 21:00 Labetalol HCl (Labetalol) 10 mg Q4 PRN IV sbp>160; Start 06/28/18 at 12:30 Hydralazine HCl (Apresoline) 10 mg Q4H PRN IV sbp >160; Start 06/28/18 at 12:30 Albuterol/ Ipratropium (Duoneb) 3 ml Q6HWA RESP THERAPY HHN Last administered on 06/30/18at 14:26; Admin Dose 3 ML; Start 06/28/18 at 14:00 Albuterol/ Ipratropium (Duoneb) 3 ml Q2H RESP THERAPY PRN HHN shortness of breath; Start 06/28/18 at 12:30 Budesonide (Pulmicort (Neb)) 0.5 mg BID RESP THERAPY HHN Last administered on 06/30/18at 10:28; Admin Dose 0.5 MG; Start 06/28/18 at 20:00 Diagnostic Test (Pha) (Accu-Chek) 1 ea 02 XX Last administered on 06/30/18at 02:40; Admin Dose 1 EA; Start 06/29/18 at 02:00 Insulin Glargine (Lantus) 14 units DAILY@2000 SC Last administered on 06/29/18at 21:55; Admin Dose 14 UNITS; Start 06/28/18 at 20:00 Insulin Aspart (Novolog Insulin Pen) NOVOLOG *MILD* ALGORITHM WITH MEALS BEDTIME SC Last administered on 06/30/18at 12:20; Admin Dose 4 UNIT; Start 06/28/18 at 18:00 Guaifenesin/ Codeine Phosphate (Robitussin Ac Liquid Cup) 5 ml Q4H PRN PO cough; Start 06/28/18 at 12:30 Miscellaneous Information 1 ea NOTE XX ; Start 06/28/18 at 13:30 Glucose (Glutose) 15 gm Q15M PRN PO DECREASED GLUCOSE; Start 06/28/18 at 13:30 Glucose (Glutose) 22.5 gm Q15M PRN PO DECREASED GLUCOSE; Start 06/28/18 at 13:30 Dextrose (D50w Syringe) 25 ml Q15M PRN IV DECREASED GLUCOSE; Start 06/28/18 at 13:30 Dextrose (D50w Syringe) 50 ml Q15M PRN IV DECREASED GLUCOSE; Start 06/28/18 at 13:30 Glucagon (Glucagen) 1 mg Q15M PRN IM DECREASED GLUCOSE; Start 06/28/18 at 13:30 Glucose (Glutose) 15 gm Q15M PRN BUCCAL DECREASED GLUCOSE; Start 06/28/18 at 13:30 Citric Acid/ Sodium Citrate (Bicitra) 30 ml BID PO Last administered on 06/30/18 08:57; Admin Dose 30 ML; Start 06/29/18 at 21:00 Ferrous Sulfate (Ferrous Sulfate (Ec)) 325 mg BID PO Last administered on 06/30/18 08:54; Admin Dose 325 MG; Start 06/29/18 at 12:00 Docusate Sodium (Colace) 100 mg BID PO Last administered on 06/30/18 08:55; Admin Dose 100 MG; Start 06/29/18 at 12:00 Meropenem/Sodium Chloride 50 ml @ 100 mls/hr Q12 IVPB Last administered on 06/30/18at 09:01; Admin Dose 100 MLS/HR; Start 06/29/18 at 21:00 Linezolid (Zyvox) 600 mg BID PO Last administered on 06/30/18 08:55; Admin Dose 600 MG; Start 06/29/18 at 21:00 Methylprednisolone Sodium Succinate (Solu-Medrol) 40 mg DAILY IV ; Start 07/01/18 at 09:00 Insulin Glargine (Lantus) 10 units DAILY@0800 SC ; Start 07/01/18 at 08:00 CAMERON TAPIA NP Jun 30, 2018 17:03
[2018-06-30] MEDS: ATORVASTATIN 40 MG TAB PO SCH (20:50)
[2018-06-30] MEDS: INSULIN GLARGINE [LANTus] (100 UNITS/ML) SYG SC SCH (21:01)
[2018-07-01] VITALS (14 sets, daily range): BP systolic 147–167; BP diastolic 65–77; PULSE 62–95; RESP 18–20
[2018-07-01] MEDS: ACCU-CHEK XX SCH (02:38)
[2018-07-01] MEDS: INSULIN ASPART [NOVOLOG] 3 ML PEN SC SCH ×4 (08:00→20:26)
[2018-07-01] MEDS: MEROPENEM 500MG/50 ML (PMX) 50 ML IVPB SCH ×2 (08:23→20:47)
[2018-07-01] MEDS: CITRIC ACID/NA CITRATE 30 ML CUP PO SCH ×2 (08:24→20:20)
[2018-07-01] MEDS: ZYVOX 600 MG TAB PO SCH ×2 (08:25→20:20)
[2018-07-01] MEDS: FERROUS SULFATE (EC) 325 MG TAB PO SCH ×2 (08:25→20:20)
[2018-07-01] MEDS: DOCUSATE SODIUM 100 MG CAP PO SCH ×2 (08:25→20:20)
[2018-07-01] MEDS: AMLODIPINE 10 MG TAB PO SCH (08:26)
[2018-07-01] MEDS: INSULIN GLARGINE [LANTus] (100 UNITS/ML) SYG SC SCH ×2 (08:41→20:37)
[2018-07-01] MEDS ORDERED: METHYLPREDNISOLONE 40 MG INJ IV SCH (09:00)
[2018-07-01] MEDS: ALBUTEROL/IPRATROPIUM (NEB) 3 ML AMP HHN SCH ×3 (09:17→19:58)
[2018-07-01] MEDS: BUDESONIDE (NEB) 0.5MG/2ML AMP HHN SCH ×2 (09:26→20:00)
--- NOTE | 2018-07-01 11:49 | CONS ---
Assessment/Plan Assessment/Plan Assessment/Plan (Daily) 1. 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 Multifocal pneumonia 3. possibel CHF, diastolic vs systolic - ECHO showed EF 55% with stage II diastolic dysfunction 4. H/O HTN 5. H/o HL 6. Anemia of CKD IV 7. Right diabetic foot ulcer - s/p excisional debridement with primary closure (DOS: 06/13/18) 8. Right foot osteomyelitis - s/p excisional debridement and resection of bone (DOS: 06/13/18) 9. H/o IDDM with peripheral neuropathy 10. metabolic acidosis due to progressive CKD worsening Plan: BUN/Cr continues to trend up 77/4.46 eGFR 10 pt still on high flow oxygen, need HD initiaiton , discussed with patient in details, she want to check with her daughter and will agree for HD catheter placement ECHO on 06/28/18 showed EF 55% with stage II diastolic dysfunction Bicitra 30ml PO BID for metabolic acidosis IV abx for Pneumonia, Renally dose all abx and monitor electrolytes Epogen 8000 units SQ MWF will follow up Consultation Date/Type/Reason Admit Date/Time Jun 28, 2018 at 13:23 Initial Consult Date 06/28/18 Type of Consult NEPHROLOGY Requesting Provider: TIANA POWELL Date/Time of Note DATE: 07/01/18 TIME: 11:49 Exam/Review of Systems Exam Vitals Vital Signs Date Temp Pulse Resp B/P (MAP) Pulse Ox O2 O2 Flow FiO2 Time Delivery Rate 07/01/18 95 55 11:37 07/01/18 98.5 73 18 155/72 11:28 (99) 06/30/18 Simple 15.0 21:01 Mask Intake and Output 06/30/18 06/30/18 07/01/18 1414:59 22:59 06:59 IntakeIntake Total 780 ml 50 ml BalanceBalance 780 ml 50 ml Exam General: alert, awake Head: Normocephalic atraumatic Eyes: EOMI, pupils reactive to light Neck: Supple, nontender, midline Respiratory: Coarse to auscultation bilaterally Cardiovascular: regular rate, no obvious murmurs Gastrointestinal: non-tender to palpation, bowel sounds heard. Neurological: Moves all extremities spontaneously Skin: No new skin lesions Results Result Diagram: 07/01/18 0514 07/01/18513 Results 24hrs Laboratory Tests Test 06/30/18 12:13 06/30/18 17:22 06/30/18 20:57 07/01/18 02:37 Bedside Glucose 289 H 256 H 240 H 163 Test 07/01/18 05:14 07/01/18 08:18 White Blood Count 12.2 H Red Blood Count 2.83 L Hemoglobin 8.6 L Hematocrit 26.4 L Mean Corpuscular 93.3 Volume Mean Corpuscular 30.4 Hemoglobin Mean Corpuscular 32.6 Hemoglobin Concent Red Cell Distribution 13.4 Width Platelet Count 179 Mean Platelet Volume 10.7 H Immature Granulocytes 1.100 H % Neutrophils % 81.0 H Lymphocytes % 10.6 L Monocytes % 7.2 Eosinophils % 0.0 Basophils % 0.1 Nucleated Red Blood 0.0 Cells % Immature Granulocytes 0.130 H # Neutrophils # 9.9 H Lymphocytes # 1.3 Monocytes # 0.9 Eosinophils # 0.0 Basophils # 0.0 Nucleated Red Blood 0.0 Cells # Sodium Level 140 Potassium Level 4.4 Chloride Level 106 Carbon Dioxide Level 20 L Anion Gap 14 H Blood Urea Nitrogen 77 H Creatinine 4.46 H Est Glomerular 10 L Filtrat Rate mL/min Glucose Level 107 # Calcium Level 7.9 L Phosphorus Level 6.1 H Magnesium Level 2.3 Bedside Glucose 102 Medications Medication Current Medications IV Flush (NS 3 ml) 3 ml PER PROTOCOL IV ; Start 06/28/18 at 12:30 Ondansetron HCl (Zofran Inj) 4 mg Q6H PRN IV NAUSEA/VOMITING Last administered on 06/29/18at 11:22; Admin Dose 4 MG; Start 06/28/18 at 12:30 Acetaminophen (Tylenol Tab) 650 mg Q6H PRN PO .PAIN 1-3 OR TEMP; Start 06/28/18 at 12:30 Acetaminophen/ Hydrocodone Bitart ([place] (5/325)) 1 tab Q6H PRN PO .PAIN 4-6 Last administered on 06/29/18at 23:02; Admin Dose 1 TAB; Start 06/28/18 at 12:30 Morphine Sulfate (morphine) 2 mg Q4H PRN IV .PAIN 7-10; Start 06/28/18 at 12:30 Amlodipine Besylate (Norvasc) 10 mg DAILY PO Last administered on 07/01/18 08:26; Admin Dose 10 MG; Start 06/29/18 at 09:00 Atorvastatin Calcium (Lipitor) 40 mg QHS PO Last administered on 06/30/18 20:50; Admin Dose 40 MG; Start 06/28/18 at 21:00 Labetalol HCl (Labetalol) 10 mg Q4 PRN IV sbp>160; Start 06/28/18 at 12:30 Hydralazine HCl (Apresoline) 10 mg Q4H PRN IV sbp >160; Start 06/28/18 at 12:30 Albuterol/ Ipratropium (Duoneb) 3 ml Q6HWA RESP THERAPY HHN Last administered on 07/01/18 09:17; Admin Dose 3 ML; Start 06/28/18 at 14:00 Albuterol/ Ipratropium (Duoneb) 3 ml Q2H RESP THERAPY PRN HHN shortness of breath; Start 06/28/18 at 12:30 Budesonide (Pulmicort (Neb)) 0.5 mg BID RESP THERAPY HHN Last administered on 07/01/18 09:26; Admin Dose 0.5 MG; Start 06/28/18 at 20:00 Diagnostic Test (Pha) (Accu-Chek) 1 ea 02 XX Last administered on 07/01/18 02:38; Admin Dose 1 EA; Start 06/29/18 at 02:00 Insulin Glargine (Lantus) 14 units DAILY@2000 SC Last administered on 06/30/18 21:01; Admin Dose 14 UNITS; Start 06/28/18 at 20:00 Insulin Aspart (Novolog Insulin Pen) NOVOLOG *MILD* ALGORITHM WITH MEALS BEDTIME SC Last administered on 06/30/18 21:01; Admin Dose 2 UNIT; Start 06/28/18 at 18:00 Guaifenesin/ Codeine Phosphate (Robitussin Ac Liquid Cup) 5 ml Q4H PRN PO cough; Start 06/28/18 at 12:30 Miscellaneous Information 1 ea NOTE XX ; Start 06/28/18 at 13:30 Glucose (Glutose) 15 gm Q15M PRN PO DECREASED GLUCOSE; Start 06/28/18 at 13:30 Glucose (Glutose) 22.5 gm Q15M PRN PO DECREASED GLUCOSE; Start 06/28/18 at 13:30 Dextrose (D50w Syringe) 25 ml Q15M PRN IV DECREASED GLUCOSE; Start 06/28/18 at 13:30 Dextrose (D50w Syringe) 50 ml Q15M PRN IV DECREASED GLUCOSE; Start 06/28/18 at 13:30 Glucagon (Glucagen) 1 mg Q15M PRN IM DECREASED GLUCOSE; Start 06/28/18 at 13:30 Glucose (Glutose) 15 gm Q15M PRN BUCCAL DECREASED GLUCOSE; Start 06/28/18 at 13:30 Citric Acid/ Sodium Citrate (Bicitra) 30 ml BID PO Last administered on 07/01/18 08:24; Admin Dose 30 ML; Start 06/29/18 at 21:00 Ferrous Sulfate (Ferrous Sulfate (Ec)) 325 mg BID PO Last administered on 07/01/18 08:25; Admin Dose 325 MG; Start 06/29/18 at 12:00 Docusate Sodium (Colace) 100 mg BID PO Last administered on 07/01/18 08:25; Admin Dose 100 MG; Start 06/29/18 at 12:00 Meropenem/Sodium Chloride 50 ml @ 100 mls/hr Q12 IVPB Last administered on 07/01/18 08:23; Admin Dose 100 MLS/HR; Start 06/29/18 at 21:00 Linezolid (Zyvox) 600 mg BID PO Last administered on 07/01/18 08:25; Admin Dose 600 MG; Start 06/29/18 at 21:00 Methylprednisolone Sodium Succinate (Solu-Medrol) 40 mg DAILY IV Last administered on 07/01/18 08:24; Admin Dose 40 MG; Start 07/01/18 at 09:00 Insulin Glargine (Lantus) 10 units DAILY@0800 SC Last administered on 07/01/18 08:41; Admin Dose 10 UNITS; Start 07/01/18 at 08:00 LEONARD DOBBINS MD Jul 01, 2018 11:49
--- NOTE | 2018-07-01 12:09 | PN ---
Date/Time of Note Date/Time of Note DATE: 07/01/18 TIME: 12:06 Objective Vitals Vital Signs Date Temp Pulse Resp B/P (MAP) Pulse Ox O2 O2 Flow FiO2 Time Delivery Rate 07/01/18 95 55 11:37 07/01/18 98.5 73 18 155/72 11:28 (99) 06/30/18 Simple 15.0 21:01 Mask Intake and Output 06/30/18 06/30/18 07/01/18 1515:00 23:00 07:00 IntakeIntake Total 780 ml 50 ml BalanceBalance 780 ml 50 ml Results Result Diagram: 07/01/18 0514 07/01/18 0514 Medications Medications Current Medications IV Flush (NS 3 ml) 3 ml PER PROTOCOL IV ; Start 06/28/18 at 12:30 Ondansetron HCl (Zofran Inj) 4 mg Q6H PRN IV NAUSEA/VOMITING Last administered on 06/29/18at 11:22; Admin Dose 4 MG; Start 06/28/18 at 12:30 Acetaminophen (Tylenol Tab) 650 mg Q6H PRN PO .PAIN 1-3 OR TEMP; Start 06/28/18 at 12:30 Acetaminophen/ Hydrocodone Bitart ([place] (5/325)) 1 tab Q6H PRN PO .PAIN 4-6 Last administered on 06/29/18at 23:02; Admin Dose 1 TAB; Start 06/28/18 at 12:30 Morphine Sulfate (morphine) 2 mg Q4H PRN IV .PAIN 7-10; Start 06/28/18 at 12:30 Atorvastatin Calcium (Lipitor) 40 mg QHS PO Last administered on 06/30/18at 20 :50; Admin Dose 40 MG; Start 06/28/18 at 21:00 Labetalol HCl (Labetalol) 10 mg Q4 PRN IV sbp>160; Start 06/28/18 at 12:30 Hydralazine HCl (Apresoline) 10 mg Q4H PRN IV sbp >160; Start 06/28/18 at 12:30 Albuterol/ Ipratropium (Duoneb) 3 ml Q6HWA RESP THERAPY HHN Last administered on 07/01/18at 09:17; Admin Dose 3 ML; Start 06/28/18 at 14:00 Albuterol/ Ipratropium (Duoneb) 3 ml Q2H RESP THERAPY PRN HHN shortness of breath; Start 06/28/18 at 12:30 Budesonide (Pulmicort (Neb)) 0.5 mg BID RESP THERAPY HHN Last administered on 07/01/18at 09:26; Admin Dose 0.5 MG; Start 06/28/18 at 20:00 Diagnostic Test (Pha) (Accu-Chek) 1 ea 02 XX Last administered on 07/01/18at 02:38; Admin Dose 1 EA; Start 06/29/18 at 02:00 Insulin Glargine (Lantus) 14 units DAILY@2000 SC Last administered on 06/30/18at 21:01; Admin Dose 14 UNITS; Start 06/28/18 at 20:00 Insulin Aspart (Novolog Insulin Pen) NOVOLOG *MILD* ALGORITHM WITH MEALS BEDTIME SC Last administered on 06/30/18 21:01; Admin Dose 2 UNIT; Start at 18:00 Guaifenesin/ Codeine Phosphate (Robitussin Ac Liquid Cup) 5 ml Q4H PRN PO cough; Start 06/28/18 at 12:30 Miscellaneous Information 1 ea NOTE XX ; Start 06/28/18 at 13:30 Glucose (Glutose) 15 gm Q15M PRN PO DECREASED GLUCOSE; Start 06/28/18 at 13:30 Glucose (Glutose) 22.5 gm Q15M PRN PO DECREASED GLUCOSE; Start 06/28/18 at 13:30 Dextrose (D50w Syringe) 25 ml Q15M PRN IV DECREASED GLUCOSE; Start 06/28/18 at 13:30 Dextrose (D50w Syringe) 50 ml Q15M PRN IV DECREASED GLUCOSE; Start 06/28/18 at 13:30 Glucagon (Glucagen) 1 mg Q15M PRN IM DECREASED GLUCOSE; Start 06/28/18 at 13:30 Glucose (Glutose) 15 gm Q15M PRN BUCCAL DECREASED GLUCOSE; Start 06/28/18 at 13:30 Citric Acid/ Sodium Citrate (Bicitra) 30 ml BID PO Last administered on 07/01/18at 08:24; Admin Dose 30 ML; Start 06/29/18 at 21:00 Ferrous Sulfate (Ferrous Sulfate (Ec)) 325 mg BID PO Last administered on 07/01/18at 08:25; Admin Dose 325 MG; Start 06/29/18 at 12:00 Docusate Sodium (Colace) 100 mg BID PO Last administered on 07/01/18 08:25; Admin Dose 100 MG; Start 06/29/18 at 12:00 Meropenem/Sodium Chloride 50 ml @ 100 mls/hr Q12 IVPB Last administered on 07/01/18 08:23; Admin Dose 100 MLS/HR; Start 06/29/18 at 21:00 Linezolid (Zyvox) 600 mg BID PO Last administered on 07/01/18 08:25; Admin Dose 600 MG; Start 06/29/18 at 21:00 Methylprednisolone Sodium Succinate (Solu-Medrol) 40 mg DAILY IV Last admini stered on 07/01/18 08:24; Admin Dose 40 MG; Start 07/01/18 at 09:00 Insulin Glargine (Lantus) 10 units DAILY@0800 SC Last administered on 07/01/18at 08:41; Admin Dose 10 UNITS; Start 07/01/18 at 08:00 Epoetin Martinez (Epogen (Non Esrd/Non Oncology)) 8,000 units MoWeFr@17 SC ; Start 07/01/18 at 17:00 Ferric Sodium Gluconate Complex 125 mg/Sodium Chloride 110 ml @ 110 mls/hr DAILY@1300 IVPB ; Start 07/01/18 at 13:00; Stop 07/05/18 at 13:59 VTE Prophylaxis Risk score (from Ns)>0 risk: 6 SCD applied (from [facility] [place]): Yes Lines/Catheters IV Catheter Type: Almodovar in Place: No Assessment/Plan Hospital Course Subjective patient has left arm swelling and pain Objective Physical exam General: Patient is laying in bed and answers questions appropriately Mentation: Patient is alert and oriented 4, Head: Normocephalic atraumatic Eyes: EOMI, pupils reactive to light Neck: Supple, nontender, midline Respiratory: Coarse to auscultation bilaterally Cardiovascular: regular rate, no obvious murmurs Gastrointestinal: non-tender to palpation, bowel sounds heard. Neurological: Moves all extremities spontaneously Skin: No new skin lesions, left arm is slightly more edematous vs right Assessment and plan Acute hypoxic respiratory failure -Secondary to multifocal pneumonia and pulmonary edema -Unlikely PE at this time, unable to do CT angiogram due to elevated creatinine, however VQ scan was done and low prob. Multifocal pneumonia -IV antibiotic, broad-spectrum -DuoNeb, budesonide nebulizers -Steroids for now, taper -ID on board -pulm on bord Pulmonary edema and bilateral effusions -lasix per nephrology, but now held, need to be mindful with Cr levels -Monitor Stage II diastolic dysfunction -Seen on echocardiogram -Hold off on diuresis due to worsening renal function -Cardiology consulted -Elevated BNP Severe anemia -transfuse as needed -Patient always had a history of anemia, however lower than normal, no evident no signs of GI bleed at all, no black or tarry stools reported per patient -Retic index points towards hypoproliferation - haptoglobin and lactate dehydrogenase noted -oral iron supplementation -We will monitor for the next few days if continues to decrease we will consult hematology Acute kidney injury on chronic kidney disease -Nephrology consulted, worsening Cr, holding lasix -will need to initiate dialysis per nephrology left arm swelling -very mild -venous US neg for DVT -can not order arterial CT with contrast due to renal issues, will order CT upper extremity and venous arterial -stop amlodipine as this may cause peripheral swelling, but less likely than nifedipine -possible due to volume overload as patient is now going into renal failure. Right foot osteomyelitis with recent debridement approximately 2 weeks ago -podiatry consulted -Infectious disease consulted, per recommendations patient does not need continued IV antibiotics for osteomyelitis. Diabetes mellitus -Lantus and insulin sliding scale as needed Hypertension -Continue home meds, treat as needed Disposition -Continue treatment for multifocal pneumonia, multiple treasury consultant recommendations appreciated. -Monitor creatinine levels, initiation of dialysis per nephrology TIANA POWELL Jul 01, 2018 12:09
[2018-07-01] MEDS: SOD FERRIC GLUC COMPLX 125 MG in SOD CHLORIDE 0.9% 100 ML IVPB SCH (13:57)
--- NOTE | 2018-07-01 15:12 | CONS ---
Consult Date/Type/Reason Admit Date/Time Jun 28, 2018 at 13:23 Initial Consult Date 06/28/18 Type of Consult Pulmonary Requesting Provider: TIANA POWELL Date/Time of Note DATE: 07/01/18 TIME: 15:09 Subjective No events, remains stable. Objective Vital Signs Date Temp Pulse Resp B/P (MAP) Pulse Ox O2 O2 Flow FiO2 Time Delivery Rate 07/01/18 97 55 14:51 07/01/18 91 18 14:49 07/01/18 98.5 155/72 11:28 (99) 06/30/18 Simple 15.0 21:01 Mask Intake and Output 06/30/18 06/30/18 07/01/18 1515:00 23:00 07:00 IntakeIntake Total 780 ml 50 ml BalanceBalance 780 ml 50 ml Exam GENERAL: Elderly appearing lady comfortable at rest no acute distress VITAL SIGNS: per chart NECK: Supple. No JVD or lymphadenopathy. CARDIAC EXAM: S1, S2. No added sounds or murmurs. CHEST: Diminished air entry bilaterally ABDOMEN: Soft, nontender. No guarding or rebound. EXTREMITIES: No cyanosis, clubbing or edema. NEUROLOGIC: Generalized weakness. No focal deficits. Vent Setting Fraction of Inspired Oxygen pe: 55 Results/Medications Result Diagram: 07/01/18 0514 07/01/18 0514 Results 24 hrs Laboratory Tests Test 06/30/18 17:22 06/30/18 20:57 07/01/18 02:37 07/01/18 05:14 Bedside Glucose 256 H 240 H 163 White Blood Count 12.2 H Red Blood Count 2.83 L Hemoglobin 8.6 L Hematocrit 26.4 L Mean Corpuscular 93.3 Volume Mean Corpuscular 30.4 Hemoglobin Mean Corpuscular 32.6 Hemoglobin Concent Red Cell Distribution 13.4 Width Platelet Count 179 Mean Platelet Volume 10.7 H Immature Granulocytes 1.100 H % Neutrophils % 81.0 H Lymphocytes % 10.6 L Monocytes % 7.2 Eosinophils % 0.0 Basophils % 0.1 Nucleated Red Blood 0.0 Cells % Immature Granulocytes 0.130 H # Neutrophils # 9.9 H Lymphocytes # 1.3 Monocytes # 0.9 Eosinophils # 0.0 Basophils # 0.0 Nucleated Red Blood 0.0 Cells # Sodium Level 140 Potassium Level 4.4 Chloride Level 106 Carbon Dioxide Level 20 L Anion Gap 14 H Blood Urea Nitrogen 77 H Creatinine 4.46 H Est Glomerular Filtrat 10 L Rate mL/min Glucose Level 107 # Calcium Level 7.9 L Phosphorus Level 6.1 H Magnesium Level 2.3 Test 07/01/18 08:18 07/01/18 11:52 Bedside Glucose 102 104 Medications Current Medications IV Flush (NS 3 ml) 3 ml PER PROTOCOL IV ; Start 06/28/18 at 12:30 Ondansetron HCl (Zofran Inj) 4 mg Q6H PRN IV NAUSEA/VOMITING Last administered on 06/29/18at 11:22; Admin Dose 4 MG; Start 06/28/18 at 12:30 Acetaminophen (Tylenol Tab) 650 mg Q6H PRN PO .PAIN 1-3 OR TEMP; Start 06/28/18 at 12:30 Acetaminophen/ Hydrocodone Bitart ([place] (5/325)) 1 tab Q6H PRN PO .PAIN 4-6 Last administered on 06/29/18at 23:02; Admin Dose 1 TAB; Start 06/28/18 at 12:30 Morphine Sulfate (morphine) 2 mg Q4H PRN IV .PAIN 7-10; Start 06/28/18 at 12:30 Atorvastatin Calcium (Lipitor) 40 mg QHS PO Last administered on 06/30/18at 20:50; Admin Dose 40 MG; Start 06/28/18 at 21:00 Labetalol HCl (Labetalol) 10 mg Q4 PRN IV sbp>160; Start 06/28/18 at 12:30 Hydralazine HCl (Apresoline) 10 mg Q4H PRN IV sbp >160; Start 06/28/18 at 12:30 Albuterol/ Ipratropium (Duoneb) 3 ml Q6HWA RESP THERAPY HHN Last administered on 07/01/18at 14:48; Admin Dose 3 ML; Start 06/28/18 at 14:00 Albuterol/ Ipratropium (Duoneb) 3 ml Q2H RESP THERAPY PRN HHN shortness of breath; Start 06/28/18 at 12:30 Budesonide (Pulmicort (Neb)) 0.5 mg BID RESP THERAPY HHN Last administered on 07/01/18at 09:26; Admin Dose 0.5 MG; Start 06/28/18 at 20:00 Diagnostic Test (Pha) (Accu-Chek) 1 ea 02 XX Last administered on 07/01/18at 02:38; Admin Dose 1 EA; Start 06/29/18 at 02:00 Insulin Glargine (Lantus) 14 units DAILY@2000 SC Last administered on 06/30/18at 21:01; Admin Dose 14 UNITS; Start 06/28/18 at 20:00 Insulin Aspart (Novolog Insulin Pen) NOVOLOG *MILD* ALGORITHM WITH MEALS BEDTIME SC Last administered on 06/30/18at 21:01; Admin Dose 2 UNIT; Start 06/28/18 at 18:00 Guaifenesin/ Codeine Phosphate (Robitussin Ac Liquid Cup) 5 ml Q4H PRN PO cough; Start 06/28/18 at 12:30 Miscellaneous Information 1 ea NOTE XX ; Start 06/28/18 at 13:30 Glucose (Glutose) 15 gm Q15M PRN PO DECREASED GLUCOSE; Start 06/28/18 at 13:30 Glucose (Glutose) 22.5 gm Q15M PRN PO DECREASED GLUCOSE; Start 06/28/18 at 13:30 Dextrose (D50w Syringe) 25 ml Q15M PRN IV DECREASED GLUCOSE; Start 06/28/18 at 13:30 Dextrose (D50w Syringe) 50 ml Q15M PRN IV DECREASED GLUCOSE; Start 06/28/18 at 13:30 Glucagon (Glucagen) 1 mg Q15M PRN IM DECREASED GLUCOSE; Start 06/28/18 at 13:30 Glucose (Glutose) 15 gm Q15M PRN BUCCAL DECREASED GLUCOSE; Start 06/28/18 at 13:30 Citric Acid/ Sodium Citrate (Bicitra) 30 ml BID PO Last administered on 07/01/18at 08:24; Admin Dose 30 ML; Start 06/29/18 at 21:00 Ferrous Sulfate (Ferrous Sulfate (Ec)) 325 mg BID PO Last administered on 07/01/18 08:25; Admin Dose 325 MG; Start 06/29/18 at 12:00 Docusate Sodium (Colace) 100 mg BID PO Last administered on 07/01/18 08:25; Admin Dose 100 MG; Start 06/29/18 at 12:00 Meropenem/Sodium Chloride 50 ml @ 100 mls/hr Q12 IVPB Last administered on 07/01/18 08:23; Admin Dose 100 MLS/HR; Start 06/29/18 at 21:00 Linezolid (Zyvox) 600 mg BID PO Last administered on 07/01/18 08:25; Admin Dose 600 MG; Start 06/29/18 at 21:00 Methylprednisolone Sodium Succinate (Solu-Medrol) 40 mg DAILY IV Last administered on 07/01/18 08:24; Admin Dose 40 MG; Start 07/01/18 at 09:00 Insulin Glargine (Lantus) 10 units DAILY@0800 SC Last administered on 07/01/18at 08:41; Admin Dose 10 UNITS; Start 07/01/18 at 08:00 Epoetin Martinez (Epogen (Non Esrd/Non Oncology)) 8,000 units MoWeFr@17 SC ; Start 07/01/18 at 17:00 Ferric Sodium Gluconate Complex 125 mg/Sodium Chloride 110 ml @ 110 mls/hr DAILY@1300 IVPB Last administered on 07/01/18at 13:57; Admin Dose 110 MLS/HR; Start 07/01/18 at 13:00; Stop 07/05/18 at 13:59 Hydralazine HCl (Apresoline) 25 mg TID PO Last administered on 07/01/18at 13:58; Admin Dose 25 MG; Start 07/01/18 at 13:00 Assessment/Plan Hospital Course (Demo Recall) IMPRESSION 1. Acute renal failure with bilateral pulmonary infiltrates and pleural effusions. Plan 1. Supplemental O2. 2. Steroids. 3. Antibiotics. 4. Renal consultation with renal ultrasound and possible renal biopsy. 5. Check CANDICE, C-ANCA and anti-GBM antibodies. 6. s/p PRBC Garcia eval. STEPHY SAUCEDA MD, [facility] Jul 01, 2018 15:12
[2018-07-01] MEDS: EPOETIN 4000 UNITS/ML (NON ESRD/NON ONCOLOGY) SC SCH (17:14)
--- NOTE | 2018-07-01 19:36 | CONS ---
Assessment/Plan Assessment/Plan Hospital Course (Demo Recall) Patient is alert, feels better Microbiology: Cultures remain negative Antimicrobials: Merrem Zyvox Indwelling: Right arm PICC line Physical examination: Well-developed fragile elderly woman who is awake in no distress. Head atraumatic normocephalic sclera nonicteric vehicle mucosa dry neck is supple chest rise symmetrical breath sounds diminished bases heart: S1-S2 abdomen soft bowel sounds present extremities with right great toe wound dry and clean Assessment: 1. Sepsis, present on admission 2. Acute hypoxemic respiratory failure/pneumonia 3. Right great toe osteomyelitis status post debridement and resection of the bone on previous admission 4. Diabetes 5. Acute on chronic kidney disease 6. Diastolic dysfunction Plan: Improving, continue abx to treat PNA, steroids and breathing treatments prt pulmonary. Per discussion with podiatry infected bone was removed therefore she does not need any more antibiotics for OM Consultation Date/Type/Reason Admit Date/Time Jun 28, 2018 at 13:23 Initial Consult Date 06/28/18 Type of Consult id Requesting Provider: TIANA POWELL Date/Time of Note DATE: 07/01/18 TIME: 19:35 Exam/Review of Systems Exam Vitals Vital Signs Date Temp Pulse Resp B/P (MAP) Pulse Ox O2 O2 Flow FiO2 Time Delivery Rate 07/01/18 98 50 19:08 07/01/18 85 16:33 07/01/18 98.0 19 148/67 16:06 (94) 06/30/18 Simple 15.0 21:01 Mask Intake and Output 06/30/18 06/30/18 07/01/18 1515:00 23:00 07:00 IntakeIntake Total 780 ml 50 ml BalanceBalance 780 ml 50 ml Results Result Diagram: 07/01/18 0514 07/01/18 0514 Results 24hrs Laboratory Tests Test 06/30/18 20:57 07/01/18 02:37 07/01/18 05:14 07/01/18 08:18 Bedside Glucose 240 H 163 102 White Blood Count 12.2 H Red Blood Count 2.83 L Hemoglobin 8.6 L Hematocrit 26.4 L Mean Corpuscular Volume 93.3 Mean Corpuscular 30.4 Hemoglobin Mean Corpuscular 32.6 Hemoglobin Concent Red Cell Distribution 13.4 Width Platelet Count 179 Mean Platelet Volume 10.7 H Immature Granulocytes % 1.100 H Neutrophils % 81.0 H Lymphocytes % 10.6 L Monocytes % 7.2 Eosinophils % 0.0 Basophils % 0.1 Nucleated Red Blood 0.0 Cells % Immature Granulocytes # 0.130 H Neutrophils # 9.9 H Lymphocytes # 1.3 Monocytes # 0.9 Eosinophils # 0.0 Basophils # 0.0 Nucleated Red Blood 0.0 Cells # Sodium Level 140 Potassium Level 4.4 Chloride Level 106 Carbon Dioxide Level 20 L Anion Gap 14 H Blood Urea Nitrogen 77 H Creatinine 4.46 H Est Glomerular Filtrat 10 L Rate mL/min Glucose Level 107 # Calcium Level 7.9 L Phosphorus Level 6.1 H Magnesium Level 2.3 Test 07/01/18 11:52 07/01/18 17:16 Bedside Glucose 104 166 Medications Medication Current Medications IV Flush (NS 3 ml) 3 ml PER PROTOCOL IV ; Start 06/28/18 at 12:30 Ondansetron HCl (Zofran Inj) 4 mg Q6H PRN IV NAUSEA/VOMITING Last administered on 06/29/18at 11:22; Admin Dose 4 MG; Start 06/28/18 at 12:30 Acetaminophen (Tylenol Tab) 650 mg Q6H PRN PO .PAIN 1-3 OR TEMP; Start 06/28/18 at 12:30 Acetaminophen/ Hydrocodone Bitart ([place] (5/325)) 1 tab Q6H PRN PO .PAIN 4-6 Last administered on 06/29/18at 23:02; Admin Dose 1 TAB; Start 06/28/18 at 12:30 Morphine Sulfate (morphine) 2 mg Q4H PRN IV .PAIN 7-10; Start 06/28/18 at 12:30 Atorvastatin Calcium (Lipitor) 40 mg QHS PO Last administered on 06/30/18at 20:50; Admin Dose 40 MG; Start 06/28/18 at 21:00 Labetalol HCl (Labetalol) 10 mg Q4 PRN IV sbp>160; Start 06/28/18 at 12:30 Hydralazine HCl (Apresoline) 10 mg Q4H PRN IV sbp >160; Start 06/28/18 at 12:30 Albuterol/ Ipratropium (Duoneb) 3 ml Q6HWA RESP THERAPY HHN Last administered on 07/01/18at 14:48; Admin Dose 3 ML; Start 06/28/18 at 14:00 Albuterol/ Ipratropium (Duoneb) 3 ml Q2H RESP THERAPY PRN HHN shortness of breath; Start 06/28/18 at 12:30 Budesonide (Pulmicort (Neb)) 0.5 mg BID RESP THERAPY HHN Last administered on 07/01/18at 09:26; Admin Dose 0.5 MG; Start 06/28/18 at 20:00 Diagnostic Test (Pha) (Accu-Chek) 1 ea 02 XX Last administered on 07/01/18at 02:38; Admin Dose 1 EA; Start 06/29/18 at 02:00 Insulin Glargine (Lantus) 14 units DAILY@2000 SC Last administered on 06/30/18at 21:01; Admin Dose 14 UNITS; Start 06/28/18 at 20:00 Insulin Aspart (Novolog Insulin Pen) NOVOLOG *MILD* ALGORITHM WITH MEALS BEDTIME SC Last administered on 07/01/18at 17:50; Admin Dose 1 UNIT; Start 06/28/18 at 18:00 Guaifenesin/ Codeine Phosphate (Robitussin Ac Liquid Cup) 5 ml Q4H PRN PO cough; Start 06/28/18 at 12:30 Miscellaneous Information 1 ea NOTE XX ; Start 06/28/18 at 13:30 Glucose (Glutose) 15 gm Q15M PRN PO DECREASED GLUCOSE; Start 06/28/18 at 13:30 Glucose (Glutose) 22.5 gm Q15M PRN PO DECREASED GLUCOSE; Start 06/28/18 at 13:30 Dextrose (D50w Syringe) 25 ml Q15M PRN IV DECREASED GLUCOSE; Start 06/28/18 at 13:30 Dextrose (D50w Syringe) 50 ml Q15M PRN IV DECREASED GLUCOSE; Start 06/28/18 at 13:30 Glucagon (Glucagen) 1 mg Q15M PRN IM DECREASED GLUCOSE; Start 06/28/18 at 13:30 Glucose (Glutose) 15 gm Q15M PRN BUCCAL DECREASED GLUCOSE; Start 06/28/18 at 13:30 Citric Acid/ Sodium Citrate (Bicitra) 30 ml BID PO Last administered on 07/01/18at 08:24; Admin Dose 30 ML; Start 06/29/18 at 21:00 Ferrous Sulfate (Ferrous Sulfate (Ec)) 325 mg BID PO Last administered on 07/01/18 08:25; Admin Dose 325 MG; Start 06/29/18 at 12:00 Docusate Sodium (Colace) 100 mg BID PO Last administered on 07/01/18 08:25; Admin Dose 100 MG; Start 06/29/18 at 12:00 Meropenem/Sodium Chloride 50 ml @ 100 mls/hr Q12 IVPB Last administered on 07/01/18 08:23; Admin Dose 100 MLS/HR; Start 06/29/18 at 21:00 Linezolid (Zyvox) 600 mg BID PO Last administered on 07/01/18 08:25; Admin Dose 600 MG; Start 06/29/18 at 21:00 Methylprednisolone Sodium Succinate (Solu-Medrol) 40 mg DAILY IV Last administered on 07/01/18 08:24; Admin Dose 40 MG; Start 07/01/18 at 09:00 Insulin Glargine (Lantus) 10 units DAILY@0800 SC Last administered on 07/01/18 08:41; Admin Dose 10 UNITS; Start 07/01/18 at 08:00 Epoetin Martinez (Epogen (Non Esrd/Non Oncology)) 8,000 units MoWeFr@17 SC Last administered on 07/01/18 17:14; Admin Dose 8,000 UNITS; Start 07/01/18 at 17:00 Ferric Sodium Gluconate Complex 125 mg/Sodium Chloride 110 ml @ 110 mls/hr DAILY@1300 IVPB Last administered on 07/01/18 13:57; Admin Dose 110 MLS/HR; Start 07/01/18 at 13:00; Stop 07/05/18 at 13:59 Hydralazine HCl (Apresoline) 25 mg TID PO Last administered on 07/01/18 13:58; Admin Dose 25 MG; Start 07/01/18 at 13:00 CAMERON TAPIA NP Jul 01, 2018 19:36
[2018-07-01] MEDS: ATORVASTATIN 40 MG TAB PO SCH (20:19)
[2018-07-02] VITALS (13 sets, daily range): BP systolic 143–194; BP diastolic 72–92; PULSE 71–97; RESP 18–20
[2018-07-02] MEDS: ACCU-CHEK XX SCH (02:00)
[2018-07-02] MEDS: ONDANSETRON 4 MG INJ IV PRN ×2 (04:17→23:46)
[2018-07-02] MEDS: INSULIN ASPART [NOVOLOG] 3 ML PEN SC SCH ×4 (08:00→21:00)
[2018-07-02] MEDS: INSULIN GLARGINE [LANTus] (100 UNITS/ML) SYG SC SCH (08:00)
[2018-07-02] MEDS: ALBUTEROL/IPRATROPIUM (NEB) 3 ML AMP HHN SCH ×3 (08:30→20:01)
[2018-07-02] MEDS: MEROPENEM 500MG/50 ML (PMX) 50 ML IVPB SCH ×2 (09:00→20:58)
[2018-07-02] MEDS: DOCUSATE SODIUM 100 MG CAP PO SCH ×2 (09:00→20:59)
[2018-07-02] MEDS: CITRIC ACID/NA CITRATE 30 ML CUP PO SCH ×2 (09:50→20:59)
[2018-07-02] MEDS: FERROUS SULFATE (EC) 325 MG TAB PO SCH ×2 (09:50→20:59)
[2018-07-02] MEDS: ZYVOX 600 MG TAB PO SCH ×2 (09:50→20:59)
--- NOTE | 2018-07-02 09:59 | CONS ---
Assessment/Plan Assessment/Plan Hospital Course (Demo Recall) ID PROGRESS NOTE CURRENT ABX: DAY # Zyvox, Merrem 24H INTERVAL SUMMARY * Patient is off the floor -- not in her room * Chart reviewed: No fevers, VSS * IV steroids given DIAGNOSTIC IMAGING * 07/01/18 Unremarkable bilateral upper extremity arterial Doppler ultrasound. * 07/01/[address]: IMPRESSION:1. Mild to moderate edema within the subcutaneous soft tissues of the posterior elbow extending to the dorsal forearm. No large drainable fluid collections. 2. No acute fracture or bony destructive changes within the humerus or forearm. 3. Mild degenerative changes within the shoulders and elbows as described above. 4. Small 2 mm fo cus of calcific tendinosis adjacent to the infraspinatus tendon near the footprint. MICRO/OTHER * ALL MICRO NEGATIVE TO DATE PHYSICAL EXAMINATION: Patient is off the floor -- not in her room ID ASSESSMENT 63 yo F admit with: 1. Sepsis, present on admission 2. Acute hypoxemic respiratory failure/pneumonia 3. Right great toe osteomyelitis status post debridement and resection of the bone on previous admission * COMPLETED ABX FOR OM -- Infected bone was removed therefore she does not need any more antibiotics for OM 4. Diabetes 5. Acute on chronic kidney disease 6. Diastolic dysfunction (-)MRSA Nares ABX ALLERGIES: KNDA INVASIVES: PIV CURRENT ABX: DAY # Zyvox + Merrem ID RECOMMENDATIONS/PLAN: 1. Continue current ABX 2. ID [employer] colleague to f/u tomorrow . Consultation Date/Type/Reason Admit Date/Time Jun 28, 2018 at 13:23 Initial Consult Date 06/28/18 Requesting Provider: TIANA POWELL Date/Time of Note DATE: 07/02/18 TIME: 09:59 Exam/Review of Systems Exam Vitals Vital Signs Date Temp Pulse Resp B/P (MAP) Pulse Ox O2 O2 Flow FiO2 Time Delivery Rate 07/02/18 98 16 98 Nasal 4.0 36 08:34 Cannula 07/02/18 98.2 177/78 07:11 (111) Intake and Output 07/01/18 07/01/18 07/02/18 1515:00 23:00 07:00 IntakeIntake Total 160 ml 500 ml BalanceBalance 160 ml 500 ml Results Result Diagram: 07/02/185 07/02/185 Results 24hrs Laboratory Tests Test 07/01/18 11:52 07/01/18 17:16 07/01/18 20:26 07/02/18 02:46 Bedside Glucose 104 166 170 87 Test 07/02/18 04:55 07/02/18 08:16 White Blood Count 11.2 H Red Blood Count 3.32 L Hemoglobin 9.9 L Hematocrit 30.5 L Mean Corpuscular Volume 91.9 Mean Corpuscular 29.8 Hemoglobin Mean Corpuscular 32.5 Hemoglobin Concent Red Cell Distribution 13.2 Width Platelet Count 196 Mean Platelet Volume 10.6 H Immature Granulocytes % 2.000 H Neutrophils % 70.3 Lymphocytes % 16.4 Monocytes % 9.7 Eosinophils % 1.4 Basophils % 0.2 Nucleated Red Blood 0.0 Cells % Immature Granulocytes # 0.230 H Neutrophils # 7.9 H Lymphocytes # 1.8 Monocytes # 1.1 H Eosinophils # 0.2 Basophils # 0.0 Nucleated Red Blood 0.0 Cells # Sodium Level 142 Potassium Level 4.2 Chloride Level 107 Carbon Dioxide Level 22 Anion Gap 13 Blood Urea Nitrogen 77 H Creatinine 4.37 H Est Glomerular Filtrat 10 L Rate mL/min Glucose Level 80 Calcium Level 7.9 L Phosphorus Level 5.3 H Magnesium Level 2.4 Hepatitis B Surface NEGATIVE Antigen Hepatitis B Core NEGATIVE Total Antibody Hepatitis C Antibody NEGATIVE HIV (1&2) Antibody NEGATIVE Bedside Glucose 67 L Medications Medication Current Medications IV Flush (NS 3 ml) 3 ml PER PROTOCOL IV ; Start 06/28/18 at 12:30 Ondansetron HCl (Zofran Inj) 4 mg Q6H PRN IV NAUSEA/VOMITING Last administered on 07/02/18at 04:17; Admin Dose 4 MG; Start 06/28/18 at 12:30 Acetaminophen (Tylenol Tab) 650 mg Q6H PRN PO .PAIN 1-3 OR TEMP; Start 06/28/18 at 12:30 Acetaminophen/ Hydrocodone Bitart ([place] (5/325)) 1 tab Q6H PRN PO .PAIN 4-6 Last administered on 06/29/18at 23:02; Admin Dose 1 TAB; Start 06/28/18 at 12:30 Morphine Sulfate (morphine) 2 mg Q4H PRN IV .PAIN 7-10; Start 06/28/18 at 12:30 Atorvastatin Calcium (Lipitor) 40 mg QHS PO Last administered on 07/01/18at 20:19; Admin Dose 40 MG; Start 06/28/18 at 21:00 Labetalol HCl (Labetalol) 10 mg Q4 PRN IV sbp>160; Start 06/28/18 at 12:30 Hydralazine HCl (Apresoline) 10 mg Q4H PRN IV sbp >160; Start 06/28/18 at 12:30 Albuterol/ Ipratropium (Duoneb) 3 ml Q6HWA RESP THERAPY HHN Last administered on 07/02/18at 08:30; Admin Dose 3 ML; Start 06/28/18 at 14:00 Albuterol/ Ipratropium (Duoneb) 3 ml Q2H RESP THERAPY PRN HHN shortness of breath; Start 06/28/18 at 12:30 Budesonide (Pulmicort (Neb)) 0.5 mg BID RESP THERAPY HHN Last administered on 07/01/18at 20:00; Admin Dose 0.5 MG; Start 06/28/18 at 20:00 Diagnostic Test (Pha) (Accu-Chek) 1 ea 02 XX Last administered on 07/02/18at 02:00; Admin Dose 1 EA; Start 06/29/18 at 02:00 Insulin Aspart (Novolog Insulin Pen) NOVOLOG *MILD* ALGORITHM WITH MEALS BEDTIME SC Last administered on 07/01/18at 17:50; Admin Dose 1 UNIT; Start 06/28/18 at 18:00 Guaifenesin/ Codeine Phosphate (Robitussin Ac Liquid Cup) 5 ml Q4H PRN PO cough; Start 06/28/18 at 12:30 Miscellaneous Information 1 ea NOTE XX ; Start 06/28/18 at 13:30 Glucose (Glutose) 15 gm Q15M PRN PO DECREASED GLUCOSE; Start 06/28/18 at 13:30 Glucose (Glutose) 22.5 gm Q15M PRN PO DECREASED GLUCOSE; Start 06/28/18 at 13:30 Dextrose (D50w Syringe) 25 ml Q15M PRN IV DECREASED GLUCOSE; Start 06/28/18 at 13:30 Dextrose (D50w Syringe) 50 ml Q15M PRN IV DECREASED GLUCOSE; Start 06/28/18 at 13:30 Glucagon (Glucagen) 1 mg Q15M PRN IM DECREASED GLUCOSE; Start 06/28/18 at 13:30 Glucose (Glutose) 15 gm Q15M PRN BUCCAL DECREASED GLUCOSE; Start 06/28/18 at 1 3:30 Citric Acid/ Sodium Citrate (Bicitra) 30 ml BID PO Last administered on 07/02/18at 09:50; Admin Dose 30 ML; Start 06/29/18 at 21:00 Ferrous Sulfate (Ferrous Sulfate (Ec)) 325 mg BID PO Last administered on 07/02/18 09:50; Admin Dose 325 MG; Start 06/29/18 at 12:00 Docusate Sodium (Colace) 100 mg BID PO Last administered on 07/01/18 20:20; Admin Dose 100 MG; Start 06/29/18 at 12:00 Meropenem/Sodium Chloride 50 ml @ 100 mls/hr Q12 IVPB Last administered on 07/01/18at 20:47; Admin Dose 100 MLS/HR; Start 06/29/18 at 21:00 Linezolid (Zyvox) 600 mg BID PO Last administered on 07/02/18 09:50; Admin Dose 600 MG; Start 06/29/18 at 21:00 Insulin Glargine (Lantus) 10 units DAILY@0800 SC Last administered on 07/01/18at 08:41; Admin Dose 10 UNITS; Start 07/01/18 at 08:00 Epoetin Martinez (Epogen (Non Esrd/Non Oncology)) 8,000 units MoWeFr@17 SC Last administered on 07/01/18at 17:14; Admin Dose 8,000 UNITS; Start 07/01/18 at 17:00 Ferric Sodium Gluconate Complex 125 mg/Sodium Chloride 110 ml @ 110 mls/hr DAILY@1300 IVPB Last administered on 07/01/18at 13:57; Admin Dose 110 MLS/HR; Start 07/01/18 at 13:00; Stop 07/05/18 at 13:59 Hydralazine HCl (Apresoline) 25 mg TID PO Last administered on 07/01/18at 20:20; Admin Dose 25 MG; Start 07/01/18 at 13:00 Carvedilol (Coreg) 6.25 mg BID PO ; Start 07/02/18 at 10:00 Prednisone (Prednisone) 40 mg DAILY PO ; Start 07/02/18 at 10:00 ANEL DIALLO NP Jul 02, 2018 09:59
--- NOTE | 2018-07-02 10:14 | PN ---
Date/Time of Note Date/Time of Note DATE: 07/02/18 TIME: 10:12 Objective Vitals Vital Signs Date Temp Pulse Resp B/P (MAP) Pulse Ox O2 O2 Flow FiO2 Time Delivery Rate 07/02/18 98 16 98 Nasal 4.0 36 08:34 Cannula 07/02/18 98.2 177/78 07:11 (111) Intake and Output 07/01/18 07/01/18 07/02/18 1515:00 23:00 07:00 IntakeIntake Total 160 ml 500 ml BalanceBalance 160 ml 500 ml Results Result Diagram: 07/02/18 0455 07/02/18 0455 Medications Medications Current Medications IV Flush (NS 3 ml) 3 ml PER PROTOCOL IV ; Start 06/28/18 at 12:30 Ondansetron HCl (Zofran Inj) 4 mg Q6H PRN IV NAUSEA/VOMITING Last administered on 07/02/18at 04:17; Admin Dose 4 MG; Start 06/28/18 at 12:30 Acetaminophen (Tylenol Tab) 650 mg Q6H PRN PO .PAIN 1-3 OR TEMP; Start 06/28/18 at 12:30 Acetaminophen/ Hydrocodone Bitart ([place] (5/325)) 1 tab Q6H PRN PO .PAIN 4-6 Last administered on 06/29/18at 23:02; Admin Dose 1 TAB; Start 06/28/18 at 12:30 Morphine Sulfate (morphine) 2 mg Q4H PRN IV .PAIN 7-10; Start 06/28/18 at 12:30 Atorvastatin Calcium (Lipitor) 40 mg QHS PO Last administered on 07/01/18at 20:19; Admin Dose 40 MG; Start 06/28/18 at 21:00 Labetalol HCl (Labetalol) 10 mg Q4 PRN IV sbp>160; Start 06/28/18 at 12:30 Hydralazine HCl (Apresoline) 10 mg Q4H PRN IV sbp >160; Start 06/28/18 at 12:30 Albuterol/ Ipratropium (Duoneb) 3 ml Q6HWA RESP THERAPY HHN Last administered on 07/02/18at 08:30; Admin Dose 3 ML; Start 06/28/18 at 14:00 Albuterol/ Ipratropium (Duoneb) 3 ml Q2H RESP THERAPY PRN HHN shortness of deana th; Start 06/28/18 at 12:30 Budesonide (Pulmicort (Neb)) 0.5 mg BID RESP THERAPY HHN Last administered on 07/01/18at 20:00; Admin Dose 0.5 MG; Start 06/28/18 at 20:00 Diagnostic Test (Pha) (Accu-Chek) 1 ea 02 XX Last administered on 07/02/18at 02:00; Admin Dose 1 EA; Start 06/29/18 at 02:00 Insulin Aspart (Novolog Insulin Pen) NOVOLOG *MILD* ALGORITHM WITH MEALS BEDTIME SC Last administered on 07/01/18at 17:50; Admin Dose 1 UNIT; Start 06/28/18 at 18:00 Guaifenesin/ Codeine Phosphate (Robitussin Ac Liquid Cup) 5 ml Q4H PRN PO cough; Start 06/28/18 at 12:30 Miscellaneous Information 1 ea NOTE XX ; Start 06/28/18 at 13:30 Glucose (Glutose) 15 gm Q15M PRN PO DECREASED GLUCOSE; Start 06/28/18 at 13:30 Glucose (Glutose) 22.5 gm Q15M PRN PO DECREASED GLUCOSE; Start 06/28/18 at 13:30 Dextrose (D50w Syringe) 25 ml Q15M PRN IV DECREASED GLUCOSE; Start 06/28/18 at 13:30 Dextrose (D50w Syringe) 50 ml Q15M PRN IV DECREASED GLUCOSE; Start 06/28/18 at 13:30 Glucagon (Glucagen) 1 mg Q15M PRN IM DECREASED GLUCOSE; Start 06/28/18 at 13:30 Glucose (Glutose) 15 gm Q15M PRN BUCCAL DECREASED GLUCOSE; Start 06/28/18 at 13:30 Citric Acid/ Sodium Citrate (Bicitra) 30 ml BID PO Last administered on 07/02/18at 09:50; Admin Dose 30 ML; Start 06/29/18 at 21:00 Ferrous Sulfate (Ferrous Sulfate (Ec)) 325 mg BID PO Last administered on 07/02/18at 09:50; Admin Dose 325 MG; Start 06/29/18 at 12:00 Docusate Sodium (Colace) 100 mg BID PO Last administered on 07/01/18at 20:20; Admin Dose 100 MG; Start 06/29/18 at 12:00 Meropenem/Sodium Chloride 50 ml @ 100 mls/hr Q12 IVPB Last administered on 07/01/18at 20:47; Admin Dose 100 MLS/HR; Start 06/29/18 at 21:00 Linezolid (Zyvox) 600 mg BID PO Last administered on 07/02/18at 09:50; Admin Dose 600 MG; Start 06/29/18 at 21:00 Insulin Glargine (Lantus) 10 units DAILY@0800 SC Last administered on 07/01/18at 08:41; Admin Dose 10 UNITS; Start 07/01/18 at 08:00 Epoetin Martinez (Epogen (Non Esrd/Non Oncology)) 8,000 units MoWeFr@17 SC Last administered on 07/01/18at 17:14; Admin Dose 8,000 UNITS; Start 07/01/18 at 17:00 Ferric Sodium Gluconate Complex 125 mg/Sodium Chloride 110 ml @ 110 mls/hr DAILY@1300 IVPB Last administered on 07/01/18at 13:57; Admin Dose 110 MLS/HR; Start 07/01/18 at 13:00; Stop 07/05/18 at 13:59 Hydralazine HCl (Apresoline) 25 mg TID PO Last administered on 07/01/18at 20:20; Admin Dose 25 MG; Start 07/01/18 at 13:00 Carvedilol (Coreg) 6.25 mg BID PO ; Start 07/02/18 at 10:00 Prednisone (Prednisone) 40 mg DAILY PO ; Start 07/02/18 at 10:00 VTE Prophylaxis Risk score (from Nsg)>0 risk: 6 SCD applied (from Nsg): Yes Lines/Catheters IV Catheter Type: [place] in Place: No Assessment/Plan Hospital Course Subjective patient left arm pain has resolved Objective Physical exam General: Patient is laying in bed and answers questions appropriately Mentation: Patient is alert and oriented 4, Head: Normocephalic atraumatic Eyes: EOMI, pupils reactive to light Neck: Supple, nontender, midline Respiratory: Coarse to auscultation bilaterally Cardiovascular: regular rate, no obvious murmurs Gastrointestinal: non-tender to palpation, bowel sounds heard. Neurological: Moves all extremities spontaneously Skin: No new skin lesions, left arm is slightly more edematous vs right Assessment and plan Acute hypoxic respiratory failure -Secondary to multifocal pneumonia and pulmonary edema -Unlikely PE at this time, unable to do CT angiogram due to elevated creatinine, however VQ scan was done and low prob. Multifocal pneumonia -IV antibiotic, broad-spectrum -DuoNeb, budesonide nebulizers -Steroids for now, taper -ID on board -pulm on bord Pulmonary edema and bilateral effusions -lasix per nephrology, but now held, need to be mindful with Cr levels -Monitor Stage II diastolic dysfunction -Seen on echocardiogram -Hold off on diuresis due to worsening renal function -Cardiology consulted -Elevated BNP Severe anemia -transfuse as needed -Patient always had a history of anemia, however lower than normal, no evident no signs of GI bleed at all, no black or tarry stools reported per patient -Retic index points towards hypoproliferation - haptoglobin and lactate dehydrogenase noted -oral iron supplementation -We will monitor for the next few days if continues to decrease we will consult hematology Acute kidney injury on chronic kidney disease -Nephrology consulted, worsening Cr, holding lasix -will need to initiate dialysis per nephrology left arm swelling-resolved -very mild -venous US neg for DVT -can not order arterial CT with contrast due to renal issues, will order CT upper extremity and venous arterial -stop amlodipine as this may cause peripheral swelling, but less likely than nifedipine -possible due to volume overload as patient is now going into renal failure. -due to resolution, will restart amlodipine in the future to assess. Right foot osteomyelitis with recent debridement approximately 2 weeks ago -podiatry consulted -Infectious disease consulted, per recommendations patient does not need continued IV antibiotics for osteomyelitis. Diabetes mellitus -Lantus and insulin sliding scale as needed Hypertension -Continue home meds, treat as needed -stop amlodipine for possible arm swelling, adding hydralazine and coreg so far. Disposition -Continue treatment for multifocal pneumonia, multiple renewable energy consultant recommendations appreciated. -Monitor creatinine levels, initiation of dialysis per nephrology TIANA POWELL Jul 02, 2018 10:14
[2018-07-02] MEDS: BUDESONIDE (NEB) 0.5MG/2ML AMP HHN SCH ×2 (10:34→20:01)
[2018-07-02] MEDS: predniSONE 20 MG TAB PO SCH (11:49)
--- NOTE | 2018-07-02 12:56 | CONS ---
Assessment/Plan Assessment/Plan Assessment/Plan (Daily) 1. 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 Multifocal pneumonia 3. possibel CHF, diastolic vs systolic - ECHO showed EF 55% with stage II diastolic dysfunction 4. H/O HTN 5. H/o HL 6. Anemia of CKD IV 7. Right diabetic foot ulcer - s/p excisional debridement with primary closure (DOS: 06/13/18) 8. Right foot osteomyelitis - s/p excisional debridement and resection of bone (DOS: 06/13/18) 9. H/o IDDM with peripheral neuropathy 10. metabolic acidosis due to progressive CKD worsening Plan: BUN/Cr 77/4.37 eGFR 10 pt still on high flow oxygen, need HD initiaiton , discussed with patient in details, she want to check with her daughter and will agree for HD catheter placement ECHO on 06/28/18 showed EF 55% with stage II diastolic dysfunction Bicitra 30ml PO BID for metabolic acidosis IV abx for Pneumonia, Renally dose all abx and monitor electrolytes Epogen 8000 units SQ MWF will follow up Consultation Date/Type/Reason Admit Date/Time Jun 28, 2018 at 13:23 Initial Consult Date 06/28/18 Type of Consult NEPHROLOGY Requesting Provider: TIANA POWELL Date/Time of Note DATE: 07/02/18 TIME: 12:56 Exam/Review of Systems Exam Vitals Vital Signs Date Temp Pulse Resp B/P (MAP) Pulse Ox O2 O2 Flow FiO2 Time Delivery Rate 07/02/18 93 12:10 07/02/18 98.2 20 173/80 97 11:34 (111) 07/02/18 Nasal 4.0 36 10:36 Cannula Intake and Output 07/01/18 07/01/18 07/02/18 1515:00 23:00 07:00 IntakeIntake Total 160 ml 500 ml BalanceBalance 160 ml 500 ml Exam General: alert, awake Head: Normocephalic atraumatic Eyes: EOMI, pupils reactive to light Neck: Supple, nontender, midline Respiratory: Coarse to auscultation bilaterally Cardiovascular: regular rate, no obvious murmurs Gastrointestinal: non-tender to palpation, bowel sounds heard. Neurological: Moves all extremities spontaneously Skin: No new skin lesions Results Result Diagram: 07/02/1845407/02/18454 Results 24hrs Laboratory Tests Test 07/01/18 17:16 07/01/18 20:26 07/02/18 02:46 07/02/18 04:55 Bedside Glucose 166 170 87 White Blood Count 11.2 H Red Blood Count 3.32 L Hemoglobin 9.9 L Hematocrit 30.5 L Mean Corpuscular Volume 91.9 Mean Corpuscular 29.8 Hemoglobin Mean Corpuscular 32.5 Hemoglobin Concent Red Cell Distribution 13.2 Width Platelet Count 196 Mean Platelet Volume 10.6 H Immature Granulocytes % 2.000 H Neutrophils % 70.3 Lymphocytes % 16.4 Monocytes % 9.7 Eosinophils % 1.4 Basophils % 0.2 Nucleated Red Blood 0.0 Cells % Immature Granulocytes # 0.230 H Neutrophils # 7.9 H Lymphocytes # 1.8 Monocytes # 1.1 H Eosinophils # 0.2 Basophils # 0.0 Nucleated Red Blood 0.0 Cells # Sodium Level 142 Potassium Level 4.2 Chloride Level 107 Carbon Dioxide Level 22 Anion Gap 13 Blood Urea Nitrogen 77 H Creatinine 4.37 H Est Glomerular Filtrat 10 L Rate mL/min Glucose Level 80 Calcium Level 7.9 L Phosphorus Level 5.3 H Magnesium Level 2.4 Hepatitis B Surface NEGATIVE Antigen Hepatitis B Core NEGATIVE Total Antibody Hepatitis C Antibody NEGATIVE HIV (1&2) Antibody NEGATIVE Test 07/02/18 08:16 07/02/18 09:38 07/02/18 11:47 Bedside Glucose 67 L 118 97 Medications Medication Current Medications IV Flush (NS 3 ml) 3 ml PER PROTOCOL IV ; Start 06/28/18 at 12:30 Ondansetron HCl (Zofran Inj) 4 mg Q6H PRN IV NAUSEA/VOMITING Last administered on 07/02/18at 04:17; Admin Dose 4 MG; Start 06/28/18 at 12:30 Acetaminophen (Tylenol Tab) 650 mg Q6H PRN PO .PAIN 1-3 OR TEMP; Start 06/28/18 at 12:30 Acetaminophen/ Hydrocodone Bitart ([place] (5/325)) 1 tab Q6H PRN PO .PAIN 4-6 Last administered on 06/29/18at 23:02; Admin Dose 1 TAB; Start 06/28/18 at 12:30 Morphine Sulfate (morphine) 2 mg Q4H PRN IV .PAIN 7-10; Start 06/28/18 at 12:30 Atorvastatin Calcium (Lipitor) 40 mg QHS PO Last administered on 07/01/18at 20:19; Admin Dose 40 MG; Start 06/28/18 at 21:00 Labetalol HCl (Labetalol) 10 mg Q4 PRN IV sbp>160; Start 06/28/18 at 12:30 Hydralazine HCl (Apresoline) 10 mg Q4H PRN IV sbp >160; Start 06/28/18 at 12:30 Albuterol/ Ipratropium (Duoneb) 3 ml Q6HWA RESP THERAPY HHN Last administered on 07/02/18at 08:30; Admin Dose 3 ML; Start 06/28/18 at 14:00 Albuterol/ Ipratropium (Duoneb) 3 ml Q2H RESP THERAPY PRN HHN shortness of breath; Start 06/28/18 at 12:30 Budesonide (Pulmicort (Neb)) 0.5 mg BID RESP THERAPY HHN Last administered on 07/02/18at 10:34; Admin Dose 0.5 MG; Start 06/28/18 at 20:00 Diagnostic Test (Pha) (Accu-Chek) 1 ea 02 XX Last administered on 07/02/18at 02:00; Admin Dose 1 EA; Start 06/29/18 at 02:00 Insulin Aspart (Novolog Insulin Pen) NOVOLOG *MILD* ALGORITHM WITH MEALS B EDTIME SC Last administered on 07/01/18at 17:50; Admin Dose 1 UNIT; Start 06/28/18 at 18:00 Guaifenesin/ Codeine Phosphate (Robitussin Ac Liquid Cup) 5 ml Q4H PRN PO cough; Start 06/28/18 at 12:30 Miscellaneous Information 1 ea NOTE XX ; Start 06/28/18 at 13:30 Glucose (Glutose) 15 gm Q15M PRN PO DECREASED GLUCOSE; Start 06/28/18 at 13:30 Glucose (Glutose) 22.5 gm Q15M PRN PO DECREASED GLUCOSE; Start 06/28/18 at 13:30 Dextrose (D50w Syringe) 25 ml Q15M PRN IV DECREASED GLUCOSE; Start 06/28/18 at 13:30 Dextrose (D50w Syringe) 50 ml Q15M PRN IV DECREASED GLUCOSE; Start 06/28/18 at 13:30 Glucagon (Glucagen) 1 mg Q15M PRN IM DECREASED GLUCOSE; Start 06/28/18 at 13:30 Glucose (Glutose) 15 gm Q15M PRN BUCCAL DECREASED GLUCOSE; Start 06/28/18 at 13:30 Citric Acid/ Sodium Citrate (Bicitra) 30 ml BID PO Last administered on 07/02/18 09:50; Admin Dose 30 ML; Start 06/29/18 at 21:00 Ferrous Sulfate (Ferrous Sulfate (Ec)) 325 mg BID PO Last administered on 07/02/18 09:50; Admin Dose 325 MG; Start 06/29/18 at 12:00 Docusate Sodium (Colace) 100 mg BID PO Last administered on 07/01/18 20:20; Admin Dose 100 MG; Start 06/29/18 at 12:00 Meropenem/Sodium Chloride 50 ml @ 100 mls/hr Q12 IVPB Last administered on 07/02/18 09:00; Admin Dose 100 MLS/HR; Start 06/29/18 at 21:00 Linezolid (Zyvox) 600 mg BID PO Last administered on 07/02/18 09:50; Admin Dose 600 MG; Start 06/29/18 at 21:00 Insulin Glargine (Lantus) 10 units DAILY@0800 SC Last administered on 07/02/18 08:00; Admin Dose 10 UNITS; Start 07/01/18 at 08:00 Epoetin Martinez (Epogen (Non Esrd/Non Oncology)) 8,000 units MoWeFr@17 SC Last administered on 07/01/18 17:14; Admin Dose 8,000 UNITS; Start 07/01/18 at 17:00 Ferric Sodium Gluconate Complex 125 mg/Sodium Chloride 110 ml @ 110 mls/hr DAILY@1300 IVPB Last administered on 07/01/18 13:57; Admin Dose 110 MLS/HR; Start 07/01/18 at 13:00; Stop 07/05/18 at 13:59 Hydralazine HCl (Apresoline) 25 mg TID PO Last administered on 07/02/18 09:00; Admin Dose 25 MG; Start 07/01/18 at 13:00 Carvedilol (Coreg) 6.25 mg BID PO Last administered on 3/2/19at 11:49; Admin Dose 6.25 MG; Start 07/02/18 at 10:00 Prednisone (Prednisone) 40 mg DAILY PO Last administered on 07/02/18at 11:49; Ad min Dose 40 MG; Start 07/02/18 at 10:00 LEONARD DOBBINS MD Jul 02, 2018 12:56
[2018-07-02] MEDS: SOD FERRIC GLUC COMPLX 125 MG in SOD CHLORIDE 0.9% 100 ML IVPB SCH (13:42)
--- NOTE | 2018-07-02 14:22 | CONS ---
Consult Date/Type/Reason Admit Date/Time Jun 28, 2018 at 13:23 Initial Consult Date 06/28/18 Type of Consultation: Pulm Requesting Provider: TIANA POWELL Date/Time of Note DATE: 07/02/18 TIME: 14:20 Subjective No events overnight. Objective Vitals Vital Signs Date Temp Pulse Resp B/P (MAP) Pulse Ox O2 O2 Flow FiO2 Time Delivery Rate 07/02/18 4.0 13:21 07/02/18 93 12:10 07/02/18 98.2 20 173/80 97 11:34 (111) 07/02/18 Nasal 36 10:36 Cannula Intake and Output 07/01/18 07/01/18 07/02/18 1515:00 23:00 07:00 IntakeIntake Total 160 ml 500 ml BalanceBalance 160 ml 500 ml Exam HEENT: Neck supple; no JVD; no LAD CVS: RRR, S1 and S2 CHEST: Clear ABD: Soft, NT, + BS EXT: No c/c/e Results/Medications Result Diagram: 07/02/18 0455 07/02/18 0455 Results 24 hrs Laboratory Tests Test 07/01/18 17:16 07/01/18 20:26 07/02/18 02:46 07/02/18 04:55 Bedside Glucose 166 170 87 White Blood Count 11.2 H Red Blood Count 3.32 L Hemoglobin 9.9 L Hematocrit 30.5 L Mean Corpuscular Volume 91.9 Mean Corpuscular 29.8 Hemoglobin Mean Corpuscular 32.5 Hemoglobin Concent Red Cell Distribution 13.2 Width Platelet Count 196 Mean Platelet Volume 10.6 H Immature Granulocytes % 2.000 H Neutrophils % 70.3 Lymphocytes % 16.4 Monocytes % 9.7 Eosinophils % 1.4 Basophils % 0.2 Nucleated Red Blood 0.0 Cells % Immature Granulocytes # 0.230 H Neutrophils # 7.9 H Lymphocytes # 1.8 Monocytes # 1.1 H Eosinophils # 0.2 Basophils # 0.0 Nucleated Red Blood 0.0 Cells # Sodium Level 142 Potassium Level 4.2 Chloride Level 107 Carbon Dioxide Level 22 Anion Gap 13 Blood Urea Nitrogen 77 H Creatinine 4.37 H Est Glomerular Filtrat 10 L Rate mL/min Glucose Level 80 Calcium Level 7.9 L Phosphorus Level 5.3 H Magnesium Level 2.4 Hepatitis B Surface NEGATIVE Antigen Hepatitis B Core NEGATIVE Total Antibody Hepatitis C Antibody NEGATIVE HIV (1&2) Antibody NEGATIVE Test 07/02/18 08:16 07/02/18 09:38 07/02/18 11:47 Bedside Glucose 67 L 118 97 Home Meds Active Scripts Citric Acid/Sodium Citrate* (Bicitra* (PEDIATRIC)) 1 Meq/Ml Soln, 30 ML PO TID, #90 1 Refill Prov:DEONJUSTINO S. 06/15/18 Levofloxacin* (Levaquin*) 500 Mg Tablet, 500 MG PO Q48H for 60 Days, TAB Prov:ARMEN CHAVARRIAEEP S. 06/15/18 Insulin Glargine,Hum.rec.anlog (Basaglar Kwikpen U-100) 100 Unit/1 Ml Insuln.pen, 13 UNIT SC QHS, #1 BOTTLE 3 Refills Prov:ARMEN CHAVARRIAEEP S. 06/15/18 Amlodipine Besylate* (Amlodipine Besylate*) 10 Mg Tablet, 10 MG PO DAILY, #30 TAB 3 Refills Prov:DEONJUSTINO S. 06/15/18 Atorvastatin* (Atorvastatin*) 40 Mg Tablet, 40 MG PO QHS, #30 TAB 3 Refills Prov:ROBLES CHAVARRIAJUSTINO S. 06/15/18 Medications Current Medications IV Flush (NS 3 ml) 3 ml PER PROTOCOL IV ; Start 06/28/18 at 12:30 Ondansetron HCl (Zofran Inj) 4 mg Q6H PRN IV NAUSEA/VOMITING Last administered on 07/02/18at 04:17; Admin Dose 4 MG; Start 06/28/18 at 12:30 Acetaminophen (Tylenol Tab) 650 mg Q6H PRN PO .PAIN 1-3 OR TEMP; Start 06/28/18 at 12:30 Acetaminophen/ Hydrocodone Bitart ([place] (5/325)) 1 tab Q6H PRN PO .PAIN 4-6 Last administered on 06/29/18at 23:02; Admin Dose 1 TAB; Start 06/28/18 at 12:30 Morphine Sulfate (morphine) 2 mg Q4H PRN IV .PAIN 7-10; Start 06/28/18 at 12:30 Atorvastatin Calcium (Lipitor) 40 mg QHS PO Last administered on 07/01/18at 20:19; Admin Dose 40 MG; Start 06/28/18 at 21:00 Labetalol HCl (Labetalol) 10 mg Q4 PRN IV sbp>160; Start 06/28/18 at 12:30 Hydralazine HCl (Apresoline) 10 mg Q4H PRN IV sbp >160; Start 06/28/18 at 12:30 Albuterol/ Ipratropium (Duoneb) 3 ml Q6HWA RESP THERAPY HHN Last administered on 07/02/18at 08:30; Admin Dose 3 ML; Start 06/28/18 at 14:00 Albuterol/ Ipratropium (Duoneb) 3 ml Q2H RESP THERAPY PRN HHN shortness of breath; Start 06/28/18 at 12:30 Budesonide (Pulmicort (Neb)) 0.5 mg BID RESP THERAPY HHN Last administered on 07/02/18at 10:34; Admin Dose 0.5 MG; Start 06/28/18 at 20:00 Diagnostic Test (Pha) (Accu-Chek) 1 ea 02 XX Last administered on 07/02/18at 02:00; Admin Dose 1 EA; Start 06/29/18 at 02:00 Insulin Aspart (Novolog Insulin Pen) NOVOLOG *MILD* ALGORITHM WITH MEALS BEDTIME SC Last administered on 07/01/18at 17:50; Admin Dose 1 UNIT; Start 06/28/18 at 18:00 Guaifenesin/ Codeine Phosphate (Robitussin Ac Liquid Cup) 5 ml Q4H PRN PO cough; Start 06/28/18 at 12:30 Miscellaneous Information 1 ea NOTE XX ; Start 06/28/18 at 13:30 Glucose (Glutose) 15 gm Q15M PRN PO DECREASED GLUCOSE; Start 06/28/18 at 13:30 Glucose (Glutose) 22.5 gm Q15M PRN PO DECREASED GLUCOSE; Start 06/28/18 at 13:30 Dextrose (D50w Syringe) 25 ml Q15M PRN IV DECREASED GLUCOSE; Start 06/28/18 at 13:30 Dextrose (D50w Syringe) 50 ml Q15M PRN IV DECREASED GLUCOSE; Start 06/28/18 at 13:30 Glucagon (Glucagen) 1 mg Q15M PRN IM DECREASED GLUCOSE; Start 06/28/18 at 13:30 Glucose (Glutose) 15 gm Q15M PRN BUCCAL DECREASED GLUCOSE; Start 06/28/18 at 13:30 Citric Acid/ Sodium Citrate (Bicitra) 30 ml BID PO Last administered on 07/02/18 09:50; Admin Dose 30 ML; Start 06/29/18 at 21:00 Ferrous Sulfate (Ferrous Sulfate (Ec)) 325 mg BID PO Last administered on 07/02/18 09:50; Admin Dose 325 MG; Start 06/29/18 at 12:00 Docusate Sodium (Colace) 100 mg BID PO Last administered on 07/01/18 20:20; Admin Dose 100 MG; Start 06/29/18 at 12:00 Meropenem/Sodium Chloride 50 ml @ 100 mls/hr Q12 IVPB Last administered on 07/02/18 09:00; Admin Dose 100 MLS/HR; Start 06/29/18 at 21:00 Linezolid (Zyvox) 600 mg BID PO Last administered on 07/02/18 09:50; Admin Dose 600 MG; Start 06/29/18 at 21:00 Insulin Glargine (Lantus) 10 units DAILY@0800 SC Last administered on 07/02/18 08:00; Admin Dose 10 UNITS; Start 07/01/18 at 08:00 Epoetin Martinez (Epogen (Non Esrd/Non Oncology)) 8,000 units MoWeFr@17 SC Last administered on 07/01/18 17:14; Admin Dose 8,000 UNITS; Start 07/01/18 at 17:00 Ferric Sodium Gluconate Complex 125 mg/Sodium Chloride 110 ml @ 110 mls/hr DAILY@1300 IVPB Last administered on 07/02/18 13:42; Admin Dose 110 MLS/HR; Start 07/01/18 at 13:00; Stop 07/05/18 at 13:59 Hydralazine HCl (Apresoline) 25 mg TID PO Last administered on 07/02/18 13:42; Admin Dose 25 MG; Start 07/01/18 at 13:00 Carvedilol (Coreg) 6.25 mg BID PO Last administered on 07/02/18 11:49; Admin Dose 6.25 MG; Start 07/02/18 at 10:00 Prednisone (Prednisone) 40 mg DAILY PO Last administered on 3/2/19at 11:49; Admin Dose 40 MG; Start 07/02/18 at 10:00 Assessment/Plan Assessment/Plan (Daily) IMP: 1. Acute renal failure with bilateral pulmonary infiltrates and pleural effusions. Plan 1. Supplemental O2. 2. Steroid taper 3. Antibiotics--> de-escalate 4. Renal consultation with renal ultrasound and possible renal biopsy. CHAYO MCKEON MD Jul 02, 2018 14:22
[2018-07-02] MEDS: hydrALAzine 20 MG INJ IV PRN (18:18)
[2018-07-02] MEDS: ATORVASTATIN 40 MG TAB PO SCH (20:59)
[2018-07-03] VITALS (11 sets, daily range): BP systolic 132–185; BP diastolic 66–81; PULSE 82–89; RESP 17–20
[2018-07-03] MEDS: ACCU-CHEK XX SCH (02:00)
[2018-07-03] MEDS: hydrALAzine 20 MG INJ IV PRN ×2 (03:21→17:14)
[2018-07-03] MEDS: INSULIN ASPART [NOVOLOG] 3 ML PEN SC SCH ×4 (08:00→21:27)
[2018-07-03] MEDS: ALBUTEROL/IPRATROPIUM (NEB) 3 ML AMP HHN SCH ×3 (08:11→21:51)
[2018-07-03] MEDS: BUDESONIDE (NEB) 0.5MG/2ML AMP HHN SCH ×2 (08:11→21:51)
[2018-07-03] MEDS: DOCUSATE SODIUM 100 MG CAP PO SCH ×2 (09:49→21:05)
[2018-07-03] MEDS: FERROUS SULFATE (EC) 325 MG TAB PO SCH ×2 (09:49→21:05)
[2018-07-03] MEDS: predniSONE 20 MG TAB PO SCH (09:49)
[2018-07-03] MEDS: CITRIC ACID/NA CITRATE 30 ML CUP PO SCH ×2 (09:49→21:05)
[2018-07-03] MEDS: ZYVOX 600 MG TAB PO SCH ×2 (09:49→21:05)
[2018-07-03] MEDS: MEROPENEM 500MG/50 ML (PMX) 50 ML IVPB SCH ×2 (10:00→21:06)
--- NOTE | 2018-07-03 10:10 | CONS ---
Assessment/Plan Assessment/Plan Assessment/Plan (Daily) 1. 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 Multifocal pneumonia 3. possibel CHF, diastolic vs systolic - ECHO showed EF 55% with stage II diastolic dysfunction 4. H/O HTN 5. H/o HL 6. Anemia of CKD IV 7. Right diabetic foot ulcer - s/p excisional debridement with primary closure (DOS: 06/13/18) 8. Right foot osteomyelitis - s/p excisional debridement and resection of bone (DOS: 06/13/18) 9. H/o IDDM with peripheral neuropathy 10. metabolic acidosis due to progressive CKD worsening Plan: BUN/Cr 71/3.97 eGFR 11 pt still on high flow oxygen, need HD initiaiton , discussed with family today, they agreed for HD initiation , Plan for Permacath tomorrow by IR- will plan for HD for 2 hr on Wednesday, HIV, hepatitis panel in AM labs, ECHO on 06/28/18 showed EF 55% with stage II diastolic dysfunction Bicitra 30ml PO BID for metabolic acidosis IV abx for Pneumonia, Renally dose all abx and monitor electrolytes Epogen 8000 units SQ MWF will follow up Consultation Date/Type/Reason Admit Date/Time Jun 28, 2018 at 13:23 Initial Consult Date 06/28/18 Type of Consult NEPHROLOGY Requesting Provider: TIANA POWELL Date/Time of Note DATE: 07/03/18 TIME: 10:10 Exam/Review of Systems Exam Vitals Vital Signs Date Temp Pulse Resp B/P (MAP) Pulse Ox O2 O2 Flow FiO2 Time Delivery Rate 07/03/18 85 08:16 07/03/18 3.0 08:15 07/03/18 Nasal 08:13 Cannula 07/03/18 20 100 36 08:12 07/03/18 98.3 165/72 07:10 (103) Intake and Output 07/02/18 07/02/18 07/03/18 1515:00 23:00 07:00 IntakeIntake Total 850 ml 400 ml BalanceBalance 850 ml 400 ml Exam General: alert, awake Head: Normocephalic atraumatic Eyes: EOMI, pupils reactive to light Neck: Supple, nontender, midline Respiratory: Coarse to auscultation bilaterally Cardiovascular: regular rate, no obvious murmurs Gastrointestinal: non-tender to palpation, bowel sounds heard. Neurological: Moves all extremities spontaneously Skin: No new skin lesions Results Result Diagram: 07/03/18 0501 07/03/18 0501 Results 24hrs Laboratory Tests Test 07/02/18 11:47 07/02/18 17:52 07/02/18 20:57 07/03/18 05:01 Bedside Glucose 97 114 168 White Blood Count 7.1 # Red Blood Count 3.26 L Hemoglobin 10.0 L Hematocrit 30.9 L Mean Corpuscular Volume 94.8 Mean Corpuscular 30.7 Hemoglobin Mean Corpuscular 32.4 Hemoglobin Concent Red Cell Distribution 13.1 Width Platelet Count 199 Mean Platelet Volume 10.9 H Immature Granulocytes % 4.900 H Neutrophils % 79.0 H Lymphocytes % 9.1 L Monocytes % 6.3 Eosinophils % 0.1 Basophils % 0.6 Nucleated Red Blood 0.0 Cells % Immature Granulocytes # 0.350 H Neutrophils # 5.6 Lymphocytes # 0.7 L Monocytes # 0.5 Eosinophils # 0.0 Basophils # 0.0 Nucleated Red Blood 0.0 Cells # Sodium Level 139 Potassium Level 4.9 Chloride Level 106 Carbon Dioxide Level 21 Anion Gap 12 Blood Urea Nitrogen 71 H Creatinine 3.97 H Est Glomerular Filtrat 11 L Rate mL/min Glucose Level 130 # Calcium Level 7.9 L Phosphorus Level 5.6 H Magnesium Level 2.4 Test 07/03/18 07:23 Bedside Glucose 143 Medications Medication Current Medications IV Flush (NS 3 ml) 3 ml PER PROTOCOL IV ; Start 06/28/18 at 12:30 Ondansetron HCl (Zofran Inj) 4 mg Q6H PRN IV NAUSEA/VOMITING Last administered on 07/02/18at 23:46; Admin Dose 4 MG; Start 06/28/18 at 12:30 Acetaminophen (Tylenol Tab) 650 mg Q6H PRN PO .PAIN 1-3 OR TEMP; Start 06/28/18 at 12:30 Acetaminophen/ Hydrocodone Bitart ([place] (5/325)) 1 tab Q6H PRN PO .PAIN 4-6 Last administered on 06/29/18at 23:02; Admin Dose 1 TAB; Start 06/28/18 at 12:30 Morphine Sulfate (morphine) 2 mg Q4H PRN IV .PAIN 7-10; Start 06/28/18 at 12:30 Atorvastatin Calcium (Lipitor) 40 mg QHS PO Last administered on 07/02/18 20:59; Admin Dose 40 MG; Start 06/28/18 at 21:00 Labetalol HCl (Labetalol) 10 mg Q4 PRN IV sbp>160 Last administered on 07/02/18 15:38; Admin Dose 10 MG; Start 06/28/18 at 12:30 Hydralazine HCl (Apresoline) 10 mg Q4H PRN IV sbp >160 Last administered on 07/03/18 03:21; Admin Dose 10 MG; Start 06/28/18 at 12:30 Albuterol/ Ipratropium (Duoneb) 3 ml Q6HWA RESP THERAPY HHN Last administered on 07/03/18 08:11; Admin Dose 3 ML; Start 06/28/18 at 14:00 Albuterol/ Ipratropium (Duoneb) 3 ml Q2H RESP THERAPY PRN HHN shortness of breath; Start 06/28/18 at 12:30 Budesonide (Pulmicort (Neb)) 0.5 mg BID RESP THERAPY HHN Last administered on 07/03/18 08:11; Admin Dose 0.5 MG; Start 06/28/18 at 20:00 Diagnostic Test (Pha) (Accu-Chek) 1 ea 02 XX Last administered on 07/02/18 02:00; Admin Dose 1 EA; Start 06/29/18 at 02:00 Insulin Aspart (Novolog Insulin Pen) NOVOLOG *MILD* ALGORITHM WITH MEALS BEDTIME SC Last administered on 07/01/18 17:50; Admin Dose 1 UNIT; Start 06/28/18 at 18:00 Guaifenesin/ Codeine Phosphate (Robitussin Ac Liquid Cup) 5 ml Q4H PRN PO cough; Start 06/28/18 at 12:30 Miscellaneous Information 1 ea NOTE XX ; Start 06/28/18 at 13:30 Glucose (Glutose) 15 gm Q15M PRN PO DECREASED GLUCOSE; Start 06/28/18 at 13:30 Glucose (Glutose) 22.5 gm Q15M PRN PO DECREASED GLUCOSE; Start 06/28/18 at 13:30 Dextrose (D50w Syringe) 25 ml Q15M PRN IV DECREASED GLUCOSE; Start 06/28/18 at 13:30 Dextrose (D50w Syringe) 50 ml Q15M PRN IV DECREASED GLUCOSE; Start 06/28/18 at 13:30 Glucagon (Glucagen) 1 mg Q15M PRN IM DECREASED GLUCOSE; Start 06/28/18 at 13:30 Glucose (Glutose) 15 gm Q15M PRN BUCCAL DECREASED GLUCOSE; Start 06/28/18 at 13:30 Citric Acid/ Sodium Citrate (Bicitra) 30 ml BID PO Last administered on 07/02/18 20:59; Admin Dose 30 ML; Start 06/29/18 at 21:00 Ferrous Sulfate (Ferrous Sulfate (Ec)) 325 mg BID PO Last administered on 07/02/18 20:59; Admin Dose 325 MG; Start 06/29/18 at 12:00 Docusate Sodium (Colace) 100 mg BID PO Last administered on 07/02/18 20:59; Admin Dose 100 MG; Start 06/29/18 at 12:00 Meropenem/Sodium Chloride 50 ml @ 100 mls/hr Q12 IVPB Last administered on 07/03/18 10:00; Admin Dose 100 MLS/HR; Start 06/29/18 at 21:00 Linezolid (Zyvox) 600 mg BID PO Last administered on 07/02/18 20:59; Admin Dose 600 MG; Start 06/29/18 at 21:00 Insulin Glargine (Lantus) 10 units DAILY@0800 SC Last administered on 07/02/18 08:00; Admin Dose 10 UNITS; Start 07/01/18 at 08:00 Epoetin Martinez (Epogen (Non Esrd/Non Oncology)) 8,000 units MoWeFr@17 SC Last administered on 07/01/18 17:14; Admin Dose 8,000 UNITS; Start 07/01/18 at 17:00 Ferric Sodium Gluconate Complex 125 mg/Sodium Chloride 110 ml @ 110 mls/hr DAILY@1300 IVPB Last administered on 07/02/18 13:42; Admin Dose 110 MLS/HR; Start 07/01/18 at 13:00; Stop 07/05/18 at 13:59 Hydralazine HCl (Apresoline) 25 mg TID PO Last administered on 07/02/18 20:59; Admin Dose 25 MG; Start 07/01/18 at 13:00 Prednisone (Prednisone) 40 mg DAILY PO Last administered on 07/02/18at 11:49; Admin Dose 40 MG; Start 07/02/18 at 10:00 Carvedilol (Coreg) 12.5 mg BID PO ; Start 07/03/18 at 21:00 LEONARD DOBBINS MD Jul 03, 2018 10:10
[2018-07-03] MEDS: INSULIN GLARGINE [LANTus] (100 UNITS/ML) SYG SC SCH (10:29)
[2018-07-03] MEDS: ONDANSETRON 4 MG INJ IV PRN ×2 (12:01→22:18)
[2018-07-03] MEDS ORDERED: ALBUMIN HUMAN 25% 100 ML IV PRN (13:00)
[2018-07-03] MEDS ORDERED: SODIUM CHLORIDE 0.9% 1L BAG IV PRN (13:00)
[2018-07-03] MEDS: SOD FERRIC GLUC COMPLX 125 MG in SOD CHLORIDE 0.9% 100 ML IVPB SCH (13:16)
--- NOTE | 2018-07-03 13:53 | PN ---
Date/Time of Note Date/Time of Note DATE: 07/03/18 TIME: 13:52 Objective Vitals Vital Signs Date Temp Pulse Resp B/P (MAP) Pulse Ox O2 O2 Flow FiO2 Time Delivery Rate 07/03/18 89 12:35 07/03/18 97.9 20 177/81 94 11:40 (113) 07/03/18 3.0 08:15 07/03/18 Nasal 08:13 Cannula 07/03/18 36 08:12 Intake and Output 07/02/18 07/02/18 07/03/18 1515:00 23:00 07:00 IntakeIntake Total 850 ml 400 ml BalanceBalance 850 ml 400 ml Results Result Diagram: 07/03/18 0501 07/03/18 0501 Medications Medications Current Medications IV Flush (NS 3 ml) 3 ml PER PROTOCOL IV ; Start 06/28/18 at 12:30 Ondansetron HCl (Zofran Inj) 4 mg Q6H PRN IV NAUSEA/VOMITING Last administered on 07/03/18 12:01; Admin Dose 4 MG; Start 06/28/18 at 12:30 Acetaminophen (Tylenol Tab) 650 mg Q6H PRN PO .PAIN 1-3 OR TEMP; Start 06/28/18 at 12:30 Acetaminophen/ Hydrocodone Bitart ([place] (5/325)) 1 tab Q6H PRN PO .PAIN 4-6 Last administered on 06/29/18at 23:02; Admin Dose 1 TAB; Start 06/28/18 at 12:30 Morphine Sulfate (morphine) 2 mg Q4H PRN IV .PAIN 7-10; Start 06/28/18 at 12:30 Atorvastatin Calcium (Lipitor) 40 mg QHS PO Last administered on 07/02/18 20:59; Admin Dose 40 MG; Start 06/28/18 at 21:00 Hydralazine HCl (Apresoline) 10 mg Q4H PRN IV sbp >160 Last administered on 07/03/18 03:21; Admin Dose 10 MG; Start 06/28/18 at 12:30 Albuterol/ Ipratropium (Duoneb) 3 ml Q6HWA RESP THERAPY HHN Last administered on 07/03/18 08:11; Admin Dose 3 ML; Start 06/28/18 at 14:00 Albuterol/ Ipratropium (Duoneb) 3 ml Q2H RESP THERAPY PRN HHN shortness of breath; Start 06/28/18 at 12:30 Budesonide (Pulmicort (Neb)) 0.5 mg BID RESP THERAPY HHN Last administered on 07/03/18 08:11; Admin Dose 0.5 MG; Start 06/28/18 at 20:00 Diagnostic Test (Pha) (Accu-Chek) 1 ea 02 XX Last administered on 07/02/18at 02:00; Admin Dose 1 EA; Start 06/29/18 at 02:00 Insulin Aspart (Novolog Insulin Pen) NOVOLOG *MILD* ALGORITHM WITH MEALS BEDTIME SC Last administered on 07/03/18 13:28; Admin Dose 2 UNIT; Start 06/28/18 at 18:00 Guaifenesin/ Codeine Phosphate (Robitussin Ac Liquid Cup) 5 ml Q4H PRN PO cough; Start 06/28/18 at 12:30 Miscellaneous Information 1 ea NOTE XX ; Start 06/28/18 at 13:30 Glucose (Glutose) 15 gm Q15M PRN PO DECREASED GLUCOSE; Start 06/28/18 at 13:30 Glucose (Glutose) 22.5 gm Q15M PRN PO DECREASED GLUCOSE; Start 06/28/18 at 13:30 Dextrose (D50w Syringe) 25 ml Q15M PRN IV DECREASED GLUCOSE; Start 06/28/18 at 13:30 Dextrose (D50w Syringe) 50 ml Q15M PRN IV DECREASED GLUCOSE; Start 06/28/18 at 13:30 Glucagon (Glucagen) 1 mg Q15M PRN IM DECREASED GLUCOSE; Start 06/28/18 at 13:30 Glucose (Glutose) 15 gm Q15M PRN BUCCAL DECREASED GLUCOSE; Start 06/28/18 at 13:30 Citric Acid/ Sodium Citrate (Bicitra) 30 ml BID PO Last administered on 07/03/18 09:49; Admin Dose 30 ML; Start 06/29/18 at 21:00 Ferrous Sulfate (Ferrous Sulfate (Ec)) 325 mg BID PO Last administered on 07/03/18 09:49; Admin Dose 325 MG; Start 06/29/18 at 12:00 Docusate Sodium (Colace) 100 mg BID PO Last administered on 3/3/19at 09:49; Admin Dose 100 MG; Start 06/29/18 at 12:00 Meropenem/Sodium Chloride 50 ml @ 100 mls/hr Q12 IVPB Last administered on 07/03/18 10:00; Admin Dose 100 MLS/HR; Start 06/29/18 at 21:00 Linezolid (Zyvox) 600 mg BID PO Last administered on 07/03/18 09:49; Admin Dose 600 MG; Start 06/29/18 at 21:00 Insulin Glargine (Lantus) 10 units DAILY@0800 SC Last administered on 07/03/18at 10:29; Admin Dose 10 UNITS; Start 07/01/18 at 08:00 Epoetin Martinez (Epogen (Non Esrd/Non Oncology)) 8,000 units MoWeFr@17 SC Last administered on 07/01/18 17:14; Admin Dose 8,000 UNITS; Start 07/01/18 at 17:00 Ferric Sodium Gluconate Complex 125 mg/Sodium Chloride 110 ml @ 110 mls/hr DAILY@1300 IVPB Last administered on 07/03/18 13:16; Admin Dose 110 MLS/HR; Start 07/01/18 at 13:00; Stop 07/05/18 at 13:59 Prednisone (Prednisone) 40 mg DAILY PO Last administered on 07/03/18 09:49; Admin Dose 40 MG; Start 07/02/18 at 10:00 Carvedilol (Coreg) 12.5 mg BID PO ; Start 07/03/18 at 21:00 Heparin Sodium (Porcine) (Heparin (1000 Units/ml)) 4,000 unit AFTER DIALYSIS CATHETER ; Start 07/03/18 at 13:00 Albumin Human 100 ml @ 100 mls/hr WITH DIALYSIS PRN IV SBP <90 DURING DIALYSIS; Start 07/03/18 at 13:00 Sodium Chloride (NS) -To prime the dialy... DIRECTED FOR HD PRN IV HD; Start 07/03/18 at 13:00 Hydralazine HCl (Apresoline) 50 mg TID PO Last administered on 07/03/18 13:16; Admin Dose 50 MG; Start 07/03/18 at 13:00 VTE Prophylaxis Risk score (from Ns)>0 risk: 9 SCD applied (from Ns): Yes Lines/Catheters IV Catheter Type: [place] in Place: No Assessment/Plan Hospital Course Subjective Patient's family has decided to proceed with dialysis Objective Physical exam General: Patient is laying in bed and answers questions appropriately Mentation: Patient is alert and oriented 4, Head: Normocephalic atraumatic Eyes: EOMI, pupils reactive to light Neck: Supple, nontender, midline Respiratory: Coarse to auscultation bilaterally Cardiovascular: regular rate, no obvious murmurs Gastrointestinal: non-tender to palpation, bowel sounds heard. Neurological: Moves all extremities spontaneously Skin: No new skin lesions, left arm is slightly more edematous vs right Assessment and plan Acute hypoxic respiratory failure -Secondary to multifocal pneumonia and pulmonary edema -Unlikely PE at this time, unable to do CT angiogram due to elevated creatinine, however VQ scan was done and low prob. Multifocal pneumonia -IV antibiotic, broad-spectrum -DuoNeb, budesonide nebulizers -Steroids for now, taper -ID on board -pulm on bord Pulmonary edema and bilateral effusions -lasix per nephrology, but now held, need to be mindful with Cr levels -Monitor Stage II diastolic dysfunction -Seen on echocardiogram -Hold off on diuresis due to worsening renal function -Cardiology consulted -Elevated BNP Severe anemia -transfuse as needed -Patient always had a history of anemia, however lower than normal, no evident no signs of GI bleed at all, no black or tarry stools reported per patient -Retic index points towards hypoproliferation - haptoglobin and lactate dehydrogenase noted -oral iron supplementation -We will monitor for the next few days if continues to decrease we will consult hematology Acute kidney injury on chronic kidney disease -Nephrology consulted, worsening Cr, holding lasix -will need to initiate dialysis per nephrology -Patient's family agreeable, will initiate process for dialysis, nephrology to manage left arm swelling-resolved -very mild -venous US neg for DVT -can not order arterial CT with contrast due to renal issues, upper extremity arterial but not showing any abnormality, CT upper extremity without contrast showing swelling -stop amlodipine as this may cause peripheral swelling, but less likely than nifedipine -possible due to volume overload as patient is now going into renal failure. -due to resolution, will restart amlodipine in the future to assess after dialysis initiated Right foot osteomyelitis with recent debridement approximately 2 weeks ago -podiatry consulted -Infectious disease consulted, per recommendations patient does not need continued IV antibiotics for osteomyelitis. Diabetes mellitus -Lantus and insulin sliding scale as needed Hypertension -Continue home meds, treat as needed -stop amlodipine for possible arm swelling, adding hydralazine and coreg so far. Disposition -Continue treatment for multifocal pneumonia, multiple systems development consultant recommendations appreciated. -Monitor creatinine levels, initiation of dialysis per nephrology TIANA POWELL Jul 03, 2018 13:53
--- NOTE | 2018-07-03 14:15 | CONS ---
Consult Date/Type/Reason Admit Date/Time Jun 28, 2018 at 13:23 Initial Consult Date 06/28/18 Type of Consultation: Pulm Requesting Provider: TIANA POWELL Date/Time of Note DATE: 07/03/18 TIME: 14:13 Subjective No events. Doing okay from a respiratory standpoint. Objective Vitals Vital Signs Date Temp Pulse Resp B/P (MAP) Pulse Ox O2 O2 Flow FiO2 Time Delivery Rate 07/03/18 89 12:35 07/03/18 97.9 20 177/81 94 11:40 (113) 07/03/18 3.0 08:15 07/03/18 Nasal 08:13 Cannula 07/03/18 36 08:12 Intake and Output 07/02/18 07/02/18 07/03/18 1515:00 23:00 07:00 IntakeIntake Total 850 ml 400 ml BalanceBalance 850 ml 400 ml Exam HEENT: Neck supple; no JVD; no LAD CVS: RRR, S1 and S2 CHEST: scattered rhonchi b/l ABD: Soft, NT, + BS EXT: No c/c/e Results/Medications Result Diagram: 07/03/18 0501 07/03/18 0501 Results 24 hrs Laboratory Tests Test 07/02/18 17:52 07/02/18 20:57 07/03/18 05:01 07/03/18 07:23 Bedside Glucose 114 168 143 White Blood Count 7.1 # Red Blood Count 3.26 L Hemoglobin 10.0 L Hematocrit 30.9 L Mean Corpuscular Volume 94.8 Mean Corpuscular 30.7 Hemoglobin Mean Corpuscular 32.4 Hemoglobin Concent Red Cell Distribution 13.1 Width Platelet Count 199 Mean Platelet Volume 10.9 H Immature Granulocytes % 4.900 H Neutrophils % 79.0 H Lymphocytes % 9.1 L Monocytes % 6.3 Eosinophils % 0.1 Basophils % 0.6 Nucleated Red Blood 0.0 Cells % Immature Granulocytes # 0.350 H Neutrophils # 5.6 Lymphocytes # 0.7 L Monocytes # 0.5 Eosinophils # 0.0 Basophils # 0.0 Nucleated Red Blood 0.0 Cells # Sodium Level 139 Potassium Level 4.9 Chloride Level 106 Carbon Dioxide Level 21 Anion Gap 12 Blood Urea Nitrogen 71 H Creatinine 3.97 H Est Glomerular Filtrat 11 L Rate mL/min Glucose Level 130 # Calcium Level 7.9 L Phosphorus Level 5.6 H Magnesium Level 2.4 Test 07/03/18 13:14 Bedside Glucose 182 Home Meds Active Scripts Citric Acid/Sodium Citrate* (Bicitra* (PEDIATRIC)) 1 Meq/Ml Soln, 30 ML PO TID, #90 1 Refill Prov:KYLEIGHJUSTINO S. 06/15/18 Levofloxacin* (Levaquin*) 500 Mg Tablet, 500 MG PO Q48H for 60 Days, TAB Prov:JUSTINO CHAVARRIA S. 06/15/18 Insulin Glargine,Hum.rec.anlog (Basaglar Kwikpen U-100) 100 Unit/1 Ml Insuln.p en, 13 UNIT SC QHS, #1 BOTTLE 3 Refills Prov:JUSTINO ARIZMENDI S. 06/15/18 Amlodipine Besylate* (Amlodipine Besylate*) 10 Mg Tablet, 10 MG PO DAILY, #30 TAB 3 Refills Prov:JUSTINO CHAVARRIA S. 06/15/18 Atorvastatin* (Atorvastatin*) 40 Mg Tablet, 40 MG PO QHS, #30 TAB 3 Refills Prov:DEONJUSTINO S. 06/15/18 Medications Current Medications IV Flush (NS 3 ml) 3 ml PER PROTOCOL IV ; Start 06/28/18 at 12:30 Ondansetron HCl (Zofran Inj) 4 mg Q6H PRN IV NAUSEA/VOMITING Last administered on 07/03/18at 12:01; Admin Dose 4 MG; Start 06/28/18 at 12:30 Acetaminophen (Tylenol Tab) 650 mg Q6H PRN PO .PAIN 1-3 OR TEMP; Start 06/28/18 at 12:30 Acetaminophen/ Hydrocodone Bitart ([place] (5/325)) 1 tab Q6H PRN PO .PAIN 4-6 Last administered on 06/29/18at 23:02; Admin Dose 1 TAB; Start 06/28/18 at 12:30 Morphine Sulfate (morphine) 2 mg Q4H PRN IV .PAIN 7-10; Start 06/28/18 at 12:30 Atorvastatin Calcium (Lipitor) 40 mg QHS PO Last administered on 07/02/18at 20:59; Admin Dose 40 MG; Start 06/28/18 at 21:00 Hydralazine HCl (Apresoline) 10 mg Q4H PRN IV sbp >160 Last administered on 07/03/18at 03:21; Admin Dose 10 MG; Start 06/28/18 at 12:30 Albuterol/ Ipratropium (Duoneb) 3 ml Q6HWA RESP THERAPY HHN Last administered on 07/03/18at 08:11; Admin Dose 3 ML; Start 06/28/18 at 14:00 Albuterol/ Ipratropium (Duoneb) 3 ml Q2H RESP THERAPY PRN HHN shortness of breath; Start 06/28/18 at 12:30 Budesonide (Pulmicort (Neb)) 0.5 mg BID RESP THERAPY HHN Last administered on 07/03/18at 08:11; Admin Dose 0.5 MG; Start 06/28/18 at 20:00 Diagnostic Test (Pha) (Accu-Chek) 1 ea 02 XX Last administered on 07/02/18at 02:00; Admin Dose 1 EA; Start 06/29/18 at 02:00 Insulin Aspart (Novolog Insulin Pen) NOVOLOG *MILD* ALGORITHM WITH MEALS BEDTIME SC Last administered on 07/03/18at 13:28; Admin Dose 2 UNIT; Start 06/28/18 at 18:00 Guaifenesin/ Codeine Phosphate (Robitussin Ac Liquid Cup) 5 ml Q4H PRN PO cough; Start 06/28/18 at 12:30 Miscellaneous Information 1 ea NOTE XX ; Start 06/28/18 at 13:30 Glucose (Glutose) 15 gm Q15M PRN PO DECREASED GLUCOSE; Start 06/28/18 at 13:30 Glucose (Glutose) 22.5 gm Q15M PRN PO DECREASED GLUCOSE; Start 06/28/18 at 13:30 Dextrose (D50w Syringe) 25 ml Q15M PRN IV DECREASED GLUCOSE; Start 06/28/18 at 13:30 Dextrose (D50w Syringe) 50 ml Q15M PRN IV DECREASED GLUCOSE; Start 06/28/18 at 13:30 Glucagon (Glucagen) 1 mg Q15M PRN IM DECREASED GLUCOSE; Start 06/28/18 at 13:30 Glucose (Glutose) 15 gm Q15M PRN BUCCAL DECREASED GLUCOSE; Start 06/28/18 at 13:30 Citric Acid/ Sodium Citrate (Bicitra) 30 ml BID PO Last administered on 07/03/18 09:49; Admin Dose 30 ML; Start 06/29/18 at 21:00 Ferrous Sulfate (Ferrous Sulfate (Ec)) 325 mg BID PO Last administered on 07/03/18 09:49; Admin Dose 325 MG; Start 06/29/18 at 12:00 Docusate Sodium (Colace) 100 mg BID PO Last administered on 07/03/18 09:49; Admin Dose 100 MG; Start 06/29/18 at 12:00 Meropenem/Sodium Chloride 50 ml @ 100 mls/hr Q12 IVPB Last administered on 07/03/18 10:00; Admin Dose 100 MLS/HR; Start 06/29/18 at 21:00 Linezolid (Zyvox) 600 mg BID PO Last administered on 07/03/18 09:49; Admin Dose 600 MG; Start 06/29/18 at 21:00 Insulin Glargine (Lantus) 10 units DAILY@0800 SC Last administered on 07/03/18 10:29; Admin Dose 10 UNITS; Start 07/01/18 at 08:00 Epoetin Martinez (Epogen (Non Esrd/Non Oncology)) 8,000 units MoWeFr@17 SC Last administered on 07/01/18 17:14; Admin Dose 8,000 UNITS; Start 07/01/18 at 17:00 Ferric Sodium Gluconate Complex 125 mg/Sodium Chloride 110 ml @ 110 mls/hr DAILY@1300 IVPB Last administered on 07/03/18 13:16; Admin Dose 110 MLS/HR; Start 07/01/18 at 13:00; Stop 07/05/18 at 13:59 Prednisone (Prednisone) 40 mg DAILY PO Last administered on 07/03/18 09:49; Admin Dose 40 MG; Start 07/02/18 at 10:00 Carvedilol (Coreg) 12.5 mg BID PO ; Start 07/03/18 at 21:00 Heparin Sodium (Porcine) (Heparin (1000 Units/ml)) 4,000 unit AFTER DIALYSIS CATHETER ; Start 07/03/18 at 13:00 Albumin Human 100 ml @ 100 mls/hr WITH DIALYSIS PRN IV SBP <90 DURING DIALYSIS; Start 07/03/18 at 13:00 Sodium Chloride (NS) -To prime the dialy... DIRECTED FOR HD PRN IV HD; Start 07/03/18 at 13:00 Hydralazine HCl (Apresoline) 50 mg TID PO Last administered on 07/03/18at 13:16; Admin Dose 50 MG; Start 07/03/18 at 13:00 Assessment/Plan Assessment/Plan (Daily) IMP: 1. Acute renal failure with bilateral pulmonary infiltrates and pleural effusions. Plan 1. Titrate FiO2 2. Steroid taper 3. Antibiotics--> de-escalate 4. HD as per Renal CHAYO MCKEON MD Jul 03, 2018 14:15
--- NOTE | 2018-07-03 16:13 | CONS ---
Assessment/Plan Assessment/Plan Hospital Course (Demo Recall) Patient is alert, feels better Microbiology: Cultures remain negative Antimicrobials: Merrem Zyvox Indwelling: Right arm PICC line Physical examination: Well-developed fragile elderly woman who is awake in no distress. Head atraumatic normocephalic sclera nonicteric vehicle mucosa dry neck is supple chest rise symmetrical breath sounds diminished bases heart: S1-S2 abdomen soft bowel sounds present extremities with right great toe wound dry and clean Assessment: 1. Sepsis, present on admission 2. Acute hypoxemic respiratory failure/pneumonia 3. Right great toe osteomyelitis status post debridement and resection of the bone on previous admission 4. Diabetes 5. Acute on chronic kidney disease 6. Diastolic dysfunction Plan: Improving, continue abx, f/u pulmonary rec-s. Per discussion with podiatry infected bone was removed therefore she does not need any more antibiotics for OM Consultation Date/Type/Reason Admit Date/Time Jun 28, 2018 at 13:23 Initial Consult Date 06/28/18 Type of Consult id Requesting Provider: TIANA POWELL Date/Time of Note DATE: 07/03/18 TIME: 16:12 Exam/Review of Systems Exam Vitals Vital Signs Date Temp Pulse Resp B/P (MAP) Pulse Ox O2 O2 Flow FiO2 Time Delivery Rate 07/03/18 87 16:08 07/03/18 98.4 20 171/76 96 15:32 (107) 07/03/18 Nasal 3.0 32 14:29 Cannula Intake and Output 07/02/18 07/02/18 07/03/18 1414:59 22:59 06:59 IntakeIntake Total 850 ml 400 ml BalanceBalance 850 ml 400 ml Results Result Diagram: 07/03/18 0501 07/03/18 0501 Results 24hrs Laboratory Tests Test 07/02/18 17:52 07/02/18 20:57 07/03/18 05:01 07/03/18 07:23 Bedside Glucose 114 168 143 White Blood Count 7.1 # Red Blood Count 3.26 L Hemoglobin 10.0 L Hematocrit 30.9 L Mean Corpuscular Volume 94.8 Mean Corpuscular 30.7 Hemoglobin Mean Corpuscular 32.4 Hemoglobin Concent Red Cell Distribution 13.1 Width Platelet Count 199 Mean Platelet Volume 10.9 H Immature Granulocytes % 4.900 H Neutrophils % 79.0 H Lymphocytes % 9.1 L Monocytes % 6.3 Eosinophils % 0.1 Basophils % 0.6 Nucleated Red Blood 0.0 Cells % Immature Granulocytes # 0.350 H Neutrophils # 5.6 Lymphocytes # 0.7 L Monocytes # 0.5 Eosinophils # 0.0 Basophils # 0.0 Nucleated Red Blood 0.0 Cells # Sodium Level 139 Potassium Level 4.9 Chloride Level 106 Carbon Dioxide Level 21 Anion Gap 12 Blood Urea Nitrogen 71 H Creatinine 3.97 H Est Glomerular Filtrat 11 L Rate mL/min Glucose Level 130 # Calcium Level 7.9 L Phosphorus Level 5.6 H Magnesium Level 2.4 Test 07/03/18 13:14 Bedside Glucose 182 Medications Medication Current Medications IV Flush (NS 3 ml) 3 ml PER PROTOCOL IV ; Start 06/28/18 at 12:30 Ondansetron HCl (Zofran Inj) 4 mg Q6H PRN IV NAUSEA/VOMITING Last administered on 07/03/18 12:01; Admin Dose 4 MG; Start 06/28/18 at 12:30 Acetaminophen (Tylenol Tab) 650 mg Q6H PRN PO .PAIN 1-3 OR TEMP; Start 06/28/18 at 12:30 Acetaminophen/ Hydrocodone Bitart ([place] (5/325)) 1 tab Q6H PRN PO .PAIN 4-6 Last administered on 06/29/18at 23:02; Admin Dose 1 TAB; Start 06/28/18 at 12:30 Morphine Sulfate (morphine) 2 mg Q4H PRN IV .PAIN 7-10; Start 06/28/18 at 12:30 Atorvastatin Calcium (Lipitor) 40 mg QHS PO Last administered on 07/02/18 20:59; Admin Dose 40 MG; Start 06/28/18 at 21:00 Hydralazine HCl (Apresoline) 10 mg Q4H PRN IV sbp >160 Last administered on 07/03/18 03:21; Admin Dose 10 MG; Start 06/28/18 at 12:30 Albuterol/ Ipratropium (Duoneb) 3 ml Q6HWA RESP THERAPY HHN Last administered on 07/03/18 14:28; Admin Dose 3 ML; Start 06/28/18 at 14:00 Albuterol/ Ipratropium (Duoneb) 3 ml Q2H RESP THERAPY PRN HHN shortness of breath; Start 06/28/18 at 12:30 Budesonide (Pulmicort (Neb)) 0.5 mg BID RESP THERAPY HHN Last administered on 07/03/18at 08:11; Admin Dose 0.5 MG; Start 06/28/18 at 20:00 Diagnostic Test (Pha) (Accu-Chek) 1 ea 02 XX Last administered on 07/02/18at 02:00; Admin Dose 1 EA; Start 06/29/18 at 02:00 Insulin Aspart (Novolog Insulin Pen) NOVOLOG *MILD* ALGORITHM WITH MEALS BEDTIME SC Last administered on 07/03/18 13:28; Admin Dose 2 UNIT; Start 06/28/18 at 18:00 Guaifenesin/ Codeine Phosphate (Robitussin Ac Liquid Cup) 5 ml Q4H PRN PO cough; Start 06/28/18 at 12:30 Miscellaneous Information 1 ea NOTE XX ; Start 06/28/18 at 13:30 Glucose (Glutose) 15 gm Q15M PRN PO DECREASED GLUCOSE; Start 06/28/18 at 13:30 Glucose (Glutose) 22.5 gm Q15M PRN PO DECREASED GLUCOSE; Start 06/28/18 at 13:30 Dextrose (D50w Syringe) 25 ml Q15M PRN IV DECREASED GLUCOSE; Start 06/28/18 at 13:30 Dextrose (D50w Syringe) 50 ml Q15M PRN IV DECREASED GLUCOSE; Start 06/28/18 at 13:30 Glucagon (Glucagen) 1 mg Q15M PRN IM DECREASED GLUCOSE; Start 06/28/18 at 13:30 Glucose (Glutose) 15 gm Q15M PRN BUCCAL DECREASED GLUCOSE; Start 06/28/18 at 13:30 Citric Acid/ Sodium Citrate (Bicitra) 30 ml BID PO Last administered on 07/03/18 09:49; Admin Dose 30 ML; Start 06/29/18 at 21:00 Ferrous Sulfate (Ferrous Sulfate (Ec)) 325 mg BID PO Last administered on 07/03/18 09:49; Admin Dose 325 MG; Start 06/29/18 at 12:00 Docusate Sodium (Colace) 100 mg BID PO Last administered on 07/03/18 09:49; Admin Dose 100 MG; Start 06/29/18 at 12:00 Meropenem/Sodium Chloride 50 ml @ 100 mls/hr Q12 IVPB Last administered on 07/03/18 10:00; Admin Dose 100 MLS/HR; Start 06/29/18 at 21:00 Linezolid (Zyvox) 600 mg BID PO Last administered on 07/03/18 09:49; Admin Dose 600 MG; Start 06/29/18 at 21:00 Insulin Glargine (Lantus) 10 units DAILY@0800 SC Last administered on 07/03/18 10:29; Admin Dose 10 UNITS; Start 07/01/18 at 08:00 Epoetin Martinez (Epogen (Non Esrd/Non Oncology)) 8,000 units MoWeFr@17 SC Last administered on 07/01/18 17:14; Admin Dose 8,000 UNITS; Start 07/01/18 at 17:00 Ferric Sodium Gluconate Complex 125 mg/Sodium Chloride 110 ml @ 110 mls/hr DAILY@1300 IVPB Last administered on 07/03/18 13:16; Admin Dose 110 MLS/HR; Start 07/01/18 at 13:00; Stop 07/05/18 at 13:59 Prednisone (Prednisone) 40 mg DAILY PO Last administered on 07/03/18 09:49; Admin Dose 40 MG; Start 07/02/18 at 10:00 Carvedilol (Coreg) 12.5 mg BID PO ; Start 07/03/18 at 21:00 Heparin Sodium (Porcine) (Heparin (1000 Units/ml)) 4,000 unit AFTER DIALYSIS CATHETER ; Start 07/03/18 at 13:00 Albumin Human 100 ml @ 100 mls/hr WITH DIALYSIS PRN IV SBP <90 DURING DIALYSI S; Start 07/03/18 at 13:00 Sodium Chloride (NS) -To prime the dialy... DIRECTED FOR HD PRN IV HD; Start 07/03/18 at 13:00 Hydralazine HCl (Apresoline) 50 mg TID PO Last administered on 07/03/18 13:16; Admin Dose 50 MG; Start 07/03/18 at 13:00 CAMERON TAPIA NP Jul 03, 2018 16:13
[2018-07-03] MEDS: ATORVASTATIN 40 MG TAB PO SCH (21:05)
[2018-07-04] VITALS (38 sets, daily range): BP systolic 134–178; BP diastolic 57–81; PULSE 46–250; RESP 12–20
[2018-07-04] MEDS: hydrALAzine 20 MG INJ IV PRN ×2 (01:23→11:56)
[2018-07-04] MEDS: ACCU-CHEK XX SCH ×2 (02:00→23:32)
[2018-07-04] MEDS: ONDANSETRON 4 MG INJ IV PRN ×2 (06:55→23:46)
[2018-07-04] MEDS ORDERED: CEFAZOLIN 1 GM/50 ML (PMX) IVPB ONE (07:00)
[2018-07-04] MEDS ORDERED: PROPOFOL 200 MG INJ ONE (07:00)
[2018-07-04] MEDS: INSULIN ASPART [NOVOLOG] 3 ML PEN SC SCH ×4 (08:00→22:14)
[2018-07-04] MEDS: ALBUTEROL/IPRATROPIUM (NEB) 3 ML AMP HHN SCH ×3 (08:04→19:51)
[2018-07-04] MEDS: BUDESONIDE (NEB) 0.5MG/2ML AMP HHN SCH ×2 (08:05→19:51)
[2018-07-04] MEDS: FERROUS SULFATE (EC) 325 MG TAB PO SCH ×2 (08:22→21:56)
[2018-07-04] MEDS: CITRIC ACID/NA CITRATE 30 ML CUP PO SCH ×2 (08:22→21:56)
[2018-07-04] MEDS: ZYVOX 600 MG TAB PO SCH (08:23)
[2018-07-04] MEDS: DOCUSATE SODIUM 100 MG CAP PO SCH ×2 (08:23→21:55)
[2018-07-04] MEDS: predniSONE 20 MG TAB PO SCH (08:23)
[2018-07-04] MEDS: INSULIN GLARGINE [LANTus] (100 UNITS/ML) SYG SC SCH (08:26)
[2018-07-04] MEDS: MEROPENEM 500MG/50 ML (PMX) 50 ML IVPB SCH (08:28)
--- NOTE | 2018-07-04 10:00 | PN ---
Date/Time of Note Date/Time of Note DATE: 07/04/18 TIME: 09:59 Assessment/Plan VTE Prophylaxis Risk score (from Ns)>0 risk: 9 SCD applied (from Ns): Yes Pharmacological prophylaxis: NA/contraindicated Pharm contraindication: surgical contra Lines/Catheters IV Catheter Type (from Nrs): PICC Line Central line still needed: Yes Urinary Cath still in place: No Assessment/Plan Assessment/Plan Acute hypoxic respiratory failure -Secondary to multifocal pneumonia and pulmonary edema -Unlikely PE at this time, unable to do CT angiogram due to elevated creatinine, however VQ scan was done and low prob. 1. Multifocal pneumonia - Pulmonology on board and appreciate recommendations. Wean O2 as tolerated. D/c antibiotics - continue on nebs and steroid taper - ID on board and appreciate consultation 2. Pulmonary edema and bilateral effusions - Continue holding diuretics given CRISTINE - on high flow and wean as tolerated 3. Stage II diastolic dysfunction - ECHO results noted - Cardiology consultation appreciate and signed off. call as needed 4. Anemia, chronic disease- improving - most likely secondary to hyperproliferation - IV and po supplements on board as well as Epo 5. CRISTINE on CKD - Nephrology on board and plans to initiate HD 6. left arm swelling-resolved - US neg for DVT 7. Right foot osteomyelitis with recent debridement approximately 2 weeks ago - Podiatry consultation appreciated. No need for IV antibiotics given infected bone removed - ID on board as well 8. Diabetes mellitus - Lantus and insulin sliding scale as needed 9. Hypertension - Continue home meds and will adjust as needed for better BP control 10. Disposition - Plans for initiation of HD after placement of access Result Diagram: 07/04/18 0533 07/04/18 0532 Results 24hrs Laboratory Tests Test 07/03/18 13:14 07/03/18 17:09 07/03/18 20:06 07/03/18 21:03 Bedside Glucose 182 179 245 H Blood Gas Blood arterial Specimen Source Arterial Blood 07/03/2018 8:46:24 Date Drawn PM Arterial Blood 7.432 pH (Temp corrected) Arterial Blood 33.2 L pCO2 (Temp correct) Arterial Blood 61.4 L pO2 (Temp corrected) Arterial Blood 21.6 L HCO3 Arterial Blood -2.0 Base Excess Arterial Blood 90.7 L Oxygen Saturatio n Andrew Test N/A Arterial Blood LB Gas Puncture Site Arterial 0.1 Blood Carboxyhem oglobin Arterial Blood 0.2 Methemoglobin Blood Gas A-a O2 178.4 H Differential Oxyhemoglobin 90.4 L Percent Blood Gas 37.0 Temperature Blood Gas NASAL CANNULA Modality FiO2 39.0 Blood Gas RH Notified Whom Blood Gas 07/03/2018 8:57:38 Notified Time PM Test 07/04/18 04:47 07/04/18 05:32 07/04/18 05:33 07/04/18 07:40 Bedside Glucose 177 Prothrombin Time 14.2 Prothrombin Time 1.1 Ratio INR 1.09 International Normalized Ratio Activated 29.4 Partial Thrombop last Time Sodium Level 137 Potassium Level 4.6 Chloride Level 104 Carbon Dioxide 22 Level Anion Gap 11 Blood Urea 72 H Nitrogen Creatinine 3.91 H Est Glomerular 12 L Filtrat Rate mL/min Glucose Level 161 Calcium Level 7.9 L Total Bilirubin 0.3 Direct Bilirubin 0.00 Indirect 0.3 Bilirubin Aspartate Amino 17 Transf (AST/SGOT ) Alanine 26 Aminotransferase (ALT/SGPT) Alkaline 84 Phosphatase Total Protein 5.1 L Albumin 2.8 L Globulin 2.30 Albumin/Globulin 1.21 Ratio White Blood 10.0 # Count Red Blood Count 3.23 L Hemoglobin 9.8 L Hematocrit 30.0 L Mean Corpuscular 92.9 Volume Mean Corpuscular 30.3 Hemoglobin Mean Corpuscular 32.7 Hemoglobin Vera nt Red Cell 13.2 Distribution Width Platelet Count 202 Mean Platelet 10.7 H Volume Immature 3.800 H Granulocytes % Neutrophils % 73.1 Lymphocytes % 12.3 L Monocytes % 10.5 Eosinophils % 0.1 Basophils % 0.2 Nucleated Red 0.0 Blood Cells % Immature 0.380 H Granulocytes # Neutrophils # 7.3 Lymphocytes # 1.2 Monocytes # 1.1 H Eosinophils # 0.0 Basophils # 0.0 Nucleated Red 0.0 Blood Cells # Phosphorus Level 5.7 H Magnesium Level 2.5 Lab Scanned BLOOD TRANSFUSIO Report N Test 07/04/18 08:18 Bedside Glucose 153 Subjective 24 Hr Interval Summary Free Text/Dictation Patient complaining of nausea this am but denies any respiratory issues or chest pain. Exam/Review of Systems Exam Vitals Vital Signs Date Temp Pulse Resp B/P (MAP) Pulse Ox O2 O2 Flow FiO2 Time Delivery Rate 07/04/18 97 30 08:08 07/04/18 82 20 Nasal 20.0 08:05 Cannula 07/04/18 98.4 175/75 07:32 (108) Intake and Output 07/03/18 07/03/18 07/04/18 1515:00 23:00 07:00 IntakeIntake Total 650 ml 800 ml BalanceBalance 650 ml 800 ml Exam General: Patient is laying in bed and answers questions appropriately Neck: Supple, nontender, midline Respiratory: Coarse to auscultation bilaterally Cardiovascular: regular rate and rhythm, no obvious murmurs Gastrointestinal: soft, non-tender to palpation, bowel sounds heard. Neurological: Moves all extremities spontaneously Results Results 24hrs Laboratory Tests Test 07/03/18 13:14 07/03/18 17:09 07/03/18 20:06 07/03/18 21:03 Bedside Glucose 182 179 245 H Blood Gas Blood arterial Specimen Source Arterial Blood 07/03/2018 8:46:24 Date Drawn PM Arterial Blood 7.432 pH (Temp corrected) Arterial Blood 33.2 L pCO2 (Temp correct) Arterial Blood 61.4 L pO2 (Temp corrected) Arterial Blood 21.6 L HCO3 Arterial Blood -2.0 Base Excess Arterial Blood 90.7 L Oxygen Saturatio n Adnrew Test N/A Arterial Blood LB Gas Puncture Site Arterial 0.1 Blood Carboxyhem oglobin Arterial Blood 0.2 Methemoglobin Blood Gas A-a O2 178.4 H Differential Oxyhemoglobin 90.4 L Percent Blood Gas 37.0 Temperature Blood Gas NASAL CANNULA Modality FiO2 39.0 Blood Gas RH Notified Whom Blood Gas 07/03/2018 8:57:38 Notified Time PM Test 07/04/18 04:47 07/04/18 05:32 07/04/18 05:33 07/04/18 07:40 Bedside Glucose 177 Prothrombin Time 14.2 Prothrombin Time 1.1 Ratio INR 1.09 International Normalized Ratio Activated 29.4 Partial Thrombop last Time Sodium Level 137 Potassium Level 4.6 Chloride Level 104 Carbon Dioxide 22 Level Anion Gap 11 Blood Urea 72 H Nitrogen Creatinine 3.91 H Est Glomerular 12 L Filtrat Rate mL/min Glucose Level 161 Calcium Level 7.9 L Total Bilirubin 0.3 Direct Bilirubin 0.00 Indirect 0.3 Bilirubin Aspartate Amino 17 Transf (AST/SGOT ) Alanine 26 Aminotransferase (ALT/SGPT) Alkaline 84 Phosphatase Total Protein 5.1 L Albumin 2.8 L Globulin 2.30 Albumin/Globulin 1.21 Ratio White Blood 10.0 # Count Red Blood Count 3.23 L Hemoglobin 9.8 L Hematocrit 30.0 L Mean Corpuscular 92.9 Volume Mean Corpuscular 30.3 Hemoglobin Mean Corpuscular 32.7 Hemoglobin Vera nt Red Cell 13.2 Distribution Width Platelet Count 202 Mean Platelet 10.7 H Volume Immature 3.800 H Granulocytes % Neutrophils % 73.1 Lymphocytes % 12.3 L Monocytes % 10.5 Eosinophils % 0.1 Basophils % 0.2 Nucleated Red 0.0 Blood Cells % Immature 0.380 H Granulocytes # Neutrophils # 7.3 Lymphocytes # 1.2 Monocytes # 1.1 H Eosinophils # 0.0 Basophils # 0.0 Nucleated Red 0.0 Blood Cells # Phosphorus Level 5.7 H Magnesium Level 2.5 Lab Scanned BLOOD TRANSFUSIO Report N Test 07/04/18 08:18 Bedside Glucose 153 Medications Medication Current Medications IV Flush (NS 3 ml) 3 ml PER PROTOCOL IV ; Start 06/28/18 at 12:30 Ondansetron HCl (Zofran Inj) 4 mg Q6H PRN IV NAUSEA/VOMITING Last administered on 07/04/18at 06:55; Admin Dose 4 MG; Start 06/28/18 at 12:30 Acetaminophen (Tylenol Tab) 650 mg Q6H PRN PO .PAIN 1-3 OR TEMP; Start 06/28/18 at 12:30 Acetaminophen/ Hydrocodone Bitart ([place] (5/325)) 1 tab Q6H PRN PO .PAIN 4-6 Last administered on 06/29/18at 23:02; Admin Dose 1 TAB; Start 06/28/18 at 12:30 Morphine Sulfate (morphine) 2 mg Q4H PRN IV .PAIN 7-10; Start 06/28/18 at 12:30 Atorvastatin Calcium (Lipitor) 40 mg QHS PO Last administered on 07/03/18at 21:05; Admin Dose 40 MG; Start 06/28/18 at 21:00 Hydralazine HCl (Apresoline) 10 mg Q4H PRN IV sbp >160 Last administered on 07/04/18 01:23; Admin Dose 10 MG; Start 06/28/18 at 12:30 Albuterol/ Ipratropium (Duoneb) 3 ml Q6HWA RESP THERAPY HHN Last administered on 07/04/18 08:04; Admin Dose 3 ML; Start 06/28/18 at 14:00 Albuterol/ Ipratropium (Duoneb) 3 ml Q2H RESP THERAPY PRN HHN shortness of breath; Start 06/28/18 at 12:30 Budesonide (Pulmicort (Neb)) 0.5 mg BID RESP THERAPY HHN Last administered on 07/04/18 08:05; Admin Dose 0.5 MG; Start 06/28/18 at 20:00 Diagnostic Test (Pha) (Accu-Chek) 1 ea 02 XX Last administered on 07/02/18 02:00; Admin Dose 1 EA; Start 06/29/18 at 02:00 Insulin Aspart (Novolog Insulin Pen) NOVOLOG *MILD* ALGORITHM WITH MEALS BEDTIME SC Last administered on 07/03/18 21:27; Admin Dose 2 UNIT; Start 06/28/18 at 18:00 Guaifenesin/ Codeine Phosphate (Robitussin Ac Liquid Cup) 5 ml Q4H PRN PO cough; Start 06/28/18 at 12:30 Miscellaneous Information 1 ea NOTE XX ; Start 06/28/18 at 13:30 Glucose (Glutose) 15 gm Q15M PRN PO DECREASED GLUCOSE; Start 06/28/18 at 13:30 Glucose (Glutose) 22.5 gm Q15M PRN PO DECREASED GLUCOSE; Start 06/28/18 at 13:30 Dextrose (D50w Syringe) 25 ml Q15M PRN IV DECREASED GLUCOSE; Start 06/28/18 at 13:30 Dextrose (D50w Syringe) 50 ml Q15M PRN IV DECREASED GLUCOSE; Start 06/28/18 at 13:30 Glucagon (Glucagen) 1 mg Q15M PRN IM DECREASED GLUCOSE; Start 06/28/18 at 13:30 Glucose (Glutose) 15 gm Q15M PRN BUCCAL DECREASED GLUCOSE; Start 06/28/18 at 13:30 Citric Acid/ Sodium Citrate (Bicitra) 30 ml BID PO Last administered on 07/04/18 08:22; Admin Dose 30 ML; Start 06/29/18 at 21:00 Ferrous Sulfate (Ferrous Sulfate (Ec)) 325 mg BID PO Last administered on 07/04/18 08:22; Admin Dose 325 MG; Start 06/29/18 at 12:00 Docusate Sodium (Colace) 100 mg BID PO Last administered on 07/04/18 08:23; Admin Dose 100 MG; Start 06/29/18 at 12:00 Meropenem/Sodium Chloride 50 ml @ 100 mls/hr Q12 IVPB Last administered on 08:28; Admin Dose 100 MLS/HR; Start 06/29/18 at 21:00 Linezolid (Zyvox) 600 mg BID PO Last administered on 07/04/18 08:23; Admin Dose 600 MG; Start 06/29/18 at 21:00 Insulin Glargine (Lantus) 10 units DAILY@0800 SC Last administered on 07/04/18 08:26; Admin Dose 10 UNITS; Start 07/01/18 at 08:00 Epoetin Martinez (Epogen (Non Esrd/Non Oncology)) 8,000 units MoWeFr@17 SC Last administered on 07/01/18 17:14; Admin Dose 8,000 UNITS; Start 07/01/18 at 17:00 Ferric Sodium Gluconate Complex 125 mg/Sodium Chloride 110 ml @ 110 mls/hr DAILY@1300 IVPB Last administered on 07/03/18 13:16; Admin Dose 110 MLS/HR; Start 07/01/18 at 13:00; Stop 07/05/18 at 13:59 Prednisone (Prednisone) 40 mg DAILY PO Last administered on 07/04/18 08:23; Admin Dose 40 MG; Start 07/02/18 at 10:00 Carvedilol (Coreg) 12.5 mg BID PO Last administered on 07/04/18 08:23; Admin Dose 12.5 MG; Start 07/03/18 at 21:00 Heparin Sodium (Porcine) (Heparin (1000 Units/ml)) 4,000 unit AFTER DIALYSIS CATHETER ; Start 07/03/18 at 13:00 Albumin Human 100 ml @ 100 mls/hr WITH DIALYSIS PRN IV SBP <90 DURING DIALYSIS; Start 07/03/18 at 13:00 Sodium Chloride (NS) -To prime the dialy... DIRECTED FOR HD PRN IV HD; Start 07/03/18 at 13:00 Hydralazine HCl (Apresoline) 50 mg TID PO Last administered on 3/4/19at 08:23; Admin Dose 50 MG; Start 07/03/18 at 13:00 LORIN MORILLO MD Jul 04, 2018 09:59
[2018-07-04] MEDS ORDERED: ONDANSETRON 4 MG INJ IV STA (10:17)
--- NOTE | 2018-07-04 11:50 | CONS ---
Assessment/Plan Assessment/Plan Assessment/Plan (Daily) 1. acute kidney injury on CKD IV due to ATN from pneumonia and hemodynamics from CHF - stared on HD on 07/05/18 2. Multifocal pneumonia 3. possibel CHF, diastolic vs systolic - ECHO showed EF 55% with stage II diastolic dysfunction 4. H/O HTN 5. H/o HL 6. Anemia of CKD IV 7. Right diabetic foot ulcer - s/p excisional debridement with primary closure (DOS: 06/13/18) 8. Right foot osteomyelitis - s/p excisional debridement and resection of bone (DOS: 06/13/18) 9. H/o IDDM with peripheral neuropathy 10. metabolic acidosis due to progressive CKD worsening Plan: s/p Right chest permacath placed on 07/05/18- s/p HD first today 200 cc removed, Bp stable - will plan for another HD tomorrow , HIV, hepatitis panel negative , ECHO on 06/28/18 showed EF 55% with stage II diastolic dysfunction d/c bicitra since pt is started on HD IV abx for Pneumonia, Renally dose all abx and monitor electrolytes Epogen 8000 units SQ MWF [place] [facility] [place] follow up Consultation Date/Type/Reason Admit Date/Time Jun 28, 2018 at 13:23 Initial Consult Date 06/28/18 Type of Consult NEPHROLOGY Requesting Provider: TIANA POWELL Date/Time of Note DATE: 07/04/18 TIME: 11:50 24 HR Interval Summary Free Text/Dictation s/p Right chest permacath placed on 07/05/18- s/p HD first today 200 cc removed, Bp stable Exam/Review of Systems Exam Vitals Vital Signs Date Temp Pulse Resp B/P (MAP) Pulse Ox O2 O2 Flow FiO2 Time Delivery Rate 07/04/18 30 11:35 07/04/18 98.5 76 18 178/74 95 High Flow 11:05 (108) 07/04/18 20.0 08:05 Intake and Output 07/03/18 07/03/18 07/04/18 1515:00 23:00 07:00 IntakeIntake Total 650 ml 800 ml BalanceBalance 650 ml 800 ml Exam General: alert, awake Head: Normocephalic atraumatic Eyes: EOMI, pupils reactive to light Neck: Supple, nontender, midline Respiratory: Coarse to auscultation bilaterally Cardiovascular: regular rate, no obvious murmurs Gastrointestinal: non-tender to palpation, bowel sounds heard. Neurological: Moves all extremities spontaneously Skin: No new skin lesions Results Result Diagram: 07/04/18 0533 07/04/18 0532 Results 24hrs Laboratory Tests Test 07/03/18 13:14 07/03/18 17:09 07/03/18 20:06 07/03/18 21:03 Bedside Glucose 182 179 245 H Blood Gas Blood arterial Specimen Source Arterial Blood 07/03/2018 8:46:24 Date Drawn PM Arterial Blood 7.432 pH (Temp corrected) Arterial Blood 33.2 L pCO2 (Temp correct) Arterial Blood 61.4 L pO2 (Temp corrected) Arterial Blood 21.6 L HCO3 Arterial Blood -2.0 Base Excess Arterial Blood 90.7 L Oxygen Saturatio n Andrew Test N/A Arterial Blood LB Gas Puncture Site Arterial 0.1 Blood Carboxyhem oglobin Arterial Blood 0.2 Methemoglobin Blood Gas A-a O2 178.4 H Differential Oxyhemoglobin 90.4 L Percent Blood Gas 37.0 Temperature Blood Gas NASAL CANNULA Modality FiO2 39.0 Blood Gas RH Notified Whom Blood Gas 07/03/2018 8:57:38 Notified Time PM Test 07/04/18 04:47 07/04/18 05:32 07/04/18 05:33 07/04/18 07:40 Bedside Glucose 177 Prothrombin Time 14.2 Prothrombin Time 1.1 Ratio INR 1.09 International Normalized Ratio Activated 29.4 Partial Thrombop last Time Sodium Level 137 Potassium Level 4.6 Chloride Level 104 Carbon Dioxide 22 Level Anion Gap 11 Blood Urea 72 H Nitrogen Creatinine 3.91 H Est Glomerular 12 L Filtrat Rate mL/min Glucose Level 161 Calcium Level 7.9 L Total Bilirubin 0.3 Direct Bilirubin 0.00 Indirect 0.3 Bilirubin Aspartate Amino 17 Transf (AST/SGOT ) Alanine 26 Aminotransferase (ALT/SGPT) Alkaline 84 Phosphatase Total Protein 5.1 L Albumin 2.8 L Globulin 2.30 Albumin/Globulin 1.21 Ratio White Blood 10.0 # Count Red Blood Count 3.23 L Hemoglobin 9.8 L Hematocrit 30.0 L Mean Corpuscular 92.9 Volume Mean Corpuscular 30.3 Hemoglobin Mean Corpuscular 32.7 Hemoglobin Vera nt Red Cell 13.2 Distribution Width Platelet Count 202 Mean Platelet 10.7 H Volume Immature 3.800 H Granulocytes % Neutrophils % 73.1 Lymphocytes % 12.3 L Monocytes % 10.5 Eosinophils % 0.1 Basophils % 0.2 Nucleated Red 0.0 Blood Cells % Immature 0.380 H Granulocytes # Neutrophils # 7.3 Lymphocytes # 1.2 Monocytes # 1.1 H Eosinophils # 0.0 Basophils # 0.0 Nucleated Red 0.0 Blood Cells # Phosphorus Level 5.7 H Magnesium Level 2.5 Lab Scanned BLOOD TRANSFUSIO Report N Test 07/04/18 08:18 Bedside Glucose 153 Medications Medication Current Medications IV Flush (NS 3 ml) 3 ml PER PROTOCOL IV ; Start 06/28/18 at 12:30 Acetaminophen (Tylenol Tab) 650 mg Q6H PRN PO .PAIN 1-3 OR TEMP; Start 06/28/18 at 12:30 Acetaminophen/ Hydrocodone Bitart ([place] (5/325)) 1 tab Q6H PRN PO .PAIN 4-6 Last administered on 06/29/18at 23:02; Admin Dose 1 TAB; Start 06/28/18 at 12:30 Morphine Sulfate (morphine) 2 mg Q4H PRN IV .PAIN 7-10; Start 06/28/18 at 12:30 Atorvastatin Calcium (Lipitor) 40 mg QHS PO Last administered on 07/03/18 21:05; Admin Dose 40 MG; Start 06/28/18 at 21:00 Hydralazine HCl (Apresoline) 10 mg Q4H PRN IV sbp >160 Last administered on 07/04/18 01:23; Admin Dose 10 MG; Start 06/28/18 at 12:30 Albuterol/ Ipratropium (Duoneb) 3 ml Q6HWA RESP THERAPY HHN Last administered on 07/04/18 08:04; Admin Dose 3 ML; Start 06/28/18 at 14:00 Albuterol/ Ipratropium (Duoneb) 3 ml Q2H RESP THERAPY PRN HHN shortness of breath; Start 06/28/18 at 12:30 Budesonide (Pulmicort (Neb)) 0.5 mg BID RESP THERAPY HHN Last administered on 07/04/18 08:05; Admin Dose 0.5 MG; Start 06/28/18 at 20:00 Diagnostic Test (Pha) (Accu-Chek) 1 ea 02 XX Last administered on 07/02/18at 02:00; Admin Dose 1 EA; Start 06/29/18 at 02:00 Insulin Aspart (Novolog Insulin Pen) NOVOLOG *MILD* ALGORITHM WITH MEALS BEDTIME SC Last administered on 07/03/18 21:27; Admin Dose 2 UNIT; Start 06/28/18 at 18:00 Guaifenesin/ Codeine Phosphate (Robitussin Ac Liquid Cup) 5 ml Q4H PRN PO cough; Start 06/28/18 at 12:30 Miscellaneous Information 1 ea NOTE XX ; Start 06/28/18 at 13:30 Glucose (Glutose) 15 gm Q15M PRN PO DECREASED GLUCOSE; Start 06/28/18 at 13:30 Glucose (Glutose) 22.5 gm Q15M PRN PO DECREASED GLUCOSE; Start 06/28/18 at 13:30 Dextrose (D50w Syringe) 25 ml Q15M PRN IV DECREASED GLUCOSE; Start 06/28/18 at 13:30 Dextrose (D50w Syringe) 50 ml Q15M PRN IV DECREASED GLUCOSE; Start 06/28/18 at 13:30 Glucagon (Glucagen) 1 mg Q15M PRN IM DECREASED GLUCOSE; Start 06/28/18 at 13:30 Glucose (Glutose) 15 gm Q15M PRN BUCCAL DECREASED GLUCOSE; Start 06/28/18 at 13:30 Citric Acid/ Sodium Citrate (Bicitra) 30 ml BID PO Last administered on 07/04/18 08:22; Admin Dose 30 ML; Start 06/29/18 at 21:00 Ferrous Sulfate (Ferrous Sulfate (Ec)) 325 mg BID PO Last administered on 07/04/18 08:22; Admin Dose 325 MG; Start 06/29/18 at 12:00 Docusate Sodium (Colace) 100 mg BID PO Last administered on 07/04/18 08:23; Admin Dose 100 MG; Start 06/29/18 at 12:00 Meropenem/Sodium Chloride 50 ml @ 100 mls/hr Q12 IVPB Last administered on 07/04/18 08:28; Admin Dose 100 MLS/HR; Start 06/29/18 at 21:00 Linezolid (Zyvox) 600 mg BID PO Last administered on 07/04/18 08:23; Admin Dose 600 MG; Start 06/29/18 at 21:00 Insulin Glargine (Lantus) 10 units DAILY@0800 SC Last administered on 07/04/18 08:26; Admin Dose 10 UNITS; Start 07/01/18 at 08:00 Epoetin Martinez (Epogen (Non Esrd/Non Oncology)) 8,000 units MoWeFr@17 SC Last administered on 07/01/18 17:14; Admin Dose 8,000 UNITS; Start 07/01/18 at 17:00 Ferric Sodium Gluconate Complex 125 mg/Sodium Chloride 110 ml @ 110 mls/hr DAILY@1300 IVPB Last administered on 07/03/18 13:16; Admin Dose 110 MLS/HR; Start 07/01/18 at 13:00; Stop 07/05/18 at 13:59 Prednisone (Prednisone) 40 mg DAILY PO Last administered on 07/04/18 08:23; Admin Dose 40 MG; Start 07/02/18 at 10:00 Carvedilol (Coreg) 12.5 mg BID PO Last administered on 07/04/18 08:23; Admin Dose 12.5 MG; Start 07/03/18 at 21:00 Heparin Sodium (Porcine) (Heparin (1000 Units/ml)) 4,000 unit AFTER DIALYSIS CATHETER ; Start 07/03/18 at 13:00 Albumin Human 100 ml @ 100 mls/hr WITH DIALYSIS PRN IV SBP <90 DURING DIALYSIS; Start 07/03/18 at 13:00 Sodium Chloride (NS) -To prime the dialy... DIRECTED FOR HD PRN IV HD; Start 07/03/18 at 13:00 Hydralazine HCl (Apresoline) 50 mg TID PO Last administered on 07/04/18 08:23; Admin Dose 50 MG; Start 07/03/18 at 13:00 Ondansetron HCl (Zofran Inj) 4 mg Q4 PRN IV NAUSEA/VOMITING; Start 07/04/18 at 10:30 LEONARD DOBBINS MD Jul 04, 2018 11:50
[2018-07-04] MEDS: SOD FERRIC GLUC COMPLX 125 MG in SOD CHLORIDE 0.9% 100 ML IVPB SCH ×2 (13:00→19:41)
[2018-07-04] MEDS ORDERED: HEPARIN 1000 UNITS/ML 10 ML INJ ONE (13:49)
[2018-07-04] MEDS ORDERED: LIDOCAINE 1% (MDV) 20 ML INJ ONE ×2 (13:49→14:42)
--- NOTE | 2018-07-04 14:37 | CONS ---
Assessment/Plan Assessment/Plan Hospital Course (Demo Recall) Patient is alert, feels better Microbiology: Cultures remain negative Antimicrobials: Merrem Zyvox Indwelling: Right arm PICC line Physical examination: Well-developed fragile elderly woman who is awake in no distress. Head atraumatic normocephalic sclera nonicteric vehicle mucosa dry neck is supple chest rise symmetrical breath sounds diminished bases heart: S1-S2 abdomen soft bowel sounds present extremities with right great toe wound dry and clean Assessment: 1. Sepsis, present on admission 2. Acute hypoxemic respiratory failure/pneumonia 3. Right great toe osteomyelitis status post debridement and resection of the bone on previous admission 4. Diabetes 5. Acute on chronic kidney disease 6. Diastolic dysfunction Plan: Continues to improve, pulmonary recommendations noted, will discontinue antibiotics and observe Consultation Date/Type/Reason Admit Date/Time Jun 28, 2018 at 13:23 Initial Consult Date 06/28/18 Type of Consult id Requesting Provider: TIANA POWELL Date/Time of Note DATE: 07/04/18 TIME: 14:36 Exam/Review of Systems Exam Vitals Vital Signs Date Temp Pulse Resp B/P (MAP) Pulse Ox O2 O2 Flow FiO2 Time Delivery Rate 07/04/18 168/73 13:29 (104) 07/04/18 30 13:24 07/04/18 80 22 98 Nasal 20.0 13:23 Cannula 07/04/18 98.5 11:05 Intake and Output 07/03/18 07/03/18 07/04/18 1515:00 23:00 07:00 IntakeIntake Total 650 ml 800 ml BalanceBalance 650 ml 800 ml Results Result Diagram: 07/04/18 0533 07/04/18 0532 Results 24hrs Laboratory Tests Test 07/03/18 17:09 07/03/18 20:06 07/03/18 21:03 07/04/18 04:47 Bedside Glucose 179 245 H 177 Blood Gas Blood arterial Specimen Source Arterial Blood 07/03/2018 8:46:24 Date Drawn PM Arterial Blood 7.432 pH (Temp corrected) Arterial Blood 33.2 L pCO2 (Temp correct) Arterial Blood 61.4 L pO2 (Temp corrected) Arterial Blood 21.6 L HCO3 Arterial Blood -2.0 Base Excess Arterial Blood 90.7 L Oxygen Saturatio n Andrew Test N/A Arterial Blood LB Gas Puncture Site Arterial 0.1 Blood Carboxyhem oglobin Arterial Blood 0.2 Methemoglobin Blood Gas A-a O2 178.4 H Differential Oxyhemoglobin 90.4 L Percent Blood Gas 37.0 Temperature Blood Gas NASAL CANNULA Modality FiO2 39.0 Blood Gas RH Notified Whom Blood Gas 07/03/2018 8:57:38 Notified Time PM Test 07/04/18 05:32 07/04/18 05:33 07/04/18 07:40 07/04/18 08:18 Prothrombin Time 14.2 Prothrombin Time 1.1 Ratio INR 1.09 International Normalized Ratio Activated 29.4 Partial Thrombop last Time Sodium Level 137 Potassium Level 4.6 Chloride Level 104 Carbon Dioxide 22 Level Anion Gap 11 Blood Urea 72 H Nitrogen Creatinine 3.91 H Est Glomerular 12 L Filtrat Rate mL/min Glucose Level 161 Calcium Level 7.9 L Total Bilirubin 0.3 Direct Bilirubin 0.00 Indirect 0.3 Bilirubin Aspartate Amino 17 Transf (AST/SGOT ) Alanine 26 Aminotransferase (ALT/SGPT) Alkaline 84 Phosphatase Total Protein 5.1 L Albumin 2.8 L Globulin 2.30 Albumin/Globulin 1.21 Ratio White Blood 10.0 # Count Red Blood Count 3.23 L Hemoglobin 9.8 L Hematocrit 30.0 L Mean Corpuscular 92.9 Volume Mean Corpuscular 30.3 Hemoglobin Mean Corpuscular 32.7 Hemoglobin Vera nt Red Cell 13.2 Distribution Width Platelet Count 202 Mean Platelet 10.7 H Volume Immature 3.800 H Granulocytes % Neutrophils % 73.1 Lymphocytes % 12.3 L Monocytes % 10.5 Eosinophils % 0.1 Basophils % 0.2 Nucleated Red 0.0 Blood Cells % Immature 0.380 H Granulocytes # Neutrophils # 7.3 Lymphocytes # 1.2 Monocytes # 1.1 H Eosinophils # 0.0 Basophils # 0.0 Nucleated Red 0.0 Blood Cells # Phosphorus Level 5.7 H Magnesium Level 2.5 Lab Scanned BLOOD TRANSFUSIO Report N Bedside Glucose 153 Test 07/04/18 11:53 Bedside Glucose 115 Medications Medication Current Medications IV Flush (NS 3 ml) 3 ml PER PROTOCOL IV ; Start 06/28/18 at 12:30 Acetaminophen (Tylenol Tab) 650 mg Q6H PRN PO .PAIN 1-3 OR TEMP; Start 06/28/18 at 12:30 Acetaminophen/ Hydrocodone Bitart ([place] (5/325)) 1 tab Q6H PRN PO .PAIN 4-6 Last administered on 06/29/18 23:02; Admin Dose 1 TAB; Start 06/28/18 at 12:30 Morphine Sulfate (morphine) 2 mg Q4H PRN IV .PAIN 7-10; Start 06/28/18 at 12:30 Atorvastatin Calcium (Lipitor) 40 mg QHS PO Last administered on 07/03/18 21:05; Admin Dose 40 MG; Start 06/28/18 at 21:00 Hydralazine HCl (Apresoline) 10 mg Q4H PRN IV sbp >160 Last administered on 07/04/18 11:56; Admin Dose 10 MG; Start 06/28/18 at 12:30 Albuterol/ Ipratropium (Duoneb) 3 ml Q6HWA RESP THERAPY HHN Last administered on 07/04/18 13:21; Admin Dose 3 ML; Start 06/28/18 at 14:00 Albuterol/ Ipratropium (Duoneb) 3 ml Q2H RESP THERAPY PRN HHN shortness of breath; Start 06/28/18 at 12:30 Budesonide (Pulmicort (Neb)) 0.5 mg BID RESP THERAPY HHN Last administered on 07/04/18 08:05; Admin Dose 0.5 MG; Start 06/28/18 at 20:00 Diagnostic Test (Pha) (Accu-Chek) 1 ea 02 XX Last administered on 07/02/18 02:00; Admin Dose 1 EA; Start 06/29/18 at 02:00 Insulin Aspart (Novolog Insulin Pen) NOVOLOG *MILD* ALGORITHM WITH MEALS BEDTIME SC Last administered on 07/03/18 21:27; Admin Dose 2 UNIT; Start 06/28/18 at 18:00 Guaifenesin/ Codeine Phosphate (Robitussin Ac Liquid Cup) 5 ml Q4H PRN PO cough; Start 06/28/18 at 12:30 Miscellaneous Information 1 ea NOTE XX ; Start 06/28/18 at 13:30 Glucose (Glutose) 15 gm Q15M PRN PO DECREASED GLUCOSE; Start 06/28/18 at 13:30 Glucose (Glutose) 22.5 gm Q15M PRN PO DECREASED GLUCOSE; Start 06/28/18 at 13:30 Dextrose (D50w Syringe) 25 ml Q15M PRN IV DECREASED GLUCOSE; Start 06/28/18 at 13:30 Dextrose (D50w Syringe) 50 ml Q15M PRN IV DECREASED GLUCOSE; Start 06/28/18 at 13:30 Glucagon (Glucagen) 1 mg Q15M PRN IM DECREASED GLUCOSE; Start 06/28/18 at 13:30 Glucose (Glutose) 15 gm Q15M PRN BUCCAL DECREASED GLUCOSE; Start 06/28/18 at 13:30 Citric Acid/ Sodium Citrate (Bicitra) 30 ml BID PO Last administered on 07/04/18 08:22; Admin Dose 30 ML; Start 06/29/18 at 21:00 Ferrous Sulfate (Ferrous Sulfate (Ec)) 325 mg BID PO Last administered on 07/04/18 08:22; Admin Dose 325 MG; Start 06/29/18 at 12:00 Docusate Sodium (Colace) 100 mg BID PO Last administered on 07/04/18 08:23; Admin Dose 100 MG; Start 06/29/18 at 12:00 Meropenem/Sodium Chloride 50 ml @ 100 mls/hr Q12 IVPB Last administered on 07/04/18 08:28; Admin Dose 100 MLS/HR; Start 06/29/18 at 21:00 Linezolid (Zyvox) 600 mg BID PO Last administered on 07/04/18 08:23; Admin Dose 600 MG; Start 06/29/18 at 21:00 Insulin Glargine (Lantus) 10 units DAILY@0800 SC Last administered on 07/04/18 08:26; Admin Dose 10 UNITS; Start 07/01/18 at 08:00 Epoetin Martinez (Epogen (Non Esrd/Non Oncology)) 8,000 units MoWeFr@17 SC Last administered on 07/01/18 17:14; Admin Dose 8,000 UNITS; Start 07/01/18 at 17:00 Ferric Sodium Gluconate Complex 125 mg/Sodium Chloride 110 ml @ 110 mls/hr DAILY@1300 IVPB Last administered on 07/03/18 13:16; Admin Dose 110 MLS/HR; Start 07/01/18 at 13:00; Stop 07/05/18 at 13:59 Prednisone (Prednisone) 40 mg DAILY PO Last administered on 3/4/19at 08:23; Admin Dose 40 MG; Start 07/02/18 at 10:00 Carvedilol (Coreg) 12.5 mg BID PO Last administered on 07/04/18at 08:23; Admin Dose 12.5 MG; Start 07/03/18 at 21:00 Heparin Sodium (Porcine) (Heparin (1000 Units/ml)) 4,000 unit AFTER DIALYSIS CATHETER ; Start 07/03/18 at 13:00 Albumin Human 100 ml @ 100 mls/hr WITH DIALYSIS PRN IV SBP <90 DURING DIALYSIS; Start 07/03/18 at 13:00 Sodium Chloride (NS) -To prime the dialy... DIRECTED FOR HD PRN IV HD; Start 07/03/18 at 13:00 Hydralazine HCl (Apresoline) 50 mg TID PO Last administered on 07/04/18at 13:30; Admin Dose 50 MG; Start 07/03/18 at 13:00 Ondansetron HCl (Zofran Inj) 4 mg Q4 PRN IV NAUSEA/VOMITING; Start 07/04/18 at 10:30 CAMERON TAPIA NP Jul 04, 2018 14:37
[2018-07-04] MEDS ORDERED: EPHEDrine 25 MG/5 ML SYG ONE (14:42)
[2018-07-04] MEDS ORDERED: PROPOFOL 40 ML ONE (14:42)
[2018-07-04] MEDS ORDERED: PHENYLephrine (100 MCG/ML) 10ML SYG ONE (14:42)
[2018-07-04] MEDS ORDERED: MIDAZOLAM 1 MG/ML 2 ML INJ ONE (14:43)
[2018-07-04] MEDS ORDERED: FENTAnyl 50 MCG/ML VIAL ONE (14:43)
--- NOTE | 2018-07-04 14:49 | PREAC ---
Date/Time of Note Date/Time of Note DATE: 07/04/18 TIME: 14:45 Anesthesia Eval and Record Evaluation Time Pre-Procedure Interview DATE: 07/04/18 TIME: 14:45 Age 63 Sex female NPO: 8 hrs Preoperative diagnosis CKD Planned procedure Permacath Past Medical History Past Medical History: Includes Cardio: HTN, Dyslipidemia, Other (see echo) Endo: Diabetes Pulm: Other (mild P HTN) Renal: CKD GI: Obesity Surgery & Anesthesia Issues No known issue Meds Anticoagulation: No Beta Symone within 24 hr: No Reason Beta Symone not given: Pt. not on B-Symone Active Scripts Citric Acid/Sodium Citrate* (Bicitra* (PEDIATRIC)) 1 Meq/Ml Soln, 30 ML PO TID, #90 1 Refill Prov:JUSTINO CHAVARRIA S. 06/15/18 Levofloxacin* (Levaquin*) 500 Mg Tablet, 500 MG PO Q48H for 60 Days, TAB Prov:JUSTINO CHAVARRIA S. 06/15/18 Insulin Glargine,Hum.rec.anlog (Basaglar Kwikpen U-100) 100 Unit/1 Ml Insuln.pen, 13 UNIT SC QHS, #1 BOTTLE 3 Refills Prov:JESUS CHAVARRIAP S. 06/15/18 Amlodipine Besylate* (Amlodipine Besylate*) 10 Mg Tablet, 10 MG PO DAILY, #30 TAB 3 Refills Prov:ROBLES CHAVARRIAJUSTINO S. 06/15/18 Atorvastatin* (Atorvastatin*) 40 Mg Tablet, 40 MG PO QHS, #30 TAB 3 Refills Prov:JESUS CHAVARRIAP S. 06/15/18 Current Medications IV Flush (NS 3 ml) 3 ml PER PROTOCOL IV ; Start 06/28/18 at 12:30 Acetaminophen (Tylenol Tab) 650 mg Q6H PRN PO .PAIN 1-3 OR TEMP; Start 06/28/18 at 12:30 Acetaminophen/ Hydrocodone Bitart ([place] (5/325)) 1 tab Q6H PRN PO .PAIN 4-[address] administered on 06/29/18at 23:02; Admin Dose 1 TAB; Start 06/28/18 at 12:30 Morphine Sulfate (morphine) 2 mg Q4H PRN IV .PAIN 7-10; Start 06/28/18 at 12:30 Atorvastatin Calcium (Lipitor) 40 mg QHS PO Last administered on 07/03/18 21:05; Admin Dose 40 MG; Start 06/28/18 at 21:00 Hydralazine HCl (Apresoline) 10 mg Q4H PRN IV sbp >160 Last administered on 07/04/18 11:56; Admin Dose 10 MG; Start 06/28/18 at 12:30 Albuterol/ Ipratropium (Duoneb) 3 ml Q6HWA RESP THERAPY HHN Last administered on 07/04/18 13:21; Admin Dose 3 ML; Start 06/28/18 at 14:00 Albuterol/ Ipratropium (Duoneb) 3 ml Q2H RESP THERAPY PRN HHN shortness of breath; Start 06/28/18 at 12:30 Budesonide (Pulmicort (Neb)) 0.5 mg BID RESP THERAPY HHN Last administered on 07/04/18 08:05; Admin Dose 0.5 MG; Start 06/28/18 at 20:00 Diagnostic Test (Pha) (Accu-Chek) 1 ea 02 XX Last administered on 07/02/18at 02:00; Admin Dose 1 EA; Start 06/29/18 at 02:00 Insulin Aspart (Novolog Insulin Pen) NOVOLOG *MILD* ALGORITHM WITH MEALS BEDTIME SC Last administered on 07/03/18 21:27; Admin Dose 2 UNIT; Start 06/28/18 at 18:00 Guaifenesin/ Codeine Phosphate (Robitussin Ac Liquid Cup) 5 ml Q4H PRN PO cough; Start 06/28/18 at 12:30 Miscellaneous Information 1 ea NOTE XX ; Start 06/28/18 at 13:30 Glucose (Glutose) 15 gm Q15M PRN PO DECREASED GLUCOSE; Start 06/28/18 at 13:30 Glucose (Glutose) 22.5 gm Q15M PRN PO DECREASED GLUCOSE; Start 06/28/18 at 13:30 Dextrose (D50w Syringe) 25 ml Q15M PRN IV DECREASED GLUCOSE; Start 06/28/18 at 13:30 Dextrose (D50w Syringe) 50 ml Q15M PRN IV DECREASED GLUCOSE; Start 06/28/18 at 13:30 Glucagon (Glucagen) 1 mg Q15M PRN IM DECREASED GLUCOSE; Start 06/28/18 at 13:30 Glucose (Glutose) 15 gm Q15M PRN BUCCAL DECREASED GLUCOSE; Start 06/28/18 at 13:30 Citric Acid/ Sodium Citrate (Bicitra) 30 ml BID PO Last administered on 07/04/18 08:22; Admin Dose 30 ML; Start 06/29/18 at 21:00 Ferrous Sulfate (Ferrous Sulfate (Ec)) 325 mg BID PO Last administered on 07/04/18 08:22; Admin Dose 325 MG; Start 06/29/18 at 12:00 Docusate Sodium (Colace) 100 mg BID PO Last administered on 07/04/18 08:23; Admin Dose 100 MG; Start 06/29/18 at 12:00 Meropenem/Sodium Chloride 50 ml @ 100 mls/hr Q12 IVPB Last administered on 07/04/18 08:28; Admin Dose 100 MLS/HR; Start 06/29/18 at 21:00 Linezolid (Zyvox) 600 mg BID PO Last administered on 07/04/18 08:23; Admin Dose 600 MG; Start 06/29/18 at 21:00 Insulin Glargine (Lantus) 10 units DAILY@0800 SC Last administered on 07/04/18 08:26; Admin Dose 10 UNITS; Start 07/01/18 at 08:00 Epoetin Martinez (Epogen (Non Esrd/Non Oncology)) 8,000 units MoWeFr@17 SC Last administered on 07/01/18 17:14; Admin Dose 8,000 UNITS; Start 07/01/18 at 17:00 Ferric Sodium Gluconate Complex 125 mg/Sodium Chloride 110 ml @ 110 mls/hr DAILY@1300 IVPB Last administered on 07/03/18 13:16; Admin Dose 110 MLS/HR; Start 07/01/18 at 13:00; Stop 07/05/18 at 13:59 Prednisone (Prednisone) 40 mg DAILY PO Last administered on 07/04/18 08:23; Admin Dose 40 MG; Start 07/02/18 at 10:00 Carvedilol (Coreg) 12.5 mg BID PO Last administered on 07/04/18 08:23; Admin Dose 12.5 MG; Start 07/03/18 at 21:00 Heparin Sodium (Porcine) (Heparin (1000 Units/ml)) 4,000 unit AFTER DIALYSIS CATHETER ; Start 07/03/18 at 13:00 Albumin Human 100 ml @ 100 mls/hr WITH DIALYSIS PRN IV SBP <90 DURING DIALYSIS; Start 07/03/18 at 13:00 Sodium Chloride (NS) -To prime the dialy... DIRECTED FOR HD PRN IV HD; Start 07/03/18 at 13:00 Hydralazine HCl (Apresoline) 50 mg TID PO Last administered on 07/04/18at 13:30; Admin Dose 50 MG; Start 07/03/18 at 13:00 Ondansetron HCl (Zofran Inj) 4 mg Q4 PRN IV NAUSEA/VOMITING; Start 07/04/18 at 10:30 Meds reviewed: Yes Allergies Coded Allergies: No Known Allergy (Unverified , 06/11/18) Allergies Reviewed: Yes Labs/Studies Labs Reviewed: Reviewed by anesthesiologist Result Diagram: 07/04/18 0533 07/04/18 0532 Laboratory Tests 07/04/18 05:32 07/04/18 05:33 test: N/A Studies: ECG (SR), 2D Echo (06/28/18 Mod MR, Mild P HTN, LVEF 55%) Pre-procedure Exam Last vitals Vital Signs Date Temp Pulse Resp B/P (MAP) Pulse Ox O2 O2 Flow FiO2 Time Delivery Rate 07/04/18 168/73 13:29 (104) 07/04/18 30 13:24 07/04/18 80 22 98 Nasal 20.0 13:23 Cannula 07/04/18 98.5 11:05 Airway: Adequate mouth opening Mallampati: Mallampati III Teeth: Abnormal (poor dentition, disrepair) Lung: Abnormal (decreased bilateral) Heart: Normal ASA Physical Status ASA physical status: 4 Emergency: None Planned Anesthetic General/MAC: MAC Pre-operative Attestations Prior to commencing anesthesia and surgery, the patient was re-evaluated, there was verification of: *The patient's identity *The results of appropriate recent lab work and preoperative vital signs *The above evaluation not changing prior to induction *Anesthetic plan, risk benefits, alternative and complications discussed with patient/family; questions answered; patient/family understands, accepts and wishes to proceed. Delivery And Mail Sorter used (RN) JOAQUIM BRANNON CRNA Jul 04, 2018 14:49
[2018-07-04] MEDS ORDERED: ONDANSETRON 4 MG INJ ONE (14:55)
--- NOTE | 2018-07-04 15:40 | HPN ---
Date/Time of Note Date/Time of Note DATE: 07/04/18 TIME: 15:40 Interval H&P Admission Note Pt. seen H&P reviewed: No system changes CHERELLE DOTSON MD Jul 04, 2018 15:40
--- NOTE | 2018-07-04 15:50 | PAC ---
Date/Time of Note Date/Time of Note DATE: 07/04/18 TIME: 15:50 Post-Anesthesia Notes Post-Anesthesia Note Last documented vital signs Vital Signs Date Temp Pulse Resp B/P (MAP) Pulse Ox O2 O2 Flow FiO2 Time Delivery Rate 07/04/18 168/73 13:29 (104) 07/04/18 30 13:24 07/04/18 80 22 98 Nasal 20.0 13:23 Cannula 07/04/18 98.5 11:05 Activity: WNL Respiratory function: WNL Cardiovascular function: WNL Mental status: Baseline Pain reasonably controlled: Yes Hydration appropriate: Yes Nausea/Vomiting absent: Yes JOAQUIM BRANNON CRNA Jul 04, 2018 15:50
[2018-07-04] MEDS ORDERED: LABETALOL HCL 20MG INJ ONE (15:56)
[2018-07-04] MEDS ORDERED: ONDANSETRON 4 MG INJ IV PRN (16:00)
[2018-07-04] MEDS ORDERED: FENTAnyl 50 MCG/ML VIAL IV PRN (16:00)
[2018-07-04] MEDS ORDERED: OXYCODONE/ACETAMINOPHEN (5/325) TAB PO PRN (16:00)
[2018-07-04] MEDS ORDERED: LABETALOL HCL 20MG INJ IV PRN (16:00)
[2018-07-04] MEDS: EPOETIN 4000 UNITS/ML (NON ESRD/NON ONCOLOGY) SC SCH (17:38)
[2018-07-04] MEDS: HEPARIN 1000 UNITS/ML 10 ML INJ CATHETER SCH (21:51)
[2018-07-04] MEDS: ATORVASTATIN 40 MG TAB PO SCH (21:56)
[2018-07-05] VITALS (25 sets, daily range): BP systolic 122–182; BP diastolic 50–78; PULSE 67–81; RESP 18
[2018-07-05] MEDS: INSULIN ASPART [NOVOLOG] 3 ML PEN SC SCH ×3 (08:00→17:51)
[2018-07-05] MEDS: ALBUTEROL/IPRATROPIUM (NEB) 3 ML AMP HHN SCH ×3 (08:01→20:46)
--- NOTE | 2018-07-05 08:32 | CONS ---
Assessment/Plan Assessment/Plan Assessment/Plan (Daily) Assessment and recommendations; 1. Patient admitted with sepsis due to possibly some element of pneumonia off antibiotics now. 2. Right foot osteo-myelitis status post wound debridement. 3. History of baseline renal insufficiency progressing to end-stage renal disease, now on hemodialysis. 4. History of hypertension. 5. Mild cardiomegaly. 6. History of hypertension and diabetes. 7. Mild anemia. 8. Persistent hypoxemia with interval improvement. Continue current supportive care. Wean down FiO2 to keep O2 saturation around 92%. Hemodialysis per levi maker. Consultation Date/Type/Reason Admit Date/Time Jun 28, 2018 at 13:23 Initial Consult Date 06/28/18 Type of Consult Pulmonary Patient's condition is stable. Still on high flow nasal cannula. Denies any significant shortness of breath. General exam; elderly female, awake alert, currently no distress. Requesting Provider: TIANA POWELL Date/Time of Note DATE: 07/05/18 TIME: 08:30 24 HR Interval Summary Free Text/Dictation Patient's condition is stable. Remains awake and alert. Denies any shortness of breath at rest. General exam; elderly female, awake alert, currently no distress. On high flow nasal cannula. Exam/Review of Systems Exam Vitals Vital Signs Date Temp Pulse Resp B/P (MAP) Pulse Ox O2 O2 Flow FiO2 Time Delivery Rate 07/05/18 74 20 96 30 08:05 07/05/18 99.0 172/77 High Flow 07:28 (108) 07/04/18 20.0 19:51 Intake and Output 07/04/18 07/04/18 07/05/18 1515:00 23:00 07:00 IntakeIntake Total 50 ml 600 ml OutputOutput Total 900 ml 201 ml BalanceBalance 50 ml -300 ml -201 ml Exam HEENT exam; supple neck, no JVD. No lymphadenopathy. Midline trachea. No thyromegaly. No neck masses. Chest exam; diminished but clear breath sounds. S1-S2 audible, no murmurs. Regular rhythm. Abdomen exam; soft, nontender. Nondistended. No organomegaly. Bowel sounds audible. Extremity exam; no peripheral edema. Pulses are diminished in lower extremities. Dressing applied to first toe. CAP CUTTER exam; no focal deficit. Results Result Diagram: 07/05/18 0513 07/05/18 05 Results 24hrs Laboratory Tests Test 07/04/18 11:53 07/04/18 17:30 07/04/18 22:13 07/05/18 05:13 Bedside Glucose 115 132 108 White Blood Count 11.6 H Red Blood Count 3.06 L Hemoglobin 9.4 L Hematocrit 28.3 L Mean Corpuscular Volume 92.5 Mean Corpuscular 30.7 Hemoglobin Mean Corpuscular 33.2 Hemoglobin Concent Red Cell Distribution 13.1 Width Platelet Count 142 # Mean Platelet Volume 10.4 Immature Granulocytes % 1.700 H Neutrophils % 77.7 H Lymphocytes % 13.0 L Monocytes % 7.1 Eosinophils % 0.3 Basophils % 0.2 Nucleated Red Blood 0.0 Cells % Immature Granulocytes # 0.200 H Neutrophils # 9.0 H Lymphocytes # 1.5 Monocytes # 0.8 Eosinophils # 0.0 Basophils # 0.0 Nucleated Red Blood 0.0 Cells # Sodium Level 135 Potassium Level 4.1 Chloride Level 100 Carbon Dioxide Level 26 Anion Gap 9 Blood Urea Nitrogen 40 #H Creatinine 2.49 #H Glucose Level 79 # Calcium Level 7.8 L Phosphorus Level 4.1 Magnesium Level 2.2 Albumin 2.7 L Test 07/05/18 08:19 Bedside Glucose 74 Medications Medication Current Medications IV Flush (NS 3 ml) 3 ml PER PROTOCOL IV ; Start 06/28/18 at 12:30 Acetaminophen (Tylenol Tab) 650 mg Q6H PRN PO .PAIN 1-3 OR TEMP; Start 06/28/18 at 12:30 Acetaminophen/ Hydrocodone Bitart ([place] (5/325)) 1 tab Q6H PRN PO .PAIN 4-6 Last administered on 06/29/18at 23:02; Admin Dose 1 TAB; Start 06/28/18 at 12:30 Morphine Sulfate (morphine) 2 mg Q4H PRN IV .PAIN 7-10; Start 06/28/18 at 12:30 Atorvastatin Calcium (Lipitor) 40 mg QHS PO Last administered on 07/04/18at 21:56; Admin Dose 40 MG; Start 06/28/18 at 21:00 Hydralazine HCl (Apresoline) 10 mg Q4H PRN IV sbp >160 Last administered on 07/04/18at 11:56; Admin Dose 10 MG; Start 06/28/18 at 12:30 Albuterol/ Ipratropium (Duoneb) 3 ml Q6HWA RESP THERAPY HHN Last administered on 07/05/18at 08:01; Admin Dose 3 ML; Start 06/28/18 at 14:00 Albuterol/ Ipratropium (Duoneb) 3 ml Q2H RESP THERAPY PRN HHN shortness of breath; Start 06/28/18 at 12:30 Budesonide (Pulmicort (Neb)) 0.5 mg BID RESP THERAPY HHN Last administered on 07/04/18 19:51; Admin Dose 0.5 MG; Start 06/28/18 at 20:00 Diagnostic Test (Pha) (Accu-Chek) 1 ea 02 XX Last administered on 07/02/18at 02:00; Admin Dose 1 EA; Start 06/29/18 at 02:00 Insulin Aspart (Novolog Insulin Pen) NOVOLOG *MILD* ALGORITHM WITH MEALS BEDTIME SC Last administered on 07/03/18 21:27; Admin Dose 2 UNIT; Start 06/28/18 at 18:00 Guaifenesin/ Codeine Phosphate (Robitussin Ac Liquid Cup) 5 ml Q4H PRN PO cough; Start 06/28/18 at 12:30 Miscellaneous Information 1 ea NOTE XX ; Start 06/28/18 at 13:30 Glucose (Glutose) 15 gm Q15M PRN PO DECREASED GLUCOSE; Start 06/28/18 at 13:30 Glucose (Glutose) 22.5 gm Q15M PRN PO DECREASED GLUCOSE; Start 06/28/18 at 13:30 Dextrose (D50w Syringe) 25 ml Q15M PRN IV DECREASED GLUCOSE; Start 06/28/18 at 13:30 Dextrose (D50w Syringe) 50 ml Q15M PRN IV DECREASED GLUCOSE; Start 06/28/18 at 13:30 Glucagon (Glucagen) 1 mg Q15M PRN IM DECREASED GLUCOSE; Start 06/28/18 at 13:30 Glucose (Glutose) 15 gm Q15M PRN BUCCAL DECREASED GLUCOSE; Start 06/28/18 at 13:30 Ferrous Sulfate (Ferrous Sulfate (Ec)) 325 mg BID PO Last administered on 9at 21:56; Admin Dose 325 MG; Start 06/29/18 at 12:00 Docusate Sodium (Colace) 100 mg BID PO Last administered on 07/04/18 21:55; Admin Dose 100 MG; Start 06/29/18 at 12:00 Insulin Glargine (Lantus) 10 units DAILY@0800 SC Last administered on 07/04/18 08:26; Admin Dose 10 UNITS; Start 07/01/18 at 08:00 Epoetin Martinez (Epogen (Non Esrd/Non Oncology)) 8,000 units MoWeFr@17 SC Last administered on 07/04/18 17:38; Admin Dose 8,000 UNITS; Start 07/01/18 at 17:00 Ferric Sodium Gluconate Complex 125 mg/Sodium Chloride 110 ml @ 110 mls/hr DAILY@1300 IVPB Last administered on 07/04/18 19:41; Admin Dose 110 MLS/HR; Start 07/01/18 at 13:00; Stop 07/05/18 at 13:59 Prednisone (Prednisone) 40 mg DAILY PO Last administered on 07/04/18 08:23; Admin Dose 40 MG; Start 07/02/18 at 10:00 Heparin Sodium (Porcine) (Heparin (1000 Units/ml)) 4,000 unit AFTER DIALYSIS CATHETER Last administered on 07/04/18 21:51; Admin Dose 4,000 UNIT; Start 07/03/18 at 13:00 Albumin Human 100 ml @ 100 mls/hr WITH DIALYSIS PRN IV SBP <90 DURING DIALYSIS; Start 07/03/18 at 13:00 Sodium Chloride (NS) -To prime the dialy... DIRECTED FOR HD PRN IV HD; Start 07/03/18 at 13:00 Hydralazine HCl (Apresoline) 50 mg TID PO Last administered on 07/04/18 21:56; Admin Dose 50 MG; Start 07/03/18 at 13:00 Ondansetron HCl (Zofran Inj) 4 mg Q4 PRN IV NAUSEA/VOMITING Last administered on 07/04/18 23:46; Admin Dose 4 MG; Start 07/04/18 at 10:30 Carvedilol (Coreg) 25 mg BID PO Last administered on 07/04/18 22:00; Admin Dose 25 MG; Start 07/04/18 at 21:00 WILL JOHNSON Jul 05, 2018 08:32
[2018-07-05] MEDS: DOCUSATE SODIUM 100 MG CAP PO SCH (08:49)
[2018-07-05] MEDS: predniSONE 20 MG TAB PO SCH (08:49)
[2018-07-05] MEDS: FERROUS SULFATE (EC) 325 MG TAB PO SCH (08:50)
[2018-07-05] MEDS: ONDANSETRON 4 MG INJ IV PRN (08:56)
[2018-07-05] MEDS: INSULIN GLARGINE [LANTus] (100 UNITS/ML) SYG SC SCH (09:00)
--- NOTE | 2018-07-05 09:03 | PN ---
Date/Time of Note Date/Time of Note DATE: 07/05/18 TIME: 09:03 Assessment/Plan VTE Prophylaxis Risk score (from Ns)>0 risk: 10 SCD applied (from Ns): No SCD contraindicated: other Pharmacological prophylaxis: heparin Lines/Catheters IV [facility] Type [facility]from [facility] Peripheral IV Urinary Cath still in place: No Assessment/Plan Assessment/Plan 1. Acute hypoxic respiratory failure - Patient still requiring high flow at 20L 30% FIO2 - Secondary to multifocal pneumonia and pulmonary edema - VQ scan showed low prob of PE - Garcia evaluation 2. Multifocal pneumonia - Pulmonology on board and appreciate recommendations. Wean O2 as tolerated. Completed course of antibiotics - continue on nebs and steroid taper - ID on board and appreciate consultation 3. Pulmonary edema and bilateral effusions - started on HD yesterday and will monitor for improvement in respiratory status 4. Stage II diastolic dysfunction - ECHO results noted - Cardiology consultation appreciate and signed off. call as needed 5. Anemia, chronic disease- improving - most likely secondary to hyperproliferation - Completed course of IV iron and will continue on PO supplements as well as Epo 6. ESRD on HD - Nephrology on board and appreciate consultation. HD initiated 07/04/18 7. left arm swelling-resolved - US neg for DVT 8. Right foot osteomyelitis with recent debridement approximately 2 weeks ago - Podiatry consultation appreciated. No need for IV antibiotics given infected bone removed - ID on board as well 9. Diabetes mellitus - Lantus and insulin sliding scale as needed 10. Hypertension - Continue home meds and will adjust as needed for better BP control 11. Disposition - Continue weaning down high flow - CM on board to arrange outpatient HD chair - Garcia evaluation pending Result Diagram: 07/05/18 0513 07/05/18 0513 Results 24hrs Laboratory Tests Test 07/04/18 11:53 07/04/18 17:30 07/04/18 22:13 07/05/18 05:13 Bedside Glucose 115 132 108 White Blood Count 11.6 H Red Blood Count 3.06 L Hemoglobin 9.4 L Hematocrit 28.3 L Mean Corpuscular Volume 92.5 Mean Corpuscular 30.7 Hemoglobin Mean Corpuscular 33.2 Hemoglobin Concent Red Cell Distribution 13.1 Width Platelet Count 142 # Mean Platelet Volume 10.4 Immature Granulocytes % 1.700 H Neutrophils % 77.7 H Lymphocytes % 13.0 L Monocytes % 7.1 Eosinophils % 0.3 Basophils % 0.2 Nucleated Red Blood 0.0 Cells % Immature Granulocytes # 0.200 H Neutrophils # 9.0 H Lymphocytes # 1.5 Monocytes # 0.8 Eosinophils # 0.0 Basophils # 0.0 Nucleated Red Blood 0.0 Cells # Sodium Level 135 Potassium Level 4.1 Chloride Level 100 Carbon Dioxide Level 26 Anion Gap 9 Blood Urea Nitrogen 40 #H Creatinine 2.49 #H Glucose Level 79 # Calcium Level 7.8 L Phosphorus Level 4.1 Magnesium Level 2.2 Albumin 2.7 L Test 07/05/18 08:19 Bedside Glucose 74 Subjective 24 Hr Interval Summary Free Text/Dictation Patient doing well and states nausea improves after medications. Tolerated HD yesterday and no new complaints. Exam/Review of Systems Exam Vitals Vital Signs Date Temp Pulse Resp B/P (MAP) Pulse Ox O2 O2 Flow FiO2 Time Delivery Rate 07/05/18 74 20 96 30 08:05 07/05/18 99.0 172/77 High Flow 07:28 (108) 07/04/18 20.0 19:51 Intake and Output 07/04/18 07/04/18 07/05/18 1515:00 23:00 07:00 IntakeIntake Total 50 ml 600 ml OutputOutput Total 900 ml 201 ml BalanceBalance 50 ml -300 ml -201 ml Exam General: Patient is laying in bed and answers questions appropriately Neck: Supple Respiratory: Coarse to auscultation bilaterally Cardiovascular: regular rate and rhythm, no obvious murmurs Gastrointestinal: soft, non-tender to palpation, bowel sounds heard. Neurological: Moves all extremities spontaneously Results Results 24hrs Laboratory Tests Test 07/04/18 11:53 07/04/18 17:30 07/04/18 22:13 07/05/18 05:13 Bedside Glucose 115 132 108 White Blood Count 11.6 H Red Blood Count 3.06 L Hemoglobin 9.4 L Hematocrit 28.3 L Mean Corpuscular Volume 92.5 Mean Corpuscular 30.7 Hemoglobin Mean Corpuscular 33.2 Hemoglobin Concent Red Cell Distribution 13.1 Width Platelet Count 142 # Mean Platelet Volume 10.4 Immature Granulocytes % 1.700 H Neutrophils % 77.7 H Lymphocytes % 13.0 L Monocytes % 7.1 Eosinophils % 0.3 Basophils % 0.2 Nucleated Red Blood 0.0 Cells % Immature Granulocytes # 0.200 H Neutrophils # 9.0 H Lymphocytes # 1.5 Monocytes # 0.8 Eosinophils # 0.0 Basophils # 0.0 Nucleated Red Blood 0.0 Cells # Sodium Level 135 Potassium Level 4.1 Chloride Level 100 Carbon Dioxide Level 26 Anion Gap 9 Blood Urea Nitrogen 40 #H Creatinine 2.49 #H Glucose Level 79 # Calcium Level 7.8 L Phosphorus Level 4.1 Magnesium Level 2.2 Albumin 2.7 L Test 07/05/18 08:19 Bedside Glucose 74 Medications Medication Current Medications IV Flush (NS 3 ml) 3 ml PER PROTOCOL IV ; Start 06/28/18 at 12:30 Acetaminophen (Tylenol Tab) 650 mg Q6H PRN PO .PAIN 1-3 OR TEMP; Start 06/28/18 at 12:30 Acetaminophen/ Hydrocodone Bitart ([place] (5/325)) 1 tab Q6H PRN PO .PAIN 4-6 Last administered on 06/29/18at 23:02; Admin Dose 1 TAB; Start 06/28/18 at 12:30 Morphine Sulfate (morphine) 2 mg Q4H PRN IV .PAIN 7-10; Start 06/28/18 at 12:30 Atorvastatin Calcium (Lipitor) 40 mg QHS PO Last administered on 07/04/18 21:56; Admin Dose 40 MG; Start 06/28/18 at 21:00 Hydralazine HCl (Apresoline) 10 mg Q4H PRN IV sbp >160 Last administered on 07/04/18 11:56; Admin Dose 10 MG; Start 06/28/18 at 12:30 Albuterol/ Ipratropium (Duoneb) 3 ml Q6HWA RESP THERAPY HHN Last administered on 07/05/18 08:01; Admin Dose 3 ML; Start 06/28/18 at 14:00 Albuterol/ Ipratropium (Duoneb) 3 ml Q2H RESP THERAPY PRN HHN shortness of breath; Start 06/28/18 at 12:30 Budesonide (Pulmicort (Neb)) 0.5 mg BID RESP THERAPY HHN Last administered on 07/04/18 19:51; Admin Dose 0.5 MG; Start 06/28/18 at 20:00 Diagnostic Test (Pha) (Accu-Chek) 1 02 XX Last administered on 07/02/18at 02:00; Admin Dose 1 EA; Start 06/29/18 at 02:00 Insulin Aspart (Novolog Insulin Pen) NOVOLOG *MILD* ALGORITHM WITH MEALS BEDTIME SC Last administered on 07/03/18at 21:27; Admin Dose 2 UNIT; Start at 18:00 Guaifenesin/ Codeine Phosphate (Robitussin Ac Liquid Cup) 5 ml Q4H PRN PO cough; Start 06/28/18 at 12:30 Miscellaneous Information 1 ea NOTE XX ; Start 06/28/18 at 13:30 Glucose (Glutose) 15 gm Q15M PRN PO DECREASED GLUCOSE; Start 06/28/18 at 13:30 Glucose (Glutose) 22.5 gm Q15M PRN PO DECREASED GLUCOSE; Start 06/28/18 at 13:30 Dextrose (D50w Syringe) 25 ml Q15M PRN IV DECREASED GLUCOSE; Start 06/28/18 at 13:30 Dextrose (D50w Syringe) 50 ml Q15M PRN IV DECREASED GLUCOSE; Start 06/28/18 at 13:30 Glucagon (Glucagen) 1 mg Q15M PRN IM DECREASED GLUCOSE; Start 06/28/18 at 13:30 Glucose (Glutose) 15 gm Q15M PRN BUCCAL DECREASED GLUCOSE; Start 06/28/18 at 13:30 Ferrous Sulfate (Ferrous Sulfate (Ec)) 325 mg BID PO Last administered on 07/05/18at 08:50; Admin Dose 325 MG; Start 06/29/18 at 12:00 Docusate Sodium (Colace) 100 mg BID PO Last administered on 07/05/18at 08:49; Admin Dose 100 MG; Start 06/29/18 at 12:00 Insulin Glargine (Lantus) 10 units DAILY@0800 SC Last administered on 07/05/18at 09:00; Admin Dose 10 UNITS; Start 07/01/18 at 08:00 Epoetin Martinez (Epogen (Non Esrd/Non Oncology)) 8,000 units MoWeFr@17 SC Last administered on 07/04/18at 17:38; Admin Dose 8,000 UNITS; Start 07/01/18 at 17:00 Ferric Sodium Gluconate Complex 125 mg/Sodium Chloride 110 ml @ 110 mls/hr DAILY@1300 IVPB Last administered on 07/04/18 19:41; Admin Dose 110 MLS/HR; Start 07/01/18 at 13:00; Stop 07/05/18 at 13:59 Prednisone (Prednisone) 40 mg DAILY PO Last administered on 07/05/18 08:49; Admin Dose 40 MG; Start 07/02/18 at 10:00 Heparin Sodium (Porcine) (Heparin (1000 Units/ml)) 4,000 unit AFTER DIALYSIS CATHETER Last administered on 07/04/18 21:51; Admin Dose 4,000 UNIT; Start 07/03/18 at 13:00 Albumin Human 100 ml @ 100 mls/hr WITH DIALYSIS PRN IV SBP <90 DURING DIALYSIS; Start 07/03/18 at 13:00 Sodium Chloride (NS) -To prime the dialy... DIRECTED FOR HD PRN IV HD; Start 07/03/18 at 13:00 Hydralazine HCl (Apresoline) 50 mg TID PO Last administered on 07/05/18 08:50; Admin Dose 50 MG; Start 07/03/18 at 13:00 Ondansetron HCl (Zofran Inj) 4 mg Q4 PRN IV NAUSEA/VOMITING Last administered on 07/05/18 08:56; Admin Dose 4 MG; Start 07/04/18 at 10:30 Carvedilol (Coreg) 25 mg BID PO Last administered on 07/05/18 08:49; Admin Dose 25 MG; Start 07/04/18 at 21:00 LORIN MORILLO MD Jul 05, 2018 09:03
[2018-07-05] MEDS: BUDESONIDE (NEB) 0.5MG/2ML AMP HHN SCH ×2 (09:23→20:47)
[2018-07-05] MEDS: SOD FERRIC GLUC COMPLX 125 MG in SOD CHLORIDE 0.9% 100 ML IVPB SCH (12:56)
--- NOTE | 2018-07-05 13:25 | CONS ---
Assessment/Plan Assessment/Plan Hospital Course (Demo Recall) Patient is alert, comfortable on high flow oxygen Microbiology: Cultures remain negative Indwelling: Right arm PICC line, right chest permacath Physical examination: Well-developed fragile elderly woman who is awake in no distress. Head atraumatic normocephalic sclera nonicteric vehicle mucosa dry neck is supple chest rise symmetrical breath sounds diminished bases heart: S1-S2 abdomen soft bowel sounds present extremities with right great toe wound dry and clean Assessment: 1. Sepsis, present on admission 2. Acute hypoxemic respiratory failure, status post pneumonia 3. History of right great toe osteomyelitis status post debridement and resection of the bone on previous admission, patient completed antibiotics 4. Diabetes 5. Acute on chronic kidney disease, started on hemodialysis 6. Diastolic dysfunction Plan: Remains unchanged, continue present care, monitor off antibiotics, reculture prn Consultation Date/Type/Reason Admit Date/Time Jun 28, 2018 at 13:23 Initial Consult Date 06/28/18 Type of Consult id Requesting Provider: TIANA POWELL Date/Time of Note DATE: 07/05/18 TIME: 13:24 Exam/Review of Systems Exam Vitals Vital Signs Date Temp Pulse Resp B/P (MAP) Pulse Ox O2 O2 Flow FiO2 Time Delivery Rate 07/05/18 69 18 95 30 13:05 07/05/18 98.6 163/72 High Flow 11:25 (102) 07/04/18 20.0 19:51 Intake and Output 07/04/18 07/04/18 07/05/18 1515:00 23:00 07:00 IntakeIntake Total 50 ml 600 ml OutputOutput Total 900 ml 201 ml BalanceBalance 50 ml -300 ml -201 ml Results Result Diagram: 07/05/18 0513 07/05/18 0513 Results 24hrs Laboratory Tests Test 07/04/18 17:30 07/04/18 22:13 07/05/18 05:13 07/05/18 08:19 Bedside Glucose 132 108 74 White Blood Count 11.6 H Red Blood Count 3.06 L Hemoglobin 9.4 L Hematocrit 28.3 L Mean Corpuscular 92.5 Volume Mean Corpuscular 30.7 Hemoglobin Mean Corpuscular 33.2 Hemoglobin Concent Red Cell Distribution 13.1 Width Platelet Count 142 # Mean Platelet Volume 10.4 Immature Granulocytes 1.700 H % Neutrophils % 77.7 H Lymphocytes % 13.0 L Monocytes % 7.1 Eosinophils % 0.3 Basophils % 0.2 Nucleated Red Blood 0.0 Cells % Immature Granulocytes 0.200 H # Neutrophils # 9.0 H Lymphocytes # 1.5 Monocytes # 0.8 Eosinophils # 0.0 Basophils # 0.0 Nucleated Red Blood 0.0 Cells # Sodium Level 135 Potassium Level 4.1 Chloride Level 100 Carbon Dioxide Level 26 Anion Gap 9 Blood Urea Nitrogen 40 #H Creatinine 2.49 #H Glucose Level 79 # Calcium Level 7.8 L Phosphorus Level 4.1 Magnesium Level 2.2 Albumin 2.7 L Test 07/05/18 11:14 07/05/18 11:39 Bedside Glucose 97 Lab Scanned Report REFERENCE LAB Medications Medication Current Medications IV Flush (NS 3 ml) 3 ml PER PROTOCOL IV ; Start 06/28/18 at 12:30 Acetaminophen (Tylenol Tab) 650 mg Q6H PRN PO .PAIN 1-3 OR TEMP; Start 06/28/18 at 12:30 Acetaminophen/ Hydrocodone Bitart ([place] (5/325)) 1 tab Q6H PRN PO .PAIN 4-6 Last administered on 06/29/18 23:02; Admin Dose 1 TAB; Start 06/28/18 at 12:30 Morphine Sulfate (morphine) 2 mg Q4H PRN IV .PAIN 7-10; Start 06/28/18 at 12:30 Atorvastatin Calcium (Lipitor) 40 mg QHS PO Last administered on 07/04/18 21:56; Admin Dose 40 MG; Start 06/28/18 at 21:00 Hydralazine HCl (Apresoline) 10 mg Q4H PRN IV sbp >160 Last administered on 07/04/18at 11:56; Admin Dose 10 MG; Start 06/28/18 at 12:30 Albuterol/ Ipratropium (Duoneb) 3 ml Q6HWA RESP THERAPY HHN Last administered on 07/05/18at 13:01; Admin Dose 3 ML; Start 06/28/18 at 14:00 Albuterol/ Ipratropium (Duoneb) 3 ml Q2H RESP THERAPY PRN HHN shortness of breath; Start 06/28/18 at 12:30 Budesonide (Pulmicort (Neb)) 0.5 mg BID RESP THERAPY HHN Last administered on 07/05/18 09:23; Admin Dose 0.5 MG; Start 06/28/18 at 20:00 Diagnostic Test (Pha) (Accu-Chek) 1 ea 02 XX Last administered on 07/02/18 02:00; Admin Dose 1 EA; Start 06/29/18 at 02:00 Insulin Aspart (Novolog Insulin Pen) NOVOLOG *MILD* ALGORITHM WITH MEALS BEDTIME SC Last administered on 07/03/18 21:27; Admin Dose 2 UNIT; Start 06/28/18 at 18:00 Guaifenesin/ Codeine Phosphate (Robitussin Ac Liquid Cup) 5 ml Q4H PRN PO cough; Start 06/28/18 at 12:30 Miscellaneous Information 1 ea NOTE XX ; Start 06/28/18 at 13:30 Glucose (Glutose) 15 gm Q15M PRN PO DECREASED GLUCOSE; Start 06/28/18 at 13:30 Glucose (Glutose) 22.5 gm Q15M PRN PO DECREASED GLUCOSE; Start 06/28/18 at 13:30 Dextrose (D50w Syringe) 25 ml Q15M PRN IV DECREASED GLUCOSE; Start 06/28/18 at 13:30 Dextrose (D50w Syringe) 50 ml Q15M PRN IV DECREASED GLUCOSE; Start 06/28/18 at 13:30 Glucagon (Glucagen) 1 mg Q15M PRN IM DECREASED GLUCOSE; Start 06/28/18 at 13:30 Glucose (Glutose) 15 gm Q15M PRN BUCCAL DECREASED GLUCOSE; Start 06/28/18 at 13:30 Ferrous Sulfate (Ferrous Sulfate (Ec)) 325 mg BID PO Last administered on 07/05/18 08:50; Admin Dose 325 MG; Start 06/29/18 at 12:00 Docusate Sodium (Colace) 100 mg BID PO Last administered on 07/05/18 08:49; Admin Dose 100 MG; Start 06/29/18 at 12:00 Insulin Glargine (Lantus) 10 units DAILY@0800 SC Last administered on 07/05/18 09:00; Admin Dose 10 UNITS; Start 07/01/18 at 08:00 Epoetin Martinez (Epogen (Non Esrd/Non Oncology)) 8,000 units MoWeFr@17 SC Last adm inistered on 07/04/18 17:38; Admin Dose 8,000 UNITS; Start 07/01/18 at 17:00 Ferric Sodium Gluconate Complex 125 mg/Sodium Chloride 110 ml @ 110 mls/hr DAILY@1300 IVPB Last administered on 07/05/18 12:56; Admin Dose 110 MLS/HR; Start 07/01/18 at 13:00; Stop 07/05/18 at 13:59 Prednisone (Prednisone) 40 mg DAILY PO Last administered on 07/05/18 08:49; Admin Dose 40 MG; Start 07/02/18 at 10:00 Heparin Sodium (Porcine) (Heparin (1000 Units/ml)) 4,000 unit AFTER DIALYSIS CATHETER Last administered on 07/04/18 21:51; Admin Dose 4,000 UNIT; Start 07/03/18 at 13:00 Albumin Human 100 ml @ 100 mls/hr WITH DIALYSIS PRN IV SBP <90 DURING DIALYSIS; Start 07/03/18 at 13:00 Sodium Chloride (NS) -To prime the dialy... DIRECTED FOR HD PRN IV HD; Start 07/03/18 at 13:00 Hydralazine HCl (Apresoline) 50 mg TID PO Last administered on 07/05/18 12:56; Admin Dose 50 MG; Start 07/03/18 at 13:00 Ondansetron HCl (Zofran Inj) 4 mg Q4 PRN IV NAUSEA/VOMITING Last administered on 07/05/18 08:56; Admin Dose 4 MG; Start 07/04/18 at 10:30 Carvedilol (Coreg) 25 mg BID PO Last administered on 07/05/18 08:49; Admin Dose 25 MG; Start 07/04/18 at 21:00 CAMERON TAPIA NP Jul 05, 2018 13:25
[2018-07-05] MEDS ORDERED: BUDESONIDE HHN (14:01)
[2018-07-05] MEDS ORDERED: CARV25TA79 PO (14:01)
[2018-07-05] MEDS ORDERED: HYDR-3672 PO (14:01)
[2018-07-05] MEDS ORDERED: PRED20TA PO (14:01)
[2018-07-05] MEDS ORDERED: FER325 PO (14:01)
[2018-07-05] MEDS ORDERED: INSU100I33 SC (14:01)
--- NOTE | 2018-07-05 14:07 | PDOCDIS ---
Discharge Instructions DIAGNOSIS Discharge Diagnosis 1. Acute hypoxic respiratory failure 2. Multifocal pneumonia 3. Pulmonary edema and bilateral effusions 4. Stage II diastolic dysfunction 5. Anemia, chronic disease- improving 6. CRISTINE on CKD 7. left arm swelling-resolved 8. Right foot osteomyelitis with recent debridement approximately 2 weeks ago 9. Diabetes mellitus 10. Hypertension CONDITION [id number] Patient Condition: [address] Stable HOME CARE INSTRUCTIONS: [id number] Diet Instructions: [id number] Low Fat /Cholesterol [id number] Special Diet: [id number] renal diet FOLLOW UP/APPOINTMENTS Follow-up Plan 1. Follow up with your primary care physician in 1 week 2. Continue dialysis as scheduled 3. Continue all medications for blood pressure 4. Continue iron supplements as prescribed 5. If any issues, please go to your nearest emergency department LORIN MORILLO MD Jul 05, 2018 14:07
--- NOTE | 2018-07-05 17:53 | DS ---
Date/Time of Note Date/Time of Note DATE: 07/05/18 TIME: 17:45 Discharge Summary Admission/Discharge Info Admit Date/Time Jun 28, 2018 at 13:23 Discharge Date/Time 07/05/18 Discharge Diagnosis 1. Acute hypoxic respiratory failure 2. Multifocal pneumonia 3. Pulmonary edema and bilateral effusions 4. Stage II diastolic dysfunction 5. Anemia, chronic disease- improving 6. CRISTINE on CKD 7. left arm swelling-resolved 8. Right foot osteomyelitis with recent debridement approximately 2 weeks ago 9. Diabetes mellitus 10. Hypertension Patient Condition: Stable Consults Nephrology- Dr. Peters Cardiology- Dr. Pritchett Infectious disease- Dr. Hough Pulmonology- Dr. Kirk Podiatry- Dr Ky FULLER- Dr Levine Procedures PROCEDURE: PLACEMENT OF RIGHT INTERNAL JUGULAR VENOUS TUNNELED DIALYSIS CATHETER. CLINICAL INDICATION: Renal failure. TECHNIQUE: Prior to the procedure, informed consent was obtained. Risks including bleeding, infection, and pneumothorax were explained to the patient and/or the patient's family. The patient and/or the patient's family understood and was willing to proceed. A procedural pause was performed. The patient's name, date of , and procedure to be performed were verified. The central line was inserted with all elements of maximal sterile barrier technique. All of the following were used: head covering, facial mask, sterile gown, sterile gloves, a large sterile sheet, hand hygiene, and 2% chlorhexidine for cutaneous antisepsis. The right neck and anterior/superior chest wall was prepped and draped in usual sterile fashion. Limited sonography of the right neck was then performed. Noted is a patent right internal jugular vein. Ultrasound images were recorded and stored in the patient's medical record. Following the local injection of Xylocaine, the right internal jugular vein was punctured under sonographic guidance with a 20-gauge needle through which a 0.018 inch floppy tip guidewire was advanced into the superior vena cava. The tract was dilated to 5 Cuban and the wire was then replaced with a 0.035 in Amplatz guidewire. A tunnel was then created from the anterior lateral aspect of the superior right chest wall to the puncture site in the neck and the catheter was pulled through the tract. Serial dilatation was then performed and a 16 Cuban peel away sheath was introduced. The 14.5 Cuban 23cm tip to cuff Angiodynamics BioFlo DuraMax dialysis catheter was advanced through the 16 Cuban peel-away sheath. The tip of the catheter was confirmed in position within the right atrium. The peel-away sheath was removed. The 2 ports were each flushed with 2.3 ml of 1:1000 heparin. The catheter was secured to the skin with 2-0 silk. The wound in the neck was closed with 4-0 Vicryl suture using subcuticular running technique. The site was dressed. The patient tolerated the procedure well. Specimens: None. Blood loss: 5 ml. Complications: None. Emergency Department: [facility]. Anesthesia: Local and deep sedation performed by the client solutions manager. Graft/Implant: Tunneled dialysis catheter. COMPARISON: Chest x-ray dated 07/03/2018. FINDINGS: Final radiographic images demonstrate the tip of the catheter in the upper right atrium. A total of 0.1 minutes of fluoroscopy time was used. The ultrasound images demonstrate the needle entering the jugular vein. Ultrasound images were recorded and stored in the patient's medical record. 6 images of the chest were obtained with image intensifier. IMPRESSION: 1. Percutaneous insertion of right internal jugular dialysis tunneled dialysis catheter under fluoroscopic and sonographic guidance. RPTAT: QQ .Luis E Levine MD, MD Date Time Electronically viewed and signed by .Luis E Levine MD, on 07/04/2018 15:58 PROCEDURE: Ultrasound guidance for placement of needle in right internal jugular vein. CLINICAL INDICATION: Venous access. TECHNIQUE: Prior to the procedure, informed consent was obtained. Risks including bleeding, infection, and pneumothorax were explained to the patient. The patient understood and was willing to proceed. A procedural pause was performed. The patient's name, date of , and procedure to be performed were verified. The central line was inserted with all elements of maximal sterile barrier technique. All of the following were used: head covering, facial mask, sterile gown, sterile gloves, a large sterile sheet, hand hygiene, and 2% chlorhexidine for cutaneous antisepsis. The right neck and anterior/superior chest wall was prepped and draped in usual sterile fashion. Limited sonography of the right neck was then performed. Noted is a patent right internal jugular vein. Ultrasound images were recorded and stored in the patient's medical record. Following the local injection of Xylocaine, the right internal jugular vein was punctured under sonographic guidance with a 20-gauge needle through which a 0.018 inch floppy tip guidewire was advanced into the superior vena cava. The patient tolerated the procedure well. The remainder of the procedure was performed and dictated under separate cover. COMPARISON: None. FINDINGS: The ultrasound images demonstrate a patent right internal jugular vein. The subsequent images demonstrate the needle entering the right internal jugular vein. IMPRESSION: 1. Ultrasound guidance for a needle placement in right internal jugular vein. RPTAT: QQ .Luis E Levine MD, Date Time Electronically viewed and signed by .Luis E Levine MD, on 07/04/2018 15:57 PROCEDURE: Portable chest x-ray. CLINICAL INDICATION: Desaturation. TECHNIQUE: Portable AP view of the chest. COMPARISON: 06/30/2018. FINDINGS: A right upper extremity PICC terminates at the superior cavoatrial junction. There is mild vascular congestion. The previously noted left lung opacities are nearly completely resolved. Patchy bibasilar opacities are noted. The cardiac silhouette is magnified. No pleural effusion is seen. There is no pneumothorax. IMPRESSION: Mild vascular congestion. Near complete resolution of the previously noted left lung opacities. Patchy bibasilar opacities, possibly representing atelectasis or pneumonia. RPTAT: HTAR .Kirby Reza MD, Date Time Electronically viewed and signed by .Kirby Reza MD, on 07/03/2018 21:15 PROCEDURE: US upper extremity arterial. CLINICAL INDICATION: Pain TECHNIQUE: Multiple sonographic images of the bilateral upper extremity arteries was obtained utilizing grayscale, color-flow, compressive sonography and doppler imaging. The images were reviewed on a PACS workstation. COMPARISON: None. FINDINGS: Velocities and waveforms were obtained as described below. Right arm Right subclavian artery: 150 cm/s; triphasic waveforms Right axillary artery: 159 cm/s; triphasic waveforms Right brachial artery: 145 cm/s; triphasic waveforms Right radial artery: 90 cm/s; triphasic waveforms Right ulnar artery: 111 cm/s; triphasic waveforms Left arm Left subclavian artery: 127 cm/s; triphasic waveforms Left axillary artery: 136 cm/s; triphasic waveforms Left brachial artery: 144 cm/s; triphasic waveforms Left radial artery: 84 cm/s; triphasic waveforms Left ulnar artery: 115 cm/s; triphasic waveforms IMPRESSION: Unremarkable bilateral upper extremity arterial Doppler ultrasound. RPTAT: AA .Lisandro Scales MD, MD Date Time Electronically viewed and signed by .Lisandro Scales MD, MD on 07/02/2018 06:53 PROCEDURE: CT left arm and forearm without contrast. CLINICAL INDICATION: Swelling TECHNIQUE: CT scan of the left arm and forearm was performed on a multi -slice scanner. No IV contrast was administered. Coronal and sagittal reformatted images were obtained from the axial source images. The total exam DLP equals 733 mGy-cm. The CDTI volume was 12 mGy. Images were reviewed on a high-resolution PACS workstation. DICOM images are available. One or more of the following dose reduction techniques were used: Automated exposure control Adjustment of the mA and/or kV according to patient size. Use of iterative reconstruction technique. COMPARISON: None. FINDINGS: Note that the examination is limited in evaluation due to the arm being scanned at the side of the patient and not raised with some streak artifact from the chest and abdominal wall limiting evaluation of bony detail. There is no acute fracture or bony destructive changes of the humerus. The muscles and soft tissues around the humerus are unremarkable. There is a 2 mm calcific structure adjacent to the distal infraspinatus tendon near the footprint from a small focus of calcific tendinosis. Mild degenerative changes of the glenohumeral and acromioclavicular joints is noted. There are mild degenerative changes within the elbow although slightly limited evaluation due to the streak artifact from the adjacent patient's abdominal wall. There is no significant joint effusion within the elbow. Small cyst may be present within the radial head as well as small enthesophytes along the lateral epicondyle. There is mild to moderate edema with fat stranding within the subcutaneous soft tissues of the posterior elbow extending to the dorsal aspect of the forearm. No large fluid collections are visualized. The radius and ulna are unremarkable in appearance without acute fracture or bony destructive changes. RPTAT: EE IMPRESSION: 1. Mild to moderate edema within the subcutaneous soft tissues of the posterior elbow extending to the dorsal forearm. No large drainable fluid collections. 2. No acute fracture or bony destructive changes within the humerus or forearm. 3. Mild degenerative changes within the shoulders and elbows as described above. 4. Small 2 mm focus of calcific tendinosis adjacent to the infraspinatus tendon near the footprint. .Casandra Andres MD, MD Date Time Electronically viewed and signed by .Casandra Andres MD, MD on 07/02/2018 10:37 PROCEDURE: XR Chest CLINICAL INDICATION: pna chf , shortness of breath TECHNIQUE: Frontal view of the chest COMPARISON: DR CHEST 06/29/2018; FAROOQ CHANCE CHEST 07/04/2017; CR CHEST 03/28/2013 FINDINGS: Stable right PICC line. The cardiomediastinal silhouette is within upper normal limits. Increased bilateral perihilar markings. Increased patchy opacities of the bilateral lungs, worse on the left. Possible small left pleural effusion No radiographic evidence of significant pneumothorax. No suspicious osseous lesions. IMPRESSION: Increased patchy opacities of the bilateral lungs, worse on the left, concerning for pulmonary infiltrate and/or pulmonary edema. RPTAT: HH Physician Marlo Date Time Electronically viewed and signed by Xavier Beyer Physician on 06/30/2018 10:40 PROCEDURE: US upper extremity Venous. CLINICAL INDICATION: Left arm edema TECHNIQUE: Multiple sonographic images of the left upper extremity venous system was obtained utilizing grayscale, color-flow, compressive sonography and doppler imaging with augmentation. The images were reviewed on a PACS workstation. COMPARISON: None. FINDINGS: There is normal compressibility and flow within the left internal jugular vein, subclavian vein, axillary vein, brachial, basilic, cephalic, radial and ulnar veins. RPTAT: AA IMPRESSION: No sonographic evidence for venous thrombosis. .Lisandro Scales MD, MD Date Time Electronically viewed and signed by .Lisandro Scales MD, MD on 06/30/2018 16:38 PROCEDURE: XR Chest. CLINICAL INDICATION: Shortness of breath. TECHNIQUE: Single frontal view. COMPARISON: 06/28/2018. FINDINGS: A right arm PICC line tip is in the cavoatrial junction region. There is patchy air space disease bilaterally in the mid and lower lung zones consistent pulmonary edema or bilateral pneumonia with left worse than right, improved. The heart size is normal. There is no right pleural effusion. There is a small left pleural effusion. There is no pneumothorax. IMPRESSION: 1. Improved appearance of the lungs. 2. No other change from the 06/28/2018 chest radiograph. RPTAT: QQ .Luis E Levine MD, Date Time Electronically viewed and signed by .Luis E Levine MD, MD on 06/29/2018 10:52 PROCEDURE: XR Chest. CLINICAL INDICATION: Chest pain TECHNIQUE: Single portable view of the chest was obtained COMPARISON: DR [facility]URN CHEST 06/14/2018; FAROOQ CHANCE CHEST 07/04/2017 FINDINGS: The heart is enlarged. There are bilateral perihilar and lower lobe infiltrates, suspicious for pulmonary vascular congestion. There is a new 1.7 cm left upper lobe nodular opacity. There is a small left pleural effusion. There is a right-sided PICC line in place. There is no pneumothorax. RPTAT: AA IMPRESSION: Mild Cardiomegaly. New bilateral perihilar and lower lobe infiltrates, suspicious for pulmonary v ascular congestion. New left upper lobe nodular opacity measuring 1.7 cm. Follow-up after treatment is recommended. .Lisandro Scales MD, MD Date Time Electronically viewed and signed by .Lisandro Scales MD, MD on 06/28/2018 11:21 PROCEDURE: CT Chest without contrast. CLINICAL INDICATION: Shortness of breath, PNA? PE? dissection TECHNIQUE: CT scan of the chest was performed on a multidetector high- resolution CT scanner. Coronal and sagittal reformatted images were obtained from the axial source images. DICOM images are available. CTDIvol 8.49 mGy, and DLP 302.88 mGy.cm. One or more of the following dose reduction techniques were used: - Automated exposure control. - Adjustment of the mA and/or kV according to patient size. - Use of iterative reconstruction technique. COMPARISON: DR VERNON 06/28/2018 FINDINGS: Lungs: There are multiple scattered ground-glass opacities and consolidations throughout the bilateral lungs, but worse in the left upper lobe. There is mild interlobular septal thickening of the upper lobes. Dependent consolidation/atelectasis of the left lower lobe. Pleura: Moderate bilateral pleural effusions. Mediastinum: Mediastinal lymphadenopathy as described below. Cardiovascular: Right PICC with tip at the cavoatrial junction. There are coronary artery and aortic calcifications. No evidence of aortic aneurysm. Lymph nodes: Enlarged aortopulmonic window lymph nodes measuring up to 10 mm. Enlarged subcarinal lymph node measuring 13 mm. Musculoskeletal: Degenerative changes of the spine. Upper abdomen: Cholelithiasis. IMPRESSION: 1. Multiple ground-glass and consolidative opacities of the bilateral lungs, concerning for multifocal pneumonia. There may also be a component of pulmonary edema. Consider follow-up CT chest in 3 to 6 months to assess for resolution. 2. Moderate bilateral pleural effusions. Adjacent left lower lobe consolidation/atelectasis. 3. Enlarged mediastinal lymph nodes may be reactive. Recommend attention on follow-up. 4. No evidence of aortic aneurysm. Evaluation for aortic dissection is limited without IV contrast. 5. Evaluation for pulmonary embolus is limited without IV contrast. 6. Cholelithiasis. RPTAT: HH Physician Marlo Date Time Electronically viewed and signed by Physician Marlo on 06/28/2018 13:26 PROCEDURE: US Lower extremity Venous. CLINICAL INDICATION: Bilateral lower extremity edema TECHNIQUE: Multiple sonographic images of the bilateral lower extremity deep venous system was obtained utilizing grayscale, color-flow, compressive sonography and doppler imaging with augmentation. The images were reviewed on a PACS workstation. COMPARISON: None. FINDINGS: There is normal compressibility and flow within the bilateral common femoral, femoral , posterior tibial and popliteal veins. RPTAT: AA IMPRESSION: No sonographic evidence for deep venous thrombosis. .Lisandro Scales MD, MD Date Time Electronically viewed and signed by .Lisandro Scales MD, on 06/28/2018 16:19 PROCEDURE: Nuclear medicine VQ scan CLINICAL INDICATION: Chest pain. Shortness of breath. TECHNIQUE: 43.0 mCi of technetium-99m aerosolized DTPA was utilized for the ventilation study. 4.2 mCi of technetium 99m MAA was utilized for the perfusion study. Planar imaging which performed in multiple planes. Images were reviewed on the high resolution PACS workstation. COMPARISON: Chest from earlier the same date. FINDINGS: There is normal and homogeneous uptake throughout the lungs on the ventilation and perfusion scan. No matched or mismatched defects are identified. There is no evidence for pulmonary embolism. IMPRESSION: 1. Low probability VQ scan. RPTAT:AACC Physician Viridiana Date Time Electronically viewed and signed by Physician Viridiana on 06/28/2018 16:07 Hx of Present Illness Patient is a female the past medical history significant for hypertension, chronic kidney disease, and recent osteomyelitis on the right foot being currently treated with IV antibiotics at home who presents to [facility] for 1 week of progressively worsening shortness of breath. Per patient and daughter at bedside, patient has been having worsening shortnes s of breath that began as a cough approximately 1 week ago but approximately produce more phlegm and eventually she began to have shortness of breath and chest pain associated with the cough. Patient denies any chest pain at this time and actually feels well after multiple intervention in the ED. Patient denies currently chest pain, headache, nausea, abdominal pain, Hospital Course Patient was admitted for treatment of acute respiratory failure. Pulmonology was consulted given multifocal pneumonia seen on imaging results. Patient was started on IV antibiotics, IV steroids, and bronchodilators. Patient was also found with CRISTINE on CKD and Nephrology was consulted for management. Patient renal function did not improve over course of hospitalization and HD was initiated. Patient was also evaluated by Cardiology due to new findings of diastolic heart failure with pulmonary edema. Patient was started on IV iron, PO iron and epogen given anemia with improvement. Podiatry was consulted as well given history of right foot OM but did not need antibiotics due to debridement removing source of infection. Patients overall condition improved, however, she remained on high flow and was not able to be weaned quickly even after HD was initiated. Patient was evaluated by Jose and discharged for continue care of acute respiratory failure. Of note, patient was experiencing elevated BP and medication adjustments were made as needed for better control. Patient remained stable prior to discharge to [place]. Home Meds Active Scripts Prednisone* (Prednisone*) 20 Mg Tab, 40 MG PO DAILY for 7 Days, #7 TAB Prov:LORIN MORILLO MD 07/05/18 [Budesonide (Neb)] 0.5 MG/2 ML NEBU No Conflict Check, 0.5 MG HHN BID RESP THERAPY for 30 Days, #60 VIAL Prov:LORIN MORILLO MD 07/05/18 Hydralazine Hcl* (Apresoline*) 50 Mg Tab, 50 MG PO TID for 30 Days, #90 TAB Prov:LORIN MORILLO MD 07/05/18 Carvedilol* (Carvedilol*) 25 Mg Tablet, 25 MG PO BID for 30 Days, #60 TAB Prov:LORIN MORILLO MD 07/05/18 Ferrous Sulfate* (Ferrous Sulfate*) 325 Mg Tabec, 325 MG PO BID for 30 Days, #60 TAB Prov:LORIN MORILLO MD 07/05/18 Insulin Glargine,Hum.rec.anlog (Basaglar [place] U-100) 100 Unit/1 Ml Insuln.pen, 10 UNIT SC QHS, #1 BOTTLE 3 Refills Prov:LORIN MORILLO MD 07/05/18 Citric Acid/Sodium Citrate* (Bicitra* (PEDIATRIC)) 1 Meq/Ml Soln, 30 ML PO TID, #90 1 Refill Prov:JESUS CHAVARRIAP S. 06/15/18 Amlodipine Besylate* (Amlodipine Besylate*) 10 Mg Tablet, 10 MG PO DAILY, #30 TAB 3 Refills Prov:ARMEN CHAVARRIAEEP S. 06/15/18 Atorvastatin* (Atorvastatin*) 40 Mg Tablet, 40 MG PO QHS, #30 TAB 3 Refills Prov:JUSTINO CHAVARRIA S. 06/15/18 Discontinued Scripts Levofloxacin* (Levaquin*) 500 Mg Tablet, 500 MG PO Q48H for 60 Days, TAB Prov:JUSTINO CHAVARRIA S. 06/15/18 Follow-up Plan 1. Follow up with your primary care physician in 1 week 2. Continue dialysis as scheduled 3. Continue all medications for blood pressure 4. Continue iron supplements as prescribed 5. If any issues, please go to your nearest emergency department Primary Care Provider [facility] Time spent on discharge: > 30 minutes Pending Labs Laboratory Tests Test 07/04/18 22:13 07/05/18 05:13 07/05/18 08:19 07/05/18 11:14 Bedside 108 74 97 Glucose mg/dL (70-220) mg/dL (70-220) mg/dL (70-220) White Blood 11.6 Count 10^3/ul (4.8-1 0.8) Red Blood 3.06 Count 10^6/ul (4.20- 5.40) Hemoglobin 9.4 g/dl (12.0-16. 0) Hematocrit 28.3 % (37.0-47.0) Mean 92.5 Corpuscular fl (82.0-101.0 Volume ) Mean 30.7 Corpuscular pg (29.0-33.0) Hemoglobin Mean 33.2 Corpuscular g/dl (32.0-37. Hemoglobin Conc 0) ent Red Cell 13.1 Distribution % (11.5-14.5) Width Platelet Count 142 10^3/UL (140-4 15) Mean Platelet 10.4 Volume fl (7.4-10.4) Immature 1.700 Granulocytes % % (0.001-0.429 ) Neutrophils % 77.7 % (39.0-77.0) Lymphocytes % 13.0 % (15.0-51.0) Monocytes % 7.1 % (0.0-11.0) Eosinophils % 0.3 % (0.0-7.0) Basophils % 0.2 % (0.0-2.0) Nucleated Red 0.0 Blood Cells % /100WBC (0.0-0 .0) Immature 0.200 Granulocytes # 10^3/ul (0.0-0 .031) Neutrophils # 9.0 10^3/ul (1.6-7 .5) Lymphocytes # 1.5 10^3/ul (0.8-2 .9) Monocytes # 0.8 10^3/ul (0.3-0 .9) Eosinophils # 0.0 10^3/ul (0.0-0 .5) Basophils # 0.0 10^3/ul (0.0-0 .1) Nucleated Red 0.0 Blood Cells # 10^3/ul (0.0-0 .0) Sodium Level 135 mmol/L (135-14 4) Potassium 4.1 Level mmol/L (3.5-5. 1) Chloride Level 100 mmol/L (97-110 ) Carbon Dioxide 26 Level mmol/L (21-31) Anion Gap 9 (5-13) Blood Urea 40 Nitrogen mg/dl (7-20) Creatinine 2.49 mg/dl (0.44-1. 00) Glucose Level 79 mg/dl (70-220) Calcium Level 7.8 mg/dl (8.4-10. 2) Phosphorus 4.1 Level mg/dl (2.5-4.9 ) Magnesium 2.2 Level mg/dl (1.7-2.5 ) Albumin 2.7 g/dl (3.3-4.9) Test 07/05/18 11:39 07/05/18 17:35 Lab Scanned REFERENCE Report LAB [id number] Bedside 91 Glucose mg/dL (70-220) LORIN MORILLO MD Jul 05, 2018 17:53
--- NOTE | 2018-07-05 18:39 | CONS ---
Assessment/Plan Assessment/Plan Assessment/Plan (Daily) 1. acute kidney injury on CKD IV due to ATN from pneumonia and hemodynamics from CHF - stared on HD on 07/05/18 2. Multifocal pneumonia 3. possibel CHF, diastolic vs systolic - ECHO showed EF 55% with stage II diastolic dysfunction 4. H/O HTN 5. H/o HL 6. Anemia of CKD IV 7. Right diabetic foot ulcer - s/p excisional debridement with primary closure (DOS: 06/13/18) 8. Right foot osteomyelitis - s/p excisional debridement and resection of bone (DOS: 06/13/18) 9. H/o IDDM with peripheral neuropathy 10. metabolic acidosis due to progressive CKD worsening Plan: s/p Right chest permacath placed on 07/05/18- s/p HD first yesterday 200 cc removed, Bp stable - will plan for another HD tomorrow , HIV, hepatitis panel negative , ECHO on 06/28/18 showed EF 55% with stage II diastolic dysfunction IV abx for Pneumonia, Renally dose all abx and monitor electrolytes Epogen 8000 units SQ MWF [place] [facility] [place] by Case management consult will follow up Consultation Date/Type/Reason Admit Date/Time Jun 28, 2018 at 13:23 Initial Consult Date 06/28/18 Type of Consult NEPHROLOGY Requesting Provider: TIANA POWELL Date/Time of Note DATE: 07/05/18 TIME: 18:39 24 HR Interval Summary Free Text/Dictation started on HD yesterday after Permacath placement, s/p Hd x 2 days in [place]row, Bp stable Exam/Review of Systems Exam Vitals Vital Signs Date Temp Pulse Resp B/P (MAP) Pulse Ox O2 O2 Flow FiO2 Time Delivery Rate 07/05/18 71 18:15 07/05/18 94 30 17:22 07/05/18 18 156/61 High Flow 16:00 (92) 07/05/18 99.8 15:30 07/04/18 20.0 19:51 Intake and Output 07/04/18 07/04/18 07/05/18 1515:00 23:00 07:00 IntakeIntake Total 50 ml 600 ml OutputOutput Total 900 ml 201 ml BalanceBalance 50 ml -300 ml -201 ml Exam General: alert, awake Head: Normocephalic atraumatic Eyes: EOMI, pupils reactive to light Neck: Supple, nontender, midline Respiratory: Coarse to auscultation bilaterally Cardiovascular: regular rate, no obvious murmurs Gastrointestinal: non-tender to palpation, bowel sounds heard. Neurological: Moves all extremities spontaneously Skin: No new skin lesions Results Result Diagram: 07/05/18 0513 07/05/18 0513 Results 24hrs Laboratory Tests Test 07/04/18 22:13 07/05/18 05:13 07/05/18 08:19 07/05/18 11:14 Bedside Glucose 108 74 97 White Blood Count 11.6 H Red Blood Count 3.06 L Hemoglobin 9.4 L Hematocrit 28.3 L Mean Corpuscular 92.5 Volume Mean Corpuscular 30.7 Hemoglobin Mean Corpuscular 33.2 Hemoglobin Concent Red Cell Distribution 13.1 Width Platelet Count 142 # Mean Platelet Volume 10.4 Immature Granulocytes 1.700 H % Neutrophils % 77.7 H Lymphocytes % 13.0 L Monocytes % 7.1 Eosinophils % 0.3 Basophils % 0.2 Nucleated Red Blood 0.0 Cells % Immature Granulocytes 0.200 H # Neutrophils # 9.0 H Lymphocytes # 1.5 Monocytes # 0.8 Eosinophils # 0.0 Basophils # 0.0 Nucleated Red Blood 0.0 Cells # Sodium Level 135 Potassium Level 4.1 Chloride Level 100 Carbon Dioxide Level 26 Anion Gap 9 Blood Urea Nitrogen 40 #H Creatinine 2.49 #H Glucose Level 79 # Calcium Level 7.8 L Phosphorus Level 4.1 Magnesium Level 2.2 Albumin 2.7 L Test 07/05/18 11:39 07/05/18 17:35 Lab Scanned Report REFERENCE LAB Bedside Glucose 91 Medications Medication Current Medications IV Flush (NS 3 ml) 3 ml PER PROTOCOL IV ; Start 06/28/18 at 12:30 Acetaminophen (Tylenol Tab) 650 mg Q6H PRN PO .PAIN 1-3 OR TEMP; Start 06/28/18 at 12:30 Acetaminophen/ Hydrocodone Bitart (Fillmore (5/325)) 1 tab Q6H PRN PO .PAIN 4-6 Last administered on 06/29/18at 23:02; Admin Dose 1 TAB; Start 06/28/18 at 12:30 Morphine Sulfate (morphine) 2 mg Q4H PRN IV .PAIN 7-10; Start 06/28/18 at 12:30 Atorvastatin Calcium (Lipitor) 40 mg QHS PO Last administered on 07/04/18 21:56; Admin Dose 40 MG; Start 06/28/18 at 21:00 Hydralazine HCl (Apresoline) 10 mg Q4H PRN IV sbp >160 Last administered on 07/04/18 11:56; Admin Dose 10 MG; Start 06/28/18 at 12:30 Albuterol/ Ipratropium (Duoneb) 3 ml Q6HWA RESP THERAPY HHN Last administered on 07/05/18 13:01; Admin Dose 3 ML; Start 06/28/18 at 14:00 Albuterol/ Ipratropium (Duoneb) 3 ml Q2H RESP THERAPY PRN HHN shortness of breath; Start 06/28/18 at 12:30 Budesonide (Pulmicort (Neb)) 0.5 mg BID RESP THERAPY HHN Last administered on 07/05/18 09:23; Admin Dose 0.5 MG; Start 06/28/18 at 20:00 Diagnostic Test (Pha) (Accu-Chek) 1 ea 02 XX Last administered on 07/02/18 02:00; Admin Dose 1 EA; Start 06/29/18 at 02:00 Insulin Aspart (Novolog Insulin Pen) NOVOLOG *MILD* ALGORITHM WITH MEALS BEDTIME SC Last administered on 07/03/18 21:27; Admin Dose 2 UNIT; Start 06/28/18 at 18:00 Guaifenesin/ Codeine Phosphate (Robitussin Ac Liquid Cup) 5 ml Q4H PRN PO cough; Start 06/28/18 at 12:30 Miscellaneous Information 1 ea NOTE XX ; Start 06/28/18 at 13:30 Glucose (Glutose) 15 gm Q15M PRN PO DECREASED GLUCOSE; Start 06/28/18 at 13:30 Glucose (Glutose) 22.5 gm Q15M PRN PO DECREASED GLUCOSE; Start 06/28/18 at 13:30 Dextrose (D50w Syringe) 25 ml Q15M PRN IV DECREASED GLUCOSE; Start 06/28/18 at 13:30 Dextrose (D50w Syringe) 50 ml Q15M PRN IV DECREASED GLUCOSE; Start 06/28/18 at 13:30 Glucagon (Glucagen) 1 mg Q15M PRN IM DECREASED GLUCOSE; Start 06/28/18 at 13:30 Glucose (Glutose) 15 gm Q15M PRN BUCCAL DECREASED GLUCOSE; Start 06/28/18 at 13:30 Ferrous Sulfate (Ferrous Sulfate (Ec)) 325 mg BID PO Last administered on 07/05/18 08:50; Admin Dose 325 MG; Start 06/29/18 at 12:00 Docusate Sodium (Colace) 100 mg BID PO Last administered on 07/05/18 08:49; Admin Dose 100 MG; Start 06/29/18 at 12:00 Insulin Glargine (Lantus) 10 units DAILY@0800 SC Last administered on 07/05/18 09:00; Admin Dose 10 UNITS; Start 07/01/18 at 08:00 Epoetin Martinez (Epogen (Non Esrd/Non Oncology)) 8,000 units MoWeFr@17 SC Last administered on 07/04/18 17:38; Admin Dose 8,000 UNITS; Start 07/01/18 at 17:00 Prednisone (Prednisone) 40 mg DAILY PO Last administered on 07/05/18 08:49; Admin Dose 40 MG; Start 07/02/18 at 10:00 Heparin Sodium (Porcine) (Heparin (1000 Units/ml)) 4,000 unit AFTER DIALYSIS CATHETER Last administered on 07/04/18 21:51; Admin Dose 4,000 UNIT; Start 07/03/18 at 13:00 Albumin Human 100 ml @ 100 mls/hr WITH DIALYSIS PRN IV SBP <90 DURING DIALYSIS; Start 07/03/18 at 13:00 Sodium Chloride (NS) -To prime the dialy... DIRECTED FOR HD PRN IV HD; Start 07/03/18 at 13:00 Hydralazine HCl (Apresoline) 50 mg TID PO Last administered on 07/05/18 12:56; Admin Dose 50 MG; Start 07/03/18 at 13:00 Ondansetron HCl (Zofran Inj) 4 mg Q4 PRN IV NAUSEA/VOMITING Last administered on 07/05/18 08:56; Admin Dose 4 MG; Start 07/04/18 at 10:30 Carvedilol (Coreg) 25 mg BID PO Last administered on 07/05/18 08:49; Admin Dose 25 MG; Start 07/04/18 at 21:00 LEONARD DOBBINS MD Jul 05, 2018 18:39
[2018-07-05] MEDS: HEPARIN 1000 UNITS/ML 10 ML INJ CATHETER SCH (19:26)
== END 2018-07-05 21:07 | DRG 871 ==
LOC: E/R 10:04 → 6WM 13:23
PROVIDERS: ADMIT Internal Medicine; ATTEND Internal Medicine
PROC: 30233N1 Transfusion of Nonautologous Red Blood Cells into Peripheral Vein, Percutaneous Approach (ICD-10-PCS; 2018-06-28)
PROC: 0JH63XZ Insertion of Tunneled Vascular Access Device into Chest Subcutaneous Tissue and Fascia, Percutaneous Approach (ICD-10-PCS; principal; 2018-07-04)
PROC: 02H633Z Insertion of Infusion Device into Right Atrium, Percutaneous Approach (ICD-10-PCS; 2018-07-04)
PROC: B214YZZ Fluoroscopy of Right Heart using Other Contrast (ICD-10-PCS; 2018-07-04)
PROC: 5A1D70Z Performance of Urinary Filtration, Intermittent, Less than 6 Hours Per Day (ICD-10-PCS; 2018-07-04)
DX: A41.9 Sepsis, unspecified organism (principal); N17.0 Acute kidney failure with tubular necrosis; J96.01 Acute respiratory failure with hypoxia; I50.31 Acute diastolic (congestive) heart failure; J18.1 Lobar pneumonia, unspecified organism; M86.9 Osteomyelitis, unspecified; E87.2 Acidosis; J98.11 Atelectasis; I13.0 Hypertensive heart and chronic kidney disease with heart failure and stage 1 through stage 4 chronic kidney disease, or unspecified chronic kidney disease; N18.4 Chronic kidney disease, stage 4 (severe); D63.1 Anemia in chronic kidney disease; E11.22 Type 2 diabetes mellitus with diabetic chronic kidney disease; E11.69 Type 2 diabetes mellitus with other specified complication; E11.42 Type 2 diabetes mellitus with diabetic polyneuropathy; Z79.4 Long term (current) use of insulin
CPT/HCPCS: 36415; 36430; 36558; 36600; 71045; 71250; 73200; 76942; 78582; 80048; 80053; 80069; 80202; 81001; 81003; 82570; 82803; 82962; 83010; 83036; 83540; 83605; 83615; 83735; 83880; 84100; 84145; 84300; 84443; 84484; 85025; 85045; 85378; 85610; 85730; 86021; 86038; 86480; 86635; 86703; 86704; 86709; 86803; 86850; 86900; 86901; 86920; 87040; 87081; 87086; 87340; 87400; 87449; 89190; 90935; 93005; 93306; 93923; 93970; 93971; 94640; 94664; 96365; 96366; 96367; A9540; C1750; J0360; J0690; J0692; J0885; J1644; J1815; J1940; J2185; J2250; J2370; J2405; J2543; J2916; J2920; J2930; J3010; J3370; J7040; J7512; L3260; P9016; P9047

== ENCOUNTER 2018-08-09 13:34 | Emergency (ER) | payer OTHER ==
[~2018-08-09] VITALS: Ht 157.5 cm; Wt 61.9 kg
[~2018-08-09 13:34] MED LIST changes: +BUDESONIDE HHN; +CARV25TA79 PO; +FER325 PO; +HYDR-3672 PO; -LEVO500T48 PO; +PRED20TA PO
[2018-08-09 13:45] VITALS: Ht 157.5 cm; Wt 61.9 kg
--- NOTE | 2018-08-09 18:18 | ERD ---
ER Documentation Chief Complaint Chief Complaint c/o right leg swelling. Dialysis pt. Was dialysed today HPI 63-year-old woman with history of end-stage kidney disease undergoing hemodialysis Wednesday, , Saturdays presents with right foot pain over the lateral aspect of the right foot times 2 weeks. She underwent excisional debridement of the right distal hallux for right foot osteomyelitis about a month ago and at that time. Since excisional debridement of the right hallux she states she has been putting her weight more on the lateral aspect of the right foot and states may be her discomfort is due to the changes in weight distribution. She denies fevers or chills, no discharge from the foot, no new skin ulcers, no chest pain or shortness of breath, no palpitations, no headache or blurry vision. ROS All systems reviewed and are negative except as per history of present illness. Medications Home Meds Active Scripts Ibuprofen* (Motrin*) 600 Mg Tab, 600 MG PO Q8 PRN for PAIN AND/OR INFLAMMATION, #30 TAB Prov:TIANA QURESHI MD 08/09/18 Prednisone* (Prednisone*) 20 Mg Tab, 40 MG PO DAILY for 7 Days, #7 TAB Prov:LORIN MORILLO MD 07/05/18 [Budesonide (Neb)] 0.5 MG/2 ML NEBU No Conflict Check, 0.5 MG HHN BID RESP THERAPY for 30 Days, #60 VIAL Prov:LORIN MORILLO MD 07/05/18 Hydralazine Hcl* (Apresoline*) 50 Mg Tab, 50 MG PO TID for 30 Days, #90 TAB Prov:LORIN MORILLO MD 07/05/18 Carvedilol* (Carvedilol*) 25 Mg Tablet, 25 MG PO BID for 30 Days, #60 TAB Prov:LORIN MORILLO MD 07/05/18 Ferrous Sulfate* (Ferrous Sulfate*) 325 Mg Tabec, 325 MG PO BID for 30 Days, #60 TAB Prov:LORIN MORILLO MD 07/05/18 Insulin Glargine,Hum.rec.anlog (Basaglar Kwikpen U-100) 100 Unit/1 Ml Insuln.pen, 10 UNIT SC QHS, #1 BOTTLE 3 Refills Prov:LORIN MORILLO MD 07/05/18 Citric Acid/Sodium Citrate* (Bicitra* (PEDIATRIC)) 1 Meq/Ml Soln, 30 ML PO TID, #90 1 Refill Prov:ARMEN CHAVARRIAEEP S. 06/15/18 Amlodipine Besylate* (Amlodipine Besylate*) 10 Mg Tablet, 10 MG PO DAILY, #30 TAB 3 Refills Prov:ARMEN CHAVARRIAEEP S. 06/15/18 Atorvastatin* (Atorvastatin*) 40 Mg Tablet, 40 MG PO QHS, #30 TAB 3 Refills Prov:ARMEN CHAVARRIAEEP S. 06/15/18 Allergies Allergies: Coded Allergies: No Known Allergy (Unverified , 06/11/18) PMhx/Soc Chronic kidney disease, CHF, right foot ulcer, right foot osteomyelitis, diabetes mellitus, peripheral neuropathy History of Surgery: Yes (RIGHT FOOR GREAT TOE) Anesthesia Reaction: No Hx Neurological Disorder: No Hx Respiratory Disorders: No Hx Cardiac Disorders: Yes (HTN) Hx Psychiatric Problems: No Hx Miscellaneous Medical Probl: No Hx Alcohol Use: No Hx Substance Use: No Hx Tobacco Use: No FmHx Family History: No diabetes Physical Exam Vitals Vital Signs Date Temp Pulse Resp B/P (MAP) Pulse Ox O2 O2 Flow FiO2 Time Delivery Rate 08/09/18 73 17 120/49 94 Room Air 18:30 (72) 08/09/18 99.4 76 20 128/63 94 13:45 (84) Physical Exam Const: No acute distress, afebrile Head: Atraumatic Eyes: Normal Conjunctiva ENT: Normal External Ears, Nose and Mouth. Neck: Full range of motion. No meningismus. Resp: Clear to auscultation bilaterally Cardio: Regular rate and rhythm, no murmurs Abd: Soft, non tender, non distended. Normal bowel sounds Skin: No petechiae or rashes Back: No midline or flank tenderness Ext: No cyanosis, 2+ pitting edema in the lower extremities including the feet bilaterally, Symmetrical Neur: Awake and alert x3, no focal deficits or facial asymmetry Psych: Normal Mood and Affect Result Diagram: 08/09/180 08/09/181839 Results 24 hrs Laboratory Tests Test 08/09/18 18:40 White Blood Count 11.7 10^3/ul Red Blood Count 3.10 10^6/ul Hemoglobin 10.0 g/dl Hematocrit 30.8 % Mean Corpuscular Volume 99.4 fl Mean Corpuscular Hemoglobin 32.3 pg Mean Corpuscular Hemoglobin Concent 32.5 g/dl Red Cell Distribution Width 15.3 % Platelet Count 164 10^3/UL Mean Platelet Volume 11.2 fl Immature Granulocytes % 0.300 % Neutrophils % 63.6 % Lymphocytes % 12.2 % Monocytes % 11.0 % Eosinophils % 12.3 % Basophils % 0.6 % Nucleated Red Blood Cells % 0.0 /100WBC Immature Granulocytes # 0.040 10^3/ul Neutrophils # 7.4 10^3/ul Lymphocytes # 1.4 10^3/ul Monocytes # 1.3 10^3/ul Eosinophils # 1.4 10^3/ul Basophils # 0.1 10^3/ul Nucleated Red Blood Cells # 0.0 10^3/ul Erythrocyte Sedimentation Rate 30 mm/Hr Sodium Level 135 mmol/L Potassium Level 3.9 mmol/L Chloride Level 99 mmol/L Carbon Dioxide Level 27 mmol/L Anion Gap 9 Blood Urea Nitrogen 55 mg/dl Creatinine 4.40 mg/dl Est Glomerular Filtrat Rate mL/min 10 mL/min Glucose Level 75 mg/dl Calcium Level 7.9 mg/dl Total Bilirubin 0.4 mg/dl Direct Bilirubin 0.00 mg/dl Indirect Bilirubin 0.4 mg/dl Aspartate Amino Transf (AST/SGOT) 34 IU/L Alanine Aminotransferase (ALT/SGPT) 39 IU/L Alkaline Phosphatase 134 IU/L C-Reactive Protein 3.5 mg/dl Total Protein 6.0 g/dl Albumin 3.6 g/dl Globulin 2.40 g/dl Albumin/Globulin Ratio 1.50 Lipase 32 U/L Current Medications Medications Dose Sig/Mary Start Time Status Last (Trade) Ordered Route PRN Stop Time Admin Dose Reason Admin Ibuprofen 600 mg ONCE ONCE 08/09/18 DC 08/09/18 (Motrin) PO 18:30 08/09/18 19:08 18:31 Procedures/MDM IV line was established patient was placed on hair dresser rhythm strip revealed a sinus rhythm at about 70 bpm with upright P and T waves. Patient was afebrile EKG performed, read by me revealed a normal sinus rhythm at 74 bpm, normal axis, narrow QRS complex, no concerning ST elevations or depressions noted Ultrasound of the bilateral lower extremities performed about 1 month ago revealed out deep vein thrombosis .Lisandro Scales MD, Date Time Electronically viewed and signed by .Lisandro Scales MD, on 06/28/2018 16:19 X-ray right foot 3V Interpreted by me: IMPRESSION: 1. Interval partial bone loss of first distal phalangeal tuft, compatible with osteomyelitis. (These changes are due to ronguers excisional debridement of distal right hallux performed on 06/13/18, which was just after the last comparison x-ray) 2. Moderate osteoarthritis of talonavicular joint. Sclerotic changes of the dorsal navicular could be degenerative in nature or sequela of osteonecrosis. 3. Osteopenia. 4. Mild diffuse soft tissue swelling. I administered ibuprofen 600 mg p.o. for the patient's symptoms CBC and electrolytes were unremarkable, potassium was within normal limits, CRP level low Patient's vital signs are within normal limits at this time and pain has been controlled, she will follow-up with PMD for continued outpatient management and wound clinic for management of chronic skin ulcers and right foot osteomyelitis status post excisional debridement of tissue and bone about 1 month ago. I suspect she has changed the weight distribution on her right foot and has th erefore developed some discomfort, I doubt new or early osteomyelitis. The skin is intact over the swollen dorsal aspect of the right foot and there are no new ulcers. Patient feels much better at this time, and vital signs are normal, symptoms have improved. I did give strict instructions to return to the ED if symptoms continue or worsen, patient will otherwise follow-up with primary care phys ician. Patient understood instructions and agreed to plan. Disclaimer: Inadvertent spelling and grammatical errors are likely due to EHR/dictation software use and do not reflect on the overall quality of patient care. Also, please note that the electronic time recorded on this note does not necessarily reflect the actual time of the patient encounter. Departure Diagnosis: Primary Impression: Peripheral edema Additional Impressions: Foot sprain Encounter type: initial encounter Laterality: right Qualified Codes: S93.601A - Unspecified sprain of right foot, initial encounter End stage kidney disease Condition: TIANA Cortez MD Aug 09, 2018 18:18
[2018-08-09] MEDS ORDERED: IBUPROFEN 600 MG TAB PO ONE (18:30)
[2018-08-09] MEDS ORDERED: IBUP-1542 PO (20:43)
[2018-08-09 21:40] VITALS: BP 111/54; PULSE 70; RESP 21
== END 2018-08-09 21:40 | disposition home or self-care (01) ==
LOC: E/R 13:34
DX: S93.601A Unspecified sprain of right foot, initial encounter (principal); I12.0 Hypertensive chronic kidney disease with stage 5 chronic kidney disease or end stage renal disease; N18.6 End stage renal disease; I50.9 Heart failure, unspecified; E11.9 Type 2 diabetes mellitus without complications; R60.0 Localized edema; X58.XXXA Exposure to other specified factors, initial encounter; Y92.9 Unspecified place or not applicable; Z79.4 Long term (current) use of insulin
CPT/HCPCS: 36415; 73630; 80053; 83690; 85025; 85651; 86140; 93005

== ENCOUNTER 2018-08-15 11:59 | Emergency (ER) | payer OTHER ==
[~2018-08-15] VITALS: Wt 61.0 kg
[~2018-08-15 11:59] MED LIST changes: -BICS PO; -BUDESONIDE HHN; +IBUP-1542 PO; -PRED20TA PO
--- NOTE | 2018-08-15 13:17 | ERD ---
ER Documentation Chief Complaint Chief Complaint R FOOT PAIN NO TRAUMA. GEN WEAKNESS AND POOR PO INTAKE HPI The patient is a 63-year-old male, presenting to the ER because of decreased appetite, generalized weakness, chronic right foot pain from history of right foot osteomyelitis. She denies fever, chills, neck pain, chest pain, dyspnea, abdominal pain, vomiting, dizzy, diarrhea. She does not smoke nor drink Medical history: Hypertension, anemia, diabetes mellitus, dyslipidemia, chronic kidney disease on dialysis Wednesday and Wednesday, history of CHF, chronic right foot osteomyelitis Past surgical history: Right chest hemodialysis catheter ROS All systems reviewed and are negative except as per history of present illness. Medications Home Meds Active Scripts Hydrocodone/Acetaminophen (Bayard 5-325 Tablet) 1 Each Tablet, 1 TAB PO Q6H PRN for PAIN, #7 TAB Prov:ESTHER RIVERA MD 08/15/18 Ibuprofen* (Motrin*) 600 Mg Tab, 600 MG PO Q8 PRN for PAIN AND/OR INFLAMMATION, #30 TAB Prov:TIANA QURESHI MD 08/09/18 Hydralazine Hcl* (Apresoline*) 50 Mg Tab, 50 MG PO TID for 30 Days, #90 TAB Prov:LORIN MORILLO MD 07/05/18 Carvedilol* (Carvedilol*) 25 Mg Tablet, 25 MG PO BID for 30 Days, #60 TAB Prov:LORIN MORILLO MD 07/05/18 Ferrous Sulfate* (Ferrous Sulfate*) 325 Mg Tabec, 325 MG PO BID for 30 Days, #60 TAB Prov:LORIN MORILLO MD 07/05/18 Insulin Glargine,Hum.rec.anlog (Basaglar Kwikpen U-100) 100 Unit/1 Ml Insuln.pen, 10 UNIT SC QHS, #1 BOTTLE 3 Refills Prov:LORIN MORILLO MD 07/05/18 Amlodipine Besylate* (Amlodipine Besylate*) 10 Mg Tablet, 10 MG PO DAILY, #30 TAB 3 Refills Prov:JUSTINO CHAVARRIA S. 06/15/18 Atorvastatin* (Atorvastatin*) 40 Mg Tablet, 40 MG PO QHS, #30 TAB 3 Refills Prov:JUSTINO CHAVARRIA S. 06/15/18 Discontinued Scripts Prednisone* (Prednisone*) 20 Mg Tab, 40 MG PO DAILY for 7 Days, #7 TAB Prov:LORIN MORILLO MD 07/05/18 [Budesonide (Neb)] 0.5 MG/2 ML NEBU No Conflict Check, 0.5 MG HHN BID RESP THERAPY for 30 Days, #60 VIAL Prov:LORIN MORILLO MD 07/05/18 Citric Acid/Sodium Citrate* (Bicitra* (PEDIATRIC)) 1 Meq/Ml Soln, 30 ML PO TID, #90 1 Refill Prov:JUSTINO CHAVARRIA 06/15/18 Allergies Allergies: Coded Allergies: No Known Allergy (Unverified , 08/15/18) PMhx/Soc History of Surgery: Yes (RIGHT FIRST TOE AMPUTATION, DIALYSIS CATHETER PLACEME NT) Anesthesia Reaction: No Hx Neurological Disorder: No Hx Respiratory Disorders: No Hx Cardiac Disorders: Yes (HTN, HLD) Hx Psychiatric Problems: No Hx Miscellaneous Medical Probl: Yes (DM, ESRD, DIALYSIS T,TH,SAT) Hx Alcohol Use: No Hx Substance Use: No Hx Tobacco Use: No Physical Exam Vitals Vital Signs Date Temp Pulse Resp B/P (MAP) Pulse Ox O2 O2 Flow FiO2 Time Delivery Rate 08/15/18 98.6 68 17 124/44 99 Room Air 16:47 (70) 08/15/18 98.6 74 17 132/57 100 Room Air 16:46 (82) 08/15/18 98.6 72 17 121/42 99 Room Air 15:55 (68) 08/15/18 98.6 71 17 123/45 99 Room Air 14:47 (71) 08/15/18 98.6 66 20 129/60 99 12:02 (83) Physical Exam Const: No acute distress. Head: Atraumatic. Eyes: Normal Conjunctiva. ENT: Normal External Ears, Nose and Mouth. Neck: Full range of motion. No meningismus. Resp: Clear to auscultation bilaterally. Cardio: Regular rate and rhythm. Abd: Soft, non distended, normal bowel sounds, non tender. Skin: No petechiae or rashes. Back: No midline or flank tenderness. Ext: No cyanosis, or edema. Neur: Awake and alert. No focal deficit Psych: Normal Mood and Affect. Result Diagram: 08/15/18 1357 08/15/18 1357 Results 24 hrs Laboratory Tests Test 08/15/18 13:57 White Blood Count 11.1 10^3/ul Red Blood Count 3.28 10^6/ul Hemoglobin 10.6 g/dl Hematocrit 31.5 % Mean Corpuscular Volume 96.0 fl Mean Corpuscular Hemoglobin 32.3 pg Mean Corpuscular Hemoglobin Concent 33.7 g/dl Red Cell Distribution Width 14.3 % Platelet Count 185 10^3/UL Mean Platelet Volume 11.0 fl Immature Granulocytes % 3.000 % Neutrophils % 72.2 % Lymphocytes % 11.2 % Monocytes % 7.1 % Eosinophils % 5.7 % Basophils % 0.8 % Nucleated Red Blood Cells % 0.0 /100WBC Immature Granulocytes # 0.330 10^3/ul Neutrophils # 8.0 10^3/ul Lymphocytes # 1.2 10^3/ul Monocytes # 0.8 10^3/ul Eosinophils # 0.6 10^3/ul Basophils # 0.1 10^3/ul Nucleated Red Blood Cells # 0.0 10^3/ul Sodium Level 133 mmol/L Potassium Level 3.1 mmol/L Chloride Level 92 mmol/L Carbon Dioxide Level 32 mmol/L Anion Gap 9 Blood Urea Nitrogen 38 mg/dl Creatinine 3.90 mg/dl Est Glomerular Filtrat Rate mL/min 12 mL/min Glucose Level 80 mg/dl Calcium Level 7.4 mg/dl Total Bilirubin 0.3 mg/dl Direct Bilirubin 0.00 mg/dl Indirect Bilirubin 0.3 mg/dl Aspartate Amino Transf (AST/SGOT) 30 IU/L Alanine Aminotransferase (ALT/SGPT) 34 IU/L Alkaline Phosphatase 151 IU/L Total Protein 5.5 g/dl Albumin 3.2 g/dl Globulin 2.30 g/dl Albumin/Globulin Ratio 1.39 Lipase 10 U/L Current Medications Medications Dose Sig/Mary Start Time Status Last (Trade) Ordered Route PRN Stop Time Admin Dose Reason Admin Potassium 10 meq ONCE ONCE 08/15/18 DC 08/15/18 Chloride PO 16:30 16:20 (Klor-Con 10) 08/15/18 16:31 1 tab ONCE ONCE 08/15/18 DC Acetaminophen PO 16:30 / 08/15/18 16:31 Hydrocodone Bitart (Bayard (5/325)) Ondansetron 4 mg ONCE STAT 08/15/18 DC HCl (Zofran ODT 16:26 Odt) 08/15/18 16:27 Procedures/MDM [place] [address] Radiology Main Line: [phone] DIAGNOSTIC IMAGING REPORT Patient: CJ CHUN : 1955 Age: 63 Sex: F MR #: [id number] DOS: 08/15/18 1336 Ordering MD: ESTHER RIVERA MD Location: E/R Room/Bed: PROCEDURE: XR Chest. CLINICAL INDICATION: cough TECHNIQUE: Portable AP view of the chest was obtained. COMPARISON: CHEST 07/21/2018; [facility] CHEST 03/28/2013 FINDINGS: Mild patchy opacities in the left lung base. No focal appearing consolidation or edema. No effusion or pneumothorax. Cardiac silhouette is normal. No acute osseous abnormality. Large bore right-sided central venous catheter is in stable position with tip near the cavoatrial junction. IMPRESSION: Mild partial atelectasis versus early consolidation in the left lung base. RPTAT:AAJJ Physician Jeff Date Time Electronically viewed and signed by Physician Jeff on 08/15/2018 14:40 RF/ CC: ESTHER RIVERA MD [id number] EKG: Read by emergency physician Rate/Rhythm: Normal Sinus Rhythm 69 beats/min QRS, ST, T-waves: No ST elevation, no T inversion, prolong QT Impression: abnormal EKG MEDICAL MAKING DECISION: The patient is a 63-year-old female, presenting with generalized weakness of unclear etiology, acute hypokalemia, chronic right foot pain. She was treated with potassium chloride 10 mg p.o. for acute hypokalemia, Bayard 5 mg p.o. for pain and Zofran ODT for nausea with good response The differential diagnoses considered include but are not limited to depression, anxiety, electrolyte imbalance, dehydration, acute on chronic right foot ulcer mellitus Departure Diagnosis: Primary Impression: Weakness Additional Impressions: Hypokalemia Right foot pain Anemia Condition: Good Comments She was discharged with 7 tablets of Bayard 5 mg I discussed the findings with the patient. I advised the patient to follow-up with the primary physician in about 2-3 days, sooner if needed and return if any concern. Disclaimer: Inadvertent spelling and grammatical errors are likely due to EHR/dictation software use and do not reflect on the overall quality of patient care. Also, please note that the electronic time recorded on this note does not necessarily reflect the actual time of the patient encounter. ESTHER RIVERA MD Aug 15, 2018 13:17
[2018-08-15] MEDS ORDERED: HYDR-4011 PO (16:25)
[2018-08-15] MEDS ORDERED: ONDANSETRON (ODT) 4 MG TAB ODT STA (16:26)
[2018-08-15] MEDS ORDERED: POTASSIUM CHLORIDE (SR) 10 MEQ TAB PO ONE (16:30)
[2018-08-15] MEDS ORDERED: HYDROCODONE/APAP (5/325) TAB PO ONE (16:30)
[2018-08-15 16:47] VITALS: BP 124/44; PULSE 68; RESP 17
== END 2018-08-15 16:47 | disposition home or self-care (01) ==
LOC: E/R 11:59
DX: E87.6 Hypokalemia (principal); D64.9 Anemia, unspecified; N18.6 End stage renal disease; E11.22 Type 2 diabetes mellitus with diabetic chronic kidney disease; I13.2 Hypertensive heart and chronic kidney disease with heart failure and with stage 5 chronic kidney disease, or end stage renal disease; I50.9 Heart failure, unspecified; Z79.4 Long term (current) use of insulin; Z99.2 Dependence on renal dialysis
CPT/HCPCS: 36415; 71045; 80053; 83690; 85025; 93005